=== PATIENT | female | born 1935 | race Caucasian/White ===

== ENCOUNTER → 2016-11-02 | Outpatient (CLI) | payer OTHER ==
[2016-11-02] VITALS (7 sets, daily range): BP systolic 125–169; BP diastolic 55–69
[~2016-11-02] MED LIST: ACETAMINOPHEN 325 MG TABLET. PO ONE; ALPR0.25 PO; ASPI-482 PO; CALC-98 PO; CALC500T50 PO; CETI10TA16 PO; CLOP75TA PO; DIGO125T PO; DIPHENHYDRAMINE HCL 25 MG CAPSULE PO ONE; FURO40TA4 PO; FUROSEMIDE 20 MG/2 ML VIAL IVP ONE; GLIP10TA13 PO; HYDR-2678 PO; INSU100I13 SQ; INSU100V13 SQ; MECL25TA3 PO; METF500T4 PO; METO100T5 PO; METO25TA9 PO; MULT-245 PO; NITR0.4T6 SL; NITR100C62 PO; NITR1PAT3 TD; OMEP20CA9 PO; OMEP40CA5 PO; POTA20TA12 PO; PROAIR HFA8.5 GM INH; SENN1TAB70 PO; SPIR25TA3 PO; TRIA340. TP; WARF5TAB7 PO
[2016-11-02 08:12] LABS: HEMOGLOBIN 5.8 g/dL (12.0-15.5)
== END | disposition home or self-care (01) ==
LOC: OPS 07:10
PROVIDERS: ATTEND Internal Medicine Hematology & Oncology
DX: D50.8 Other iron deficiency anemias (principal)
CPT/HCPCS: 36415; 36430; 85014; 85018; 86850; 86870; 86900; 86901; 86902; 86922; 96374; P9016; Q0163

== ENCOUNTER 2016-11-04 17:04 | Inpatient (IN) | payer OTHER ==
[~2016-11-04] VITALS: Ht 157.5 cm; Wt 98.4 kg
[~2016-11-04 17:04] MED LIST changes: -ACETAMINOPHEN 325 MG TABLET. PO ONE; -CALC-98 PO; -DIPHENHYDRAMINE HCL 25 MG CAPSULE PO ONE; -FUROSEMIDE 20 MG/2 ML VIAL IVP ONE; -NITR100C62 PO; -OMEP20CA9 PO
--- NOTE | 2016-11-04 19:04 | PHYS DOC ---
Past Medical History Past Medical History: Anemia, CHF, COPD, Diabetes-Type II, High Cholesterol, Hypertension, UTI, Other Additional Past Medical Histor: MACULAR DEGENERATION Past Surgical History: Cholecystectomy, , Pacemaker Additional Past Surgical Histo: herniorrhaphy X 2 Alcohol Use: None Drug Use: None Adult General Chief Complaint Chief Complaint: BLOOD IN URINE HPI HPI Patient is a 81 year old female who presents with hematuria. Patient brought in by her daughters, after she has had continued hematuria. She started having this as well as lower abdominal cramping on Monday. She was seen by PCP and started on Macrobid for UTI. She has continued to have symptoms from since then. Per daughter's report that 2 days ago she had to have blood transfusion for chronic anemia. Of note, patient does take Coumadin and Plavix for A. fib and coronary artery disease. Review of Systems Review of Systems Constitutional: Denies fever or chills Eyes: Denies change in visual acuity or eye pain HENT: Denies nasal congestion or sore throat Respiratory: Denies cough or shortness of breath Cardiovascular: Denies chest pain GI: Lower abdominal cramping. Denies nausea, vomiting, bloody stools or diarrhea : Hematuria, frequency Musculoskeletal: Lower back ache. Denies joint pain Integument: Denies rash or skin lesions Neurologic: Denies headache, focal weakness or sensory changes Current Medications Current Medications Current Medications Medications (Trade) Dose Ordered Sig/Kenzie Start Time Stop Time Status Last Admin Dose Admin Acetaminophen (Tylenol) 650 mg PRN Q6HRS PRN 11/04/16 20:30 UNV Acetaminophen/ Hydrocodone Bitart (Lortab 5/325) 1 tab PRN Q6HRS PRN 11/04/16 20:30 UNV Alprazolam (Xanax) 0.25 mg HS PRN 11/04/16 20:30 UNV Aspirin (Ecotrin) 81 mg DAILY 11/05/16 09:00 UNV Ceftriaxone Sodium/Sodium Chloride (Rocephin/Iv Sodium Chloride 0.9% 50ml) 50 ml @ 100 mls/hr Q24H 11/05/16 08:00 UNV Ceftriaxone Sodium (Rocephin 1gm Ivpb For Omni) 50 ml @ 100 mls/hr 1X ONCE 11/04/16 20:00 11/04/16 20:29 DC 11/04/16 20:08 100 MLS/HR Cetirizine HCl (Zyrtec) 10 mg DAILY 11/05/16 09:00 UNV Clopidogrel Bisulfate (Plavix) 75 mg DAILY 11/05/16 09:00 UNV Dextrose 12.5 gm PRN Q15MIN PRN 11/04/16 20:30 UNV Digoxin (Lanoxin) 125 mcg DAILY 11/05/16 09:00 UNV Furosemide (Lasix) 20 mg BID 11/04/16 21:00 UNV Insulin Aspart (Novolog) 0-9 UNITS TIDWMEALS 11/05/16 08:00 UNV Metformin HCl (Glucophage) 500 mg BIDWMEALS 11/05/16 08:00 UNV Metoprolol Succinate (Toprol Xl) 25 mg BID 11/04/16 21:00 UNV Morphine Sulfate 2 mg PRN Q2HR PRN 11/04/16 20:15 11/05/16 20:14 Nitroglycerin (Nitrostat) 0.4 mg PRN Q5MIN PRN 11/04/16 20:30 UNV Non-Formulary Medication 1 each DAILY 11/05/16 09:00 UNV Ondansetron HCl (Zofran) 4 mg PRN Q8HRS PRN 11/04/16 20:15 11/05/16 20:14 Ondansetron HCl 4 mg 4 mg PRN Q6HRS PRN 11/04/16 20:30 UNV Potassium Chloride (Klor-Con) 20 meq DAILY 11/05/16 09:00 UNV Senna/Docusate Sodium (Senna Plus) 2 tab DAILY 11/05/16 09:00 UNV Spironolactone (Aldactone) 25 mg DAILY 11/05/16 09:00 UNV Allergies Allergies Allergies Coded Allergies Type Severity Reaction Last Updated Verified adhesive tape Allergy Intermediate Rash 11/02/16 Yes iron Allergy Intermediate SEE COMMENT 11/02/16 Yes latex Allergy Intermediate Rash 11/02/16 Yes Physical Exam Physical Exam Constitutional: Well developed, well nourished, no acute distress, non-toxic appearance HENT: Normocephalic, atraumatic, bilateral external ears normal Eyes: EOMI, conjunctiva normal, no discharge Neck: Normal range of motion, no stridor Cardiovascular: Heart rate normal, regular rhythm, murmur noted Lungs & Thorax: Bilateral breath sounds clear to auscultation Abdomen: Bowel sounds normal, soft, non-distended, mild suprapubic TTP without guarding or rebound Skin: Warm, dry, no erythema, no rash Back: No tenderness, no skin lesions or deformity Extremities: No obvious deformity, no edema Neurologic: Alert and oriented X 3, no gross deficits noted Psychologic: Affect normal, judgement normal, mood normal Current Patient Data Vital Signs Vital Signs Date Time Temp Pulse Resp B/P Pulse Ox O2 Delivery O2 Flow Rate FiO2 11/04/16 20:54 60 18 140/55 95 11/04/16 18:30 Room Air 11/04/16 17:40 97.8 97.8 Lab Values Laboratory Tests Test 11/04/16 18:00 White Blood Count 12.2x10^3/uL (4.0-11.0) H Red Blood Count 3.24x10^6/uL (3.50-5.40) L Hemoglobin 8.1g/dL (12.0-15.5) #L Hematocrit 27.3% (36.0-47.0) #L Mean Corpuscular Volume 84fL (79-100) Mean Corpuscular Hemoglobin 25pg (25-35) Mean Corpuscular Hemoglobin Concent 30g/dL (31-37) L Red Cell Distribution Width 17.6% (11.5-14.5) H Platelet Count 433x10^3/uL (140-400) H Neutrophils (%) (Auto) 80% (31-73) H Lymphocytes (%) (Auto) 9% (24-48) L Monocytes (%) (Auto) 8% (0-9) Eosinophils (%) (Auto) 2% (0-3) Basophils (%) (Auto) 1% (0-3) Neutrophils # (Auto) 9.8x10^3uL (1.8-7.7) H Lymphocytes # (Auto) 1.1x10^3/uL (1.0-4.8) Monocytes # (Auto) 1.0x10^3/uL (0.0-1.1) Eosinophils # (Auto) 0.3x10^3/uL (0.0-0.7) Basophils # (Auto) 0.1x10^3/uL (0.0-0.2) Platelet Estimate Increased (ADEQUATE) Polychromasia Slight Poikilocytosis Slight Anisocytosis Slight Microcytosis Slight Macrocytosis Slight Prothrombin Time 23.0SEC (11.7-14.0) H Prothrombin Time INR 2.2 (0.8-1.1) H Urine Collection Type Unknown Urine Color Natalya Urine Clarity Cloudy Urine pH 5.5 Urine Specific Dawson 1.020 Urine Protein 30mg/dL (NEG-TRACE) Urine Glucose (UA) Negativemg/dL (NEG) Urine Ketones (Stick) Negativemg/dL (NEG) Urine Blood Large (NEG) Urine Nitrite Negative (NEG) Urine Bilirubin Negative (NEG) Urine Urobilinogen Dipstick 1.0mg/dL (0.2 mg/dL) Urine Leukocyte Esterase Large (NEG) Urine RBC 0/HPF (0-2) Urine WBC Occ/HPF (0-4) Urine Squamous Epithelial Cells Occ/LPF Urine Bacteria Few/HPF (0-FEW) Urine Mucus Slight/LPF Sodium Level 144mmol/L (136-145) Potassium Level 4.3mmol/L (3.5-5.1) Chloride Level 106mmol/L (98-107) Carbon Dioxide Level 31mmol/L (21-32) Anion Gap 7 (6-14) Blood Urea Nitrogen 16mg/dL (7-20) Creatinine 0.9mg/dL (0.6-1.0) Estimated GFR (Cockcroft-Gault) 59.9 BUN/Creatinine Ratio 18 (6-20) Glucose Level 168mg/dL (70-99) H Calcium Level 8.5mg/dL (8.5-10.1) Total Bilirubin 0.4mg/dL (0.2-1.0) Aspartate Amino Transferase (AST) 11U/L (15-37) L Alanine Aminotransferase (ALT) 13U/L (14-59) L Alkaline Phosphatase 96U/L (46-116) Total Protein 6.9g/dL (6.4-8.2) Albumin 3.4g/dL (3.4-5.0) Albumin/Globulin Ratio 1.0 (1.0-1.7) Lipase 286U/L (73-393) Laboratory Tests 11/04/16 18:00 Laboratory Tests 11/04/16 18:00 EKG EKG [] Radiology/Procedures Radiology/Procedures [] Course & Med Decision Making Course & Med Decision Making Pertinent Labs and Imaging studies reviewed. (See chart for details) Patient is 81-year-old female who presents with hematuria and lower abdominal cramping. Likely due to UTI. However there is concern for continued hematuria, even after 4 days of antibiotic treatment. Patient on Coumadin, will check INR. Also check CBC/BMP and UA. Hemoglobin 8.1, INR 2.2. Does have slight leukocytosis. UA shows leukocyte esterase, white blood cells, bacteria. Dose of Rocephin ordered. Discussed results with patient and family. Discussed with Dr. Ray, will admit under her care for further evaluation and treatment. Dragon Disclaimer Dragon Disclaimer This electronic medical record was generated, in whole or in part, using a voice recognition dictation system. Departure Departure Impression: Primary Impression: UTI (urinary tract infection) Additional Impression: Hematuria Disposition: ADMITTED INPATIENT Admitting Physician: Marium Ray Condition: STABLE Referrals: JUDY HUGGINS MD (PCP) Problem Qualifiers MARCOS OVIEDO MD Nov 04, 2016 19:04
[2016-11-04 19:11] LABS: BASO # 0.1 x10^3/uL (0.0-0.2); BASO % 1 % (0-3); EOS % 2 % (0-3); HEMATOCRIT 27.3 % (36.0-47.0); HEMOGLOBIN 8.1 g/dL (12.0-15.5); LYMPH # 1.1 x10^3/uL (1.0-4.8); LYMPH % 9 % (24-48); MEAN CORPUSCULAR HEMOGLOBIN 25 pg (25-35); MEAN CORPUSCULAR HGB CONC 30 g/dL (31-37); MEAN CORPUSCULAR VOLUME 84 fL (79-100); MONO % 8 % (0-9); NEUT % 80 % (31-73); PLATELET COUNT 433 x10^3/uL (140-400); RED BLOOD COUNT 3.24 x10^6/uL (3.50-5.40); RED CELL DISTRIBUTION WIDTH 17.6 % (11.5-14.5); WHITE BLOOD COUNT 12.2 x10^3/uL (4.0-11.0)
[2016-11-04 19:13] LABS: BILIRUBIN,URINE NEGATIVE (NEG); GLUCOSE,URINE NEGATIVE (NEG); NITRITE,URINE NEGATIVE (NEG); PH,URINE 5.5; PROTEIN,URINE 30 mg/dL (NEG-TRACE)
[2016-11-04 19:19] LABS: CALCIUM 8.5 mg/dL (8.5-10.1); CREATININE 0.9 mg/dL (0.6-1.0); GFR 59.9; POTASSIUM 4.3 mmol/L (3.5-5.1)
[2016-11-04 19:21] LABS: INR 2.2 (0.8-1.1)
[2016-11-04 19:26] LABS: ALBUMIN 3.4 g/dL (3.4-5.0); TOTAL BILIRUBIN 0.4 mg/dL (0.2-1.0); TOTAL PROTEIN 6.9 g/dL (6.4-8.2)
[2016-11-04 19:32] LABS: BACTERIA,URINE FEW /HPF (0-FEW); RBC,URINE 0 /HPF (0-2); SQUAMOUS EPITHELIAL CELL,UR OCC /LPF; WBC,URINE OCC /HPF (0-4)
[2016-11-04] MEDS ORDERED: CEFTRIAXONE 1GM IVPB FOR OMNI 50 ML IV ONE (20:00)
[2016-11-04] MEDS ORDERED: ONDANSETRON PF 4 MG/2 ML VIAL. IV PRN ×2 (20:15→20:30)
[2016-11-04] MEDS ORDERED: ACETAMINOPHEN 325 MG TABLET. PO PRN (20:15)
[2016-11-04] MEDS ORDERED: MORPHINE SULFATE 2 MG/ML DISP.SYRIN. IV PRN (20:15)
[2016-11-04] MEDS ORDERED: DEXTROSE 50% 25 GM / 50ML DISP.SYRIN. IV PRN (20:30)
[2016-11-04] MEDS ORDERED: NITROGLYCERIN SUBLINGUAL 0.4 MG BOTTLE OF 25. SL PRN (20:30)
[2016-11-04] MEDS ORDERED: NON FORMULARY ITEM (Albuterol Sulfate (Proair Hfa Inhaler) 1 PUFF) INH PRN (20:30)
--- NOTE | 2016-11-04 20:38 | PDOC1 ---
History and Physical Date of Admission Date of Admission 11/04/16 Identification/Chief Complaint Chief Complaint dysuria, hematuria Problems: Source Source: Caregiver, Chart review, Patient History of Present Illness History of Present Illness 81yo F, h/o afib on warfarin, CAD, on asa, plavix, copd, dm2 on insulin ,comes for dysuria, and hematuria. She also had h/o GIB in 2010 post cauterize. She started to feel dysuria, hematuria since Monday, PCP gave nitrofuritoin, however dysuria and hematuria gets worse. also has urgency. CHronic anemia , iron deficiency , on iron iv, HB 5.8 on Mon, got 2U prbc, now hb 8.1. FEELS lightheaded when stands up. no fever, chills, cough, sob, but has bl mild flank pain, neg cva tenderness. Past Medical History Cardiovascular: AFIB, CHF, HTN Pulmonary: Bronchitis CENTRAL NERVOUS SYSTEM: Periperal neuropathy GI: GERD, GI bleed Heme/Onc: Iron deficiency Anemia Hepatobiliary: No pertinent hx Psych: No pertinent hx Infectious disease: No pertinent hx Renal/: No pertinent hx Endocrine: Diabetes, Hypothyroidism Past Surgical History Past Surgical History: Cholecystectomy, Cataract Removal, Hernia Repair Family History Family History: Cancer, Coronary Artery Disease, Hypothyroidism Social History Smoke: No ALCOHOL: none Drugs: None Current Problem List Problem List Problems Medical Problems: (1) Hematuria Status: Acute (2) UTI (urinary tract infection) Status: Acute Current Medications Current Medications Current Medications Medications (Trade) Dose Ordered Sig/Kenzie Start Time Stop Time Status Last Admin Dose Admin Acetaminophen (Tylenol) 650 mg PRN Q6HRS PRN 11/04/16 20:30 UNV Acetaminophen/ Hydrocodone Bitart (Lortab 5/325) 1 tab PRN Q6HRS PRN 11/04/16 20:30 UNV Alprazolam (Xanax) 0.25 mg HS PRN 11/04/16 20:30 UNV Aspirin (Ecotrin) 81 mg DAILY 11/05/16 09:00 UNV Ceftriaxone Sodium (Rocephin 1gm Ivpb For Omni) 50 ml @ 100 mls/hr 1X ONCE 11/04/16 20:00 11/04/16 20:29 DC 11/04/16 20:08 100 MLS/HR Cetirizine HCl (Zyrtec) 10 mg DAILY 11/05/16 09:00 UNV Clopidogrel Bisulfate (Plavix) 75 mg DAILY 11/05/16 09:00 UNV Dextrose 12.5 gm PRN Q15MIN PRN 11/04/16 20:30 UNV Digoxin (Lanoxin) 125 mcg DAILY 11/05/16 09:00 UNV Furosemide (Lasix) 20 mg BID 11/04/16 21:00 UNV Insulin Aspart (Novolog) 0-9 UNITS TIDWMEALS 11/05/16 08:00 UNV Metformin HCl (Glucophage) 500 mg BIDWMEALS 11/05/16 08:00 UNV Metoprolol Succinate (Toprol Xl) 25 mg BID 11/04/16 21:00 UNV Morphine Sulfate 2 mg PRN Q2HR PRN 11/04/16 20:15 11/05/16 20:14 Nitroglycerin (Nitrostat) 0.4 mg PRN Q5MIN PRN 11/04/16 20:30 UNV Non-Formulary Medication 1 each DAILY 11/05/16 09:00 UNV Ondansetron HCl (Zofran) 4 mg PRN Q6HRS PRN 11/04/16 20:30 UNV Potassium Chloride (Klor-Con) 20 meq DAILY 11/05/16 09:00 UNV Senna/Docusate Sodium (Senna Plus) 2 tab DAILY 11/05/16 09:00 UNV Spironolactone (Aldactone) 25 mg DAILY 11/05/16 09:00 UNV Allergies Allergies Allergies Coded Allergies Type Severity Reaction Last Updated Verified adhesive tape Allergy Intermediate Rash 11/02/16 Yes iron Allergy Intermediate SEE COMMENT 11/02/16 Yes latex Allergy Intermediate Rash 11/02/16 Yes ROS Review of System CONSTITUTIONAL: No fever or chills EYES: No recent changes SKIN: No rash or itching CARDIOVASCULAR: No chest pain, syncope, palpitations, or edema RESPIRATORY: No SOB or cough GASTROINTESTINAL: No nausea, vomiting or abdominal pain NEUROLOGICAL: No headaches or weakness ENDOCRINE: No cold or heat intolerance GENITOURINARY: No urgency or frequency of urination MUSCULOSKELETAL: No back pain or joint pain LYMPHATICS: No enlarged lymph nodes PSYCHIATRIC: No anxiety or depression Physical Exam Physical Exam GEN.: No apparent distress. Alert and oriented. HEENT: Head is normocephalic, atraumatic NECK: Supple. LUNGS: Clear to auscultation. HEART: RRR, S1, S2 present. Peripheral pulses intact ABDOMEN: Soft, nontender. Positive bowel sounds. no CVA tenderness. EXTREMITIES: Without any cyanosis. NEUROLOGIC: Normal speech, normal tone PSYCHIATRIC: Normal affect, normal mood. SKIN: No ulcerations Vitals Vitals Vital Signs Date Time Temp Pulse Resp B/P Pulse Ox O2 Delivery O2 Flow Rate FiO2 11/04/16 19:13 60 19 142/45 94 11/04/16 18:30 Room Air 11/04/16 17:40 97.8 97.8 Labs Labs Laboratory Tests Test 11/04/16 18:00 White Blood Count 12.2x10^3/uL (4.0-11.0) Red Blood Count 3.24x10^6/uL (3.50-5.40) Hemoglobin 8.1g/dL (12.0-15.5) Hematocrit 27.3% (36.0-47.0) Mean Corpuscular Volume 84fL (79-100) Mean Corpuscular Hemoglobin 25pg (25-35) Mean Corpuscular Hemoglobin Concent 30g/dL (31-37) Red Cell Distribution Width 17.6% (11.5-14.5) Platelet Count 433x10^3/uL (140-400) Neutrophils (%) (Auto) 80% (31-73) Lymphocytes (%) (Auto) 9% (24-48) Monocytes (%) (Auto) 8% (0-9) Eosinophils (%) (Auto) 2% (0-3) Basophils (%) (Auto) 1% (0-3) Neutrophils # (Auto) 9.8x10^3uL (1.8-7.7) Lymphocytes # (Auto) 1.1x10^3/uL (1.0-4.8) Monocytes # (Auto) 1.0x10^3/uL (0.0-1.1) Eosinophils # (Auto) 0.3x10^3/uL (0.0-0.7) Basophils # (Auto) 0.1x10^3/uL (0.0-0.2) Prothrombin Time 23.0SEC (11.7-14.0) Prothromb Time International Ratio 2.2 (0.8-1.1) Urine Collection Type Unknown Urine Color Natalya Urine Clarity Cloudy Urine pH 5.5 Urine Specific Mcbee 1.020 Urine Protein 30mg/dL (NEG-TRACE) Urine Glucose (UA) Negativemg/dL (NEG) Urine Ketones (Stick) Negativemg/dL (NEG) Urine Blood Large (NEG) Urine Nitrite Negative (NEG) Urine Bilirubin Negative (NEG) Urine Urobilinogen Dipstick 1.0mg/dL (0.2 mg/dL) Urine Leukocyte Esterase Large (NEG) Urine RBC 0/HPF (0-2) Urine WBC Occ/HPF (0-4) Urine Squamous Epithelial Cells Occ/LPF Urine Bacteria Few/HPF (0-FEW) Urine Mucus Slight/LPF Sodium Level 144mmol/L (136-145) Potassium Level 4.3mmol/L (3.5-5.1) Chloride Level 106mmol/L (98-107) Carbon Dioxide Level 31mmol/L (21-32) Anion Gap 7 (6-14) Blood Urea Nitrogen 16mg/dL (7-20) Creatinine 0.9mg/dL (0.6-1.0) Estimated GFR (Cockcroft-Gault) 59.9 BUN/Creatinine Ratio 18 (6-20) Glucose Level 168mg/dL (70-99) Calcium Level 8.5mg/dL (8.5-10.1) Total Bilirubin 0.4mg/dL (0.2-1.0) Aspartate Amino Transf (AST/SGOT) 11U/L (15-37) Alanine Aminotransferase (ALT/SGPT) 13U/L (14-59) Alkaline Phosphatase 96U/L (46-116) Total Protein 6.9g/dL (6.4-8.2) Albumin 3.4g/dL (3.4-5.0) Albumin/Globulin Ratio 1.0 (1.0-1.7) Lipase 286U/L (73-393) Laboratory Tests Test 11/04/16 18:00 White Blood Count 12.2x10^3/uL (4.0-11.0) Red Blood Count 3.24x10^6/uL (3.50-5.40) Hemoglobin 8.1g/dL (12.0-15.5) Hematocrit 27.3% (36.0-47.0) Mean Corpuscular Volume 84fL (79-100) Mean Corpuscular Hemoglobin 25pg (25-35) Mean Corpuscular Hemoglobin Concent 30g/dL (31-37) Red Cell Distribution Width 17.6% (11.5-14.5) Platelet Count 433x10^3/uL (140-400) Neutrophils (%) (Auto) 80% (31-73) Lymphocytes (%) (Auto) 9% (24-48) Monocytes (%) (Auto) 8% (0-9) Eosinophils (%) (Auto) 2% (0-3) Basophils (%) (Auto) 1% (0-3) Neutrophils # (Auto) 9.8x10^3uL (1.8-7.7) Lymphocytes # (Auto) 1.1x10^3/uL (1.0-4.8) Monocytes # (Auto) 1.0x10^3/uL (0.0-1.1) Eosinophils # (Auto) 0.3x10^3/uL (0.0-0.7) Basophils # (Auto) 0.1x10^3/uL (0.0-0.2) Prothrombin Time 23.0SEC (11.7-14.0) Prothromb Time International Ratio 2.2 (0.8-1.1) Urine Collection Type Unknown Urine Color Natalya Urine Clarity Cloudy Urine pH 5.5 Urine Specific Mcbee 1.020 Urine Protein 30mg/dL (NEG-TRACE) Urine Glucose (UA) Negativemg/dL (NEG) Urine Ketones (Stick) Negativemg/dL (NEG) Urine Blood Large (NEG) Urine Nitrite Negative (NEG) Urine Bilirubin Negative (NEG) Urine Urobilinogen Dipstick 1.0mg/dL (0.2 mg/dL) Urine Leukocyte Esterase Large (NEG) Urine RBC 0/HPF (0-2) Urine WBC Occ/HPF (0-4) Urine Squamous Epithelial Cells Occ/LPF Urine Bacteria Few/HPF (0-FEW) Urine Mucus Slight/LPF Sodium Level 144mmol/L (136-145) Potassium Level 4.3mmol/L (3.5-5.1) Chloride Level 106mmol/L (98-107) Carbon Dioxide Level 31mmol/L (21-32) Anion Gap 7 (6-14) Blood Urea Nitrogen 16mg/dL (7-20) Creatinine 0.9mg/dL (0.6-1.0) Estimated GFR (Cockcroft-Gault) 59.9 BUN/Creatinine Ratio 18 (6-20) Glucose Level 168mg/dL (70-99) Calcium Level 8.5mg/dL (8.5-10.1) Total Bilirubin 0.4mg/dL (0.2-1.0) Aspartate Amino Transf (AST/SGOT) 11U/L (15-37) Alanine Aminotransferase (ALT/SGPT) 13U/L (14-59) Alkaline Phosphatase 96U/L (46-116) Total Protein 6.9g/dL (6.4-8.2) Albumin 3.4g/dL (3.4-5.0) Albumin/Globulin Ratio 1.0 (1.0-1.7) Lipase 286U/L (73-393) VTE Prophylaxis Ordered VTE Prophylaxis Devices: Yes VTE Pharmacological Prophylaxi: No Assessment/Plan Assessment/Plan 1. UTI with dysuria, hematuria 2. on multiple blood thinner with asa, plavix, coumadin 3. PAFIB on warfarin 4. h/o CAD on asa, plavix 5. CHF, stable 6. chronic iron deficient anemia on transfusion and iron iv 7. dm2 on insulin 8. hld 9. htn 10. h/o UTI 11. MACULAR DEGENERATION 12. PPM 13. h/o GIB, no recent dark stool plan: 1. abd/pelvis ct 2. card consult 3. cont asa, plavix, hold warfarin for now inr daily, cbc daily 4. cont home meds levemir 10u qhs, ssi IGLESIA VALLE MD Nov 04, 2016 20:38
[2016-11-04 20:54] LABS: ANISOCYTOSIS SLIGHT; MICROCYTOSIS SLIGHT; PLT ESTIMATE INCREASED (ADEQUATE); POIKILOCYTOSIS SLIGHT
[2016-11-04 20:55] LABS: POLYCHROMASIA SLIGHT
[2016-11-04] MEDS ORDERED: ALBUTEROL SULFATE 2.5 MG/3 ML NEBU. NEB PRN (21:45)
[2016-11-04] MEDS ORDERED: MECLIZINE HCL 12.5 MG TABLET. PO PRN (21:45)
--- NOTE | 2016-11-04 21:57 | RAD ---
PROCEDURE CT abdomen and pelvis without intravenous contrast. HISTORY Back pain and hematuria. TECHNIQUE Helical CT of the abdomen and pelvis was performed without intravenous or oral contrast. Exposure: One or more of the following individualized dose reduction techniques were utilized for this examination: 1. Automated exposure control. 2. Adjustment of the mA and/or kV according to patient size. 3. Use of iterative reconstruction technique. COMPARISON None. FINDINGS Evaluation of solid organs is limited by lack of intravenous contrast. Evaluation of enteric structures may be limited by lack of oral contrast. Images of lower chest demonstrate a cardiac chamber enlargement. Portions of pacemaker seen. No pericardial thickening is identified. Liver, spleen, pancreas, and bilateral adrenal glands are unremarkable. Gallbladder is absent. Aortic atherosclerosis is noted. No bowel obstruction or inflammation is identified. Appendix is without evidence of inflammation. Colonic diverticulosis is noted, but there is no evidence of diverticulitis. Urinary bladder is unremarkable. Uterus and adnexa have unremarkable CT appearance. No free air or free fluid is seen in the abdomen or pelvis. Both kidneys are without evidence of stone or obstruction. Inferior pole of the right kidney demonstrates nonspecific, mildly dense lesion measuring 1.1 centimeters. Interpolar region of the right kidney may demonstrate additional 1.4 centimeter low-density lesion, not adequately assessed. Superior pole of left kidney demonstrates 3.2 centimeter low-density lesion, not adequately assessed. Degenerative dextroconvex scoliosis of the spine is seen. IMPRESSION 1. No acute abnormality identified in the abdomen or pelvis. 2. No evidence of urinary stone. 3. Both kidneys demonstrate lesions which are not adequately characterized on this examination. Given the provided history of hematuria, may want to consider elective, nonemergent renal mass protocol CT without and with intravenous contrast to evaluate for possibility of mass. Electronically signed by: Curry Helton MD (Nov 04, 2016 21:55:49)
[2016-11-04 23:00] VITALS: BP 143/68
--- NOTE | 2016-11-04 23:45 | ACF ---
Admission Forms Criteria URINARY COMPLICATIONS Clinical Indications for Inpatient Care (Place 'X' for any and all applicable criteria): Ongoing inpatient care may be indicated for urinary complications with ANY ONE of the following: [ X]I. Urinary tract infection requiring inpatient care as indicated by ANY ONE of the following(8)(19)(20): [ ]a) Severe symptoms (eg, high fever, severe pain) [ ]b) Vomiting or dehydration requiring ongoing inpatient care [X ]c) IV antibiotic needs that cannot be managed at lower level of care [ ]d) Hemodynamic instability [ ]e) Obstruction of collecting system by stone or tumor [ ]II. Urinary retention requiring drainage or surgery (3)(4)(5)(17)(18) [ ]III. Renal failure (Use Renal Failure Criteria for further information.) [ ]IV. Oliguria(30) [ ]V. Post obstructive diuresis requiring close monitoring of urine output and intravenous compensation for excessive fluid losses(33) Extended stay beyond goal length of stay for primary condition may be needed until ALL of the following are present(3)(4)(5)(8): [ ]a) Renal function (creatinine) at baseline, or daily decreases in creatinine consistent with renal function return [ ]b) Voiding adequately or with urinary catheter or percutaneous suprapubic tube and management regimen in place that is performable at lower level of care. [ ]c) Urine output adequate [ ]d) Fever absent or resolving [ ]e) Infection absent or treatable at next level of care The original [employer] content created by [employer] has been revised. The portions of the content which have been revised are identified through the use of italic text or in bold, and [facility] has neither reviewed nor approved the modified material. All other unmodified content is copyright [employer] Please see references footnoted in the original [employer] edition 2016 Admission Criteria Met?: Yes URBAN CAMPOVERDE Nov 04, 2016 23:45
[2016-11-05] MEDS: ALPRAZOLAM 0.25 MG TABLET PO PRN (01:12)
[2016-11-05] MEDS: METOPROLOL TART IMMED RELEASE 25 MG TABLET PO SCH ×3 (01:15→21:21)
[2016-11-05 03:00] VITALS: BP 125/59
[2016-11-05] MEDS ORDERED: NITR100C62 PO (03:41)
[2016-11-05] MEDS ORDERED: CALC-98 PO (03:41)
[2016-11-05] MEDS ORDERED: OMEP20CA9 PO (03:41)
[2016-11-05 05:54] LABS: BASO # 0.1 x10^3/uL (0.0-0.2); BASO % 1 % (0-3); EOS % 3 % (0-3); HEMATOCRIT 23.3 % (36.0-47.0); HEMOGLOBIN 7.1 g/dL (12.0-15.5); LYMPH % 9 % (24-48); MEAN CORPUSCULAR HEMOGLOBIN 25 pg (25-35); MEAN CORPUSCULAR HGB CONC 30 g/dL (31-37); MEAN CORPUSCULAR VOLUME 84 fL (79-100); MONO % 9 % (0-9); NEUT % 79 % (31-73); PLATELET COUNT 337 x10^3/uL (140-400); RED BLOOD COUNT 2.78 x10^6/uL (3.50-5.40); RED CELL DISTRIBUTION WIDTH 18.5 % (11.5-14.5)
[2016-11-05 06:12] LABS: INR 2.3 (0.8-1.1); PROTHROMBIN TIME PATIENT 23.6 SEC (11.7-14.0)
[2016-11-05 06:41] LABS: CALCIUM 8.6 mg/dL (8.5-10.1); GFR 53.1; POTASSIUM 4.3 mmol/L (3.5-5.1)
[2016-11-05 07:00] VITALS: BP 149/59
[2016-11-05] MEDS: INSULIN ASPART 300 UNITS/3 ML INSULN.PEN SQ SCH ×3 (07:39→17:12)
[2016-11-05] MEDS: GLIPIZIDE 5 MG TABLET PO SCH ×2 (08:02→16:27)
[2016-11-05] MEDS: METFORMIN 500 MG TABLET. PO SCH ×2 (08:02→16:27)
[2016-11-05] MEDS: CLOPIDOGREL BISULFATE 75 MG TABLET PO SCH (08:39)
[2016-11-05] MEDS: CALCIUM CARBONATE 500 MG TABLET PO SCH (08:40)
[2016-11-05] MEDS: SENNOSIDES/DOCUSATE 8.6/50MG TABLET. PO SCH (08:40)
[2016-11-05] MEDS: CETIRIZINE HCL 10 MG TABLET PO SCH (08:41)
[2016-11-05] MEDS: FUROSEMIDE 20 MG TABLET PO SCH ×2 (08:41→16:27)
[2016-11-05] MEDS: DIGOXIN 125 MCG TABLET PO SCH (08:41)
[2016-11-05] MEDS: SPIRONOLACTONE 25 MG TABLET PO SCH (08:41)
[2016-11-05] MEDS: POTASSIUM CHLORIDE 20 MEQ TABLET.ER. PO SCH (08:42)
[2016-11-05] MEDS: ASPIRIN ENTERIC COATED 81 MG TABLET.DR. PO SCH (08:42)
[2016-11-05] MEDS: MULTIVITAMIN with MINERAL TABLET. PO SCH (08:42)
--- NOTE | 2016-11-05 09:25 | PDOC2 ---
CARDIAC CONSULT DATE OF CONSULT Date of Consult DATE: 11/05/16 TIME: 09:16 REASON FOR CONSULT Reason for Consult: History of AFIB and CHF REFERRING PHYSICIAN Referring Physician: Dr. Ray SOURCE Source: Chart review, Patient HISTORY OF PRESENT ILLNESS HISTORY OF PRESENT ILLNESS This is an 81 yo female, with a history of CAD s/p PCI/ALEXIS to LAD, chronic CHF, AFIB, HTN, and tachy-astrid s/p PPM, who presented with complaints of hematuria. Patient reports vagina spotting began last Monday. Went to PCP early last week. Was treated for UTI. Hgb noted at 5.8. Two units PRBCs transfused last Monday. On , patient woke up with significant amount of hematuria. Reports recent fatigue associated with severe anemia. Otherwise, patient has been feeling well recently. Denies any CP, palpitations, dizziness, diaphoresis , orthopnea, or LI. Has been compliant with medications. Presently taking DAPT with ASA and Plavix with recent stent along with warfarin for stroke prophylaxis with chronic AFIB. PAST MEDICAL HISTORY Past Medical History Cardiovascular: AFIB, CAD (s/p PCI/ALEXIS to LAD), CHF, HTN Pulmonary: No pertinent hx, Pneumonia, Other (ISREAL) GI: GERD Heme/Onc: Anemia NOS Hepatobiliary: No pertinent hx Psych: No pertinent hx Musculoskeletal: low back pain, Osteoarthritis Rheumatologic: No pertinent hx Infectious disease: No pertinent hx ENT: No pertinent hx Renal/: No pertinent hx Endocrine: Diabetes Dermatology: No pertinent hx PAST SURGICAL HISTORY Past Surgical History: Pacemaker, Hernia Repair, Hysterectomy, Other (T & A, oophorectomy ) FAMILY HISTORY Family History: Other (noncontributory ) SOCIAL HISTORY Smoke: No ALCOHOL: none Drugs: None Lives: with Family CURRENT MEDICATIONS CURRENT MEDICATIONS Current Medications Medications (Trade) Dose Ordered Sig/Kenzie Route PRN Reason Start Time Stop Time Status Last Admin Dose Admin Ceftriaxone Sodium (Rocephin 1gm Ivpb For Omni) 50 ml @ 100 mls/hr 1X ONCE IV 11/04/16 20:00 11/04/16 20:29 DC 11/04/16 20:08 Alprazolam (Xanax) 0.25 mg PRN QHS PRN PO ANXIETY / AGITATION 11/04/16 20:30 11/05/16 01:12 Aspirin (Ecotrin) 81 mg DAILY PO 11/05/16 09:00 11/05/16 08:42 Cetirizine HCl (Zyrtec) 10 mg DAILY PO 11/05/16 09:00 11/05/16 08:41 Clopidogrel Bisulfate (Plavix) 75 mg DAILY PO 11/05/16 09:00 11/05/16 08:39 Digoxin (Lanoxin) 125 mcg DAILY PO 11/05/16 09:00 11/05/16 08:41 Furosemide (Lasix) 20 mg BID94 PO 11/05/16 09:00 11/05/16 08:41 Metformin HCl (Glucophage) 500 mg BIDWMEALS PO 11/05/16 08:00 11/05/16 08:02 Metoprolol Tartrate (Lopressor) 25 mg BID PO 11/05/16 01:30 11/05/16 08:39 Potassium Chloride (Klor-Con) 20 meq DAILY PO 11/05/16 09:00 11/05/16 08:42 Senna/Docusate Sodium (Senna Plus) 2 tab DAILY PO 11/05/16 09:00 11/05/16 08:40 Spironolactone (Aldactone) 25 mg DAILY PO 11/05/16 09:00 11/05/16 08:41 Calcium Carbonate/ Glycine (Oscal) 500 mg DAILY PO 11/05/16 09:00 11/05/16 08:40 Glipizide (Glucotrol) 10 mg BIDBFRMEAL PO 11/05/16 07:30 11/05/16 08:02 Multivitamins/ Calcium (Thera M Plus) 1 tab DAILY PO 11/05/16 09:00 11/05/16 08:42 ALLERGIES ALLERGIES: Coded Allergies: adhesive tape (Verified Allergy, Intermediate, Rash, 11/02/16) iron (Verified Allergy, Intermediate, SEE COMMENT, 11/02/16) iron DEXTRAN INFUSION VENOFER [place] latex (Verified Allergy, Intermediate, Rash, 11/02/16) ROS Review of System 14 point ROS conducted with pertinent positives noted above in HPI PHYSICAL EXAM General: Alert, Oriented X3, Cooperative, No acute distress HEENT: Atraumatic, Mucous membr. moist/pink Lungs: Clear to auscultation, Other (diminished bases ) Heart: Normal S1, Normal S2, Other (IRRR; not on tele ) Abdomen: Soft, No tenderness, Other (obese ) Extremities: No cyanosis, Normal pulses, Other (trace LE edema ) Skin: No significant lesion Neuro: Normal speech, Sensation intact Psych/Mental Status: Mental status NL, Mood NL MUSCULOSKELETAL: Osteoarthritic changes both hands VITALS VITALS Vital Signs Date Time Temp Pulse Resp B/P Pulse Ox O2 Delivery O2 Flow Rate FiO2 11/05/16 08:41 64 125/59 11/05/16 07:00 98.0 22 98 Room Air 98.0 LABS Lab: Laboratory Tests Test 11/04/16 18:00 11/05/16 05:20 11/05/16 07:12 White Blood Count 12.2x10^3/uL (4.0-11.0) 11.0x10^3/uL (4.0-11.0) Red Blood Count 3.24x10^6/uL (3.50-5.40) 2.78x10^6/uL (3.50-5.40) Hemoglobin 8.1g/dL (12.0-15.5) 7.1g/dL (12.0-15.5) Hematocrit 27.3% (36.0-47.0) 23.3% (36.0-47.0) Mean Corpuscular Volume 84fL (79-100) 84fL (79-100) Mean Corpuscular Hemoglobin 25pg (25-35) 25pg (25-35) Mean Corpuscular Hemoglobin Concent 30g/dL (31-37) 30g/dL (31-37) Red Cell Distribution Width 17.6% (11.5-14.5) 18.5% (11.5-14.5) Platelet Count 433x10^3/uL (140-400) 337x10^3/uL (140-400) Neutrophils (%) (Auto) 80% (31-73) 79% (31-73) Lymphocytes (%) (Auto) 9% (24-48) 9% (24-48) Monocytes (%) (Auto) 8% (0-9) 9% (0-9) Eosinophils (%) (Auto) 2% (0-3) 3% (0-3) Basophils (%) (Auto) 1% (0-3) 1% (0-3) Neutrophils # (Auto) 9.8x10^3uL (1.8-7.7) 8.7x10^3uL (1.8-7.7) Lymphocytes # (Auto) 1.1x10^3/uL (1.0-4.8) 1.0x10^3/uL (1.0-4.8) Monocytes # (Auto) 1.0x10^3/uL (0.0-1.1) 1.0x10^3/uL (0.0-1.1) Eosinophils # (Auto) 0.3x10^3/uL (0.0-0.7) 0.3x10^3/uL (0.0-0.7) Basophils # (Auto) 0.1x10^3/uL (0.0-0.2) 0.1x10^3/uL (0.0-0.2) Platelet Estimate Increased (ADEQUATE) Polychromasia Slight Poikilocytosis Slight Anisocytosis Slight Microcytosis Slight Macrocytosis Slight Prothrombin Time 23.0SEC (11.7-14.0) 23.6SEC (11.7-14.0) Prothromb Time International Ratio 2.2 (0.8-1.1) 2.3 (0.8-1.1) Urine Collection Type Unknown Urine Color Natalya Urine Clarity Cloudy Urine pH 5.5 Urine Specific [place] 1.020 Urine Protein 30mg/dL (NEG-TRACE) Urine Glucose (UA) Negativemg/dL (NEG) Urine Ketones (Stick) Negativemg/dL (NEG) Urine Blood Large (NEG) Urine Nitrite Negative (NEG) Urine Bilirubin Negative (NEG) Urine Urobilinogen Dipstick 1.0mg/dL (0.2 mg/dL) Urine Leukocyte Esterase Large (NEG) Urine RBC 0/HPF (0-2) Urine WBC Occ/HPF (0-4) Urine Squamous Epithelial Cells Occ/LPF Urine Bacteria Few/HPF (0-FEW) Urine Mucus Slight/LPF Sodium Level 144mmol/L (136-145) 143mmol/L (136-145) Potassium Level 4.3mmol/L (3.5-5.1) 4.3mmol/L (3.5-5.1) Chloride Level 106mmol/L (98-107) 105mmol/L (98-107) Carbon Dioxide Level 31mmol/L (21-32) 32mmol/L (21-32) Anion Gap 7 (6-14) 6 (6-14) Blood Urea Nitrogen 16mg/dL (7-20) 16mg/dL (7-20) Creatinine 0.9mg/dL (0.6-1.0) 1.0mg/dL (0.6-1.0) Estimated GFR (Cockcroft-Gault) 59.9 53.1 BUN/Creatinine Ratio 18 (6-20) Glucose Level 168mg/dL (70-99) 184mg/dL (70-99) Calcium Level 8.5mg/dL (8.5-10.1) 8.6mg/dL (8.5-10.1) Total Bilirubin 0.4mg/dL (0.2-1.0) Aspartate Amino Transf (AST/SGOT) 11U/L (15-37) Alanine Aminotransferase (ALT/SGPT) 13U/L (14-59) Alkaline Phosphatase 96U/L (46-116) Total Protein 6.9g/dL (6.4-8.2) Albumin 3.4g/dL (3.4-5.0) Albumin/Globulin Ratio 1.0 (1.0-1.7) Lipase 286U/L (73-393) Glucose (Fingerstick) 125mg/dL (70-99) ECHOCARDIOGRAM ECHOCARDIOGRAM <Conclusion> Left ventricle systolic function is severely impaired. The Ejection Fraction is 20-25%. The mid to distal inferior septum, inferior and apex are severely hypokinetic to akinetic. The anterior wall appears to be moderately hypokinetic. Remainder of the LV has global hypokinesis in the mild to moderate degree. Suspect moderate diastolic dysfunction. The aortic valve is moderately calcified. The aortic valve is trileaflet. DATE: 04/18/16 1701 HEART CATH HEART CATH Conclusion 1. Severe single-vessel coronary artery disease 2. Successful PCI/drug eluting stent placement to the left anterior descending artery 3. Apical wall hypokinesis with ejection fraction estimated at 45% Recommendations 1. Aspirin 81 mg daily (patient has history of anemia from possible GI bleed) 2. Plavix 75 mg daily for atleast 6 months and preferably one year 3. Cardiovascular risk factor modification. DATE: 07/25/16 0857 ASSESSMENT/PLAN ASSESSMENT/PLAN 1. Chronic AFIB rate controlled with Digoxin and metoprolol place on tele hold warfarin with ongoing hematuria/acute blood loss anemia 2. Chronic systolic HF LVEF 20-25% per recent echo clinically well- compensated continue optimization therapy. Add ACEi outpatient echo scheduled to re-evaluate LV function/assess need for AICD in prevention of SCD 3. CAD s/p PCI/ALEXIS to LAD stable. CP free continue secondary prevention including DAPT with ASA and Plavix 4. Hematuria ? renal mass hold warfarin. Hgb 7.1. transfuse as warranted recommend urology consultation HTN controlled. continue with current therapy HLP LDL= 73 Problems: ELVI SALMON APRN Nov 05, 2016 09:25
[2016-11-05 11:00] VITALS: BP 134/64
--- NOTE | 2016-11-05 12:01 | PDOC ---
Provider Note Provider Note Urology: c/c hematuria, small renal masses Patient with physician, will come back tomorrow Plan: ordered renal US await urine C&S Will need cystoscopy evaluation EMANI SALAZAR DO Nov 05, 2016 12:01
--- NOTE | 2016-11-05 12:51 | PDOC ---
PROGRESS NOTES Chief Complaint Chief Complaint 1. UTI with dysuria, hematuria 2. on multiple blood thinner with asa, plavix, coumadin 3. PAFIB on warfarin 4. h/o CAD on asa, plavix 5. CHF, stable 6. chronic iron deficient anemia on transfusion and iron iv 7. dm2 on insulin 8. hld 9. htn 10. h/o UTI 11. MACULAR DEGENERATION 12. PPM 13. h/o GIB, no recent dark stool History of Present Illness History of Present Illness feels ok She actually gets BT every so often for anemia LAst one was just this week, 2 prbc - done here as OP She gets it for hx GI bleeds, needs to be on blood thinners for CAD related issues (on warf for atrial fib and plavix) NOw, new gross hematuria with some dysuria CTs can shows renal density could be renal mass Denies weight loss Watching tv comfortable PLAn: [facility]t urology Might need dedicated imaging to see if this density is a renal mass Monitor hgb Cards consulted on admission Add pT/OT Agree with holding warfarin and cont plavix until cards sees pt Might need cysto Dw pt plan of care -agreeable MDM complex Vitals Vitals Vital Signs Date Time Temp Pulse Resp B/P Pulse Ox O2 Delivery O2 Flow Rate FiO2 11/05/16 11:00 97.9 69 20 134/64 99 Room Air 97.9 Physical Exam Lungs: Clear Labs LABS Laboratory Tests Test 11/04/16 18:00 11/05/16 05:20 11/05/16 07:12 11/05/16 11:19 White Blood Count 12.2x10^3/uL (4.0-11.0) 11.0x10^3/uL (4.0-11.0) Red Blood Count 3.24x10^6/uL (3.50-5.40) 2.78x10^6/uL (3.50-5.40) Hemoglobin 8.1g/dL (12.0-15.5) 7.1g/dL (12.0-15.5) Hematocrit 27.3% (36.0-47.0) 23.3% (36.0-47.0) Mean Corpuscular Volume 84fL (79-100) 84fL (79-100) Mean Corpuscular Hemoglobin 25pg (25-35) 25pg (25-35) Mean Corpuscular Hemoglobin Concent 30g/dL (31-37) 30g/dL (31-37) Red Cell Distribution Width 17.6% (11.5-14.5) 18.5% (11.5-14.5) Platelet Count 433x10^3/uL (140-400) 337x10^3/uL (140-400) Neutrophils (%) (Auto) 80% (31-73) 79% (31-73) Lymphocytes (%) (Auto) 9% (24-48) 9% (24-48) Monocytes (%) (Auto) 8% (0-9) 9% (0-9) Eosinophils (%) (Auto) 2% (0-3) 3% (0-3) Basophils (%) (Auto) 1% (0-3) 1% (0-3) Neutrophils # (Auto) 9.8x10^3uL (1.8-7.7) 8.7x10^3uL (1.8-7.7) Lymphocytes # (Auto) 1.1x10^3/uL (1.0-4.8) 1.0x10^3/uL (1.0-4.8) Monocytes # (Auto) 1.0x10^3/uL (0.0-1.1) 1.0x10^3/uL (0.0-1.1) Eosinophils # (Auto) 0.3x10^3/uL (0.0-0.7) 0.3x10^3/uL (0.0-0.7) Basophils # (Auto) 0.1x10^3/uL (0.0-0.2) 0.1x10^3/uL (0.0-0.2) Platelet Estimate Increased (ADEQUATE) Polychromasia Slight Poikilocytosis Slight Anisocytosis Slight Microcytosis Slight Macrocytosis Slight Prothrombin Time 23.0SEC (11.7-14.0) 23.6SEC (11.7-14.0) Prothromb Time International Ratio 2.2 (0.8-1.1) 2.3 (0.8-1.1) Urine Collection Type Unknown Urine Color Natalya Urine Clarity Cloudy Urine pH 5.5 Urine Specific [place] 1.020 Urine Protein 30mg/dL (NEG-TRACE) Urine Glucose (UA) Negativemg/dL (NEG) Urine Ketones (Stick) Negativemg/dL (NEG) Urine Blood Large (NEG) Urine Nitrite Negative (NEG) Urine Bilirubin Negative (NEG) Urine Urobilinogen Dipstick 1.0mg/dL (0.2 mg/dL) Urine Leukocyte Esterase Large (NEG) Urine RBC 0/HPF (0-2) Urine WBC Occ/HPF (0-4) Urine Squamous Epithelial Cells Occ/LPF Urine Bacteria Few/HPF (0-FEW) Urine Mucus Slight/LPF Sodium Level 144mmol/L (136-145) 143mmol/L (136-145) Potassium Level 4.3mmol/L (3.5-5.1) 4.3mmol/L (3.5-5.1) Chloride Level 106mmol/L (98-107) 105mmol/L (98-107) Carbon Dioxide Level 31mmol/L (21-32) 32mmol/L (21-32) Anion Gap 7 (6-14) 6 (6-14) Blood Urea Nitrogen 16mg/dL (7-20) 16mg/dL (7-20) Creatinine 0.9mg/dL (0.6-1.0) 1.0mg/dL (0.6-1.0) Estimated GFR (Cockcroft-Gault) 59.9 53.1 BUN/Creatinine Ratio 18 (6-20) Glucose Level 168mg/dL (70-99) 184mg/dL (70-99) Calcium Level 8.5mg/dL (8.5-10.1) 8.6mg/dL (8.5-10.1) Total Bilirubin 0.4mg/dL (0.2-1.0) Aspartate Amino Transf (AST/SGOT) 11U/L (15-37) Alanine Aminotransferase (ALT/SGPT) 13U/L (14-59) Alkaline Phosphatase 96U/L (46-116) Total Protein 6.9g/dL (6.4-8.2) Albumin 3.4g/dL (3.4-5.0) Albumin/Globulin Ratio 1.0 (1.0-1.7) Lipase 286U/L (73-393) Glucose (Fingerstick) 125mg/dL (70-99) 163mg/dL (70-99) Review of Systems Review of Systems hematuria, dysuria, no abd pain, no CP, no SOA Assessment and Plan Assessmemt and Plan Problems Medical Problems: (1) Hematuria Status: Acute (2) UTI (urinary tract infection) Status: Acute Problems: Comment Review of Relevant I have reviewed the following items la (where applicable) has been applied. Labs Laboratory Tests Test 11/04/16 18:00 11/05/16 05:20 11/05/16 07:12 11/05/16 11:19 White Blood Count 12.2x10^3/uL (4.0-11.0) 11.0x10^3/uL (4.0-11.0) Red Blood Count 3.24x10^6/uL (3.50-5.40) 2.78x10^6/uL (3.50-5.40) Hemoglobin 8.1g/dL (12.0-15.5) 7.1g/dL (12.0-15.5) Hematocrit 27.3% (36.0-47.0) 23.3% (36.0-47.0) Mean Corpuscular Volume 84fL (79-100) 84fL (79-100) Mean Corpuscular Hemoglobin 25pg (25-35) 25pg (25-35) Mean Corpuscular Hemoglobin Concent 30g/dL (31-37) 30g/dL (31-37) Red Cell Distribution Width 17.6% (11.5-14.5) 18.5% (11.5-14.5) Platelet Count 433x10^3/uL (140-400) 337x10^3/uL (140-400) Neutrophils (%) (Auto) 80% (31-73) 79% (31-73) Lymphocytes (%) (Auto) 9% (24-48) 9% (24-48) Monocytes (%) (Auto) 8% (0-9) 9% (0-9) Eosinophils (%) (Auto) 2% (0-3) 3% (0-3) Basophils (%) (Auto) 1% (0-3) 1% (0-3) Neutrophils # (Auto) 9.8x10^3uL (1.8-7.7) 8.7x10^3uL (1.8-7.7) Lymphocytes # (Auto) 1.1x10^3/uL (1.0-4.8) 1.0x10^3/uL (1.0-4.8) Monocytes # (Auto) 1.0x10^3/uL (0.0-1.1) 1.0x10^3/uL (0.0-1.1) Eosinophils # (Auto) 0.3x10^3/uL (0.0-0.7) 0.3x10^3/uL (0.0-0.7) Basophils # (Auto) 0.1x10^3/uL (0.0-0.2) 0.1x10^3/uL (0.0-0.2) Platelet Estimate Increased (ADEQUATE) Polychromasia Slight Poikilocytosis Slight Anisocytosis Slight Microcytosis Slight Macrocytosis Slight Prothrombin Time 23.0SEC (11.7-14.0) 23.6SEC (11.7-14.0) Prothromb Time International Ratio 2.2 (0.8-1.1) 2.3 (0.8-1.1) Urine Collection Type Unknown Urine Color Natalya Urine Clarity Cloudy Urine pH 5.5 Urine Specific [place] 1.020 Urine Protein 30mg/dL (NEG-TRACE) Urine Glucose (UA) Negativemg/dL (NEG) Urine Ketones (Stick) Negativemg/dL (NEG) Urine Blood Large (NEG) Urine Nitrite Negative (NEG) Urine Bilirubin Negative (NEG) Urine Urobilinogen Dipstick 1.0mg/dL (0.2 mg/dL) Urine Leukocyte Esterase Large (NEG) Urine RBC 0/HPF (0-2) Urine WBC Occ/HPF (0-4) Urine Squamous Epithelial Cells Occ/LPF Urine Bacteria Few/HPF (0-FEW) Urine Mucus Slight/LPF Sodium Level 144mmol/L (136-145) 143mmol/L (136-145) Potassium Level 4.3mmol/L (3.5-5.1) 4.3mmol/L (3.5-5.1) Chloride Level 106mmol/L (98-107) 105mmol/L (98-107) Carbon Dioxide Level 31mmol/L (21-32) 32mmol/L (21-32) Anion Gap 7 (6-14) 6 (6-14) Blood Urea Nitrogen 16mg/dL (7-20) 16mg/dL (7-20) Creatinine 0.9mg/dL (0.6-1.0) 1.0mg/dL (0.6-1.0) Estimated GFR (Cockcroft-Gault) 59.9 53.1 BUN/Creatinine Ratio 18 (6-20) Glucose Level 168mg/dL (70-99) 184mg/dL (70-99) Calcium Level 8.5mg/dL (8.5-10.1) 8.6mg/dL (8.5-10.1) Total Bilirubin 0.4mg/dL (0.2-1.0) Aspartate Amino Transf (AST/SGOT) 11U/L (15-37) Alanine Aminotransferase (ALT/SGPT) 13U/L (14-59) Alkaline Phosphatase 96U/L (46-116) Total Protein 6.9g/dL (6.4-8.2) Albumin 3.4g/dL (3.4-5.0) Albumin/Globulin Ratio 1.0 (1.0-1.7) Lipase 286U/L (73-393) Glucose (Fingerstick) 125mg/dL (70-99) 163mg/dL (70-99) Laboratory Tests Test 11/04/16 18:00 11/05/16 05:20 11/05/16 07:12 11/05/16 11:19 White Blood Count 12.2x10^3/uL (4.0-11.0) 11.0x10^3/uL (4.0-11.0) Red Blood Count 3.24x10^6/uL (3.50-5.40) 2.78x10^6/uL (3.50-5.40) Hemoglobin 8.1g/dL (12.0-15.5) 7.1g/dL (12.0-15.5) Hematocrit 27.3% (36.0-47.0) 23.3% (36.0-47.0) Mean Corpuscular Volume 84fL (79-100) 84fL (79-100) Mean Corpuscular Hemoglobin 25pg (25-35) 25pg (25-35) Mean Corpuscular Hemoglobin Concent 30g/dL (31-37) 30g/dL (31-37) Red Cell Distribution Width 17.6% (11.5-14.5) 18.5% (11.5-14.5) Platelet Count 433x10^3/uL (140-400) 337x10^3/uL (140-400) Neutrophils (%) (Auto) 80% (31-73) 79% (31-73) Lymphocytes (%) (Auto) 9% (24-48) 9% (24-48) Monocytes (%) (Auto) 8% (0-9) 9% (0-9) Eosinophils (%) (Auto) 2% (0-3) 3% (0-3) Basophils (%) (Auto) 1% (0-3) 1% (0-3) Neutrophils # (Auto) 9.8x10^3uL (1.8-7.7) 8.7x10^3uL (1.8-7.7) Lymphocytes # (Auto) 1.1x10^3/uL (1.0-4.8) 1.0x10^3/uL (1.0-4.8) Monocytes # (Auto) 1.0x10^3/uL (0.0-1.1) 1.0x10^3/uL (0.0-1.1) Eosinophils # (Auto) 0.3x10^3/uL (0.0-0.7) 0.3x10^3/uL (0.0-0.7) Basophils # (Auto) 0.1x10^3/uL (0.0-0.2) 0.1x10^3/uL (0.0-0.2) Platelet Estimate Increased (ADEQUATE) Polychromasia Slight Poikilocytosis Slight Anisocytosis Slight Microcytosis Slight Macrocytosis Slight Prothrombin Time 23.0SEC (11.7-14.0) 23.6SEC (11.7-14.0) Prothromb Time International Ratio 2.2 (0.8-1.1) 2.3 (0.8-1.1) Urine Collection Type Unknown Urine Color Natalya Urine Clarity Cloudy Urine pH 5.5 Urine Specific [place] 1.020 Urine Protein 30mg/dL (NEG-TRACE) Urine Glucose (UA) Negativemg/dL (NEG) Urine Ketones (Stick) Negativemg/dL (NEG) Urine Blood Large (NEG) Urine Nitrite Negative (NEG) Urine Bilirubin Negative (NEG) Urine Urobilinogen Dipstick 1.0mg/dL (0.2 mg/dL) Urine Leukocyte Esterase Large (NEG) Urine RBC 0/HPF (0-2) Urine WBC Occ/HPF (0-4) Urine Squamous Epithelial Cells Occ/LPF Urine Bacteria Few/HPF (0-FEW) Urine Mucus Slight/LPF Sodium Level 144mmol/L (136-145) 143mmol/L (136-145) Potassium Level 4.3mmol/L (3.5-5.1) 4.3mmol/L (3.5-5.1) Chloride Level 106mmol/L (98-107) 105mmol/L (98-107) Carbon Dioxide Level 31mmol/L (21-32) 32mmol/L (21-32) Anion Gap 7 (6-14) 6 (6-14) Blood Urea Nitrogen 16mg/dL (7-20) 16mg/dL (7-20) Creatinine 0.9mg/dL (0.6-1.0) 1.0mg/dL (0.6-1.0) Estimated GFR (Cockcroft-Gault) 59.9 53.1 BUN/Creatinine Ratio 18 (6-20) Glucose Level 168mg/dL (70-99) 184mg/dL (70-99) Calcium Level 8.5mg/dL (8.5-10.1) 8.6mg/dL (8.5-10.1) Total Bilirubin 0.4mg/dL (0.2-1.0) Aspartate Amino Transf (AST/SGOT) 11U/L (15-37) Alanine Aminotransferase (ALT/SGPT) 13U/L (14-59) Alkaline Phosphatase 96U/L (46-116) Total Protein 6.9g/dL (6.4-8.2) Albumin 3.4g/dL (3.4-5.0) Albumin/Globulin Ratio 1.0 (1.0-1.7) Lipase 286U/L (73-393) Glucose (Fingerstick) 125mg/dL (70-99) 163mg/dL (70-99) Medications Current Medications Ceftriaxone Sodium (Rocephin 1gm Ivpb For Omni) 50 ml @ 100 mls/hr 1X ONCE IV Last administered on 11/04/16 20:08; Start 11/04/16 at 20:00; Stop 11/04/16 at 20:29; Status DC Ondansetron HCl (Zofran) 4 mg PRN Q8HRS PRN IV NAUSEA/VOMITING; Start 11/04/16 at 20:15; Stop 11/04/16 at 21:37; Status DC Morphine Sulfate 2 mg PRN Q2HR PRN IV PAIN; Start 11/04/16 at 20:15; Stop 11/05 at 20:14 Acetaminophen (Tylenol) 650 mg PRN Q4HRS PRN PO FEVER; Start 11/04/16 at 20:15 ; Stop 11/04/16 at 21:35; Status DC Alprazolam (Xanax) 0.25 mg PRN QHS PRN PO ANXIETY / AGITATION Last administered on 11/05/16 01:12; Start 11/04/16 at 20:30 Aspirin (Ecotrin) 81 mg DAILY PO Last administered on 11/05/16 08:42; Start at 09:00 Cetirizine HCl (Zyrtec) 10 mg DAILY PO Last administered on 11/05/16 08:41; Start 11/05/16 at 09:00 Clopidogrel Bisulfate (Plavix) 75 mg DAILY PO Last administered on 11/05/16 08 :39; Start 11/05/16 at 09:00 Digoxin (Lanoxin) 125 mcg DAILY PO Last administered on 11/05/16 08:41; Start 11/05/16 at 09:00 Furosemide (Lasix) 20 mg [id number] PO Last administered on 11/05/16 08:41; Start 11/05/16 at 09:00 Acetaminophen/ Hydrocodone Bitart (Lortab 5/325) 1 tab PRN Q6HRS PRN PO MODERATE PAIN; Start 11/04/16 at 20:30 Metformin HCl (Glucophage) 500 mg BIDWMEALS PO Last administered on 11/05/16 08:02; Start 11/05/16 at 08:00 Metoprolol Tartrate (Lopressor) 25 mg BID PO Last administered on 11/05/16 08: 39; Start 11/05/16 at 01:30 Nitroglycerin (Nitrostat) 0.4 mg PRN Q5MIN PRN SL CHEST PAIN; Start 11/04/16 at 20:30 Potassium Chloride (Klor-Con) 20 meq DAILY PO Last administered on 11/05/16 08 :42; Start 11/05/16 at 09:00 Senna/Docusate Sodium (Senna Plus) 2 tab DAILY PO Last administered on 08:40; Start 11/05/16 at 09:00 Spironolactone (Aldactone) 25 mg DAILY PO Last administered on 11/05/16 08:41 ; Start 11/05/16 at 09:00 Non-Formulary Medication 1 puff PRN Q6HRS PRN INH SHORTNESS OF BREATH; Start at 20:30; Status UNV Calcium Carbonate/ Glycine (Oscal) 500 mg DAILY PO Last administered on 08:40; Start 11/05/16 at 09:00 Glipizide (Glucotrol) 10 mg BIDBFRMEAL PO Last administered on 11/05/16 08:02 ; Start 11/05/16 at 07:30 Insulin Detemir (Levemir) 10 units QHS SQ ; Start 11/05/16 at 21:00 Meclizine HCl (Antivert) 25 mg PRN TID PRN PO DIZZINESS; Start 11/04/16 at 21: 45 Multivitamins/ Calcium (Thera M Plus) 1 tab DAILY PO Last administered on 08:42; Start 11/05/16 at 09:00 Insulin Aspart (Novolog) 0-9 UNITS TIDWMEALS SQ Last administered on 11/05/16 12:27; Start 11/05/16 at 08:00 Dextrose 12.5 gm PRN Q15MIN PRN IV SEE COMMENTS; Start 11/04/16 at 20:30 Acetaminophen (Tylenol) 650 mg PRN Q6HRS PRN PO FEVER; Start 11/04/16 at 20:30 Ondansetron HCl 4 mg 4 mg PRN Q6HRS PRN IV NAUSEA; Start 11/04/16 at 20:30 Ceftriaxone Sodium/Sodium Chloride (Rocephin/Iv Sodium Chloride 0.9% 50ml) 50 ml @ 100 mls/hr Q24H IV ; Start 11/05/16 at 20:00 Albuterol Sulfate (Ventolin Neb Soln) 2.5 mg PRN Q6HRS PRN NEB SHORTNESS OF BREATH; Start 11/04/16 at 21:45 Active Scripts Active Reported Calcium + Vitamin D Tablet (Calcium Carbonate/Vitamin D3) 1 Each Tablet 1 Each PO DAILY Macrobid 100 Mg Capsule (Nitrofurantoin Monohyd/M-Cryst) 100 Mg Capsule 100 Mg PO DAILY Omeprazole 20 Mg Capsule.dr 1 Cap PO DAILY Metoprolol Succinate ( Xl ) (Metoprolol Succinate) 25 Mg Tab.er.24h 25 Mg PO BID Clopidogrel (Clopidogrel Bisulfate) 75 Mg Tablet 75 Mg PO DAILY Dermasorb Ta 0.1% Complete Kit (Triamcinolone/Emollient Cmb#86) 340.4 Gm Cream..g. 340.4 Gm TP Meclizine Hcl 25 Mg Tablet 1 Tab PO PRN TID Xanax (Alprazolam) 0.25 Mg Tablet 0.25 Mg PO HS PRN Levemir (Insulin Detemir) 100 Unit/1 Ml Vial 10-12 Unit SQ HS Lortab 5-325 mg Tablet (Hydrocodone/Acetaminophen) 1 Each Tablet 1 Tab PO PRN Q6HRS PRN LAST DOSE GIVEN: MAY TAKE SOON YOU DESIRE. ( NO DOSE GIVEN PRIOR TO DISCHARWGE ) DATE: TIME: NEXT DOSE DUE: DATE: TIME: Proair Hfa Inhaler (Albuterol Sulfate) 8.5 Gm Hfa.aer.ad 1 Puff INH PRN Q6HRS PRN NITROGLYCERIN SubLingual (Nitroglycerin) 0.4 Mg Tab.subl 0.4 Mg SL PRN Q5MIN PRN Multi Vitamin Daily (Multivitamin) 1 Each Tablet 1 Each PO DAILY Stool Softener Tablet (Sennosides/Docusate Sodium) 1 Each Tablet 2 Each PO NEEDED Calcium (Calcium Carbonate) 500 Mg Tab.chew 500 Mg PO DAILY Metformin Hcl 500 Mg Tablet 500 Mg PO BIDWMEALS Cetirizine Hcl 10 Mg Tablet 1 Tab PO DAILY Potassium Chloride 20 Meq Tab.er.prt 20 Meq PO DAILY Warfarin Sodium 5 Mg Tablet 7.5 Mg PO EVERY OTHER DAY Warfarin Sodium 5 Mg Tablet 1 Tab PO EVERY OTHER DAY Furosemide 40 Mg Tablet 40 Mg PO DAILY Spironolactone 25 Mg Tablet 1 Tab PO DAILY Aspir 81 (Aspirin) 81 Mg Tablet. 1 Tab PO DAILY Digoxin 125 Mcg Tablet 1 Tab PO DAILY Glipizide 10 Mg Tablet 1 Tab PO BIDACLD Vitals/I & O Vital Sign - Last 24 Hours 11/04/16 11/04/16 11/04/16 11/04/16 17:40 18:30 19:13 20:00 Temp 97.8 97.8 Pulse 71 60 60 60 Resp 20 20 19 B/P 153/84 147/44 142/45 148/65 Pulse Ox 94 94 94 95 O2 Delivery Room Air Room Air 11/04/16 11/04/16 11/04/16 11/04/16 20:54 22:00 23:00 23:30 Temp 98.0 98.0 Pulse 60 65 61 Resp 18 18 B/P 140/55 167/60 143/68 Pulse Ox 95 94 95 O2 Delivery Room Air Room Air 11/05/16 11/05/16 11/05/16 11/05/16 01:15 03:00 07:00 08:39 Temp 97.8 98.0 97.8 98.0 Pulse 60 60 68 60 Resp 16 22 B/P 146/67 125/59 149/59 125/59 Pulse Ox 94 98 O2 Delivery Room Air 11/05/16 11/05/16 08:41 11:00 Temp 97.9 97.9 Pulse 64 69 Resp 20 B/P 125/59 134/64 Pulse Ox 99 O2 Delivery Room Air Intake and Output 11/04/16 11/04/16 11/05/16 15:00 23:00 07:00 Intake Total 240 ml Balance 240 ml ESTER BARRY MD Nov 05, 2016 12:51
--- NOTE | 2016-11-05 12:58 | RAD ---
Indication renal masses seen on CT. Grayscale imaging was obtained targeted to the kidneys. Note is made of a CT examination yesterday referencing bilateral renal masses The right kidney measures 11.2 x 5.4 x 5.7 cm. There is a hypoechoic 1.3 cm mass, compatible with a cyst, involving the upper pole. A definite solid mass is not seen. The left kidney measures 12.1 x 4.9 x 5.7 cm. There is a hypoechoic 2.8 cm mass associated with the superior pole of the left kidney also compatible with a cyst. The urinary bladder appears grossly normal. IMPRESSION: Bilateral renal cysts
[2016-11-05 15:00] VITALS: BP 120/68
[2016-11-05 19:59] VITALS: BP 174/64
[2016-11-05] MEDS: CEFTRIAXONE SODIUM 1 GM in IV NORMAL SALINE 50ML 50 ML IV SCH (20:01)
[2016-11-05] MEDS: INSULIN DETEMIR 300 UNITS/3 ML INSULN.PEN. SQ SCH (21:18)
[2016-11-05 23:59] VITALS: BP 152/68
[2016-11-06 03:59] VITALS: BP 144/54
[2016-11-06 06:51] LABS: INR 1.7 (0.8-1.1); PROTHROMBIN TIME PATIENT 18.7 SEC (11.7-14.0)
[2016-11-06 07:00] VITALS: BP 120/60
[2016-11-06] MEDS: INSULIN ASPART 300 UNITS/3 ML INSULN.PEN SQ SCH ×3 (07:11→16:08)
[2016-11-06] MEDS: METFORMIN 500 MG TABLET. PO SCH ×2 (07:32→16:38)
[2016-11-06] MEDS: GLIPIZIDE 5 MG TABLET PO SCH ×2 (07:33→16:38)
[2016-11-06] MEDS: FUROSEMIDE 20 MG TABLET PO SCH ×2 (07:33→15:32)
[2016-11-06] MEDS: DIGOXIN 125 MCG TABLET PO SCH (08:50)
[2016-11-06] MEDS: ASPIRIN ENTERIC COATED 81 MG TABLET.DR. PO SCH (08:50)
[2016-11-06] MEDS: CETIRIZINE HCL 10 MG TABLET PO SCH (08:50)
[2016-11-06] MEDS: CALCIUM CARBONATE 500 MG TABLET PO SCH (08:50)
[2016-11-06] MEDS: MULTIVITAMIN with MINERAL TABLET. PO SCH (08:50)
[2016-11-06] MEDS: CLOPIDOGREL BISULFATE 75 MG TABLET PO SCH (08:51)
[2016-11-06] MEDS: SPIRONOLACTONE 25 MG TABLET PO SCH (08:51)
[2016-11-06] MEDS: SENNOSIDES/DOCUSATE 8.6/50MG TABLET. PO SCH (08:51)
[2016-11-06] MEDS: METOPROLOL TART IMMED RELEASE 25 MG TABLET PO SCH ×2 (08:51→20:49)
[2016-11-06] MEDS: POTASSIUM CHLORIDE 20 MEQ TABLET.ER. PO SCH (08:51)
[2016-11-06] MEDS: LISINOPRIL 2.5 MG TABLET PO SCH (08:54)
[2016-11-06 09:52] LABS: HEMATOCRIT 23.5 % (36.0-47.0); HEMOGLOBIN 7.2 g/dL (12.0-15.5)
[2016-11-06 11:00] VITALS: BP 125/57
--- NOTE | 2016-11-06 11:55 | PDOC ---
PROGRESS NOTES Subjective Subjective The patient feels well today. Objective Objective Vital Signs Date Time Temp Pulse Resp B/P Pulse Ox O2 Delivery O2 Flow Rate FiO2 11/06/16 11:00 98.2 60 24 125/57 97 Room Air 98.2 11/06/16 08:00 2.0 Intake and Output 11/06/16 07:00 Intake Total 1320 ml Output Total 900 ml Balance 420 ml Intake Oral 1320 ml Output Urine Total 900 ml Physical Exam Abdomen: Normal bowel sounds Heart: Regular rate General: No acute distress Lungs: Clear to auscultation Assessment Assessment Problems Medical Problems: (1) Hematuria Status: Acute (2) UTI (urinary tract infection) Status: Acute ASSESSMENT/PLAN 1. Chronic AFIB rate controlled with Digoxin and metoprolol on tele holding warfarin with ongoing hematuria/acute blood loss anemia 2. Chronic systolic HF LVEF 20-25% per recent echo clinically well- compensated continue optimization therapy. Add ACEi outpatient echo scheduled to re-evaluate LV function/assess need for AICD in prevention of SCD 3. CAD s/p PCI/ALEXIS to LAD stable. CP free continue secondary prevention including DAPT with ASA and Plavix 4. Hematuria ? renal mass hold warfarin. INR 1.7. H/H stable at 7.2/23.5 urology consultation as above. HTN controlled. continue with current therapy HLP LDL= 73 Comment Review of Relevant I have reviewed the following items la (where applicable) has been applied. Labs Laboratory Tests Test 11/04/16 18:00 11/05/16 05:20 11/05/16 07:12 11/05/16 11:19 White Blood Count 12.2x10^3/uL (4.0-11.0) 11.0x10^3/uL (4.0-11.0) Red Blood Count 3.24x10^6/uL (3.50-5.40) 2.78x10^6/uL (3.50-5.40) Hemoglobin 8.1g/dL (12.0-15.5) 7.1g/dL (12.0-15.5) Hematocrit 27.3% (36.0-47.0) 23.3% (36.0-47.0) Mean Corpuscular Volume 84fL (79-100) 84fL (79-100) Mean Corpuscular Hemoglobin 25pg (25-35) 25pg (25-35) Mean Corpuscular Hemoglobin Concent 30g/dL (31-37) 30g/dL (31-37) Red Cell Distribution Width 17.6% (11.5-14.5) 18.5% (11.5-14.5) Platelet Count 433x10^3/uL (140-400) 337x10^3/uL (140-400) Neutrophils (%) (Auto) 80% (31-73) 79% (31-73) Lymphocytes (%) (Auto) 9% (24-48) 9% (24-48) Monocytes (%) (Auto) 8% (0-9) 9% (0-9) Eosinophils (%) (Auto) 2% (0-3) 3% (0-3) Basophils (%) (Auto) 1% (0-3) 1% (0-3) Neutrophils # (Auto) 9.8x10^3uL (1.8-7.7) 8.7x10^3uL (1.8-7.7) Lymphocytes # (Auto) 1.1x10^3/uL (1.0-4.8) 1.0x10^3/uL (1.0-4.8) Monocytes # (Auto) 1.0x10^3/uL (0.0-1.1) 1.0x10^3/uL (0.0-1.1) Eosinophils # (Auto) 0.3x10^3/uL (0.0-0.7) 0.3x10^3/uL (0.0-0.7) Basophils # (Auto) 0.1x10^3/uL (0.0-0.2) 0.1x10^3/uL (0.0-0.2) Platelet Estimate Increased (ADEQUATE) Polychromasia Slight Poikilocytosis Slight Anisocytosis Slight Microcytosis Slight Macrocytosis Slight Prothrombin Time 23.0SEC (11.7-14.0) 23.6SEC (11.7-14.0) Prothromb Time International Ratio 2.2 (0.8-1.1) 2.3 (0.8-1.1) Urine Collection Type Unknown Urine Color Natalya Urine Clarity Cloudy Urine pH 5.5 Urine Specific Maynard 1.020 Urine Protein 30mg/dL (NEG-TRACE) Urine Glucose (UA) Negativemg/dL (NEG) Urine Ketones (Stick) Negativemg/dL (NEG) Urine Blood Large (NEG) Urine Nitrite Negative (NEG) Urine Bilirubin Negative (NEG) Urine Urobilinogen Dipstick 1.0mg/dL (0.2 mg/dL) Urine Leukocyte Esterase Large (NEG) Urine RBC 0/HPF (0-2) Urine WBC Occ/HPF (0-4) Urine Squamous Epithelial Cells Occ/LPF Urine Bacteria Few/HPF (0-FEW) Urine Mucus Slight/LPF Sodium Level 144mmol/L (136-145) 143mmol/L (136-145) Potassium Level 4.3mmol/L (3.5-5.1) 4.3mmol/L (3.5-5.1) Chloride Level 106mmol/L (98-107) 105mmol/L (98-107) Carbon Dioxide Level 31mmol/L (21-32) 32mmol/L (21-32) Anion Gap 7 (6-14) 6 (6-14) Blood Urea Nitrogen 16mg/dL (7-20) 16mg/dL (7-20) Creatinine 0.9mg/dL (0.6-1.0) 1.0mg/dL (0.6-1.0) Estimated GFR (Cockcroft-Gault) 59.9 53.1 BUN/Creatinine Ratio 18 (6-20) Glucose Level 168mg/dL (70-99) 184mg/dL (70-99) Calcium Level 8.5mg/dL (8.5-10.1) 8.6mg/dL (8.5-10.1) Total Bilirubin 0.4mg/dL (0.2-1.0) Aspartate Amino Transf (AST/SGOT) 11U/L (15-37) Alanine Aminotransferase (ALT/SGPT) 13U/L (14-59) Alkaline Phosphatase 96U/L (46-116) Total Protein 6.9g/dL (6.4-8.2) Albumin 3.4g/dL (3.4-5.0) Albumin/Globulin Ratio 1.0 (1.0-1.7) Lipase 286U/L (73-393) Glucose (Fingerstick) 125mg/dL (70-99) 163mg/dL (70-99) Test 11/05/16 16:33 11/05/16 21:17 11/06/16 05:00 11/06/16 05:20 Glucose (Fingerstick) 200mg/dL (70-99) 75mg/dL (70-99) Prothrombin Time 18.7SEC (11.7-14.0) Prothromb Time International Ratio 1.7 (0.8-1.1) Hemoglobin 7.2g/dL (12.0-15.5) Hematocrit 23.5% (36.0-47.0) Mean Corpuscular Hemoglobin Concent 31g/dL (31-37) Test 11/06/16 06:58 11/06/16 11:10 Glucose (Fingerstick) 102mg/dL (70-99) 175mg/dL (70-99) Laboratory Tests Test 11/05/16 16:33 11/05/16 21:17 11/06/16 05:00 11/06/16 05:20 Glucose (Fingerstick) 200mg/dL (70-99) 75mg/dL (70-99) Prothrombin Time 18.7SEC (11.7-14.0) Prothromb Time International Ratio 1.7 (0.8-1.1) Hemoglobin 7.2g/dL (12.0-15.5) Hematocrit 23.5% (36.0-47.0) Mean Corpuscular Hemoglobin Concent 31g/dL (31-37) Test 11/06/16 06:58 11/06/16 11:10 Glucose (Fingerstick) 102mg/dL (70-99) 175mg/dL (70-99) Medications Current Medications Ceftriaxone Sodium (Rocephin 1gm Ivpb For Omni) 50 ml @ 100 mls/hr 1X ONCE IV Last administered on 11/04/16t 20:08; Start 11/04/16 at 20:00; Stop 11/04/16 at 20:29; Status DC Ondansetron HCl (Zofran) 4 mg PRN Q8HRS PRN IV NAUSEA/VOMITING; Start 11/04/16 at 20:15; Stop 11/04/16 at 21:37; Status DC Morphine Sulfate 2 mg PRN Q2HR PRN IV PAIN; Start 11/04/16 at 20:15; Stop 11/05 at 20:14; Status DC Acetaminophen (Tylenol) 650 mg PRN Q4HRS PRN PO FEVER; Start 11/04/16 at 20:15 ; Stop 11/04/16 at 21:35; Status DC Alprazolam (Xanax) 0.25 mg PRN QHS PRN PO ANXIETY / AGITATION Last administered on 11/05/16 01:12; Start 11/04/16 at 20:30 Aspirin (Ecotrin) 81 mg DAILY PO Last administered on 11/06/16 08:50; Start at 09:00; Stop 11/06/16 at 09:41; Status DC Cetirizine HCl (Zyrtec) 10 mg DAILY PO Last administered on 11/06/16 08:50; Start 11/05/16 at 09:00 Clopidogrel Bisulfate (Plavix) 75 mg DAILY PO Last administered on 11/06/16 08 :51; Start 11/05/16 at 09:00; Stop 11/06/16 at 09:41; Status DC Digoxin (Lanoxin) 125 mcg DAILY PO Last administered on 11/06/16 08:50; Start 11/05/16 at 09:00 Furosemide (Lasix) 20 mg [id number] PO Last administered on 11/06/16 07:33; Start 11/05/16 at 09:00 Acetaminophen/ Hydrocodone Bitart (Lortab 5/325) 1 tab PRN Q6HRS PRN PO MODERATE PAIN; Start 11/04/16 at 20:30 Metformin HCl (Glucophage) 500 mg BIDWMEALS PO Last administered on 11/06/16 07:32; Start 11/05/16 at 08:00 Metoprolol Tartrate (Lopressor) 25 mg BID PO Last administered on 11/06/16 08: 51; Start 11/05/16 at 01:30 Nitroglycerin (Nitrostat) 0.4 mg PRN Q5MIN PRN SL CHEST PAIN; Start 11/04/16 at 20:30 Potassium Chloride (Klor-Con) 20 meq DAILY PO Last administered on 11/06/16 08 :51; Start 11/05/16 at 09:00 Senna/Docusate Sodium (Senna Plus) 2 tab DAILY PO Last administered on 08:51; Start 11/05/16 at 09:00 Spironolactone (Aldactone) 25 mg DAILY PO Last administered on 11/06/16 08:51 ; Start 11/05/16 at 09:00 Non-Formulary Medication 1 puff PRN Q6HRS PRN INH SHORTNESS OF BREATH; Start at 20:30; Status UNV Calcium Carbonate/ Glycine (Oscal) 500 mg DAILY PO Last administered on 08:50; Start 11/05/16 at 09:00 Glipizide (Glucotrol) 10 mg BIDBFRMEAL PO Last administered on 11/06/16 07:33 ; Start 11/05/16 at 07:30; Stop 11/06/16 at 09:42; Status DC Insulin Detemir (Levemir) 10 units QHS SQ ; Start 11/05/16 at 21:00 Meclizine HCl (Antivert) 25 mg PRN TID PRN PO DIZZINESS; Start 11/04/16 at 21: 45 Multivitamins/ Calcium (Thera M Plus) 1 tab DAILY PO Last administered on 08:50; Start 11/05/16 at 09:00 Insulin Aspart (Novolog) 0-9 UNITS TIDWMEALS SQ Last administered on 11/05/16 17:12; Start 11/05/16 at 08:00 Dextrose 12.5 gm PRN Q15MIN PRN IV SEE COMMENTS; Start 11/04/16 at 20:30 Acetaminophen (Tylenol) 650 mg PRN Q6HRS PRN PO FEVER; Start 11/04/16 at 20:30 Ondansetron HCl 4 mg 4 mg PRN Q6HRS PRN IV NAUSEA; Start 11/04/16 at 20:30 Ceftriaxone Sodium/Sodium Chloride (Rocephin/Iv Sodium Chloride 0.9% 50ml) 50 ml @ 100 mls/hr Q24H IV Last administered on 11/05/16 20:01; Start 11/05/16 at 20:00 Albuterol Sulfate (Ventolin Neb Soln) 2.5 mg PRN Q6HRS PRN NEB SHORTNESS OF BREATH; Start 11/04/16 at 21:45 Lisinopril (Prinivil) 2.5 mg DAILY PO Last administered on 11/06/16t 08:54; Start 11/06/16 at 09:00 Glipizide (Glucotrol) 5 mg BIDBFRMEAL PO ; Start 11/06/16 at 16:30 Active Scripts Active Reported Calcium + Vitamin D Tablet (Calcium Carbonate/Vitamin D3) 1 Each Tablet 1 Each PO DAILY Macrobid 100 Mg Capsule (Nitrofurantoin Monohyd/M-Cryst) 100 Mg Capsule 100 Mg PO DAILY Omeprazole 20 Mg Capsule.dr 1 Cap PO DAILY Metoprolol Succinate ( Xl ) (Metoprolol Succinate) 25 Mg Tab.er.24h 25 Mg PO BID Clopidogrel (Clopidogrel Bisulfate) 75 Mg Tablet 75 Mg PO DAILY Dermasorb Ta 0.1% Complete Kit (Triamcinolone/Emollient Cmb#86) 340.4 Gm Cream..g. 340.4 Gm TP Meclizine Hcl 25 Mg Tablet 1 Tab PO PRN TID Xanax (Alprazolam) 0.25 Mg Tablet 0.25 Mg PO HS PRN Levemir (Insulin Detemir) 100 Unit/1 Ml Vial 10-12 Unit SQ HS Lortab 5-325 mg Tablet (Hydrocodone/Acetaminophen) 1 Each Tablet 1 Tab PO PRN Q6HRS PRN LAST DOSE GIVEN: MAY TAKE SOON YOU DESIRE. ( NO DOSE GIVEN PRIOR TO DISCHARWGE ) DATE: TIME: NEXT DOSE DUE: DATE: TIME: Proair Hfa Inhaler (Albuterol Sulfate) 8.5 Gm Hfa.aer.ad 1 Puff INH PRN Q6HRS PRN NITROGLYCERIN SubLingual (Nitroglycerin) 0.4 Mg Tab.subl 0.4 Mg SL PRN Q5MIN PRN Multi Vitamin Daily (Multivitamin) 1 Each Tablet 1 Each PO DAILY Stool Softener Tablet (Sennosides/Docusate Sodium) 1 Each Tablet 2 Each PO NEEDED Calcium (Calcium Carbonate) 500 Mg Tab.chew 500 Mg PO DAILY Metformin Hcl 500 Mg Tablet 500 Mg PO BIDWMEALS Cetirizine Hcl 10 Mg Tablet 1 Tab PO DAILY Potassium Chloride 20 Meq Tab.er.prt 20 Meq PO DAILY Warfarin Sodium 5 Mg Tablet 7.5 Mg PO EVERY OTHER DAY Warfarin Sodium 5 Mg Tablet 1 Tab PO EVERY OTHER DAY Furosemide 40 Mg Tablet 40 Mg PO DAILY Spironolactone 25 Mg Tablet 1 Tab PO DAILY Aspir 81 (Aspirin) 81 Mg Tablet. 1 Tab PO DAILY Digoxin 125 Mcg Tablet 1 Tab PO DAILY Glipizide 10 Mg Tablet 1 Tab PO BIDACLD Vitals/I & O Vital Sign - Last 24 Hours 11/05/16 11/05/16 11/05/16 11/05/16 15:00 19:59 20:00 21:21 Temp 97.4 97.7 97.4 97.7 Pulse 64 67 59 Resp 18 B/P 120/68 174/64 134/45 Pulse Ox 98 100 O2 Delivery Room Air Nasal Cannula Room Air O2 Flow Rate 2.0 11/05/16 11/06/16 11/06/16 11/06/16 23:59 03:59 07:00 08:00 Temp 97.7 97.9 97.4 97.7 97.9 97.4 Pulse 62 60 61 Resp 22 22 B/P 152/68 144/54 120/60 Pulse Ox 100 100 98 O2 Delivery Nasal Cannula Nasal Cannula Room Air Nasal Cannula O2 Flow Rate 2.0 2.0 2.0 11/06/16 11/06/16 11/06/16 11/06/16 08:50 08:51 08:54 11:00 Temp 98.2 98.2 Pulse 61 61 61 60 Resp 24 B/P 120/60 120/60 120/60 125/57 Pulse Ox 97 O2 Delivery Room Air Intake and Output 11/05/16 11/05/16 11/06/16 15:00 23:00 07:00 Intake Total 540 ml 480 ml 300 ml Output Total 600 ml 300 ml Balance -60 ml 180 ml 300 ml NAVIN GONZALEZ MD Nov 06, 2016 11:55
[2016-11-06 14:32] VITALS: BP 125/62
--- NOTE | 2016-11-06 14:34 | PDOC ---
PROGRESS NOTES Chief Complaint Chief Complaint 1. UTI with dysuria, hematuria 2. BILATERAL renal cysts - new dx 3. PAFIB on warfarin on multiple blood thinner with asa, plavix, coumadin 4. h/o CAD on asa, plavix 5. CHF, stable 6. chronic iron deficient anemia on transfusion and iron iv 7. dm2 on insulin 8. hld 9. htn 10. h/o UTI 11. MACULAR DEGENERATION 12. PPM 13. h/o GIB, no recent dark stool History of Present Illness History of Present Illness Cont to have gross hematuria with tissue like material as per dtr's account Hgb dropped to 7.1 from 8,1 BP on low side BS also on low side Pt up in chair with dtr Renal sono shows bilateral renal cysts Plan: HOLD ASA and plavix too (not just warfarin) Will need cysto to evaluate hematuria hH kayli NPO post MN in case csyto kayli Dec insulin dose Dec hydralazine bec of lowish BP IVF boluses for hypotension if needed Dw dtr and RN Vitals Vitals Vital Signs Date Time Temp Pulse Resp B/P Pulse Ox O2 Delivery O2 Flow Rate FiO2 11/06/16 11:00 98.2 60 24 125/57 97 Room Air 98.2 11/06/16 08:00 2.0 Physical Exam General: No acute distress Heart: Regular rate Lungs: Clear Abdomen: Normal bowel sounds Extremities: No cyanosis, Normal pulses, Other (trace LE edema ) Skin: No significant lesion Labs LABS Laboratory Tests Test 11/05/16 16:33 11/05/16 21:17 11/06/16 05:00 11/06/16 05:20 Glucose (Fingerstick) 200mg/dL (70-99) 75mg/dL (70-99) Prothrombin Time 18.7SEC (11.7-14.0) Prothromb Time International Ratio 1.7 (0.8-1.1) Hemoglobin 7.2g/dL (12.0-15.5) Hematocrit 23.5% (36.0-47.0) Mean Corpuscular Hemoglobin Concent 31g/dL (31-37) Test 11/06/16 06:58 11/06/16 11:10 Glucose (Fingerstick) 102mg/dL (70-99) 175mg/dL (70-99) Review of Systems Review of Systems gross hematuria, no abd pain, no emesis, no CP Assessment and Plan Assessmemt and Plan Problems Medical Problems: (1) Hematuria Status: Acute (2) UTI (urinary tract infection) Status: Acute Problems: Comment Review of Relevant I have reviewed the following items la (where applicable) has been applied. Labs Laboratory Tests Test 11/04/16 18:00 11/05/16 05:20 11/05/16 07:12 11/05/16 11:19 White Blood Count 12.2x10^3/uL (4.0-11.0) 11.0x10^3/uL (4.0-11.0) Red Blood Count 3.24x10^6/uL (3.50-5.40) 2.78x10^6/uL (3.50-5.40) Hemoglobin 8.1g/dL (12.0-15.5) 7.1g/dL (12.0-15.5) Hematocrit 27.3% (36.0-47.0) 23.3% (36.0-47.0) Mean Corpuscular Volume 84fL (79-100) 84fL (79-100) Mean Corpuscular Hemoglobin 25pg (25-35) 25pg (25-35) Mean Corpuscular Hemoglobin Concent 30g/dL (31-37) 30g/dL (31-37) Red Cell Distribution Width 17.6% (11.5-14.5) 18.5% (11.5-14.5) Platelet Count 433x10^3/uL (140-400) 337x10^3/uL (140-400) Neutrophils (%) (Auto) 80% (31-73) 79% (31-73) Lymphocytes (%) (Auto) 9% (24-48) 9% (24-48) Monocytes (%) (Auto) 8% (0-9) 9% (0-9) Eosinophils (%) (Auto) 2% (0-3) 3% (0-3) Basophils (%) (Auto) 1% (0-3) 1% (0-3) Neutrophils # (Auto) 9.8x10^3uL (1.8-7.7) 8.7x10^3uL (1.8-7.7) Lymphocytes # (Auto) 1.1x10^3/uL (1.0-4.8) 1.0x10^3/uL (1.0-4.8) Monocytes # (Auto) 1.0x10^3/uL (0.0-1.1) 1.0x10^3/uL (0.0-1.1) Eosinophils # (Auto) 0.3x10^3/uL (0.0-0.7) 0.3x10^3/uL (0.0-0.7) Basophils # (Auto) 0.1x10^3/uL (0.0-0.2) 0.1x10^3/uL (0.0-0.2) Platelet Estimate Increased (ADEQUATE) Polychromasia Slight Poikilocytosis Slight Anisocytosis Slight Microcytosis Slight Macrocytosis Slight Prothrombin Time 23.0SEC (11.7-14.0) 23.6SEC (11.7-14.0) Prothromb Time International Ratio 2.2 (0.8-1.1) 2.3 (0.8-1.1) Urine Collection Type Unknown Urine Color Natalya Urine Clarity Cloudy Urine pH 5.5 Urine Specific [place] 1.020 Urine Protein 30mg/dL (NEG-TRACE) Urine Glucose (UA) Negativemg/dL (NEG) Urine Ketones (Stick) Negativemg/dL (NEG) Urine Blood Large (NEG) Urine Nitrite Negative (NEG) Urine Bilirubin Negative (NEG) Urine Urobilinogen Dipstick 1.0mg/dL (0.2 mg/dL) Urine Leukocyte Esterase Large (NEG) Urine RBC 0/HPF (0-2) Urine WBC Occ/HPF (0-4) Urine Squamous Epithelial Cells Occ/LPF Urine Bacteria Few/HPF (0-FEW) Urine Mucus Slight/LPF Sodium Level 144mmol/L (136-145) 143mmol/L (136-145) Potassium Level 4.3mmol/L (3.5-5.1) 4.3mmol/L (3.5-5.1) Chloride Level 106mmol/L (98-107) 105mmol/L (98-107) Carbon Dioxide Level 31mmol/L (21-32) 32mmol/L (21-32) Anion Gap 7 (6-14) 6 (6-14) Blood Urea Nitrogen 16mg/dL (7-20) 16mg/dL (7-20) Creatinine 0.9mg/dL (0.6-1.0) 1.0mg/dL (0.6-1.0) Estimated GFR (Cockcroft-Gault) 59.9 53.1 BUN/Creatinine Ratio 18 (6-20) Glucose Level 168mg/dL (70-99) 184mg/dL (70-99) Calcium Level 8.5mg/dL (8.5-10.1) 8.6mg/dL (8.5-10.1) Total Bilirubin 0.4mg/dL (0.2-1.0) Aspartate Amino Transf (AST/SGOT) 11U/L (15-37) Alanine Aminotransferase (ALT/SGPT) 13U/L (14-59) Alkaline Phosphatase 96U/L (46-116) Total Protein 6.9g/dL (6.4-8.2) Albumin 3.4g/dL (3.4-5.0) Albumin/Globulin Ratio 1.0 (1.0-1.7) Lipase 286U/L (73-393) Glucose (Fingerstick) 125mg/dL (70-99) 163mg/dL (70-99) Test 11/05/16 16:33 11/05/16 21:17 11/06/16 05:00 11/06/16 05:20 Glucose (Fingerstick) 200mg/dL (70-99) 75mg/dL (70-99) Prothrombin Time 18.7SEC (11.7-14.0) Prothromb Time International Ratio 1.7 (0.8-1.1) Hemoglobin 7.2g/dL (12.0-15.5) Hematocrit 23.5% (36.0-47.0) Mean Corpuscular Hemoglobin Concent 31g/dL (31-37) Test 11/06/16 06:58 11/06/16 11:10 Glucose (Fingerstick) 102mg/dL (70-99) 175mg/dL (70-99) Laboratory Tests Test 11/05/16 16:33 11/05/16 21:17 11/06/16 05:00 11/06/16 05:20 Glucose (Fingerstick) 200mg/dL (70-99) 75mg/dL (70-99) Prothrombin Time 18.7SEC (11.7-14.0) Prothromb Time International Ratio 1.7 (0.8-1.1) Hemoglobin 7.2g/dL (12.0-15.5) Hematocrit 23.5% (36.0-47.0) Mean Corpuscular Hemoglobin Concent 31g/dL (31-37) Test 11/06/16 06:58 11/06/16 11:10 Glucose (Fingerstick) 102mg/dL (70-99) 175mg/dL (70-99) Medications Current Medications Ceftriaxone Sodium (Rocephin 1gm Ivpb For Omni) 50 ml @ 100 mls/hr 1X ONCE IV Last administered on 11/04/16 20:08; Start 11/04/16 at 20:00; Stop 11/04/16 at 20:29; Status DC Ondansetron HCl (Zofran) 4 mg PRN Q8HRS PRN IV NAUSEA/VOMITING; Start 11/04/16 at 20:15; Stop 11/04/16 at 21:37; Status DC Morphine Sulfate 2 mg PRN Q2HR PRN IV PAIN; Start 11/04/16 at 20:15; Stop 11/05 at 20:14; Status DC Acetaminophen (Tylenol) 650 mg PRN Q4HRS PRN PO FEVER; Start 11/04/16 at 20:15 ; Stop 11/04/16 at 21:35; Status DC Alprazolam (Xanax) 0.25 mg PRN QHS PRN PO ANXIETY / AGITATION Last administered on 11/05/16 01:12; Start 11/04/16 at 20:30 Aspirin (Ecotrin) 81 mg DAILY PO Last administered on 11/06/16 08:50; Start at 09:00; Stop 11/06/16 at 09:41; Status DC Cetirizine HCl (Zyrtec) 10 mg DAILY PO Last administered on 11/06/16 08:50; Start 11/05/16 at 09:00 Clopidogrel Bisulfate (Plavix) 75 mg DAILY PO Last administered on 11/06/16 08 :51; Start 11/05/16 at 09:00; Stop 11/06/16 at 09:41; Status DC Digoxin (Lanoxin) 125 mcg DAILY PO Last administered on 11/06/16 08:50; Start 11/05/16 at 09:00 Furosemide (Lasix) 20 mg [id number] PO Last administered on 11/06/16 07:33; Start 11/05/16 at 09:00 Acetaminophen/ Hydrocodone Bitart (Lortab 5/325) 1 tab PRN Q6HRS PRN PO MODERATE PAIN; Start 11/04/16 at 20:30 Metformin HCl (Glucophage) 500 mg BIDWMEALS PO Last administered on 11/06/16 07:32; Start 11/05/16 at 08:00 Metoprolol Tartrate (Lopressor) 25 mg BID PO Last administered on 11/06/16 08: 51; Start 11/05/16 at 01:30 Nitroglycerin (Nitrostat) 0.4 mg PRN Q5MIN PRN SL CHEST PAIN; Start 11/04/16 at 20:30 Potassium Chloride (Klor-Con) 20 meq DAILY PO Last administered on 11/06/16 08 :51; Start 11/05/16 at 09:00 Senna/Docusate Sodium (Senna Plus) 2 tab DAILY PO Last administered on 08:51; Start 11/05/16 at 09:00 Spironolactone (Aldactone) 25 mg DAILY PO Last administered on 11/06/16 08:51 ; Start 11/05/16 at 09:00 Non-Formulary Medication 1 puff PRN Q6HRS PRN INH SHORTNESS OF BREATH; Start at 20:30; Status UNV Calcium Carbonate/ Glycine (Oscal) 500 mg DAILY PO Last administered on 08:50; Start 11/05/16 at 09:00 Glipizide (Glucotrol) 10 mg BIDBFRMEAL PO Last administered on 11/06/16 07:33 ; Start 11/05/16 at 07:30; Stop 11/06/16 at 09:42; Status DC Insulin Detemir (Levemir) 10 units QHS SQ ; Start 11/05/16 at 21:00 Meclizine HCl (Antivert) 25 mg PRN TID PRN PO DIZZINESS; Start 11/04/16 at 21: 45 Multivitamins/ Calcium (Thera M Plus) 1 tab DAILY PO Last administered on 08:50; Start 11/05/16 at 09:00 Insulin Aspart (Novolog) 0-9 UNITS TIDWMEALS SQ Last administered on 11/06/16 11:57; Start 11/05/16 at 08:00 Dextrose 12.5 gm PRN Q15MIN PRN IV SEE COMMENTS; Start 11/04/16 at 20:30 Acetaminophen (Tylenol) 650 mg PRN Q6HRS PRN PO FEVER; Start 11/04/16 at 20:30 Ondansetron HCl 4 mg 4 mg PRN Q6HRS PRN IV NAUSEA; Start 11/04/16 at 20:30 Ceftriaxone Sodium/Sodium Chloride (Rocephin/Iv Sodium Chloride 0.9% 50ml) 50 ml @ 100 mls/hr Q24H IV Last administered on 11/05/16 20:01; Start 11/05/16 at 20:00 Albuterol Sulfate (Ventolin Neb Soln) 2.5 mg PRN Q6HRS PRN NEB SHORTNESS OF BREATH; Start 11/04/16 at 21:45 Lisinopril (Prinivil) 2.5 mg DAILY PO Last administered on 11/06/16 08:54; Start 11/06/16 at 09:00 Glipizide (Glucotrol) 5 mg BIDBFRMEAL PO ; Start 11/06/16 at 16:30 Active Scripts Active Reported Calcium + Vitamin D Tablet (Calcium Carbonate/Vitamin D3) 1 Each Tablet 1 Each PO DAILY Macrobid 100 Mg Capsule (Nitrofurantoin Monohyd/M-Cryst) 100 Mg Capsule 100 Mg PO DAILY Omeprazole 20 Mg Capsule. 1 Cap PO DAILY Metoprolol Succinate ( Xl ) (Metoprolol Succinate) 25 Mg Tab.er.24h 25 Mg PO BID Clopidogrel (Clopidogrel Bisulfate) 75 Mg Tablet 75 Mg PO DAILY Dermasorb Ta 0.1% Complete Kit (Triamcinolone/Emollient Cmb#86) 340.4 Gm Cream..g. 340.4 Gm TP Meclizine Hcl 25 Mg Tablet 1 Tab PO PRN TID Xanax (Alprazolam) 0.25 Mg Tablet 0.25 Mg PO HS PRN Levemir (Insulin Detemir) 100 Unit/1 Ml Vial 10-12 Unit SQ HS Lortab 5-325 mg Tablet (Hydrocodone/Acetaminophen) 1 Each Tablet 1 Tab PO PRN Q6HRS PRN LAST DOSE GIVEN: MAY TAKE SOON YOU DESIRE. ( NO DOSE GIVEN PRIOR TO DISCHARWGE ) DATE: TIME: NEXT DOSE DUE: DATE: TIME: Proair Hfa Inhaler (Albuterol Sulfate) 8.5 Gm Hfa.aer.ad 1 Puff INH PRN Q6HRS PRN NITROGLYCERIN SubLingual (Nitroglycerin) 0.4 Mg Tab.subl 0.4 Mg SL PRN Q5MIN PRN Multi Vitamin Daily (Multivitamin) 1 Each Tablet 1 Each PO DAILY Stool Softener Tablet (Sennosides/Docusate Sodium) 1 Each Tablet 2 Each PO NEEDED Calcium (Calcium Carbonate) 500 Mg Tab.chew 500 Mg PO DAILY Metformin Hcl 500 Mg Tablet 500 Mg PO BIDWMEALS Cetirizine Hcl 10 Mg Tablet 1 Tab PO DAILY Potassium Chloride 20 Meq Tab.er.prt 20 Meq PO DAILY Warfarin Sodium 5 Mg Tablet 7.5 Mg PO EVERY OTHER DAY Warfarin Sodium 5 Mg Tablet 1 Tab PO EVERY OTHER DAY Furosemide 40 Mg Tablet 40 Mg PO DAILY Spironolactone 25 Mg Tablet 1 Tab PO DAILY Aspir 81 (Aspirin) 81 Mg Tablet. 1 Tab PO DAILY Digoxin 125 Mcg Tablet 1 Tab PO DAILY Glipizide 10 Mg Tablet 1 Tab PO BIDACLD Vitals/I & O Vital Sign - Last 24 Hours 11/05/16 11/05/16 11/05/16 11/05/16 15:00 19:59 20:00 21:21 Temp 97.4 97.7 97.4 97.7 Pulse 64 67 59 Resp 18 18 B/P 120/68 174/64 134/45 Pulse Ox 98 100 O2 Delivery Room Air Nasal Cannula Room Air O2 Flow Rate 2.0 11/05/16 11/06/16 11/06/16 11/06/16 23:59 03:59 07:00 08:00 Temp 97.7 97.9 97.4 97.7 97.9 97.4 Pulse 62 60 61 Resp 22 20 22 B/P 152/68 144/54 120/60 Pulse Ox 100 100 98 O2 Delivery Nasal Cannula Nasal Cannula Room Air Nasal Cannula O2 Flow Rate 2.0 2.0 2.0 11/06/16 11/06/16 11/06/16 11/06/16 08:50 08:51 08:54 11:00 Temp 98.2 98.2 Pulse 61 61 61 60 Resp 24 B/P 120/60 120/60 120/60 125/57 Pulse Ox 97 O2 Delivery Room Air Intake and Output 11/05/16 11/05/16 11/06/16 15:00 23:00 07:00 Intake Total 540 ml 480 ml 300 ml Output Total 600 ml 300 ml Balance -60 ml 180 ml 300 ml ESTER BARRY MD Nov 06, 2016 14:34
[2016-11-06 19:00] VITALS: BP 132/52
[2016-11-06] MEDS: CEFTRIAXONE SODIUM 1 GM in IV NORMAL SALINE 50ML 50 ML IV SCH (20:48)
[2016-11-06] MEDS: INSULIN DETEMIR 300 UNITS/3 ML INSULN.PEN. SQ SCH (20:49)
[2016-11-07] VITALS (13 sets, daily range): BP systolic 114–148; BP diastolic 36–51
[2016-11-07] MEDS: INSULIN ASPART 300 UNITS/3 ML INSULN.PEN SQ SCH ×3 (08:00→17:00)
--- NOTE | 2016-11-07 08:13 | PDOC ---
Provider Note Provider Note Urology: 81y/o female morbidly obese with many co-morbidities with gross hematuria, was on anticoagulants Exam: lethargic, no abdominal pain to palpation X-rays: bilateral renal cysts Lab: neg urine culture Impression: Gross hematuria Plan: needs cystoscopy possible bladder biopsies need INR improvement prior to above, maybe ?? Thanks, EMANI SALAZAR DO Nov 07, 2016 08:13
[2016-11-07] MEDS ORDERED: PHYTONADIONE 5 MG TABLET PO ONE (09:30)
[2016-11-07] MEDS: LISINOPRIL 2.5 MG TABLET PO SCH (09:44)
[2016-11-07] MEDS: CETIRIZINE HCL 10 MG TABLET PO SCH (09:45)
[2016-11-07] MEDS: GLIPIZIDE 5 MG TABLET PO SCH ×2 (09:45→17:34)
[2016-11-07] MEDS: POTASSIUM CHLORIDE 20 MEQ TABLET.ER. PO SCH (09:45)
[2016-11-07] MEDS: SENNOSIDES/DOCUSATE 8.6/50MG TABLET. PO SCH (09:45)
[2016-11-07] MEDS: MULTIVITAMIN with MINERAL TABLET. PO SCH (09:45)
[2016-11-07] MEDS: METFORMIN 500 MG TABLET. PO SCH ×2 (09:45→17:33)
[2016-11-07] MEDS: METOPROLOL TART IMMED RELEASE 25 MG TABLET PO SCH ×2 (09:46→21:20)
[2016-11-07] MEDS: SPIRONOLACTONE 25 MG TABLET PO SCH (09:46)
[2016-11-07] MEDS: DIGOXIN 125 MCG TABLET PO SCH (09:46)
[2016-11-07] MEDS: CALCIUM CARBONATE 500 MG TABLET PO SCH (09:46)
[2016-11-07] MEDS: FUROSEMIDE 20 MG TABLET PO SCH ×2 (09:47→17:34)
--- NOTE | 2016-11-07 11:18 | PDOC ---
PROGRESS NOTES Chief Complaint Chief Complaint 1. UTI with dysuria, hematuria 2. BILATERAL renal cysts - new dx 3. PAFIB on warfarin on multiple blood thinner with asa, plavix, coumadin 4. h/o CAD on asa, plavix 5. CHF, stable 6. chronic iron deficient anemia on transfusion and iron iv 7. dm2 on insulin 8. hld 9. htn 10. h/o UTI 11. MACULAR DEGENERATION 12. PPM 13. h/o GIB, no recent dark stool History of Present Illness History of Present Illness Cont to have gross hematuria with tissue like material as per dtr's account Hgb dropped to 7.1 from 8,1 BP on low side BS also on low side Pt up in chair with dtr - feels weak INR 1.7 Renal sono shows bilateral renal cysts VEry weak per pT Plan: HOLD ASA and plavix too (not just warfarin) Planned for cysto kayli Uro want INR lower - give vitamin K 5 mg PO x 1 Recheck INR and HH kayli Dw pt I might consider FFps..but pt claims bleeding has dec - dw pt and PT Vitals Vitals Vital Signs Date Time Temp Pulse Resp B/P Pulse Ox O2 Delivery O2 Flow Rate FiO2 11/07/16 10:54 97.9 62 17 123/51 100 Nasal Cannula 2.0 97.9 Physical Exam General: No acute distress Heart: Regular rate Lungs: Clear Abdomen: Normal bowel sounds Extremities: No cyanosis, Normal pulses, Other (trace LE edema ) Skin: No significant lesion Labs LABS Laboratory Tests Test 11/06/16 16:05 11/06/16 20:47 11/07/16 07:44 Glucose (Fingerstick) 109mg/dL (70-99) 113mg/dL (70-99) 120mg/dL (70-99) Assessment and Plan Assessmemt and Plan Problems Medical Problems: (1) Hematuria Status: Acute (2) UTI (urinary tract infection) Status: Acute Problems: Comment Review of Relevant I have reviewed the following items la (where applicable) has been applied. Labs Laboratory Tests Test 11/05/16 11:19 11/05/16 16:33 11/05/16 21:17 11/06/16 05:00 Glucose (Fingerstick) 163mg/dL (70-99) 200mg/dL (70-99) 75mg/dL (70-99) Prothrombin Time 18.7SEC (11.7-14.0) Prothromb Time International Ratio 1.7 (0.8-1.1) Test 11/06/16 05:20 11/06/16 06:58 11/06/16 11:10 11/06/16 16:05 Hemoglobin 7.2g/dL (12.0-15.5) Hematocrit 23.5% (36.0-47.0) Mean Corpuscular Hemoglobin Concent 31g/dL (31-37) Glucose (Fingerstick) 102mg/dL (70-99) 175mg/dL (70-99) 109mg/dL (70-99) Test 11/06/16 20:47 11/07/16 07:44 Glucose (Fingerstick) 113mg/dL (70-99) 120mg/dL (70-99) Laboratory Tests Test 11/06/16 16:05 11/06/16 20:47 11/07/16 07:44 Glucose (Fingerstick) 109mg/dL (70-99) 113mg/dL (70-99) 120mg/dL (70-99) Microbiology 11/04/16 Urine Culture - Final, Complete 11/04/16 Urine Culture Result 1 (ALESSANDRO) - Final, Complete Medications Current Medications Ceftriaxone Sodium (Rocephin 1gm Ivpb For Omni) 50 ml @ 100 mls/hr 1X ONCE IV Last administered on 11/04/16 20:08; Start 11/04/16 at 20:00; Stop 11/04/16 at 20:29; Status DC Ondansetron HCl (Zofran) 4 mg PRN Q8HRS PRN IV NAUSEA/VOMITING; Start 11/04/16 at 20:15; Stop 11/04/16 at 21:37; Status DC Morphine Sulfate 2 mg PRN Q2HR PRN IV PAIN; Start 11/04/16 at 20:15; Stop 11/05 at 20:14; Status DC Acetaminophen (Tylenol) 650 mg PRN Q4HRS PRN PO FEVER; Start 11/04/16 at 20:15 ; Stop 11/04/16 at 21:35; Status DC Alprazolam (Xanax) 0.25 mg PRN QHS PRN PO ANXIETY / AGITATION Last administered on 11/05/16 01:12; Start 11/04/16 at 20:30 Aspirin (Ecotrin) 81 mg DAILY PO Last administered on 11/06/16 08:50; Start at 09:00; Stop 11/06/16 at 09:41; Status DC Cetirizine HCl (Zyrtec) 10 mg DAILY PO Last administered on 11/07/16 09:45; Start 11/05/16 at 09:00 Clopidogrel Bisulfate (Plavix) 75 mg DAILY PO Last administered on 11/06/16 08 :51; Start 11/05/16 at 09:00; Stop 11/06/16 at 09:41; Status DC Digoxin (Lanoxin) 125 mcg DAILY PO Last administered on 11/07/16 09:46; Start 11/05/16 at 09:00 Furosemide (Lasix) 20 mg [id number] PO Last administered on 11/07/16 09:47; Start 11/05/16 at 09:00 Acetaminophen/ Hydrocodone Bitart (Lortab 5/325) 1 tab PRN Q6HRS PRN PO MODERATE PAIN; Start 11/04/16 at 20:30 Metformin HCl (Glucophage) 500 mg BIDWMEALS PO Last administered on 11/07/16 09:45; Start 11/05/16 at 08:00 Metoprolol Tartrate (Lopressor) 25 mg BID PO Last administered on 11/07/16 09: 46; Start 11/05/16 at 01:30 Nitroglycerin (Nitrostat) 0.4 mg PRN Q5MIN PRN SL CHEST PAIN; Start 11/04/16 at 20:30 Potassium Chloride (Klor-Con) 20 meq DAILY PO Last administered on 11/07/16 09 :45; Start 11/05/16 at 09:00 Senna/Docusate Sodium (Senna Plus) 2 tab DAILY PO Last administered on 09:45; Start 11/05/16 at 09:00 Spironolactone (Aldactone) 25 mg DAILY PO Last administered on 11/07/16 09:46 ; Start 11/05/16 at 09:00 Non-Formulary Medication 1 puff PRN Q6HRS PRN INH SHORTNESS OF BREATH; Start at 20:30; Status UNV Calcium Carbonate/ Glycine (Oscal) 500 mg DAILY PO Last administered on 09:46; Start 11/05/16 at 09:00 Glipizide (Glucotrol) 10 mg BIDBFRMEAL PO Last administered on 11/06/16 07:33 ; Start 11/05/16 at 07:30; Stop 11/06/16 at 09:42; Status DC Insulin Detemir (Levemir) 10 units QHS SQ ; Start 11/05/16 at 21:00 Meclizine HCl (Antivert) 25 mg PRN TID PRN PO DIZZINESS; Start 11/04/16 at 21: 45 Multivitamins/ Calcium (Thera M Plus) 1 tab DAILY PO Last administered on 09:45; Start 11/05/16 at 09:00 Insulin Aspart (Novolog) 0-9 UNITS TIDWMEALS SQ Last administered on 11/06/16 11:57; Start 11/05/16 at 08:00 Dextrose 12.5 gm PRN Q15MIN PRN IV SEE COMMENTS; Start 11/04/16 at 20:30 Acetaminophen (Tylenol) 650 mg PRN Q6HRS PRN PO FEVER; Start 11/04/16 at 20:30 Ondansetron HCl 4 mg 4 mg PRN Q6HRS PRN IV NAUSEA; Start 11/04/16 at 20:30 Ceftriaxone Sodium/Sodium Chloride (Rocephin/Iv Sodium Chloride 0.9% 50ml) 50 ml @ 100 mls/hr Q24H IV Last administered on 11/06/16 20:48; Start 11/05/16 at 20:00 Albuterol Sulfate (Ventolin Neb Soln) 2.5 mg PRN Q6HRS PRN NEB SHORTNESS OF BREATH; Start 11/04/16 at 21:45 Lisinopril (Prinivil) 2.5 mg DAILY PO Last administered on 11/07/16 09:44; Start 11/06/16 at 09:00 Glipizide (Glucotrol) 5 mg BIDBFRMEAL PO Last administered on 11/07/16 09:45; Start 11/06/16 at 16:30 Phytonadione (Mephyton) 5 mg 1X ONCE PO Last administered on 2/20/17at 09:45; Start 11/07/16 at 09:30; Stop 11/07/16 at 09:31; Status DC Active Scripts Active Reported Calcium + Vitamin D Tablet (Calcium Carbonate/Vitamin D3) 1 Each Tablet 1 Each PO DAILY Macrobid 100 Mg Capsule (Nitrofurantoin Monohyd/M-Cryst) 100 Mg Capsule 100 Mg PO DAILY Omeprazole 20 Mg Capsule. 1 Cap PO DAILY Metoprolol Succinate ( Xl ) (Metoprolol Succinate) 25 Mg Tab.er.24h 25 Mg PO BID Clopidogrel (Clopidogrel Bisulfate) 75 Mg Tablet 75 Mg PO DAILY Dermasorb Ta 0.1% Complete Kit (Triamcinolone/Emollient Cmb#86) 340.4 Gm Cream..g. 340.4 Gm TP Meclizine Hcl 25 Mg Tablet 1 Tab PO PRN TID Xanax (Alprazolam) 0.25 Mg Tablet 0.25 Mg PO HS PRN Levemir (Insulin Detemir) 100 Unit/1 Ml Vial 10-12 Unit SQ HS Lortab 5-325 mg Tablet (Hydrocodone/Acetaminophen) 1 Each Tablet 1 Tab PO PRN Q6HRS PRN LAST DOSE GIVEN: MAY TAKE SOON YOU DESIRE. ( NO DOSE GIVEN PRIOR TO DISCHARWGE ) DATE: TIME: NEXT DOSE DUE: DATE: TIME: Proair Hfa Inhaler (Albuterol Sulfate) 8.5 Gm Hfa.aer.ad 1 Puff INH PRN Q6HRS PRN NITROGLYCERIN SubLingual (Nitroglycerin) 0.4 Mg Tab.subl 0.4 Mg SL PRN Q5MIN PRN Multi Vitamin Daily (Multivitamin) 1 Each Tablet 1 Each PO DAILY Stool Softener Tablet (Sennosides/Docusate Sodium) 1 Each Tablet 2 Each PO NEEDED Calcium (Calcium Carbonate) 500 Mg Tab.chew 500 Mg PO DAILY Metformin Hcl 500 Mg Tablet 500 Mg PO BIDWMEALS Cetirizine Hcl 10 Mg Tablet 1 Tab PO DAILY Potassium Chloride 20 Meq Tab.er.prt 20 Meq PO DAILY Warfarin Sodium 5 Mg Tablet 7.5 Mg PO EVERY OTHER DAY Warfarin Sodium 5 Mg Tablet 1 Tab PO EVERY OTHER DAY Furosemide 40 Mg Tablet 40 Mg PO DAILY Spironolactone 25 Mg Tablet 1 Tab PO DAILY Aspir 81 (Aspirin) 81 Mg Tablet. 1 Tab PO DAILY Digoxin 125 Mcg Tablet 1 Tab PO DAILY Glipizide 10 Mg Tablet 1 Tab PO BIDACLD Vitals/I & O Vital Sign - Last 24 Hours 11/06/16 11/06/16 11/06/16 11/06/16 14:32 19:00 20:23 20:49 Temp 97.4 98.2 97.4 98.2 Pulse 62 62 62 Resp 20 20 B/P 125/62 132/52 132/52 Pulse Ox 99 95 O2 Delivery Nasal Cannula Room Air Room Air O2 Flow Rate 2.0 11/06/16 11/07/16 11/07/16 11/07/16 23:00 03:00 07:00 09:44 Temp 97.9 97.7 97.9 97.7 Pulse 64 61 61 Resp 16 B/P 122/48 114/40 114/40 Pulse Ox 100 100 O2 Delivery Nasal Cannula Nasal Cannula Nasal Cannula O2 Flow Rate 4.0 2.0 2.0 11/07/16 11/07/16 11/07/16 11/07/16 09:46 09:46 10:40 10:54 Temp 97.9 97.9 Pulse 72 72 62 Resp 17 B/P 114/40 114/40 123/51 Pulse Ox 100 O2 Delivery Room Air Nasal Cannula O2 Flow Rate 2.0 Intake and Output 11/06/16 11/06/16 11/07/16 15:00 23:00 07:00 Intake Total 360 ml 360 ml Output Total 250 ml 400 ml Balance 110 ml -40 ml ESTER BARRY MD Nov 07, 2016 11:18
[2016-11-07 11:20] LABS: BASO % 1 % (0-3); EOS % 3 % (0-3); LYMPH # 0.9 x10^3/uL (1.0-4.8); LYMPH % 10 % (24-48); MEAN CORPUSCULAR HEMOGLOBIN 25 pg (25-35); MEAN CORPUSCULAR HGB CONC 31 g/dL (31-37); MEAN CORPUSCULAR VOLUME 81 fL (79-100); MONO % 7 % (0-9); NEUT % 81 % (31-73); PLATELET COUNT 359 x10^3/uL (140-400); RED CELL DISTRIBUTION WIDTH 18.7 % (11.5-14.5)
[2016-11-07 11:29] LABS: CALCIUM 9.2 mg/dL (8.5-10.1); GFR 53.1; POTASSIUM 4.6 mmol/L (3.5-5.1)
[2016-11-07 11:35] LABS: INR 1.3 (0.8-1.1); PROTHROMBIN TIME PATIENT 15.3 SEC (11.7-14.0)
--- NOTE | 2016-11-07 13:50 | PDOC ---
CARDIO Progress Notes Date and Time Date of Service 11/07/2016 Time of Evaluation 1345 Subjective Subjective: No shortness of breath, No Palpitations, No Dizziness, Other ( chest pain twinges last night; none today) Vitals Vitals Vital Signs Date Time Temp Pulse Resp B/P Pulse Ox O2 Delivery O2 Flow Rate FiO2 11/07/16 10:54 97.9 62 17 123/51 100 Nasal Cannula 2.0 97.9 Weight Weight [ ] Input and Output Intake and Output Intake and Output 11/07/16 07:00 Intake Total 720 ml Output Total 650 ml Balance 70 ml Intake Oral 720 ml Output Urine Total 650 ml # Voids 1 Laboratory Labs Laboratory Tests Test 11/06/16 16:05 11/06/16 20:47 11/07/16 07:44 11/07/16 11:05 Glucose (Fingerstick) 109mg/dL (70-99) 113mg/dL (70-99) 120mg/dL (70-99) White Blood Count 9.0x10^3/uL (4.0-11.0) Red Blood Count 3.20x10^6/uL (3.50-5.40) Hemoglobin 8.0g/dL (12.0-15.5) Hematocrit 26.0% (36.0-47.0) Mean Corpuscular Volume 81fL (79-100) Mean Corpuscular Hemoglobin 25pg (25-35) Mean Corpuscular Hemoglobin Concent 31g/dL (31-37) Red Cell Distribution Width 18.7% (11.5-14.5) Platelet Count 359x10^3/uL (140-400) Neutrophils (%) (Auto) 81% (31-73) Lymphocytes (%) (Auto) 10% (24-48) Monocytes (%) (Auto) 7% (0-9) Eosinophils (%) (Auto) 3% (0-3) Basophils (%) (Auto) 1% (0-3) Neutrophils # (Auto) 7.3x10^3uL (1.8-7.7) Lymphocytes # (Auto) 0.9x10^3/uL (1.0-4.8) Monocytes # (Auto) 0.6x10^3/uL (0.0-1.1) Eosinophils # (Auto) 0.2x10^3/uL (0.0-0.7) Basophils # (Auto) 0.0x10^3/uL (0.0-0.2) Prothrombin Time 15.3SEC (11.7-14.0) Prothromb Time International Ratio 1.3 (0.8-1.1) Sodium Level 143mmol/L (136-145) Potassium Level 4.6mmol/L (3.5-5.1) Chloride Level 103mmol/L (98-107) Carbon Dioxide Level 34mmol/L (21-32) Anion Gap 6 (6-14) Blood Urea Nitrogen 17mg/dL (7-20) Creatinine 1.0mg/dL (0.6-1.0) Estimated GFR (Cockcroft-Gault) 53.1 Glucose Level 186mg/dL (70-99) Calcium Level 9.2mg/dL (8.5-10.1) Test 11/07/16 11:14 Glucose (Fingerstick) 206mg/dL (70-99) Microbiology Micro Microbiology 11/04/16 Urine Culture - Final, Complete 11/04/16 Urine Culture Result 1 (ALESSANDRO) - Final, Complete Physical Exam HEENT: Neck Supple W Full Motion Chest: Symmetric LUNGS: Clear to Auscultation Heart: S1S2, RRR Abdomen: Soft N/T Extremities: Other (puffy ankles) Neurology: alert, oriented, follow commands Assessment Assessment 1. Chronic AFIB rate controlled with Digoxin and metoprolol not on tele: ??? hold warfarin with ongoing hematuria/acute blood loss anemia 2. Chronic systolic HF LVEF 20-25% per recent echo 03/2016 clinically well- compensated continue optimization therapy. Add ACEi outpatient echo scheduled to re-evaluate LV function/assess need for AICD in prevention of SCD 3. CAD s/p PCI/ALEXIS to mid to distal LAD 07/25/2016 DAPT has now been stopped - ??? as ALEXIS only about 3.5 months, do NOT recommend holding DAPT resume ASA 81 mg today resume clopidogrel tomorrow after cysto complete 4. Hematuria ? renal mass hold warfarin- INR down to 1.3 today. Hgb up to 8 today cysto with uro tomorrow BRITT DORAN APRN Nov 07, 2016 13:50
[2016-11-07] MEDS ORDERED: IRON SUCROSE COMPLEX 500 MG in IV NORMAL SALINE 250ML 250 ML IV ONE (16:30)
--- NOTE | 2016-11-07 16:50 | PDOC ---
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 Can't tolerate Venofer available as inpt. Will set up Injectafer x 4 again as outpt when DC'ed. New Hematuria- Cystoscopy planned Ongoing ASA, plavix, coumadin use- Can we DC at least one of these on DC to help with ongoing blood loss issues? Thank you. KAYLAH TORRES DO Nov 07, 2016 16:50
[2016-11-07] MEDS: ASPIRIN ENTERIC COATED 81 MG TABLET.DR. PO SCH (17:33)
[2016-11-07] MEDS: NYSTATIN TOPICAL POWDER 15GM BOTTLE. TP SCH (20:09)
[2016-11-07] MEDS: INSULIN DETEMIR 300 UNITS/3 ML INSULN.PEN. SQ SCH (21:00)
[2016-11-07] MEDS: CEFTRIAXONE SODIUM 1 GM in IV NORMAL SALINE 50ML 50 ML IV SCH (23:31)
[2016-11-08 03:00] VITALS: BP 97/41
[2016-11-08] MEDS: HYDROCODONE/APAP 5/325MG TABLET. PO PRN (03:35)
[2016-11-08 05:01] LABS: HEMATOCRIT 23.7 % (36.0-47.0); HEMOGLOBIN 7.3 g/dL (12.0-15.5)
--- NOTE | 2016-11-08 06:14 | CONS ---
DATE OF CONSULTATION: 11/07/2016 HEMATOLOGY CONSULTATION NOTE REFERRING PROVIDER: Dr. Palmer. REASON FOR CONSULTATION: Iron deficiency anemia. HISTORY OF PRESENT ILLNESS: The patient is an 81-year-old female whom I recently met in the clinic in August 2016 for her long-term history of iron deficiency anemia, which has been an ongoing problem since at least 2002 when she was diagnosed with gastric antral vascular ectasia. She has had a lifelong need for ongoing IV iron treatments, but unfortunately, has had allergies to multiple types of IV iron. She reports an allergy to Venofer, though my clinic reports previously giving it to her. She has had an allergy to iron dextran. Most recently, in August, I gave her Injectafer. She was due to see me in clinic today with repeat labs beforehand. These labs were drawn last week and showed hemoglobin of 5.8. She was transfused 2 units of blood; however, she presented to the hospital shortly afterwards with hematuria. She reports that the hematuria has been an issue for at least one week. She has been on Plavix, aspirin, and Coumadin long-term. She has previously been told that she cannot have further endoscopies due to very friable mucosa. At this time, she denied any obvious hematochezia or melena, which has been quite significant with previous GI bleeds. PAST MEDICAL HISTORY: Atrial fibrillation, chronic systolic heart failure with ejection fraction of 20%, hypertension, neuropathy, gastric antral vascular ectasia, chronic iron deficiency anemia, diabetes, hypothyroidism, macular degeneration. PAST SURGICAL HISTORY: Cholecystectomy, hernia surgery, PCI, and pacemaker. FAMILY HISTORY: Heart disease, hypothyroidism. SOCIAL HISTORY: No tobacco, alcohol or drug use. Her daughter is her caregiver. ALLERGIES: IRON, LATEX, ADHESIVE TAPE. CURRENT MEDICATIONS: Tylenol, Lortab, albuterol, Xanax, aspirin, Os-Kieran, Rocephin, Zyrtec, digoxin, Lasix, glipizide, aspart-detemir, lisinopril, meclizine, metformin, metoprolol, multivitamin, nitroglycerin, Zofran, potassium chloride, Senokot-S, spironolactone. REVIEW OF SYSTEMS: Ten-point review of systems completed and unremarkable with the exception of chronic shortness of breath, unchanged; dysuria; bladder spasms with urination; hematuria; no melena, hematochezia, or epistaxis. PHYSICAL EXAMINATION: VITAL SIGNS: Temperature 98.2, pulse 59, respiratory rate 20, blood pressure 120/44, 100% O2 on 2 liters. GENERAL: She is alert and oriented. She is somewhat fatigued, but appears to be in her baseline health. HEENT: Extraocular muscle strength is intact. Sclerae are without icterus. Mucous membranes are moist. CARDIOVASCULAR: Heart is regular in rhythm and rate. LUNGS: Clear to auscultation bilaterally. ABDOMEN: Soft, nontender. EXTREMITIES: No edema. NEUROLOGIC: No focal deficits. SKIN: Pallor is present. IMAGING AND LABORATORY DATA: Pertinent CBC findings as above. Iron studies were low as an outpatient. CT of the abdomen and pelvis was negative. Renal ultrasound did reveal bilateral renal cysts measuring up to 12 cm in size. She received 2 units of blood just prior to this admission, 1 further unit this admission and is currently receiving FFP. ASSESSMENT AND PLAN: The patient is an 81-year-old female with the following medical problems: 1. Chronic iron deficiency anemia: Previously, due to gastric antral vascular ectasia. When she has a GI bleed occurring, it is typically very obvious. At this time, she has not had any such symptoms. Previously, she reports being told that she cannot have further endoscopies due to very friable GI mucosa. She has had allergies to previous IV iron, though there is a discrepancy in which form of iron she can tolerate. Her daughter and she state that she is allergic to Venofer. Previously, in August, I gave her Injectafer. Unfortunately, Venofer is the only form of IV iron I can give as an inpatient, which she declined to accept due to a possible allergy. Therefore, when she is discharged from the hospital, I will set her up in clinic to receive further IV iron with Injectafer. Her hemoglobin remains stable this admission that was still around 8.0. 2. Hematuria: Urology is following and planning an endoscopy in the near future. 3. Multiple anticoagulants: She has previously been on aspirin, Plavix, and Coumadin. If at all possible, it would be very helpful to discontinue at least one of these, as she continues to have periodic chronic bleeding and it is difficult to keep up with her IV iron needs. Thank you for alerting me of her admission. I will set up further IV iron when she is discharged, as she cannot tolerate the Venofer available as an inpatient. ADDENDUM 11/08/16: She has received 26 doses of Venofer in my clinic previously. Also Injectafer x 3. Allergy was no iron dextran. Will give venofer while here and further Injectafer as outpatient. KAYLAH TORRES DO DR: KRISSY/diamond JOB#: [id number] / [id number] WADE
[2016-11-08 07:28] VITALS: BP 112/53
[2016-11-08] MEDS: INSULIN ASPART 300 UNITS/3 ML INSULN.PEN SQ SCH ×3 (08:00→17:00)
[2016-11-08] MEDS: GLIPIZIDE 5 MG TABLET PO SCH ×2 (08:17→17:28)
[2016-11-08] MEDS: ASPIRIN ENTERIC COATED 81 MG TABLET.DR. PO SCH (08:17)
[2016-11-08] MEDS: SPIRONOLACTONE 25 MG TABLET PO SCH (08:18)
[2016-11-08] MEDS: METFORMIN 500 MG TABLET. PO SCH ×2 (08:18→17:28)
[2016-11-08] MEDS: POTASSIUM CHLORIDE 20 MEQ TABLET.ER. PO SCH (08:18)
[2016-11-08] MEDS: CALCIUM CARBONATE 500 MG TABLET PO SCH (08:20)
[2016-11-08] MEDS: METOPROLOL TART IMMED RELEASE 25 MG TABLET PO SCH ×2 (08:20→20:45)
[2016-11-08] MEDS: LISINOPRIL 2.5 MG TABLET PO SCH (08:20)
[2016-11-08] MEDS: MULTIVITAMIN with MINERAL TABLET. PO SCH (08:21)
[2016-11-08] MEDS: SENNOSIDES/DOCUSATE 8.6/50MG TABLET. PO SCH (08:21)
[2016-11-08] MEDS: CETIRIZINE HCL 10 MG TABLET PO SCH (08:21)
[2016-11-08] MEDS: NYSTATIN TOPICAL POWDER 15GM BOTTLE. TP SCH ×2 (08:23→21:00)
[2016-11-08] MEDS: DIGOXIN 125 MCG TABLET PO SCH (08:23)
--- NOTE | 2016-11-08 09:09 | PDOC ---
Subjective: Subjective: Heme f/u- CHARLIE Pt with hematuria last night, none this AM. Chronic SOB unchanged. No CP. Fatigue present. No GI bleeding. Objective: Vital Signs: Vital Signs Date Time Temp Pulse Resp B/P Pulse Ox O2 Delivery O2 Flow Rate FiO2 11/08/16 08:23 62 112/53 11/08/16 07:28 97.8 17 96 Nasal Cannula 2.0 97.8 Physical Exam: General: Alert, Oriented X3, Cooperative, No acute distress Lungs: Normal air movement Psych/Mental Status: Mental status NL, Mood NL Skin: Other (pallor present) Labs/Imaging: Hgb down to 7.3 Assessment/Plan A/P: 1. Chronic iron def anemia due to chronic blood loss, previously GAVE, now with hematuria - Reports being told she couldn't have repeat endoscopies due to friable mucosa , no obvious GI bleeding now. - Difficult to keep up with continuous needs for IV iron as outpt, just completed adequate course in Aug 2016 with drop again now to hgb 6.0 on admit. - Previous allergy to IRON DEXTRAN. Has received 26 doses of Venofer and 3 doses of Injectafer in my clinic. - More venofer ordered while inpt; will set up f/u for Injectafer as outpt. Left message for daughter regarding this. 2. Hematuria - Coumadin on hold - Cystoscopy planned 3. CHF, A fib - Defer to cardiology on need for ASA, plavix, and coumadin all on DC but I am concerned bleeding issues and severe anemia will continue with all 3 meds. F/u with me as outpt for further Injectafer. KAYLAH TORRES DO Nov 08, 2016 09:09
[2016-11-08] MEDS ORDERED: IRON SUCROSE COMPLEX 200 MG in IV NORMAL SALINE 100ML 100 ML IV ONE (10:00)
[2016-11-08] MEDS: FUROSEMIDE 20 MG TABLET PO SCH ×2 (10:01→17:28)
--- NOTE | 2016-11-08 10:39 | PDOC ---
BRITT DORAN PERSONNEL RESEARCH SCIENTIST 11/08/16 1039: CARDIO Progress Notes Date and Time Date of Service 11/08/2016 Time of Evaluation 1039 Subjective Subjective: No Chest Pain, No shortness of breath, No Palpitations, No Dizziness Vitals Vitals Vital Signs Date Time Temp Pulse Resp B/P Pulse Ox O2 Delivery O2 Flow Rate FiO2 11/08/16 08:23 62 112/53 11/08/16 07:37 Nasal Cannula 2.0 11/08/16 07:28 97.8 17 96 97.8 Weight Weight [ ] Input and Output Intake and Output Intake and Output 11/08/16 07:00 Intake Total 2360 ml Output Total 1300 ml Balance 1060 ml Intake Oral 1360 ml IV Total 50 ml Blood Product IV Normal Saline Flush 950 ml Output Urine Total 1300 ml Emesis 0 ml # Voids 4 Laboratory Labs Laboratory Tests Test 11/07/16 11:05 11/07/16 11:14 11/07/16 16:38 11/07/16 21:21 White Blood Count 9.0x10^3/uL (4.0-11.0) Red Blood Count 3.20x10^6/uL (3.50-5.40) Hemoglobin 8.0g/dL (12.0-15.5) Hematocrit 26.0% (36.0-47.0) Mean Corpuscular Volume 81fL (79-100) Mean Corpuscular Hemoglobin 25pg (25-35) Mean Corpuscular Hemoglobin Concent 31g/dL (31-37) Red Cell Distribution Width 18.7% (11.5-14.5) Platelet Count 359x10^3/uL (140-400) Neutrophils (%) (Auto) 81% (31-73) Lymphocytes (%) (Auto) 10% (24-48) Monocytes (%) (Auto) 7% (0-9) Eosinophils (%) (Auto) 3% (0-3) Basophils (%) (Auto) 1% (0-3) Neutrophils # (Auto) 7.3x10^3uL (1.8-7.7) Lymphocytes # (Auto) 0.9x10^3/uL (1.0-4.8) Monocytes # (Auto) 0.6x10^3/uL (0.0-1.1) Eosinophils # (Auto) 0.2x10^3/uL (0.0-0.7) Basophils # (Auto) 0.0x10^3/uL (0.0-0.2) Prothrombin Time 15.3SEC (11.7-14.0) Prothromb Time International Ratio 1.3 (0.8-1.1) Sodium Level 143mmol/L (136-145) Potassium Level 4.6mmol/L (3.5-5.1) Chloride Level 103mmol/L (98-107) Carbon Dioxide Level 34mmol/L (21-32) Anion Gap 6 (6-14) Blood Urea Nitrogen 17mg/dL (7-20) Creatinine 1.0mg/dL (0.6-1.0) Estimated GFR (Cockcroft-Gault) 53.1 Glucose Level 186mg/dL (70-99) Calcium Level 9.2mg/dL (8.5-10.1) Glucose (Fingerstick) 206mg/dL (70-99) 98mg/dL (70-99) 85mg/dL (70-99) Test 11/08/16 03:57 11/08/16 07:32 Hemoglobin 7.3g/dL (12.0-15.5) Hematocrit 23.7% (36.0-47.0) Mean Corpuscular Hemoglobin Concent 31g/dL (31-37) Glucose (Fingerstick) 106mg/dL (70-99) Microbiology Micro Microbiology 11/04/16 Urine Culture - Final, Complete 11/04/16 Urine Culture Result 1 (ALESSANDRO) - Final, Complete Physical Exam HEENT: Neck Supple W Full Motion Chest: Symmetric LUNGS: Clear to Auscultation Heart: S1S2, RRR, other (off tele) Abdomen: Soft N/T Extremities: Other (puffy ankles) Neurology: alert, oriented, follow commands Assessment Assessment 1. Chronic AFIB rate controlled with Digoxin and beta-blockers resume tele warfarin remains on hold since 11/05/2016 2. Chronic systolic HF LVEF 20-25% per recent echo 03/2016 clinically well- compensated continue optimization therapy. Add ACEi echo in the future to re-evaluate LV function and determine need for ICD for prevention of SCD 3. CAD s/p PCI/ALEXIS (resolute) to mid to distal LAD 07/25/2016 as ALEXIS only about 3.5 months, do NOT recommend holding DAPT ASA 81 mg resumed 11/07/16; had deferred resuming clopidogrel as pt was to undergo cysto today which has now be cancelled until 11/10/2016 recommend resumption of clopidogrel today to protect DRUG ELUTING STENT; DAPT recommended until @ least 01/22/2017 4. Hematuria ? renal mass hold warfarin- INR down to 1.3 on 11/07 and then was given FFP cysto cancelled until 11/10 TASHIA DING MD 11/09/16 0034: CARDIO Progress Notes Plan Plan Late entry for 11/08/2016 Pt. seen and examined. Agree with above TAFE LECTURER note. No acute events overnight. Awaiting urological eval No significant cardiac abn on exam Would be deemed low risk for cysto/but moderate risk for any intraabd open/lap repair. Currently euvolemic Ok to hold plavix if necessary from urological perspective but prefer DAPT if possible. Will follow along BRITT DORAN APRN Nov 08, 2016 10:39 TASHIA DING MD Nov 09, 2016 00:34
[2016-11-08 10:41] VITALS: BP 117/51
--- NOTE | 2016-11-08 10:44 | PDOC ---
Provider Note Provider Note Urology: Patient up in chair today lethargic, rec blood transfusion hematuria has improved Coag improving Plan Cystoscopy possible bladder biopsies on THUR. EMANI SALAZAR DO Nov 08, 2016 10:44
--- NOTE | 2016-11-08 12:30 | PDOC ---
PROGRESS NOTES Chief Complaint Chief Complaint 1. UTI with dysuria, hematuria 2. BILATERAL renal cysts - new dx 3. PAFIB on warfarin on multiple blood thinner with asa, plavix, coumadin 4. h/o CAD on asa, plavix 5. CHF, stable 6. chronic iron deficient anemia on transfusion and iron iv 7. dm2 on insulin 8. hld 9. htn 10. h/o UTI 11. MACULAR DEGENERATION 12. PPM 13. h/o GIB, no recent dark stool History of Present Illness History of Present Illness Needs to cont ASA as per cards bec stents were placed only 3.5 mos ago Will resume plavix post cystoscopy - pending findings Cystoscopy tentatively planned for monday - dtr disappointed not too soon enough Still some bloody urine but not worse Getting iV venofer now Hgb 7 plus INR down to 1,.3 after my vitamin K and FFP yesterday PLAn: CPM Cysto by urology Follow cards recs on blood thinners PT./OT while in house Vitals Vitals Vital Signs Date Time Temp Pulse Resp B/P Pulse Ox O2 Delivery O2 Flow Rate FiO2 11/08/16 10:41 98.2 61 17 117/51 100 Room Air 98.2 11/08/16 07:37 2.0 Physical Exam General: Alert, Oriented X3, Cooperative, No acute distress Heart: Regular rate Lungs: Clear Abdomen: Normal bowel sounds Extremities: No cyanosis, Normal pulses, Other (trace LE edema ) Skin: Other (pallor present) Labs LABS Laboratory Tests Test 11/07/16 16:38 11/07/16 21:21 11/08/16 03:57 11/08/16 07:32 Glucose (Fingerstick) 98mg/dL (70-99) 85mg/dL (70-99) 106mg/dL (70-99) Hemoglobin 7.3g/dL (12.0-15.5) Hematocrit 23.7% (36.0-47.0) Mean Corpuscular Hemoglobin Concent 31g/dL (31-37) Test 11/08/16 10:53 Glucose (Fingerstick) 181mg/dL (70-99) Review of Systems Review of Systems bloody urine, no pain, no fevers, no emesis Assessment and Plan Assessmemt and Plan Problems Medical Problems: (1) Hematuria Status: Acute (2) UTI (urinary tract infection) Status: Acute Problems: Comment Review of Relevant I have reviewed the following items la (where applicable) has been applied. Labs Laboratory Tests Test 11/06/16 16:05 11/06/16 20:47 11/07/16 07:44 11/07/16 11:05 Glucose (Fingerstick) 109mg/dL (70-99) 113mg/dL (70-99) 120mg/dL (70-99) White Blood Count 9.0x10^3/uL (4.0-11.0) Red Blood Count 3.20x10^6/uL (3.50-5.40) Hemoglobin 8.0g/dL (12.0-15.5) Hematocrit 26.0% (36.0-47.0) Mean Corpuscular Volume 81fL (79-100) Mean Corpuscular Hemoglobin 25pg (25-35) Mean Corpuscular Hemoglobin Concent 31g/dL (31-37) Red Cell Distribution Width 18.7% (11.5-14.5) Platelet Count 359x10^3/uL (140-400) Neutrophils (%) (Auto) 81% (31-73) Lymphocytes (%) (Auto) 10% (24-48) Monocytes (%) (Auto) 7% (0-9) Eosinophils (%) (Auto) 3% (0-3) Basophils (%) (Auto) 1% (0-3) Neutrophils # (Auto) 7.3x10^3uL (1.8-7.7) Lymphocytes # (Auto) 0.9x10^3/uL (1.0-4.8) Monocytes # (Auto) 0.6x10^3/uL (0.0-1.1) Eosinophils # (Auto) 0.2x10^3/uL (0.0-0.7) Basophils # (Auto) 0.0x10^3/uL (0.0-0.2) Prothrombin Time 15.3SEC (11.7-14.0) Prothromb Time International Ratio 1.3 (0.8-1.1) Sodium Level 143mmol/L (136-145) Potassium Level 4.6mmol/L (3.5-5.1) Chloride Level 103mmol/L (98-107) Carbon Dioxide Level 34mmol/L (21-32) Anion Gap 6 (6-14) Blood Urea Nitrogen 17mg/dL (7-20) Creatinine 1.0mg/dL (0.6-1.0) Estimated GFR (Cockcroft-Gault) 53.1 Glucose Level 186mg/dL (70-99) Calcium Level 9.2mg/dL (8.5-10.1) Test 11/07/16 11:14 11/07/16 16:38 11/07/16 21:21 11/08/16 03:57 Glucose (Fingerstick) 206mg/dL (70-99) 98mg/dL (70-99) 85mg/dL (70-99) Hemoglobin 7.3g/dL (12.0-15.5) Hematocrit 23.7% (36.0-47.0) Mean Corpuscular Hemoglobin Concent 31g/dL (31-37) Test 11/08/16 07:32 11/08/16 10:53 Glucose (Fingerstick) 106mg/dL (70-99) 181mg/dL (70-99) Laboratory Tests Test 11/07/16 16:38 11/07/16 21:21 11/08/16 03:57 11/08/16 07:32 Glucose (Fingerstick) 98mg/dL (70-99) 85mg/dL (70-99) 106mg/dL (70-99) Hemoglobin 7.3g/dL (12.0-15.5) Hematocrit 23.7% (36.0-47.0) Mean Corpuscular Hemoglobin Concent 31g/dL (31-37) Test 11/08/16 10:53 Glucose (Fingerstick) 181mg/dL (70-99) Microbiology 11/04/16 Urine Culture - Final, Complete 11/04/16 Urine Culture Result 1 (ALESSANDRO) - Final, Complete Medications Current Medications Ceftriaxone Sodium (Rocephin 1gm Ivpb For Omni) 50 ml @ 100 mls/hr 1X ONCE IV Last administered on 11/04/16t 20:08; Start 11/04/16 at 20:00; Stop 11/04/16 at 20:29; Status DC Ondansetron HCl (Zofran) 4 mg PRN Q8HRS PRN IV NAUSEA/VOMITING; Start 11/04/16 at 20:15; Stop 11/04/16 at 21:37; Status DC Morphine Sulfate 2 mg PRN Q2HR PRN IV PAIN; Start 11/04/16 at 20:15; Stop 11/05 at 20:14; Status DC Acetaminophen (Tylenol) 650 mg PRN Q4HRS PRN PO FEVER; Start 11/04/16 at 20:15 ; Stop 11/04/16 at 21:35; Status DC Alprazolam (Xanax) 0.25 mg PRN QHS PRN PO ANXIETY / AGITATION Last administered on 11/05/16 01:12; Start 11/04/16 at 20:30 Aspirin (Ecotrin) 81 mg DAILY PO Last administered on 11/06/16 08:50; Start at 09:00; Stop 11/06/16 at 09:41; Status DC Cetirizine HCl (Zyrtec) 10 mg DAILY PO Last administered on 11/08/16 08:21; Start 11/05/16 at 09:00 Clopidogrel Bisulfate (Plavix) 75 mg DAILY PO Last administered on 11/06/16 08 :51; Start 11/05/16 at 09:00; Stop 11/06/16 at 09:41; Status DC Digoxin (Lanoxin) 125 mcg DAILY PO Last administered on 11/08/16 08:23; Start 11/05/16 at 09:00 Furosemide (Lasix) 20 mg [id number] PO Last administered on 11/08/16 10:01; Start 11/05/16 at 09:00 Acetaminophen/ Hydrocodone Bitart (Lortab 5/325) 1 tab PRN Q6HRS PRN PO MODERATE PAIN Last administered on 11/08/16 03:35; Start 11/04/16 at 20:30 Metformin HCl (Glucophage) 500 mg BIDWMEALS PO Last administered on 11/08/16 08:18; Start 11/05/16 at 08:00 Metoprolol Tartrate (Lopressor) 25 mg BID PO Last administered on 11/08/16 08: 20; Start 11/05/16 at 01:30 Nitroglycerin (Nitrostat) 0.4 mg PRN Q5MIN PRN SL CHEST PAIN; Start 11/04/16 at 20:30 Potassium Chloride (Klor-Con) 20 meq DAILY PO Last administered on 11/08/16 08 :18; Start 11/05/16 at 09:00 Senna/Docusate Sodium (Senna Plus) 2 tab DAILY PO Last administered on 08:21; Start 11/05/16 at 09:00 Spironolactone (Aldactone) 25 mg DAILY PO Last administered on 11/08/16 08:18 ; Start 11/05/16 at 09:00 Non-Formulary Medication 1 puff PRN Q6HRS PRN INH SHORTNESS OF BREATH; Start at 20:30; Status UNV Calcium Carbonate/ Glycine (Oscal) 500 mg DAILY PO Last administered on 08:20; Start 11/05/16 at 09:00 Glipizide (Glucotrol) 10 mg BIDBFRMEAL PO Last administered on 11/06/16 07:33 ; Start 11/05/16 at 07:30; Stop 11/06/16 at 09:42; Status DC Insulin Detemir (Levemir) 10 units QHS SQ ; Start 11/05/16 at 21:00 Meclizine HCl (Antivert) 25 mg PRN TID PRN PO DIZZINESS; Start 11/04/16 at 21: 45 Multivitamins/ Calcium (Thera M Plus) 1 tab DAILY PO Last administered on 08:21; Start 11/05/16 at 09:00 Insulin Aspart (Novolog) 0-9 UNITS TIDWMEALS SQ Last administered on 11/07/16 12:05; Start 11/05/16 at 08:00 Dextrose 12.5 gm PRN Q15MIN PRN IV SEE COMMENTS; Start 11/04/16 at 20:30 Acetaminophen (Tylenol) 650 mg PRN Q6HRS PRN PO FEVER; Start 11/04/16 at 20:30 Ondansetron HCl 4 mg 4 mg PRN Q6HRS PRN IV NAUSEA; Start 11/04/16 at 20:30 Ceftriaxone Sodium/Sodium Chloride (Rocephin/Iv Sodium Chloride 0.9% 50ml) 50 ml @ 100 mls/hr Q24H IV Last administered on 11/07/16 23:31; Start 11/05/16 at 20:00 Albuterol Sulfate (Ventolin Neb Soln) 2.5 mg PRN Q6HRS PRN NEB SHORTNESS OF BREATH; Start 11/04/16 at 21:45 Lisinopril (Prinivil) 2.5 mg DAILY PO Last administered on 11/08/16 08:20; Start 11/06/16 at 09:00 Glipizide (Glucotrol) 5 mg BIDBFRMEAL PO Last administered on 11/08/16 08:17; Start 11/06/16 at 16:30 Phytonadione (Mephyton) 5 mg 1X ONCE PO Last administered on 11/07/16 09:45; Start 11/07/16 at 09:30; Stop 11/07/16 at 09:31; Status DC Aspirin 81 mg 81 mg DAILYWBKFT PO Last administered on 11/08/16 08:17; Start 11/07/16 at 14:15 Iron Sucrose 500 mg/Sodium Chloride 275 ml @ 78.571 mls/ hr 1X ONCE IV ; Start 11/07/16 at 16:30; Stop 11/07/16 at 16:40; Status DC Iron Sucrose/ Sodium Chloride (Venofer/Iv Sodium Chloride 0.9% 250ml) 275 ml @ 78.571 mls/ hr 1X ONCE IV ; Start 11/08/16 at 15:00; Stop 11/08/16 at 15:00; Status DC Nystatin 1 christian 1 christian BID TP Last administered on 11/08/16 08:23; Start at 21:00 Iron Sucrose/ Sodium Chloride (Venofer/Iv Sodium Chloride 0.9% 100ml) 110 ml @ 55 mls/hr 1X ONCE IV Last administered on 11/08/16 10:02; Start 11/08/16 at 10:00; Stop 11/08/16 at 11:59; Status DC Active Scripts Active Reported Calcium + Vitamin D Tablet (Calcium Carbonate/Vitamin D3) 1 Each Tablet 1 Each PO DAILY Macrobid 100 Mg Capsule (Nitrofurantoin Monohyd/M-Cryst) 100 Mg Capsule 100 Mg PO DAILY Omeprazole 20 Mg Capsule.dr 1 Cap PO DAILY Metoprolol Succinate ( Xl ) (Metoprolol Succinate) 25 Mg Tab.er.24h 25 Mg PO BID Clopidogrel (Clopidogrel Bisulfate) 75 Mg Tablet 75 Mg PO DAILY Dermasorb Ta 0.1% Complete Kit (Triamcinolone/Emollient Cmb#86) 340.4 Gm Cream..g. 340.4 Gm TP Meclizine Hcl 25 Mg Tablet 1 Tab PO PRN TID Xanax (Alprazolam) 0.25 Mg Tablet 0.25 Mg PO HS PRN Levemir (Insulin Detemir) 100 Unit/1 Ml Vial 10-12 Unit SQ HS Lortab 5-325 mg Tablet (Hydrocodone/Acetaminophen) 1 Each Tablet 1 Tab PO PRN Q6HRS PRN LAST DOSE GIVEN: MAY TAKE SOON YOU DESIRE. ( NO DOSE GIVEN PRIOR TO DISCHARWGE ) DATE: TIME: NEXT DOSE DUE: DATE: TIME: Proair Hfa Inhaler (Albuterol Sulfate) 8.5 Gm Hfa.aer.ad 1 Puff INH PRN Q6HRS PRN NITROGLYCERIN SubLingual (Nitroglycerin) 0.4 Mg Tab.subl 0.4 Mg SL PRN Q5MIN PRN Multi Vitamin Daily (Multivitamin) 1 Each Tablet 1 Each PO DAILY Stool Softener Tablet (Sennosides/Docusate Sodium) 1 Each Tablet 2 Each PO NEEDED Calcium (Calcium Carbonate) 500 Mg Tab.chew 500 Mg PO DAILY Metformin Hcl 500 Mg Tablet 500 Mg PO BIDWMEALS Cetirizine Hcl 10 Mg Tablet 1 Tab PO DAILY Potassium Chloride 20 Meq Tab.er.prt 20 Meq PO DAILY Warfarin Sodium 5 Mg Tablet 7.5 Mg PO EVERY OTHER DAY Warfarin Sodium 5 Mg Tablet 1 Tab PO EVERY OTHER DAY Furosemide 40 Mg Tablet 40 Mg PO DAILY Spironolactone 25 Mg Tablet 1 Tab PO DAILY Aspir 81 (Aspirin) 81 Mg Tablet.dr 1 Tab PO DAILY Digoxin 125 Mcg Tablet 1 Tab PO DAILY Glipizide 10 Mg Tablet 1 Tab PO BIDACLD Vitals/I & O Vital Sign - Last 24 Hours 11/07/16 11/07/16 11/07/16 11/07/16 14:46 15:02 15:33 16:30 Temp 98.5 98.5 98.2 98.0 98.5 98.5 98.2 98.0 Pulse 60 63 59 65 Resp 18 20 20 20 B/P 117/50 117/50 120/44 125/50 Pulse Ox 100 O2 Delivery Nasal Cannula O2 Flow Rate 2.0 11/07/16 11/07/16 11/07/16 11/07/16 19:00 20:00 20:22 21:20 Temp 98.1 97.9 98.1 97.9 Pulse 61 60 60 Resp 12 B/P 125/51 124/37 124/37 Pulse Ox 98 O2 Delivery Room Air O2 Flow Rate 2.0 11/07/16 11/07/16 11/07/16 11/07/16 21:22 22:22 23:00 23:22 Temp 97.5 97.7 97.9 97.9 97.5 97.7 97.9 97.9 Pulse 77 60 76 69 Resp 08 29 12 12 B/P 148/47 128/36 145/37 145/37 Pulse Ox 98 O2 Delivery Nasal Cannula O2 Flow Rate 2.0 11/08/16 11/08/16 11/08/16 11/08/16 03:00 03:35 04:35 07:28 Temp 97.8 97.8 97.8 97.8 Pulse 59 68 Resp B/P 97/41 112/53 Pulse Ox 100 98 98 96 O2 Delivery Room Air Room Air Nasal Cannula O2 Flow Rate 2.0 2.0 2.0 11/08/16 11/08/16 11/08/16 11/08/16 07:37 08:20 08:20 08:23 Pulse 68 68 62 B/P 112/53 112/53 112/53 O2 Delivery Nasal Cannula O2 Flow Rate 2.0 11/08/16 10:41 Temp 98.2 98.2 Pulse 61 Resp 17 B/P 117/51 Pulse Ox 100 O2 Delivery Room Air Intake and Output 11/07/16 11/07/16 11/08/16 15:00 23:00 07:00 Intake Total 1010 ml 1350 ml Output Total 0 ml 400 ml 900 ml Balance 0 ml 610 ml 450 ml ESTER BARRY MD Nov 08, 2016 12:30
[2016-11-08] MEDS ORDERED: IRON SUCROSE COMPLEX 500 MG in IV NORMAL SALINE 250ML 250 ML IV ONE (15:00)
[2016-11-08 15:08] VITALS: BP 111/51
[2016-11-08 19:00] VITALS: BP 122/59
[2016-11-08] MEDS: CEFTRIAXONE SODIUM 1 GM in IV NORMAL SALINE 50ML 50 ML IV SCH (20:44)
[2016-11-08] MEDS: INSULIN DETEMIR 300 UNITS/3 ML INSULN.PEN. SQ SCH (20:48)
[2016-11-08] MEDS: ACETAMINOPHEN 325 MG TABLET. PO PRN (21:23)
[2016-11-08 23:00] VITALS: BP 131/48
[2016-11-09 03:00] VITALS: BP 122/55
[2016-11-09 04:28] LABS: HEMATOCRIT 24.3 % (36.0-47.0); HEMOGLOBIN 7.2 g/dL (12.0-15.5)
[2016-11-09 07:00] VITALS: BP 124/52
[2016-11-09] MEDS: INSULIN ASPART 300 UNITS/3 ML INSULN.PEN SQ SCH ×3 (08:00→16:59)
[2016-11-09] MEDS: CALCIUM CARBONATE 500 MG TABLET PO SCH (08:40)
[2016-11-09] MEDS: POTASSIUM CHLORIDE 20 MEQ TABLET.ER. PO SCH (08:40)
[2016-11-09] MEDS: ASPIRIN ENTERIC COATED 81 MG TABLET.DR. PO SCH (08:41)
[2016-11-09] MEDS: ACETAMINOPHEN 325 MG TABLET. PO PRN ×3 (08:41→22:52)
[2016-11-09] MEDS: GLIPIZIDE 5 MG TABLET PO SCH ×2 (08:41→16:59)
[2016-11-09] MEDS: SENNOSIDES/DOCUSATE 8.6/50MG TABLET. PO SCH ×2 (08:42→09:00)
[2016-11-09] MEDS: METFORMIN 500 MG TABLET. PO SCH ×2 (08:42→16:59)
[2016-11-09] MEDS: MULTIVITAMIN with MINERAL TABLET. PO SCH (08:42)
[2016-11-09] MEDS: CETIRIZINE HCL 10 MG TABLET PO SCH (08:43)
[2016-11-09] MEDS: DIGOXIN 125 MCG TABLET PO SCH (09:00)
[2016-11-09] MEDS: NYSTATIN TOPICAL POWDER 15GM BOTTLE. TP SCH ×2 (09:00→20:10)
[2016-11-09] MEDS: LISINOPRIL 2.5 MG TABLET PO SCH (09:00)
[2016-11-09] MEDS: METOPROLOL TART IMMED RELEASE 25 MG TABLET PO SCH ×2 (09:00→20:03)
[2016-11-09] MEDS: SPIRONOLACTONE 25 MG TABLET PO SCH (09:00)
[2016-11-09] MEDS: FUROSEMIDE 20 MG TABLET PO SCH ×2 (09:00→16:00)
--- NOTE | 2016-11-09 09:54 | PDOC ---
Subjective: Subjective: Heme f/u- CHARLIE Pt with no hematuria now. Cystoscopy planned tomorrow. Still no melena, hematochezia. Received venofer without problems yesterday. Objective: Vital Signs: Vital Signs Date Time Temp Pulse Resp B/P Pulse Ox O2 Delivery O2 Flow Rate FiO2 11/09/16 07:00 97.3 60 16 124/52 100 Nasal Cannula 2.0 97.3 Physical Exam: Heart: Regular rate General: Alert, Oriented X3, No acute distress Lungs: Other (no resp distress) Psych/Mental Status: Mental status NL, Mood NL Skin: Other (pallor present) Labs/Imaging: Hgb stable Assessment/Plan A/P: 1. Chronic iron def anemia due to chronic blood loss, previously GAVE, now with hematuria and no melena, hematochezia - Reports being told she couldn't have repeat endoscopies due to friable mucosa , no obvious GI bleeding now. - Difficult to keep up with continuous needs for IV iron as outpt, just completed adequate course in Aug 2016 with drop again now to hgb 6.0 on admit. - Previous allergy to IRON DEXTRAN. Has received 26 doses of Venofer and 3 doses of Injectafer in my clinic. (pt and daughter thought allergy was to venofer, clarified this with them.) - Received venofer 11/08 without problem; ordered QOD while admitted and will continue Injectafer as outpt. 2. Hematuria - Coumadin on hold - Cystoscopy planned 3. CHF, A fib, CAD - Needs ASA, plavix for ALEXIS placed 3 mth ago - Can coumadin be DC'ed on discharge due to ongoing bleeding issues? F/u with me as outpt for further Injectafer. KAYLAH TORRES DO Nov 09, 2016 09:54
[2016-11-09 11:00] VITALS: BP 111/42
--- NOTE | 2016-11-09 12:00 | PDOC ---
PROGRESS NOTES Chief Complaint Chief Complaint 1. UTI with dysuria, hematuria 2. BILATERAL renal cysts - new dx 3. PAFIB on warfarin on multiple blood thinner with asa, plavix, coumadin 4. h/o CAD on asa, plavix 5. CHF, stable 6. chronic iron deficient anemia on transfusion and iron iv 7. dm2 on insulin 8. hld 9. htn 10. h/o UTI 11. MACULAR DEGENERATION 12. PPM 13. h/o GIB, no recent dark stool History of Present Illness History of Present Illness Needs to cont ASA as per cards bec stents were placed only 3.5 mos ago Will resume plavix post cystoscopy - pending findings Cystoscopy tentatively planned for monday - dtr disappointed not too soon enough No reports of hematuria today (or at least not worse) s/p IV venofer (11/08) Hgb 7.2 today INR down to 1,.3 after my vitamin K and FFP yesterday PLAn: CPM Cysto by urology Follow cards recs on blood thinners PT./OT while in house Vitals Vitals Vital Signs Date Time Temp Pulse Resp B/P Pulse Ox O2 Delivery O2 Flow Rate FiO2 11/09/16 11:00 98.1 60 14 111/42 100 Nasal Cannula 2.0 98.1 Physical Exam General: Alert, Oriented X3, No acute distress Heart: Regular rate Lungs: Clear Abdomen: Normal bowel sounds Extremities: No cyanosis, Normal pulses, Other (trace LE edema ) Skin: Other (pallor present) Labs LABS Laboratory Tests Test 11/08/16 16:37 11/08/16 20:47 11/09/16 04:12 11/09/16 07:23 Glucose (Fingerstick) 113mg/dL (70-99) 130mg/dL (70-99) 86mg/dL (70-99) Hemoglobin 7.2g/dL (12.0-15.5) Hematocrit 24.3% (36.0-47.0) Mean Corpuscular Hemoglobin Concent 30g/dL (31-37) Test 11/09/16 10:54 Glucose (Fingerstick) 146mg/dL (70-99) Review of Systems Review of Systems asleep did not awaken Assessment and Plan Assessmemt and Plan Problems Medical Problems: (1) Hematuria Status: Acute (2) UTI (urinary tract infection) Status: Acute Problems: Comment Review of Relevant I have reviewed the following items la (where applicable) has been applied. Labs Laboratory Tests Test 11/07/16 16:38 11/07/16 21:21 11/08/16 03:57 11/08/16 07:32 Glucose (Fingerstick) 98mg/dL (70-99) 85mg/dL (70-99) 106mg/dL (70-99) Hemoglobin 7.3g/dL (12.0-15.5) Hematocrit 23.7% (36.0-47.0) Mean Corpuscular Hemoglobin Concent 31g/dL (31-37) Test 11/08/16 10:53 11/08/16 16:37 11/08/16 20:47 11/09/16 04:12 Glucose (Fingerstick) 181mg/dL (70-99) 113mg/dL (70-99) 130mg/dL (70-99) Hemoglobin 7.2g/dL (12.0-15.5) Hematocrit 24.3% (36.0-47.0) Mean Corpuscular Hemoglobin Concent 30g/dL (31-37) Test 11/09/16 07:23 11/09/16 10:54 Glucose (Fingerstick) 86mg/dL (70-99) 146mg/dL (70-99) Laboratory Tests Test 11/08/16 16:37 11/08/16 20:47 11/09/16 04:12 11/09/16 07:23 Glucose (Fingerstick) 113mg/dL (70-99) 130mg/dL (70-99) 86mg/dL (70-99) Hemoglobin 7.2g/dL (12.0-15.5) Hematocrit 24.3% (36.0-47.0) Mean Corpuscular Hemoglobin Concent 30g/dL (31-37) Test 11/09/16 10:54 Glucose (Fingerstick) 146mg/dL (70-99) Microbiology 11/04/16 Urine Culture - Final, Complete 11/04/16 Urine Culture Result 1 (ALESSANDRO) - Final, Complete Medications Current Medications Ceftriaxone Sodium (Rocephin 1gm Ivpb For Omni) 50 ml @ 100 mls/hr 1X ONCE IV Last administered on 11/04/16t 20:08; Start 11/04/16 at 20:00; Stop 11/04/16 at 20:29; Status DC Ondansetron HCl (Zofran) 4 mg PRN Q8HRS PRN IV NAUSEA/VOMITING; Start 11/04/16 at 20:15; Stop 11/04/16 at 21:37; Status DC Morphine Sulfate 2 mg PRN Q2HR PRN IV PAIN; Start 11/04/16 at 20:15; Stop 11/05 at 20:14; Status DC Acetaminophen (Tylenol) 650 mg PRN Q4HRS PRN PO FEVER; Start 11/04/16 at 20:15 ; Stop 11/04/16 at 21:35; Status DC Alprazolam (Xanax) 0.25 mg PRN QHS PRN PO ANXIETY / AGITATION Last administered on 11/05/16 01:12; Start 11/04/16 at 20:30 Aspirin (Ecotrin) 81 mg DAILY PO Last administered on 11/06/16 08:50; Start at 09:00; Stop 11/06/16 at 09:41; Status DC Cetirizine HCl (Zyrtec) 10 mg DAILY PO Last administered on 11/09/16 08:43; Start 11/05/16 at 09:00 Clopidogrel Bisulfate (Plavix) 75 mg DAILY PO Last administered on 11/06/16 08 :51; Start 11/05/16 at 09:00; Stop 11/06/16 at 09:41; Status DC Digoxin (Lanoxin) 125 mcg DAILY PO Last administered on 11/08/16 08:23; Start 11/05/16 at 09:00 Furosemide (Lasix) 20 mg [id number] PO Last administered on 11/08/16 17:28; Start 11/05/16 at 09:00 Acetaminophen/ Hydrocodone Bitart (Lortab 5/325) 1 tab PRN Q6HRS PRN PO MODERATE PAIN Last administered on 11/08/16 03:35; Start 11/04/16 at 20:30 Metformin HCl (Glucophage) 500 mg BIDWMEALS PO Last administered on 11/09/16 08:42; Start 11/05/16 at 08:00 Metoprolol Tartrate (Lopressor) 25 mg BID PO Last administered on 11/08/16 20: 45; Start 11/05/16 at 01:30 Nitroglycerin (Nitrostat) 0.4 mg PRN Q5MIN PRN SL CHEST PAIN; Start 11/04/16 at 20:30 Potassium Chloride (Klor-Con) 20 meq DAILY PO Last administered on 11/09/16 08 :40; Start 11/05/16 at 09:00 Senna/Docusate Sodium (Senna Plus) 2 tab DAILY PO Last administered on 08:21; Start 11/05/16 at 09:00 Spironolactone (Aldactone) 25 mg DAILY PO Last administered on 11/08/16 08:18 ; Start 11/05/16 at 09:00 Non-Formulary Medication 1 puff PRN Q6HRS PRN INH SHORTNESS OF BREATH; Start at 20:30; Status UNV Calcium Carbonate/ Glycine (Oscal) 500 mg DAILY PO Last administered on 08:40; Start 11/05/16 at 09:00 Glipizide (Glucotrol) 10 mg BIDBFRMEAL PO Last administered on 11/06/16 07:33 ; Start 11/05/16 at 07:30; Stop 11/06/16 at 09:42; Status DC Insulin Detemir (Levemir) 10 units QHS SQ Last administered on 11/08/16 20:48 ; Start 11/05/16 at 21:00 Meclizine HCl (Antivert) 25 mg PRN TID PRN PO DIZZINESS; Start 11/04/16 at 21: 45 Multivitamins/ Calcium (Thera M Plus) 1 tab DAILY PO Last administered on 08:42; Start 11/05/16 at 09:00 Insulin Aspart (Novolog) 0-9 UNITS TIDWMEALS SQ Last administered on 11/08/16 14:08; Start 11/05/16 at 08:00 Dextrose 12.5 gm PRN Q15MIN PRN IV SEE COMMENTS; Start 11/04/16 at 20:30 Acetaminophen (Tylenol) 650 mg PRN Q6HRS PRN PO FEVER Last administered on 11/09 08:41; Start 11/04/16 at 20:30 Ondansetron HCl 4 mg 4 mg PRN Q6HRS PRN IV NAUSEA; Start 11/04/16 at 20:30 Ceftriaxone Sodium/Sodium Chloride (Rocephin/Iv Sodium Chloride 0.9% 50ml) 50 ml @ 100 mls/hr Q24H IV Last administered on 11/08/16 20:44; Start 11/05/16 at 20:00 Albuterol Sulfate (Ventolin Neb Soln) 2.5 mg PRN Q6HRS PRN NEB SHORTNESS OF BREATH; Start 11/04/16 at 21:45 Lisinopril (Prinivil) 2.5 mg DAILY PO Last administered on 11/08/16 08:20; Start 11/06/16 at 09:00 Glipizide (Glucotrol) 5 mg BIDBFRMEAL PO Last administered on 11/09/16 08:41; Start 11/06/16 at 16:30 Phytonadione (Mephyton) 5 mg 1X ONCE PO Last administered on 11/07/16 09:45; Start 11/07/16 at 09:30; Stop 11/07/16 at 09:31; Status DC Aspirin 81 mg 81 mg DAILYWBKFT PO Last administered on 11/09/16 08:41; Start 11/07/16 at 14:15 Iron Sucrose 500 mg/Sodium Chloride 275 ml @ 78.571 mls/ hr 1X ONCE IV ; Start 11/07/16 at 16:30; Stop 11/07/16 at 16:40; Status DC Iron Sucrose/ Sodium Chloride (Venofer/Iv Sodium Chloride 0.9% 250ml) 275 ml @ 78.571 mls/ hr 1X ONCE IV ; Start 11/08/16 at 15:00; Stop 11/08/16 at 15:00; Status DC Nystatin 1 christian 1 christian BID TP Last administered on 11/08/16 21:00; Start at 21:00 Iron Sucrose/ Sodium Chloride (Venofer/Iv Sodium Chloride 0.9% 100ml) 110 ml @ 55 mls/hr 1X ONCE IV Last administered on 11/08/16 10:02; Start 11/08/16 at 10:00; Stop 11/08/16 at 11:59; Status DC Active Scripts Active Reported Calcium + Vitamin D Tablet (Calcium Carbonate/Vitamin D3) 1 Each Tablet 1 Each PO DAILY Macrobid 100 Mg Capsule (Nitrofurantoin Monohyd/M-Cryst) 100 Mg Capsule 100 Mg PO DAILY Omeprazole 20 Mg Capsule.dr Roth Cap PO DAILY Metoprolol Succinate ( Xl ) (Metoprolol Succinate) 25 Mg Tab.er.24h 25 Mg PO BID Clopidogrel (Clopidogrel Bisulfate) 75 Mg Tablet 75 Mg PO DAILY Dermasorb Ta 0.1% Complete Kit (Triamcinolone/Emollient Cmb#86) 340.4 Gm Cream..g. 340.4 Gm TP Meclizine Hcl 25 Mg Tablet 1 Tab PO PRN TID Xanax (Alprazolam) 0.25 Mg Tablet 0.25 Mg PO HS PRN Levemir (Insulin Detemir) 100 Unit/1 Ml Vial 10-12 Unit SQ HS Lortab 5-325 mg Tablet (Hydrocodone/Acetaminophen) 1 Each Tablet 1 Tab PO PRN Q6HRS PRN LAST DOSE GIVEN: MAY TAKE SOON YOU DESIRE. ( NO DOSE GIVEN PRIOR TO DISCHARWGE ) DATE: TIME: NEXT DOSE DUE: DATE: TIME: Proair Hfa Inhaler (Albuterol Sulfate) 8.5 Gm Hfa.aer.ad 1 Puff INH PRN Q6HRS PRN NITROGLYCERIN SubLingual (Nitroglycerin) 0.4 Mg Tab.subl 0.4 Mg SL PRN Q5MIN PRN Multi Vitamin Daily (Multivitamin) 1 Each Tablet 1 Each PO DAILY Stool Softener Tablet (Sennosides/Docusate Sodium) 1 Each Tablet 2 Each PO NEEDED Calcium (Calcium Carbonate) 500 Mg Tab.chew 500 Mg PO DAILY Metformin Hcl 500 Mg Tablet 500 Mg PO BIDWMEALS Cetirizine Hcl 10 Mg Tablet 1 Tab PO DAILY Potassium Chloride 20 Meq Tab.er.prt 20 Meq PO DAILY Warfarin Sodium 5 Mg Tablet 7.5 Mg PO EVERY OTHER DAY Warfarin Sodium 5 Mg Tablet 1 Tab PO EVERY OTHER DAY Furosemide 40 Mg Tablet 40 Mg PO DAILY Spironolactone 25 Mg Tablet 1 Tab PO DAILY Aspir 81 (Aspirin) 81 Mg Tablet.dr Roth Tab PO DAILY Digoxin 125 Mcg Tablet 1 Tab PO DAILY Glipizide 10 Mg Tablet 1 Tab PO BIDACLD Vitals/I & O Vital Sign - Last 24 Hours 11/08/16 11/08/16 11/08/16 11/08/16 15:08 19:00 20:00 20:45 Temp 98.5 98.1 98.5 98.1 Pulse 61 63 63 Resp 17 18 B/P 111/51 122/59 122/59 Pulse Ox 98 99 O2 Delivery Nasal Cannula Nasal Cannula O2 Flow Rate 2.0 2.0 11/08/16 11/09/16 11/09/16 11/09/16 23:00 03:00 07:00 08:10 Temp 97.6 97.5 97.3 97.6 97.5 97.3 Pulse 63 60 60 Resp 18 18 16 B/P 131/48 122/55 124/52 Pulse Ox 96 100 100 O2 Delivery Nasal Cannula Nasal Cannula Room Air O2 Flow Rate 2.0 2.0 11/09/16 11:00 Temp 98.1 98.1 Pulse 60 Resp 14 B/P 111/42 Pulse Ox 100 O2 Delivery Nasal Cannula O2 Flow Rate 2.0 Intake and Output 11/08/16 11/08/16 11/09/16 15:00 23:00 07:00 Intake Total 410 ml 600 ml Output Total 600 ml 700 ml Balance -600 ml -290 ml 600 ml ESTER BARRY MD Nov 09, 2016 12:00
[2016-11-09 15:00] VITALS: BP 126/51
[2016-11-09 19:58] VITALS: BP 151/49
[2016-11-09] MEDS: CEFTRIAXONE SODIUM 1 GM in IV NORMAL SALINE 50ML 50 ML IV SCH (19:58)
[2016-11-09] MEDS: INSULIN DETEMIR 300 UNITS/3 ML INSULN.PEN. SQ SCH (20:09)
[2016-11-09 23:11] VITALS: BP 140/56
[2016-11-10] VITALS (10 sets, daily range): BP systolic 110–152; BP diastolic 50–80
--- NOTE | 2016-11-10 06:04 | PDOC ---
Provider Note Provider Note Urology: Patient scheduled for Cystoscopy, bladder biopsies, possible TUR-bladder tumor today. Scheduled for 12:00 Procedure has been explained to patient she appears to understand and agreeable. EMANI SALAZAR DO Nov 10, 2016 06:04
[2016-11-10] MEDS ORDERED: IV RINGERS,LACTATED 1000ML 1,000 ML IV SCH (07:00)
[2016-11-10] MEDS ORDERED: PROCHLORPERAZINE 10 MG/2 ML VIAL. IV PRN (07:00)
[2016-11-10] MEDS ORDERED: MORPHINE SULFATE 2 MG/ML DISP.SYRIN. IV PRN (07:00)
[2016-11-10] MEDS ORDERED: HYDROMORPHONE 2 MG/ML VIAL. IV PRN (07:00)
[2016-11-10] MEDS ORDERED: ONDANSETRON PF 4 MG/2 ML VIAL. IV PRN (07:00)
[2016-11-10] MEDS ORDERED: LIDOCAINE 1% 1 ML SYRINGE. ID PRN (07:00)
[2016-11-10] MEDS: GLIPIZIDE 5 MG TABLET PO SCH ×2 (07:30→17:19)
[2016-11-10] MEDS: INSULIN ASPART 300 UNITS/3 ML INSULN.PEN SQ SCH ×3 (08:00→17:22)
[2016-11-10] MEDS: METFORMIN 500 MG TABLET. PO SCH ×2 (08:00→17:19)
[2016-11-10] MEDS: LISINOPRIL 2.5 MG TABLET PO SCH (08:44)
[2016-11-10] MEDS: METOPROLOL TART IMMED RELEASE 25 MG TABLET PO SCH ×2 (08:45→20:08)
[2016-11-10] MEDS: DIGOXIN 125 MCG TABLET PO SCH (08:45)
[2016-11-10] MEDS: NYSTATIN TOPICAL POWDER 15GM BOTTLE. TP SCH ×2 (09:00→21:00)
[2016-11-10] MEDS: FUROSEMIDE 20 MG TABLET PO SCH ×2 (09:00→17:19)
[2016-11-10] MEDS: HYDROCODONE/APAP 5/325MG TABLET. PO PRN (10:08)
--- NOTE | 2016-11-10 11:08 | PDOC ---
PROGRESS NOTES Chief Complaint Chief Complaint 1. UTI with dysuria, hematuria 2. BILATERAL renal cysts - new dx 3. PAFIB on warfarin on multiple blood thinner with asa, plavix, coumadin 4. h/o CAD on asa, plavix 5. CHF, stable 6. chronic iron deficient anemia on transfusion and iron iv 7. dm2 on insulin 8. hld 9. htn 10. h/o UTI 11. MACULAR DEGENERATION 12. PPM 13. h/o GIB, no recent dark stool History of Present Illness History of Present Illness hgb stable at 7 About to have cysto today EARLIER ENTRY Needs to cont ASA as per cards bec stents were placed only 3.5 mos ago Will resume plavix post cystoscopy - pending findings Cystoscopy tentatively planned for monday - dtr disappointed not too soon enough No reports of hematuria today (or at least not worse) s/p IV venofer (11/08) Hgb 7.2 today INR down to 1,.3 after my vitamin K and FFP yesterday PLAn: Await cysto results COnt ASA per cards as stent is only 3.5 mos old Might need to resume plavix depending on cysto results HH again kayli Vitals Vitals Vital Signs Date Time Temp Pulse Resp B/P Pulse Ox O2 Delivery O2 Flow Rate FiO2 11/10/16 10:51 97.9 60 16 135/57 98 Nasal Cannula 2.0 97.9 Physical Exam General: Alert, Oriented X3, No acute distress Heart: Regular rate Lungs: Clear Abdomen: Normal bowel sounds Extremities: No cyanosis, Normal pulses, Other (trace LE edema ) Skin: Other (pallor present) Labs LABS Laboratory Tests Test 11/09/16 15:47 11/09/16 20:02 11/10/16 07:29 Glucose (Fingerstick) 109mg/dL (70-99) 119mg/dL (70-99) 97mg/dL (70-99) Review of Systems Review of Systems denies all 14 pt system Assessment and Plan Assessmemt and Plan Problems Medical Problems: (1) Hematuria Status: Acute (2) UTI (urinary tract infection) Status: Acute Problems: Comment Review of Relevant I have reviewed the following items la (where applicable) has been applied. Labs Laboratory Tests Test 11/08/16 16:37 11/08/16 20:47 11/09/16 04:12 11/09/16 07:23 Glucose (Fingerstick) 113mg/dL (70-99) 130mg/dL (70-99) 86mg/dL (70-99) Hemoglobin 7.2g/dL (12.0-15.5) Hematocrit 24.3% (36.0-47.0) Mean Corpuscular Hemoglobin Concent 30g/dL (31-37) Test 11/09/16 10:54 11/09/16 15:47 11/09/16 20:02 11/10/16 07:29 Glucose (Fingerstick) 146mg/dL (70-99) 109mg/dL (70-99) 119mg/dL (70-99) 97mg/dL (70-99) Laboratory Tests Test 11/09/16 15:47 11/09/16 20:02 11/10/16 07:29 Glucose (Fingerstick) 109mg/dL (70-99) 119mg/dL (70-99) 97mg/dL (70-99) Microbiology 11/04/16 Urine Culture - Final, Complete 11/04/16 Urine Culture Result 1 (ALESSANDRO) - Final, Complete Medications Current Medications Ceftriaxone Sodium (Rocephin 1gm Ivpb For Omni) 50 ml @ 100 mls/hr 1X ONCE IV Last administered on 11/04/16 20:08; Start 11/04/16 at 20:00; Stop 11/04/16 at 20:29; Status DC Ondansetron HCl (Zofran) 4 mg PRN Q8HRS PRN IV NAUSEA/VOMITING; Start 11/04/16 at 20:15; Stop 11/04/16 at 21:37; Status DC Morphine Sulfate 2 mg PRN Q2HR PRN IV PAIN; Start 11/04/16 at 20:15; Stop 11/05 at 20:14; Status DC Acetaminophen (Tylenol) 650 mg PRN Q4HRS PRN PO FEVER; Start 11/04/16 at 20:15 ; Stop 11/04/16 at 21:35; Status DC Alprazolam (Xanax) 0.25 mg PRN QHS PRN PO ANXIETY / AGITATION Last administered on 11/05/16 01:12; Start 11/04/16 at 20:30 Aspirin (Ecotrin) 81 mg DAILY PO Last administered on 11/06/16 08:50; Start at 09:00; Stop 11/06/16 at 09:41; Status DC Cetirizine HCl (Zyrtec) 10 mg DAILY PO Last administered on 11/09/16 08:43; Start 11/05/16 at 09:00 Clopidogrel Bisulfate (Plavix) 75 mg DAILY PO Last administered on 11/06/16 08 :51; Start 11/05/16 at 09:00; Stop 11/06/16 at 09:41; Status DC Digoxin (Lanoxin) 125 mcg DAILY PO Last administered on 11/10/16 08:45; Start 11/05/16 at 09:00 Furosemide (Lasix) 20 mg [id number] PO Last administered on 11/08/16 17:28; Start 11/05/16 at 09:00 Acetaminophen/ Hydrocodone Bitart (Lortab 5/325) 1 tab PRN Q6HRS PRN PO MODERATE PAIN Last administered on 11/10/16 10:08; Start 11/04/16 at 20:30 Metformin HCl (Glucophage) 500 mg BIDWMEALS PO Last administered on 11/09/16 16:59; Start 11/05/16 at 08:00 Metoprolol Tartrate (Lopressor) 25 mg BID PO Last administered on 11/10/16 08: 45; Start 11/05/16 at 01:30 Nitroglycerin (Nitrostat) 0.4 mg PRN Q5MIN PRN SL CHEST PAIN; Start 11/04/16 at 20:30 Potassium Chloride (Klor-Con) 20 meq DAILY PO Last administered on 11/09/16 08 :40; Start 11/05/16 at 09:00 Senna/Docusate Sodium (Senna Plus) 2 tab DAILY PO Last administered on 08:21; Start 11/05/16 at 09:00 Spironolactone (Aldactone) 25 mg DAILY PO Last administered on 11/08/16 08:18 ; Start 11/05/16 at 09:00 Non-Formulary Medication 1 puff PRN Q6HRS PRN INH SHORTNESS OF BREATH; Start at 20:30; Status UNV Calcium Carbonate/ Glycine (Oscal) 500 mg DAILY PO Last administered on 08:40; Start 11/05/16 at 09:00 Glipizide (Glucotrol) 10 mg BIDBFRMEAL PO Last administered on 11/06/16 07:33 ; Start 11/05/16 at 07:30; Stop 11/06/16 at 09:42; Status DC Insulin Detemir (Levemir) 10 units QHS SQ Last administered on 11/09/16 20:09 ; Start 11/05/16 at 21:00 Meclizine HCl (Antivert) 25 mg PRN TID PRN PO DIZZINESS; Start 11/04/16 at 21: 45 Multivitamins/ Calcium (Thera M Plus) 1 tab DAILY PO Last administered on 08:42; Start 11/05/16 at 09:00 Insulin Aspart (Novolog) 0-9 UNITS TIDWMEALS SQ Last administered on 11/08/16 14:08; Start 11/05/16 at 08:00 Dextrose 12.5 gm PRN Q15MIN PRN IV SEE COMMENTS; Start 11/04/16 at 20:30 Acetaminophen (Tylenol) 650 mg PRN Q6HRS PRN PO FEVER Last administered on 11/09 22:52; Start 11/04/16 at 20:30 Ondansetron HCl 4 mg 4 mg PRN Q6HRS PRN IV NAUSEA; Start 11/04/16 at 20:30 Ceftriaxone Sodium/Sodium Chloride (Rocephin/Iv Sodium Chloride 0.9% 50ml) 50 ml @ 100 mls/hr Q24H IV Last administered on 11/09/16 19:58; Start 11/05/16 at 20:00 Albuterol Sulfate (Ventolin Neb Soln) 2.5 mg PRN Q6HRS PRN NEB SHORTNESS OF BREATH; Start 11/04/16 at 21:45 Lisinopril (Prinivil) 2.5 mg DAILY PO Last administered on 11/10/16 08:44; Start 11/06/16 at 09:00 Glipizide (Glucotrol) 5 mg BIDBFRMEAL PO Last administered on 11/09/16 16:59; Start 11/06/16 at 16:30 Phytonadione (Mephyton) 5 mg 1X ONCE PO Last administered on 11/07/16 09:45; Start 11/07/16 at 09:30; Stop 11/07/16 at 09:31; Status DC Aspirin 81 mg 81 mg DAILYWBKFT PO Last administered on 11/09/16 08:41; Start 11/07/16 at 14:15 Iron Sucrose 500 mg/Sodium Chloride 275 ml @ 78.571 mls/ hr 1X ONCE IV ; Start 11/07/16 at 16:30; Stop 11/07/16 at 16:40; Status DC Iron Sucrose/ Sodium Chloride (Venofer/Iv Sodium Chloride 0.9% 250ml) 275 ml @ 78.571 mls/ hr 1X ONCE IV ; Start 11/08/16 at 15:00; Stop 11/08/16 at 15:00; Status DC Nystatin 1 christian 1 christian BID TP Last administered on 11/10/16 09:00; Start at 21:00 Iron Sucrose/ Sodium Chloride (Venofer/Iv Sodium Chloride 0.9% 100ml) 110 ml @ 55 mls/hr 1X ONCE IV Last administered on 11/08/16 10:02; Start 11/08/16 at 10:00; Stop 11/08/16 at 11:59; Status DC Ondansetron HCl (Zofran) 4 mg PRN Q6HRS PRN IV Nausea; Start 11/10/16 at 07:00 ; Stop 11/11/16 at 06:59 Morphine Sulfate 1 mg 1 mg PRN Q10MIN PRN IV SEVERE PAIN; Start 11/10/16 at 07: 00; Stop 11/11/16 at 06:59 Lactated Ringer's (Iv Lactated Ringers) 1,000 ml @ 0 mls/hr Q0M IV ; Start at 07:00; Stop 11/10/16 at 18:59 Lidocaine HCl 2 ml 1X PRN PRN ID IV START; Start 11/10/16 at 07:00; Stop at 06:59 Hydromorphone HCl (Dilaudid) 0.5 mg PRN Q10MIN PRN IV SEVERE PAIN, Second choice; Start 11/10/16 at 07:00; Stop 11/11/16 at 06:59 Prochlorperazine Edisylate (Compazine) 5 mg PACU PRN PRN IV NAUSEA; Start 11/10 at 07:00; Stop 11/11/16 at 06:59 Active Scripts Active Reported Calcium + Vitamin D Tablet (Calcium Carbonate/Vitamin D3) 1 Each Tablet 1 Each PO DAILY Macrobid 100 Mg Capsule (Nitrofurantoin Monohyd/M-Cryst) 100 Mg Capsule 100 Mg PO DAILY Omeprazole 20 Mg Capsule. 1 Cap PO DAILY Metoprolol Succinate ( Xl ) (Metoprolol Succinate) 25 Mg Tab.er.24h 25 Mg PO BID Clopidogrel (Clopidogrel Bisulfate) 75 Mg Tablet 75 Mg PO DAILY Dermasorb Ta 0.1% Complete Kit (Triamcinolone/Emollient Cmb#86) 340.4 Gm Cream..g. 340.4 Gm TP Meclizine Hcl 25 Mg Tablet 1 Tab PO PRN TID Xanax (Alprazolam) 0.25 Mg Tablet 0.25 Mg PO HS PRN Levemir (Insulin Detemir) 100 Unit/1 Ml Vial 10-12 Unit SQ HS Lortab 5-325 mg Tablet (Hydrocodone/Acetaminophen) 1 Each Tablet 1 Tab PO PRN Q6HRS PRN LAST DOSE GIVEN: MAY TAKE SOON YOU DESIRE. ( NO DOSE GIVEN PRIOR TO DISCHARWGE ) DATE: TIME: NEXT DOSE DUE: DATE: TIME: Proair Hfa Inhaler (Albuterol Sulfate) 8.5 Gm Hfa.aer.ad 1 Puff INH PRN Q6HRS PRN NITROGLYCERIN SubLingual (Nitroglycerin) 0.4 Mg Tab.subl 0.4 Mg SL PRN Q5MIN PRN Multi Vitamin Daily (Multivitamin) 1 Each Tablet 1 Each PO DAILY Stool Softener Tablet (Sennosides/Docusate Sodium) 1 Each Tablet 2 Each PO NEEDED Calcium (Calcium Carbonate) 500 Mg Tab.chew 500 Mg PO DAILY Metformin Hcl 500 Mg Tablet 500 Mg PO BIDWMEALS Cetirizine Hcl 10 Mg Tablet 1 Tab PO DAILY Potassium Chloride 20 Meq Tab.er.prt 20 Meq PO DAILY Warfarin Sodium 5 Mg Tablet 7.5 Mg PO EVERY OTHER DAY Warfarin Sodium 5 Mg Tablet 1 Tab PO EVERY OTHER DAY Furosemide 40 Mg Tablet 40 Mg PO DAILY Spironolactone 25 Mg Tablet 1 Tab PO DAILY Aspir 81 (Aspirin) 81 Mg Tablet. 1 Tab PO DAILY Digoxin 125 Mcg Tablet 1 Tab PO DAILY Glipizide 10 Mg Tablet 1 Tab PO BIDACLD Vitals/I & O Vital Sign - Last 24 Hours 11/09/16 11/09/16 11/09/16 11/09/16 15:00 19:58 20:00 20:03 Temp 98.1 98.6 98.1 98.6 Pulse 60 61 61 Resp 14 18 B/P 126/51 151/49 151/49 Pulse Ox 100 100 O2 Delivery Nasal Cannula Nasal Cannula Nasal Cannula O2 Flow Rate 2.0 2.0 2.0 11/09/16 11/10/16 11/10/16 11/10/16 23:11 02:59 07:32 08:44 Temp 97.5 96.8 96.1 97.5 96.8 96.1 Pulse 60 62 60 60 Resp 18 18 16 B/P 140/56 123/50 147/54 147/54 Pulse Ox 100 97 94 O2 Delivery Nasal Cannula Nasal Cannula Nasal Cannula O2 Flow Rate 2.0 2.0 2.0 11/10/16 11/10/16 11/10/16 11/10/16 08:45 08:45 10:08 10:51 Temp 97.9 97.9 Pulse 60 60 60 Resp 16 B/P 147/54 147/54 135/57 Pulse Ox 98 O2 Delivery Nasal Cannula Nasal Cannula O2 Flow Rate 2.0 2.0 Intake and Output 11/09/16 11/09/16 11/10/16 15:00 23:00 07:00 Intake Total 500 ml 200 ml 300 ml Output Total 200 ml Balance 500 ml 0 ml 300 ml ESTER BARRY MD Nov 10, 2016 11:08
[2016-11-10] MEDS ORDERED: DESFLURANE 61 TO 120 MINUTES IH ONE (11:39)
[2016-11-10] MEDS ORDERED: LIDOCAINE 2% 100 MG/5 ML DISP.SYRIN. ONE (11:39)
[2016-11-10] MEDS ORDERED: ONDANSETRON PF 4 MG/2 ML VIAL. ONE (11:39)
[2016-11-10] MEDS ORDERED: PROPOFOL 20 ML IV ONE (11:39)
--- NOTE | 2016-11-10 12:41 | PDOC ---
BRIEF OPERATIVE NOTE Date: Nov 10, 2016 Pre-Op Diagnosis Gross Hematuria Post-Op Diagnosis Post OP DX: same Procedure Performed Cystoscopy Surgeon [place] Anesthesia Type: General Blood Loss none Specimens Obtained none Findings no bladder pathology, no tumor, no calculi Complications none Additional Remarks Tolerated well suspect a renal bleed from anticoagulation EMANI SALAZAR DO Nov 10, 2016 12:41
[2016-11-10] MEDS: ASPIRIN ENTERIC COATED 81 MG TABLET.DR. PO SCH (14:47)
[2016-11-10] MEDS: SPIRONOLACTONE 25 MG TABLET PO SCH (14:47)
[2016-11-10] MEDS: CALCIUM CARBONATE 500 MG TABLET PO SCH (14:48)
[2016-11-10] MEDS: SENNOSIDES/DOCUSATE 8.6/50MG TABLET. PO SCH (14:48)
[2016-11-10] MEDS: CETIRIZINE HCL 10 MG TABLET PO SCH (14:48)
[2016-11-10] MEDS: MULTIVITAMIN with MINERAL TABLET. PO SCH (14:50)
[2016-11-10] MEDS: POTASSIUM CHLORIDE 20 MEQ TABLET.ER. PO SCH (14:50)
--- NOTE | 2016-11-10 17:15 | OP ---
DATE OF SURGERY: 11/10/2016 SURGEON: Emani Salazar DO. ANESTHESIA: General. INDICATIONS AND JUDGMENT: This is an 81-year-old obese female, that was admitted to the hospital with gross hematuria. She was on heavy anticoagulation. As her coagulation was reversed, her gross hematuria improved. The patient underwent a CT scan of the abdomen and pelvis without IV contrast. The kidneys appeared to be normal. There was no evidence of stone. There was no evidence of renal tumors. Ultrasound study revealed that she had bilateral renal cysts. It was felt that the patient should undergo a cystoscopy to rule out bladder pathology. This was explained to the patient and her family. They appeared to understand and were agreeable. DESCRIPTION OF PROCEDURE: The patient had antibiotics on board. Therefore, she was taken to the Operating Room and placed on the Operating Room table in a supine position, given a general anesthetic, and then placed in a dorsal lithotomy position using Norbert stirrups. The perineum was prepped and draped in sterile fashion. Rigid cystoscopy was performed. The urethra was normal in course and caliber. The bladder was examined carefully with a 30-degree and 70-degree lens. There was no pathology identified within the bladder. The ureteral orifices were normal bilaterally. There was no evidence of tumor, negative for calculi. The ureteral orifices were normal in position bilaterally. This was essentially a normal bladder examination. The scope was removed. The patient tolerated the procedure well and was sent to Recovery Room in satisfactory condition. I suspect that the patient's gross hematuria originated in one of her kidneys due to her anticoagulated state. There were no tumors, hydronephrosis, or calculi identified under CT scan. The bladder examination was normal. EMANI SALAZAR DO DR: Danielle JOB#: [id number] / [id number]
[2016-11-10] MEDS: CEFTRIAXONE SODIUM 1 GM in IV NORMAL SALINE 50ML 50 ML IV SCH (20:03)
[2016-11-10] MEDS: INSULIN DETEMIR 300 UNITS/3 ML INSULN.PEN. SQ SCH (21:00)
[2016-11-11 07:10] VITALS: BP 140/60
[2016-11-11] MEDS: INSULIN ASPART 300 UNITS/3 ML INSULN.PEN SQ SCH ×3 (07:47→16:17)
[2016-11-11] MEDS: NYSTATIN TOPICAL POWDER 15GM BOTTLE. TP SCH ×2 (08:04→20:10)
[2016-11-11] MEDS: LISINOPRIL 2.5 MG TABLET PO SCH (08:05)
[2016-11-11] MEDS: GLIPIZIDE 5 MG TABLET PO SCH ×2 (08:06→16:32)
[2016-11-11] MEDS: FUROSEMIDE 20 MG TABLET PO SCH ×2 (08:06→16:32)
[2016-11-11] MEDS: METFORMIN 500 MG TABLET. PO SCH ×2 (08:06→16:32)
[2016-11-11] MEDS: DIGOXIN 125 MCG TABLET PO SCH (08:07)
[2016-11-11] MEDS: SPIRONOLACTONE 25 MG TABLET PO SCH (08:07)
[2016-11-11] MEDS: ASPIRIN ENTERIC COATED 81 MG TABLET.DR. PO SCH (08:07)
[2016-11-11] MEDS: CETIRIZINE HCL 10 MG TABLET PO SCH (08:08)
[2016-11-11] MEDS: MULTIVITAMIN with MINERAL TABLET. PO SCH (08:08)
[2016-11-11] MEDS: SENNOSIDES/DOCUSATE 8.6/50MG TABLET. PO SCH (08:08)
[2016-11-11] MEDS: METOPROLOL TART IMMED RELEASE 25 MG TABLET PO SCH ×2 (08:08→20:03)
[2016-11-11] MEDS: CALCIUM CARBONATE 500 MG TABLET PO SCH (08:08)
[2016-11-11] MEDS: POTASSIUM CHLORIDE 20 MEQ TABLET.ER. PO SCH (08:09)
--- NOTE | 2016-11-11 10:14 | PDOC ---
PROGRESS NOTES Chief Complaint Chief Complaint Hematuria UTI ASSESSMENT AND PLAN: 1. UTI: not confirmed by culture: <10K CFU. stop ceftriax 2. Hematuria: s/p Cystoscopy on 11/[address] Echavarria w/o any worrisome findings. suspected to be 2/2 overly aggressive anticoag. 3. pAfib: rate controlled. on warfarin 4. CAD: s/p stent placement <4 months ago; on asa, plavix 5. CHF: chronic systolic (EF 25%): cont home cardiac meds 6. Anemia: iron deficiency, most likely from slow GI leak with mult anticoag. s/p IV iron repletion. anticoag regimen to be d/w cardiology 7. DM2: on oral agents as well as levemir insulin with great control. cont current regimen 8. HTN: well controlled 9. HLD: on statin 10. macular degeneration 11. Dispo: home soon Vitals Vitals Vital Signs Date Time Temp Pulse Resp B/P Pulse Ox O2 Delivery O2 Flow Rate FiO2 11/11/16 08:17 Nasal Cannula 2.0 11/11/16 08:08 64 140/60 11/11/16 07:10 97.8 16 99 97.8 Physical Exam General: Alert, Oriented X3, No acute distress Heart: Regular rate Lungs: Clear Abdomen: Normal bowel sounds Extremities: No cyanosis, Normal pulses, Other (trace LE edema ) Labs LABS Laboratory Tests Test 11/10/16 14:20 11/10/16 16:41 11/10/16 20:56 11/11/16 07:44 Glucose (Fingerstick) 95mg/dL (70-99) 211mg/dL (70-99) 108mg/dL (70-99) 107mg/dL (70-99) Review of Systems Review of Systems no new c/o MICK DE OLIVEIRA MD Nov 11, 2016 10:14
[2016-11-11 10:45] VITALS: BP 152/66
[2016-11-11 15:00] VITALS: BP 113/48
[2016-11-11 19:59] VITALS: BP 129/50
[2016-11-11] MEDS: CEFTRIAXONE SODIUM 1 GM in IV NORMAL SALINE 50ML 50 ML IV SCH (20:03)
[2016-11-11] MEDS: INSULIN DETEMIR 300 UNITS/3 ML INSULN.PEN. SQ SCH (20:10)
[2016-11-12] VITALS (7 sets, daily range): BP systolic 122–147; BP diastolic 52–59
[2016-11-12] MEDS: INSULIN ASPART 300 UNITS/3 ML INSULN.PEN SQ SCH ×3 (08:23→16:32)
[2016-11-12] MEDS: ASPIRIN ENTERIC COATED 81 MG TABLET.DR. PO SCH (08:30)
[2016-11-12] MEDS: GLIPIZIDE 5 MG TABLET PO SCH ×2 (08:30→16:30)
[2016-11-12] MEDS: METFORMIN 500 MG TABLET. PO SCH ×2 (08:31→16:30)
[2016-11-12] MEDS: SPIRONOLACTONE 25 MG TABLET PO SCH (08:31)
[2016-11-12] MEDS: POTASSIUM CHLORIDE 20 MEQ TABLET.ER. PO SCH (08:31)
[2016-11-12] MEDS: METOPROLOL TART IMMED RELEASE 25 MG TABLET PO SCH ×2 (08:32→21:55)
[2016-11-12] MEDS: CALCIUM CARBONATE 500 MG TABLET PO SCH (08:32)
[2016-11-12] MEDS: FUROSEMIDE 20 MG TABLET PO SCH ×2 (08:32→16:30)
[2016-11-12] MEDS: DIGOXIN 125 MCG TABLET PO SCH (08:32)
[2016-11-12] MEDS: LISINOPRIL 2.5 MG TABLET PO SCH (08:33)
[2016-11-12] MEDS: SENNOSIDES/DOCUSATE 8.6/50MG TABLET. PO SCH (08:33)
[2016-11-12] MEDS: NYSTATIN TOPICAL POWDER 15GM BOTTLE. TP SCH ×2 (08:33→21:56)
[2016-11-12] MEDS: MULTIVITAMIN with MINERAL TABLET. PO SCH (08:33)
[2016-11-12] MEDS: CETIRIZINE HCL 10 MG TABLET PO SCH (08:33)
--- NOTE | 2016-11-12 15:51 | PDOC ---
PROGRESS NOTES Chief Complaint Chief Complaint Hematuria UTI ASSESSMENT AND PLAN: 1. UTI: not confirmed by culture: <10K CFU. stop ceftriax 2. Hematuria: s/p Cystoscopy on 11/[address] Echavarria w/o any worrisome findings. suspected to be 2/2 overly aggressive anticoag. 3. pAfib: rate controlled. on warfarin 4. CAD: s/p stent placement <4 months ago; on asa, plavix 5. CHF: chronic systolic (EF 25%): cont home cardiac meds 6. Anemia: iron deficiency, most likely from slow GI leak with mult anticoag. s/p IV iron repletion. anticoag regimen to be d/w cardiology 7. DM2: on oral agents as well as levemir insulin with great control. cont current regimen 8. HTN: well controlled 9. HLD: on statin 10. macular degeneration 11. Dispo: [facility] Monday Vitals Vitals Vital Signs Date Time Temp Pulse Resp B/P Pulse Ox O2 Delivery O2 Flow Rate FiO2 11/12/16 15:11 98.1 58 16 125/56 100 Room Air 3.0 98.1 Physical Exam General: Alert, Oriented X3, No acute distress Heart: Regular rate Lungs: Clear Abdomen: Normal bowel sounds Extremities: No cyanosis, Normal pulses, Other (trace LE edema ) Labs LABS Laboratory Tests Test 11/11/16 16:11 11/11/16 20:01 11/12/16 07:43 11/12/16 11:46 Glucose (Fingerstick) 114mg/dL (70-99) 147mg/dL (70-99) 91mg/dL (70-99) 150mg/dL (70-99) Review of Systems Review of Systems gen weakness, but otehrwise feels ok MICK DE OLIVEIRA MD Nov 12, 2016 15:51
[2016-11-12] MEDS: INSULIN DETEMIR 300 UNITS/3 ML INSULN.PEN. SQ SCH (22:01)
[2016-11-13 03:00] VITALS: BP 129/61
[2016-11-13 07:00] VITALS: BP 119/53
[2016-11-13 07:02] LABS: BASO # 0.1 x10^3/uL (0.0-0.2); BASO % 1 % (0-3); EOS % 3 % (0-3); HEMATOCRIT 26.4 % (36.0-47.0); HEMOGLOBIN 7.9 g/dL (12.0-15.5); LYMPH # 1.3 x10^3/uL (1.0-4.8); LYMPH % 15 % (24-48); MEAN CORPUSCULAR HEMOGLOBIN 25 pg (25-35); MEAN CORPUSCULAR HGB CONC 30 g/dL (31-37); MEAN CORPUSCULAR VOLUME 84 fL (79-100); MONO % 8 % (0-9); NEUT % 73 % (31-73); PLATELET COUNT 309 x10^3/uL (140-400); RED BLOOD COUNT 3.16 x10^6/uL (3.50-5.40); RED CELL DISTRIBUTION WIDTH 19.2 % (11.5-14.5)
[2016-11-13 07:05] LABS: ALBUMIN 3.1 g/dL (3.4-5.0); ALBUMIN/GLOBULIN RATIO 1.1 (1.0-1.7); CALCIUM 8.8 mg/dL (8.5-10.1); GFR 53.1; POTASSIUM 4.2 mmol/L (3.5-5.1); TOTAL BILIRUBIN 0.3 mg/dL (0.2-1.0)
[2016-11-13] MEDS: GLIPIZIDE 5 MG TABLET PO SCH ×2 (09:46→16:33)
[2016-11-13] MEDS: METFORMIN 500 MG TABLET. PO SCH ×2 (09:46→16:33)
[2016-11-13] MEDS: DIGOXIN 125 MCG TABLET PO SCH (09:46)
[2016-11-13] MEDS: MULTIVITAMIN with MINERAL TABLET. PO SCH (09:47)
[2016-11-13] MEDS: LISINOPRIL 2.5 MG TABLET PO SCH (09:47)
[2016-11-13] MEDS: POTASSIUM CHLORIDE 20 MEQ TABLET.ER. PO SCH (09:47)
[2016-11-13] MEDS: SENNOSIDES/DOCUSATE 8.6/50MG TABLET. PO SCH (09:47)
[2016-11-13] MEDS: CALCIUM CARBONATE 500 MG TABLET PO SCH (09:47)
[2016-11-13] MEDS: INSULIN ASPART 300 UNITS/3 ML INSULN.PEN SQ SCH ×3 (09:48→16:33)
[2016-11-13] MEDS: SPIRONOLACTONE 25 MG TABLET PO SCH (09:48)
[2016-11-13] MEDS: METOPROLOL TART IMMED RELEASE 25 MG TABLET PO SCH ×2 (09:48→21:26)
[2016-11-13] MEDS: FUROSEMIDE 20 MG TABLET PO SCH ×2 (09:48→16:33)
[2016-11-13] MEDS: ASPIRIN ENTERIC COATED 81 MG TABLET.DR. PO SCH (09:48)
[2016-11-13] MEDS: CETIRIZINE HCL 10 MG TABLET PO SCH (09:48)
[2016-11-13] MEDS: NYSTATIN TOPICAL POWDER 15GM BOTTLE. TP SCH ×2 (09:49→21:27)
[2016-11-13 11:13] VITALS: BP 128/58
[2016-11-13 15:10] VITALS: BP 120/55
--- NOTE | 2016-11-13 16:29 | PDOC ---
PROGRESS NOTES Chief Complaint Chief Complaint Hematuria UTI ASSESSMENT AND PLAN: 1. UTI: not confirmed by culture: <10K CFU. off Abx 2. Hematuria: s/p Cystoscopy on 11/[address] Echavarria w/o any worrisome findings. suspected to be 2/2 overly aggressive anticoag. 3. pAfib: rate controlled. on warfarin 4. CAD: s/p stent placement <4 months ago; on plavix, ASA stopped 5. CHF: chronic systolic (EF 25%): cont home cardiac meds 6. Anemia: iron deficiency, most likely from slow GI leak with mult anticoag. s/p IV iron repletion. 7. DM2: on oral agents as well as levemir insulin with great control. cont current regimen 8. HTN: well controlled 9. HLD: on statin 10. macular degeneration 11. Dispo: to SNF in AM Vitals Vitals Vital Signs Date Time Temp Pulse Resp B/P Pulse Ox O2 Delivery O2 Flow Rate FiO2 11/13/16 15:10 97.7 60 18 120/55 99 Nasal Cannula 2.0 97.7 Physical Exam General: Alert, Oriented X3, No acute distress Heart: Regular rate Lungs: Clear Abdomen: Normal bowel sounds Extremities: No edema Skin: No rashes Labs LABS Laboratory Tests Test 11/12/16 16:32 11/12/16 21:14 11/13/16 05:34 11/13/16 07:33 Glucose (Fingerstick) 146mg/dL (70-99) 150mg/dL (70-99) 110mg/dL (70-99) White Blood Count 9.0x10^3/uL (4.0-11.0) Red Blood Count 3.16x10^6/uL (3.50-5.40) Hemoglobin 7.9g/dL (12.0-15.5) Hematocrit 26.4% (36.0-47.0) Mean Corpuscular Volume 84fL (79-100) Mean Corpuscular Hemoglobin 25pg (25-35) Mean Corpuscular Hemoglobin Concent 30g/dL (31-37) Red Cell Distribution Width 19.2% (11.5-14.5) Platelet Count 309x10^3/uL (140-400) Neutrophils (%) (Auto) 73% (31-73) Lymphocytes (%) (Auto) 15% (24-48) Monocytes (%) (Auto) 8% (0-9) Eosinophils (%) (Auto) 3% (0-3) Basophils (%) (Auto) 1% (0-3) Neutrophils # (Auto) 6.6x10^3uL (1.8-7.7) Lymphocytes # (Auto) 1.3x10^3/uL (1.0-4.8) Monocytes # (Auto) 0.7x10^3/uL (0.0-1.1) Eosinophils # (Auto) 0.2x10^3/uL (0.0-0.7) Basophils # (Auto) 0.1x10^3/uL (0.0-0.2) Sodium Level 144mmol/L (136-145) Potassium Level 4.2mmol/L (3.5-5.1) Chloride Level 102mmol/L (98-107) Carbon Dioxide Level 37mmol/L (21-32) Anion Gap 5 (6-14) Blood Urea Nitrogen 22mg/dL (7-20) Creatinine 1.0mg/dL (0.6-1.0) Estimated GFR (Cockcroft-Gault) 53.1 BUN/Creatinine Ratio 22 (6-20) Glucose Level 111mg/dL (70-99) Calcium Level 8.8mg/dL (8.5-10.1) Total Bilirubin 0.3mg/dL (0.2-1.0) Aspartate Amino Transf (AST/SGOT) 9U/L (15-37) Alanine Aminotransferase (ALT/SGPT) 12U/L (14-59) Alkaline Phosphatase 77U/L (46-116) Total Protein 6.0g/dL (6.4-8.2) Albumin 3.1g/dL (3.4-5.0) Albumin/Globulin Ratio 1.1 (1.0-1.7) Test 11/13/16 10:43 11/13/16 15:54 11/13/16 16:09 Glucose (Fingerstick) 197mg/dL (70-99) 64mg/dL (70-99) 74mg/dL (70-99) Review of Systems Review of Systems sleepy today. sitting in chair Comment Labs Laboratory Tests Test 11/11/16 20:01 11/12/16 07:43 11/12/16 11:46 11/12/16 16:32 Glucose (Fingerstick) 147mg/dL (70-99) 91mg/dL (70-99) 150mg/dL (70-99) 146mg/dL (70-99) Test 11/12/16 21:14 11/13/16 05:34 11/13/16 07:33 11/13/16 10:43 Glucose (Fingerstick) 150mg/dL (70-99) 110mg/dL (70-99) 197mg/dL (70-99) White Blood Count 9.0x10^3/uL (4.0-11.0) Red Blood Count 3.16x10^6/uL (3.50-5.40) Hemoglobin 7.9g/dL (12.0-15.5) Hematocrit 26.4% (36.0-47.0) Mean Corpuscular Volume 84fL (79-100) Mean Corpuscular Hemoglobin 25pg (25-35) Mean Corpuscular Hemoglobin Concent 30g/dL (31-37) Red Cell Distribution Width 19.2% (11.5-14.5) Platelet Count 309x10^3/uL (140-400) Neutrophils (%) (Auto) 73% (31-73) Lymphocytes (%) (Auto) 15% (24-48) Monocytes (%) (Auto) 8% (0-9) Eosinophils (%) (Auto) 3% (0-3) Basophils (%) (Auto) 1% (0-3) Neutrophils # (Auto) 6.6x10^3uL (1.8-7.7) Lymphocytes # (Auto) 1.3x10^3/uL (1.0-4.8) Monocytes # (Auto) 0.7x10^3/uL (0.0-1.1) Eosinophils # (Auto) 0.2x10^3/uL (0.0-0.7) Basophils # (Auto) 0.1x10^3/uL (0.0-0.2) Sodium Level 144mmol/L (136-145) Potassium Level 4.2mmol/L (3.5-5.1) Chloride Level 102mmol/L (98-107) Carbon Dioxide Level 37mmol/L (21-32) Anion Gap 5 (6-14) Blood Urea Nitrogen 22mg/dL (7-20) Creatinine 1.0mg/dL (0.6-1.0) Estimated GFR (Cockcroft-Gault) 53.1 BUN/Creatinine Ratio 22 (6-20) Glucose Level 111mg/dL (70-99) Calcium Level 8.8mg/dL (8.5-10.1) Total Bilirubin 0.3mg/dL (0.2-1.0) Aspartate Amino Transf (AST/SGOT) 9U/L (15-37) Alanine Aminotransferase (ALT/SGPT) 12U/L (14-59) Alkaline Phosphatase 77U/L (46-116) Total Protein 6.0g/dL (6.4-8.2) Albumin 3.1g/dL (3.4-5.0) Albumin/Globulin Ratio 1.1 (1.0-1.7) Test 11/13/16 15:54 11/13/16 16:09 Glucose (Fingerstick) 64mg/dL (70-99) 74mg/dL (70-99) Laboratory Tests Test 11/12/16 16:32 11/12/16 21:14 11/13/16 05:34 11/13/16 07:33 Glucose (Fingerstick) 146mg/dL (70-99) 150mg/dL (70-99) 110mg/dL (70-99) White Blood Count 9.0x10^3/uL (4.0-11.0) Red Blood Count 3.16x10^6/uL (3.50-5.40) Hemoglobin 7.9g/dL (12.0-15.5) Hematocrit 26.4% (36.0-47.0) Mean Corpuscular Volume 84fL (79-100) Mean Corpuscular Hemoglobin 25pg (25-35) Mean Corpuscular Hemoglobin Concent 30g/dL (31-37) Red Cell Distribution Width 19.2% (11.5-14.5) Platelet Count 309x10^3/uL (140-400) Neutrophils (%) (Auto) 73% (31-73) Lymphocytes (%) (Auto) 15% (24-48) Monocytes (%) (Auto) 8% (0-9) Eosinophils (%) (Auto) 3% (0-3) Basophils (%) (Auto) 1% (0-3) Neutrophils # (Auto) 6.6x10^3uL (1.8-7.7) Lymphocytes # (Auto) 1.3x10^3/uL (1.0-4.8) Monocytes # (Auto) 0.7x10^3/uL (0.0-1.1) Eosinophils # (Auto) 0.2x10^3/uL (0.0-0.7) Basophils # (Auto) 0.1x10^3/uL (0.0-0.2) Sodium Level 144mmol/L (136-145) Potassium Level 4.2mmol/L (3.5-5.1) Chloride Level 102mmol/L (98-107) Carbon Dioxide Level 37mmol/L (21-32) Anion Gap 5 (6-14) Blood Urea Nitrogen 22mg/dL (7-20) Creatinine 1.0mg/dL (0.6-1.0) Estimated GFR (Cockcroft-Gault) 53.1 BUN/Creatinine Ratio 22 (6-20) Glucose Level 111mg/dL (70-99) Calcium Level 8.8mg/dL (8.5-10.1) Total Bilirubin 0.3mg/dL (0.2-1.0) Aspartate Amino Transf (AST/SGOT) 9U/L (15-37) Alanine Aminotransferase (ALT/SGPT) 12U/L (14-59) Alkaline Phosphatase 77U/L (46-116) Total Protein 6.0g/dL (6.4-8.2) Albumin 3.1g/dL (3.4-5.0) Albumin/Globulin Ratio 1.1 (1.0-1.7) Test 11/13/16 10:43 11/13/16 15:54 11/13/16 16:09 Glucose (Fingerstick) 197mg/dL (70-99) 64mg/dL (70-99) 74mg/dL (70-99) Microbiology 11/04/16 Urine Culture - Final, Complete 11/04/16 Urine Culture Result 1 (ALESSANDRO) - Final, Complete Medications Current Medications Ceftriaxone Sodium (Rocephin 1gm Ivpb For Omni) 50 ml @ 100 mls/hr 1X ONCE IV Last administered on 11/04/16 20:08; Start 11/04/16 at 20:00; Stop 11/04/16 at 20:29; Status DC Ondansetron HCl (Zofran) 4 mg PRN Q8HRS PRN IV NAUSEA/VOMITING; Start 11/04/16 at 20:15; Stop 11/04/16 at 21:37; Status DC Morphine Sulfate 2 mg PRN Q2HR PRN IV PAIN; Start 11/04/16 at 20:15; Stop 11/05 at 20:14; Status DC Acetaminophen (Tylenol) 650 mg PRN Q4HRS PRN PO FEVER; Start 11/04/16 at 20:15 ; Stop 11/04/16 at 21:35; Status DC Alprazolam (Xanax) 0.25 mg PRN QHS PRN PO ANXIETY / AGITATION Last administered on 11/05/16 01:12; Start 11/04/16 at 20:30 Aspirin (Ecotrin) 81 mg DAILY PO Last administered on 11/06/16 08:50; Start at 09:00; Stop 11/06/16 at 09:41; Status DC Cetirizine HCl (Zyrtec) 10 mg DAILY PO Last administered on 11/13/16 09:48; Start 11/05/16 at 09:00 Clopidogrel Bisulfate (Plavix) 75 mg DAILY PO Last administered on 11/06/16 08 :51; Start 11/05/16 at 09:00; Stop 11/06/16 at 09:41; Status DC Digoxin (Lanoxin) 125 mcg DAILY PO Last administered on 11/13/16 09:46; Start 11/05/16 at 09:00 Furosemide (Lasix) 20 mg BID94 PO Last administered on 11/13/16 09:48; Start 11/05/16 at 09:00 Acetaminophen/ Hydrocodone Bitart (Lortab 5/325) 1 tab PRN Q6HRS PRN PO MODERATE PAIN Last administered on 11/10/16 10:08; Start 11/04/16 at 20:30 Metformin HCl (Glucophage) 500 mg BIDWMEALS PO Last administered on 11/13/16 09:46; Start 11/05/16 at 08:00 Metoprolol Tartrate (Lopressor) 25 mg BID PO Last administered on 11/13/16 09: 48; Start 11/05/16 at 01:30 Nitroglycerin (Nitrostat) 0.4 mg PRN Q5MIN PRN SL CHEST PAIN; Start 11/04/16 at 20:30 Potassium Chloride (Klor-Con) 20 meq DAILY PO Last administered on 11/13/16 09 :47; Start 11/05/16 at 09:00 Senna/Docusate Sodium (Senna Plus) 2 tab DAILY PO Last administered on 09:47; Start 11/05/16 at 09:00 Spironolactone (Aldactone) 25 mg DAILY PO Last administered on 11/13/16 09:48 ; Start 11/05/16 at 09:00 Non-Formulary Medication 1 puff PRN Q6HRS PRN INH SHORTNESS OF BREATH; Start at 20:30; Status UNV Calcium Carbonate/ Glycine (Oscal) 500 mg DAILY PO Last administered on 09:47; Start 11/05/16 at 09:00 Glipizide (Glucotrol) 10 mg BIDBFRMEAL PO Last administered on 11/06/16 07:33 ; Start 11/05/16 at 07:30; Stop 11/06/16 at 09:42; Status DC Insulin Detemir (Levemir) 10 units QHS SQ Last administered on 11/12/16 22:01 ; Start 11/05/16 at 21:00 Meclizine HCl (Antivert) 25 mg PRN TID PRN PO DIZZINESS; Start 11/04/16 at 21: 45 Multivitamins/ Calcium (Thera M Plus) 1 tab DAILY PO Last administered on 09:47; Start 11/05/16 at 09:00 Insulin Aspart (Novolog) 0-9 UNITS TIDWMEALS SQ Last administered on 11/13/16 12:22; Start 11/05/16 at 08:00 Dextrose 12.5 gm PRN Q15MIN PRN IV SEE COMMENTS; Start 11/04/16 at 20:30 Acetaminophen (Tylenol) 650 mg PRN Q6HRS PRN PO FEVER Last administered on 11/09 22:52; Start 11/04/16 at 20:30 Ondansetron HCl 4 mg 4 mg PRN Q6HRS PRN IV NAUSEA; Start 11/04/16 at 20:30 Ceftriaxone Sodium/Sodium Chloride (Rocephin/Iv Sodium Chloride 0.9% 50ml) 50 ml @ 100 mls/hr Q24H IV Last administered on 11/11/16 20:03; Start 11/05/16 at 20:00; Stop 11/12/16 at 00:40; Status DC Albuterol Sulfate (Ventolin Neb Soln) 2.5 mg PRN Q6HRS PRN NEB SHORTNESS OF BREATH; Start 11/04/16 at 21:45 Lisinopril (Prinivil) 2.5 mg DAILY PO Last administered on 11/13/16 09:47; Start 11/06/16 at 09:00 Glipizide (Glucotrol) 5 mg BIDBFRMEAL PO Last administered on 11/13/16 09:46; Start 11/06/16 at 16:30 Phytonadione (Mephyton) 5 mg 1X ONCE PO Last administered on 11/07/16 09:45; Start 11/07/16 at 09:30; Stop 11/07/16 at 09:31; Status DC Aspirin 81 mg 81 mg [id number] PO Last administered on 11/13/16 09:48; Start 11/07/16 at 14:15 Iron Sucrose 500 mg/Sodium Chloride 275 ml @ 78.571 mls/ hr 1X ONCE IV ; Start 11/07/16 at 16:30; Stop 11/07/16 at 16:40; Status DC Iron Sucrose/ Sodium Chloride (Venofer/Iv Sodium Chloride 0.9% 250ml) 275 ml @ 78.571 mls/ hr 1X ONCE IV ; Start 11/08/16 at 15:00; Stop 11/08/16 at 15:00; Status DC Nystatin 1 christian 1 christian BID TP Last administered on 11/13/16 09:49; Start at 21:00 Iron Sucrose/ Sodium Chloride (Venofer/Iv Sodium Chloride 0.9% 100ml) 110 ml @ 55 mls/hr 1X ONCE IV Last administered on 2/21/17at 10:02; Start 11/08/16 at 10:00; Stop 11/08/16 at 11:59; Status DC Ondansetron HCl (Zofran) 4 mg PRN Q6HRS PRN IV Nausea; Start 11/10/16 at 07:00 ; Stop 11/10/16 at 19:28; Status DC Morphine Sulfate 1 mg 1 mg PRN Q10MIN PRN IV SEVERE PAIN; Start 11/10/16 at 07: 00; Stop 11/10/16 at 19:28; Status DC Lactated Ringer's (Iv Lactated Ringers) 1,000 ml @ 0 mls/hr Q0M IV ; Start at 07:00; Stop 11/10/16 at 18:59; Status DC Lidocaine HCl 2 ml 1X PRN PRN ID IV START; Start 11/10/16 at 07:00; Stop at 19:28; Status DC Hydromorphone HCl (Dilaudid) 0.5 mg PRN Q10MIN PRN IV SEVERE PAIN, Second choice; Start 11/10/16 at 07:00; Stop 11/10/16 at 19:27; Status DC Prochlorperazine Edisylate 5 mg 5 mg PACU PRN PRN IV NAUSEA; Start 11/10/16 at 07:00; Stop 11/10/16 at 19:28; Status DC Propofol (Diprivan) 20 ml @ As Directed STK-MED ONCE IV ; Start 11/10/16 at 11: 39; Stop 11/10/16 at 11:40; Status DC Lidocaine HCl 100 mg STK-MED ONCE .ROUTE ; Start 11/10/16 at 11:39; Stop at 11:40; Status DC Ondansetron HCl (Zofran) 4 mg STK-MED ONCE .ROUTE ; Start 11/10/16 at 11:39; Stop 11/10/16 at 11:40; Status DC Desflurane (Suprane) 60 ml STK-MED ONCE IH ; Start 11/10/16 at 11:39; Stop 11/10 at 11:40; Status DC Active Scripts Active Reported Calcium + Vitamin D Tablet (Calcium Carbonate/Vitamin D3) 1 Each Tablet 1 Each PO DAILY Macrobid 100 Mg Capsule (Nitrofurantoin Monohyd/M-Cryst) 100 Mg Capsule 100 Mg PO DAILY Omeprazole 20 Mg Capsule.dr Roth Cap PO DAILY Metoprolol Succinate ( Xl ) (Metoprolol Succinate) 25 Mg Tab.er.24h 25 Mg PO BID Clopidogrel (Clopidogrel Bisulfate) 75 Mg Tablet 75 Mg PO DAILY Dermasorb Ta 0.1% Complete Kit (Triamcinolone/Emollient Cmb#86) 340.4 Gm Cream..g. 340.4 Gm TP Meclizine Hcl 25 Mg Tablet 1 Tab PO PRN TID Xanax (Alprazolam) 0.25 Mg Tablet 0.25 Mg PO HS PRN Levemir (Insulin Detemir) 100 Unit/1 Ml Vial 10-12 Unit SQ HS Lortab 5-325 mg Tablet (Hydrocodone/Acetaminophen) 1 Each Tablet 1 Tab PO PRN Q6HRS PRN LAST DOSE GIVEN: MAY TAKE SOON YOU DESIRE. ( NO DOSE GIVEN PRIOR TO DISCHARWGE ) DATE: TIME: NEXT DOSE DUE: DATE: TIME: Proair Hfa Inhaler (Albuterol Sulfate) 8.5 Gm Hfa.aer.ad 1 Puff INH PRN Q6HRS PRN NITROGLYCERIN SubLingual (Nitroglycerin) 0.4 Mg Tab.subl 0.4 Mg SL PRN Q5MIN PRN Multi Vitamin Daily (Multivitamin) 1 Each Tablet 1 Each PO DAILY Stool Softener Tablet (Sennosides/Docusate Sodium) 1 Each Tablet 2 Each PO NEEDED Calcium (Calcium Carbonate) 500 Mg Tab.chew 500 Mg PO DAILY Metformin Hcl 500 Mg Tablet 500 Mg PO BIDWMEALS Cetirizine Hcl 10 Mg Tablet 1 Tab PO DAILY Potassium Chloride 20 Meq Tab.er.prt 20 Meq PO DAILY Warfarin Sodium 5 Mg Tablet 7.5 Mg PO EVERY OTHER DAY Warfarin Sodium 5 Mg Tablet 1 Tab PO EVERY OTHER DAY Furosemide 40 Mg Tablet 40 Mg PO DAILY Spironolactone 25 Mg Tablet 1 Tab PO DAILY Aspir 81 (Aspirin) 81 Mg Tablet.dr Roth Tab PO DAILY Digoxin 125 Mcg Tablet 1 Tab PO DAILY Glipizide 10 Mg Tablet 1 Tab PO BIDACLD Vitals/I & O Vital Sign - Last 24 Hours 11/12/16 11/12/16 11/12/16 11/12/16 19:00 19:20 20:00 21:55 Temp 98.3 98.3 98.3 98.3 Pulse 60 60 60 Resp 18 18 B/P 147/59 147/59 147/59 Pulse Ox 100 100 O2 Delivery Room Air Nasal Cannula O2 Flow Rate 2.0 11/12/16 11/13/16 11/13/16 11/13/16 23:00 03:00 07:00 08:00 Temp 98.0 97.4 97.7 98.0 97.4 97.7 Pulse 62 62 60 Resp 18 B/P 126/55 129/61 119/53 Pulse Ox 100 99 100 O2 Delivery Nasal Cannula Nasal Cannula O2 Flow Rate 2.0 2.0 11/13/16 11/13/16 11/13/16 11/13/16 09:46 09:47 09:48 11:13 Temp 97.7 97.7 Pulse 60 60 60 60 Resp 18 B/P 119/53 119/53 119/53 128/58 Pulse Ox 99 O2 Delivery Nasal Cannula O2 Flow Rate 2.0 11/13/16 15:10 Temp 97.7 97.7 Pulse 60 Resp 18 B/P 120/55 Pulse Ox 99 O2 Delivery Nasal Cannula O2 Flow Rate 2.0 Intake and Output 11/12/16 11/12/16 11/13/16 15:00 23:00 07:00 Intake Total 240 ml 1490 ml 420 ml Balance 240 ml 1490 ml 420 ml MICK DE OLIVEIRA MD Nov 13, 2016 16:29
[2016-11-13 19:00] VITALS: BP 140/60
[2016-11-13] MEDS: INSULIN DETEMIR 300 UNITS/3 ML INSULN.PEN. SQ SCH (21:31)
[2016-11-13 22:59] VITALS: BP 109/56
[2016-11-14 03:00] VITALS: BP 135/60
[2016-11-14 07:00] VITALS: BP 123/49
[2016-11-14] MEDS: INSULIN ASPART 300 UNITS/3 ML INSULN.PEN SQ SCH ×3 (08:00→16:47)
[2016-11-14] MEDS: METOPROLOL TART IMMED RELEASE 25 MG TABLET PO SCH ×2 (09:43→21:18)
[2016-11-14] MEDS: SENNOSIDES/DOCUSATE 8.6/50MG TABLET. PO SCH (09:43)
[2016-11-14] MEDS: POTASSIUM CHLORIDE 20 MEQ TABLET.ER. PO SCH (09:43)
[2016-11-14] MEDS: METFORMIN 500 MG TABLET. PO SCH ×2 (09:43→16:46)
[2016-11-14] MEDS: LISINOPRIL 2.5 MG TABLET PO SCH (09:44)
[2016-11-14] MEDS: GLIPIZIDE 5 MG TABLET PO SCH ×2 (09:44→16:46)
[2016-11-14] MEDS: SPIRONOLACTONE 25 MG TABLET PO SCH (09:44)
[2016-11-14] MEDS: FUROSEMIDE 20 MG TABLET PO SCH ×2 (09:44→16:46)
[2016-11-14] MEDS: DIGOXIN 125 MCG TABLET PO SCH (09:44)
[2016-11-14] MEDS: CALCIUM CARBONATE 500 MG TABLET PO SCH (09:44)
[2016-11-14] MEDS: MULTIVITAMIN with MINERAL TABLET. PO SCH (09:44)
[2016-11-14] MEDS: CETIRIZINE HCL 10 MG TABLET PO SCH (09:45)
[2016-11-14] MEDS: NYSTATIN TOPICAL POWDER 15GM BOTTLE. TP SCH ×2 (09:45→21:00)
[2016-11-14 11:01] VITALS: BP 136/55
--- NOTE | 2016-11-14 11:17 | PDOC3 ---
Discharge Summary Visit Information Date of Admission: Nov 04, 2016 Date of Discharge: Nov 14, 2016 Admitting Diagnosis Comment: . UTI with dysuria, hematuria 2. BILATERAL renal cysts - new dx 3. PAFIB on warfarin on multiple blood thinner with asa, plavix, coumadin 4. h/o CAD on asa, plavix 5. CHF, stable 6. chronic iron deficient anemia on transfusion and iron iv 7. dm2 on insulin 8. hld 9. htn 10. h/o UTI 11. MACULAR DEGENERATION 12. PPM 13. h/o GIB, no recent dark stool Final Diagnosis Problems Medical Problems: (1) Hematuria Status: Acute (2) UTI (urinary tract infection) Status: Acute Brief Hospital Course Allergies Allergies Coded Allergies Type Severity Reaction Last Updated Verified adhesive tape Allergy Intermediate Rash 11/02/16 Yes iron Allergy Intermediate SEE COMMENT 11/02/16 Yes latex Allergy Intermediate Rash 11/02/16 Yes Vital Signs Vital Signs Date Time Temp Pulse Resp B/P Pulse Ox O2 Delivery O2 Flow Rate FiO2 11/14/16 11:01 97.7 59 16 136/55 100 Nasal Cannula 2.0 97.7 Lab Results Laboratory Tests Test 11/12/16 11:46 11/12/16 16:32 11/12/16 21:14 11/13/16 05:34 Glucose (Fingerstick) 150mg/dL (70-99) 146mg/dL (70-99) 150mg/dL (70-99) White Blood Count 9.0x10^3/uL (4.0-11.0) Red Blood Count 3.16x10^6/uL (3.50-5.40) Hemoglobin 7.9g/dL (12.0-15.5) Hematocrit 26.4% (36.0-47.0) Mean Corpuscular Volume 84fL (79-100) Mean Corpuscular Hemoglobin 25pg (25-35) Mean Corpuscular Hemoglobin Concent 30g/dL (31-37) Red Cell Distribution Width 19.2% (11.5-14.5) Platelet Count 309x10^3/uL (140-400) Neutrophils (%) (Auto) 73% (31-73) Lymphocytes (%) (Auto) 15% (24-48) Monocytes (%) (Auto) 8% (0-9) Eosinophils (%) (Auto) 3% (0-3) Basophils (%) (Auto) 1% (0-3) Neutrophils # (Auto) 6.6x10^3uL (1.8-7.7) Lymphocytes # (Auto) 1.3x10^3/uL (1.0-4.8) Monocytes # (Auto) 0.7x10^3/uL (0.0-1.1) Eosinophils # (Auto) 0.2x10^3/uL (0.0-0.7) Basophils # (Auto) 0.1x10^3/uL (0.0-0.2) Sodium Level 144mmol/L (136-145) Potassium Level 4.2mmol/L (3.5-5.1) Chloride Level 102mmol/L (98-107) Carbon Dioxide Level 37mmol/L (21-32) Anion Gap 5 (6-14) Blood Urea Nitrogen 22mg/dL (7-20) Creatinine 1.0mg/dL (0.6-1.0) Estimated GFR (Cockcroft-Gault) 53.1 BUN/Creatinine Ratio 22 (6-20) Glucose Level 111mg/dL (70-99) Calcium Level 8.8mg/dL (8.5-10.1) Total Bilirubin 0.3mg/dL (0.2-1.0) Aspartate Amino Transf (AST/SGOT) 9U/L (15-37) Alanine Aminotransferase (ALT/SGPT) 12U/L (14-59) Alkaline Phosphatase 77U/L (46-116) Total Protein 6.0g/dL (6.4-8.2) Albumin 3.1g/dL (3.4-5.0) Albumin/Globulin Ratio 1.1 (1.0-1.7) Test 11/13/16 07:33 11/13/16 10:43 11/13/16 15:54 11/13/16 16:09 Glucose (Fingerstick) 110mg/dL (70-99) 197mg/dL (70-99) 64mg/dL (70-99) 74mg/dL (70-99) Test 11/13/16 20:55 11/14/16 07:00 11/14/16 10:29 Glucose (Fingerstick) 162mg/dL (70-99) 125mg/dL (70-99) 291mg/dL (70-99) Laboratory Tests Test 11/13/16 15:54 11/13/16 16:09 11/13/16 20:55 11/14/16 07:00 Glucose (Fingerstick) 64mg/dL (70-99) 74mg/dL (70-99) 162mg/dL (70-99) 125mg/dL (70-99) Test 11/14/16 10:29 Glucose (Fingerstick) 291mg/dL (70-99) Brief Hospital Course Ms. Banegas is a 81 old female who is on a lot of AC (ASA, plavix and warfarin) for stents, cardiomyopathy, a fib etc, chronic anemia, gets BT q so often (almost q 2weeks by heme onc) for Anemia and hx myelofibrosis? COmes in bec of anemia and bloody urine, Urology consulted, cysto done, no worrisome findings, likely from all the blood thinners that she NEEDS to be on,. CAse dw cards, wants her to be on asa and plavix as the stents are only 3.5 mos old., Dw family, pt and RN NO change in meds DispO; SNU Proc: cysto COnsults; cards and urology Discharge Information Condition at Discharge: Improved, Stable Disposition/Orders: Other (snu) Scheduled Aspirin (Aspir 81) 1 TAB PO DAILY (Reported) Calcium Carbonate (Calcium) 500 MG PO DAILY (Reported) Calcium Carbonate/Vitamin D3 (Calcium + Vitamin D Tablet) 1 EACH PO DAILY ( Reported) Cetirizine Hcl (Cetirizine Hcl) 1 TAB PO DAILY (Reported) Clopidogrel Bisulfate (Clopidogrel) 75 MG PO DAILY (Reported) Digoxin (Digoxin) 1 TAB PO DAILY (Reported) Furosemide (Furosemide) 40 MG PO DAILY (Reported) Glipizide (Glipizide) 1 TAB PO BIDACLD (Reported) Insulin Detemir (Levemir) 10-12 UNIT SQ HS (Reported) Meclizine Hcl (Meclizine Hcl) 1 TAB PO PRN TID (Reported) Metformin Hcl (Metformin Hcl) 500 MG PO BIDWMEALS (Reported) Metoprolol Succinate (Metoprolol Succinate ( Xl )) 25 MG PO BID (Reported) Multivitamin (Multi Vitamin Daily) 1 EACH PO DAILY (Reported) Nitrofurantoin Monohyd/M-Cryst (Macrobid 100 Mg Capsule) 100 MG PO DAILY ( Reported) Omeprazole (Omeprazole) 1 CAP PO DAILY (Reported) Potassium Chloride (Potassium Chloride) 20 MEQ PO DAILY (Reported) Sennosides/Docusate Sodium (Stool Softener Tablet) 2 EACH PO as needed (Reported ) Spironolactone (Spironolactone) 1 TAB PO DAILY (Reported) Warfarin Sodium (Warfarin Sodium) 1 TAB PO every other day (Reported) Warfarin Sodium (Warfarin Sodium) 7.5 MG PO every other day (Reported) Scheduled PRN Albuterol Sulfate (Proair Hfa Inhaler) 1 PUFF INH PRN Q6HRS PRN PRN SHORTNESS OF BREATH (Reported) Alprazolam (Xanax) 0.25 MG PO HS PRN PRN ANXIETY / AGITATION (Reported) Hydrocodone/Acetaminophen (Lortab 5-325 mg Tablet) 1 TAB PO PRN Q6HRS PRN PRN PAIN (Reported) Nitroglycerin (NITROGLYCERIN SubLingual) 0.4 MG SL PRN Q5MIN PRN PRN CHEST PAIN (Reported) Miscellaneous Medications Triamcinolone/Emollient Cmb#86 (Dermasorb Ta 0.1% Complete Kit) 340.4 GM TP ( Reported) ESTER BARRY MD Nov 14, 2016 11:17
[2016-11-14 14:00] VITALS: BP 132/52
--- NOTE | 2016-11-14 15:12 | PDOC ---
CARDIO Progress Notes Date and Time Date of Service 11/14/16 Time of Evaluation 1315 Subjective Subjective: No Chest Pain, No shortness of breath, No Palpitations, No Dizziness, Other (c/o constipation) Vitals Vitals Vital Signs Date Time Temp Pulse Resp B/P Pulse Ox O2 Delivery O2 Flow Rate FiO2 11/14/16 14:00 97.7 60 16 132/52 100 Nasal Cannula 2.0 97.7 Weight Weight [ ] Input and Output Intake and Output Intake and Output 11/14/16 07:00 Intake Total 802 ml Output Total 400 ml Balance 402 ml Intake Oral 802 ml Output Urine Total 400 ml # Voids 4 Laboratory Labs Laboratory Tests Test 11/13/16 15:54 11/13/16 16:09 11/13/16 20:55 11/14/16 07:00 Glucose (Fingerstick) 64mg/dL (70-99) 74mg/dL (70-99) 162mg/dL (70-99) 125mg/dL (70-99) Test 11/14/16 10:29 Glucose (Fingerstick) 291mg/dL (70-99) Microbiology Micro Microbiology 11/04/16 Urine Culture - Final, Complete 11/04/16 Urine Culture Result 1 (ALESSANDRO) - Final, Complete Physical Exam HEENT: Neck Supple W Full Motion Chest: Symmetric LUNGS: Clear to Auscultation Heart: S1S2, RRR, other (off tele) Abdomen: Soft N/T Extremities: 2+ Dorsalis Pedis, No Edema, Other Neurology: alert, oriented, follow commands Assessment Assessment 1. Chronic AFIB rate controlled with Digoxin and beta-blockers warfarin remains on hold since 11/05/2016 2. Chronic systolic HF LVEF 20-25% per recent echo 03/2016 clinically well- compensated continue optimization therapy. echo in the future to re-evaluate LV function and determine need for ICD for prevention of SCD. F/u in our office with Dr. Montejo as previously scheduled. 3. CAD s/p PCI/ALEXIS (resolute) to mid to distal LAD 07/25/2016 cysto complete last week- no further bleeding. Resume DAPT with ASA and plavix upon discharge unless hematuria returns. 4. Hematuria suspected renal bleeding secondary to a/c per urology ELVI SALMON APRN Nov 14, 2016 15:11
[2016-11-14] MEDS: CLOPIDOGREL BISULFATE 75 MG TABLET PO SCH (15:43)
[2016-11-14] MEDS: ASPIRIN ENTERIC COATED 81 MG TABLET.DR. PO SCH (15:43)
[2016-11-14] MEDS: ACETAMINOPHEN 325 MG TABLET. PO PRN (17:19)
[2016-11-14 19:00] VITALS: BP 143/61
[2016-11-14] MEDS: ALPRAZOLAM 0.25 MG TABLET PO PRN (21:18)
[2016-11-14] MEDS: INSULIN DETEMIR 300 UNITS/3 ML INSULN.PEN. SQ SCH (21:22)
[2016-11-14 23:00] VITALS: BP 120/55
[2016-11-15 03:00] VITALS: BP 107/48
[2016-11-15 07:00] VITALS: BP 133/61
[2016-11-15] MEDS: INSULIN ASPART 300 UNITS/3 ML INSULN.PEN SQ SCH ×2 (08:00→12:29)
[2016-11-15] MEDS: CLOPIDOGREL BISULFATE 75 MG TABLET PO SCH (08:42)
[2016-11-15] MEDS: METOPROLOL TART IMMED RELEASE 25 MG TABLET PO SCH (08:42)
[2016-11-15] MEDS: SENNOSIDES/DOCUSATE 8.6/50MG TABLET. PO SCH (08:42)
[2016-11-15] MEDS: METFORMIN 500 MG TABLET. PO SCH (08:42)
[2016-11-15] MEDS: POTASSIUM CHLORIDE 20 MEQ TABLET.ER. PO SCH (08:42)
[2016-11-15] MEDS: FUROSEMIDE 20 MG TABLET PO SCH (08:42)
[2016-11-15] MEDS: SPIRONOLACTONE 25 MG TABLET PO SCH (08:43)
[2016-11-15] MEDS: ASPIRIN ENTERIC COATED 81 MG TABLET.DR. PO SCH (08:43)
[2016-11-15] MEDS: DIGOXIN 125 MCG TABLET PO SCH (08:43)
[2016-11-15] MEDS: CETIRIZINE HCL 10 MG TABLET PO SCH (08:43)
[2016-11-15] MEDS: MULTIVITAMIN with MINERAL TABLET. PO SCH (08:43)
[2016-11-15] MEDS: LISINOPRIL 2.5 MG TABLET PO SCH (08:43)
[2016-11-15] MEDS: GLIPIZIDE 5 MG TABLET PO SCH (08:43)
[2016-11-15] MEDS: CALCIUM CARBONATE 500 MG TABLET PO SCH (08:43)
[2016-11-15] MEDS: NYSTATIN TOPICAL POWDER 15GM BOTTLE. TP SCH (08:44)
[2016-11-15 10:47] VITALS: BP 116/51
--- NOTE | 2016-11-15 12:23 | PDOC ---
Provider Note Provider Note Pt did not dc yesterday To dc today HCR MAr done, dc summ done Eber RN and ESTER RODRIGUEZ MD Nov 15, 2016 12:23
== END 2016-11-15 15:17 | DRG 699 ==
LOC: ER 17:04 → 5 SOUTH 20:10
PROVIDERS: ADMIT Internal Medicine; ATTEND Internal Medicine
PROC: 30233L1 Transfusion of Nonautologous Fresh Plasma into Peripheral Vein, Percutaneous Approach (ICD-10-PCS; 2016-11-04)
PROC: 30233K1 Transfusion of Nonautologous Frozen Plasma into Peripheral Vein, Percutaneous Approach (ICD-10-PCS; 2016-11-04)
PROC: 0TJB8ZZ Inspection of Bladder, Via Natural or Artificial Opening Endoscopic (ICD-10-PCS; principal; 2016-11-10 12:30)
DX: N28.1 Cyst of kidney, acquired (principal); D62 Acute posthemorrhagic anemia; I50.22 Chronic systolic (congestive) heart failure; N39.0 Urinary tract infection, site not specified; R31.0 Gross hematuria; I25.10 Atherosclerotic heart disease of native coronary artery without angina pectoris; E03.9 Hypothyroidism, unspecified; E11.40 Type 2 diabetes mellitus with diabetic neuropathy, unspecified; E78.00 Pure hypercholesterolemia, unspecified; E78.5 Hyperlipidemia, unspecified; F41.9 Anxiety disorder, unspecified; H35.30 Unspecified macular degeneration; E66.9 Obesity, unspecified; I48.2 Chronic atrial fibrillation; I11.0 Hypertensive heart disease with heart failure; G62.9 Polyneuropathy, unspecified; M54.5 Low back pain; J44.9 Chronic obstructive pulmonary disease, unspecified; K21.9 Gastro-esophageal reflux disease without esophagitis; Z79.01 Long term (current) use of anticoagulants; Z79.02 Long term (current) use of antithrombotics/antiplatelets; Z79.4 Long term (current) use of insulin; Z82.49 Family history of ischemic heart disease and other diseases of the circulatory system; Z95.5 Presence of coronary angioplasty implant and graft; Z88.8 Allergy status to other drugs, medicaments and biological substances; Z91.040 Latex allergy status; Z90.49 Acquired absence of other specified parts of digestive tract; D50.9 Iron deficiency anemia, unspecified; Z68.39 Body mass index [BMI] 39.0-39.9, adult; T50.995A Adverse effect of other drugs, medicaments and biological substances, initial encounter
CPT/HCPCS: 36415; 74176; 76770; 80048; 80053; 81001; 82947; 83690; 85007; 85014; 85018; 85027; 85610; 86850; 86870; 86900; 86901; 86927; 87086; 94250; 96365; J0690; J0696; J1756; J1815; J2405; J2704; P9017; 97002; 97110; 97116; 97530; 97535; 99285-25

== ENCOUNTER → 2016-11-28 | Outpatient (CLI) | payer OTHER ==
[2016-11-15 10:47] VITALS: BP 116/51
[~2016-11-28] MED LIST changes: +CALC-98 PO; +NITR100C62 PO; +OMEP20CA9 PO
--- NOTE | 2016-11-28 17:18 | CARD ---
APPROVED REPORT EXAM: Two-dimensional and M-mode echocardiogram with Doppler and color Doppler. Other Information Quality : Average Rhythm : Pacemaker INDICATION Congestive Heart Failure 2D DIMENSIONS RVDd2.9 (2.9-3.5cm)Left Atrium(2D)5.5 (1.6-4.0cm) IVSd1.1 (0.7-1.1cm)Aortic Root(2D)2.6 (2.0-3.7cm) LVDd5.6 (3.9-5.9cm)LVOT Diameter2.2 (1.8-2.4cm) PWd1.1 (0.7-1.1cm)LVDs3.6 (2.5-4.0cm) FS (%) 26.5 %SV101.7 ml LVEF(%)55.6 (>50%) Aortic Valve AoV Peak Javier.147.5cm/sAoV VTI29.0cm AO Peak GR.8.7mmHgLVOT Peak Javier.98.6cm/s LVOT VTI 19.78cmAO Mean GR.5mmHg CAMMY (VMAX)2.02fz3LTQ (VTI)2.55cm2 Mitral Valve MV DECEL QGCC432ofQT E Mean Gr.2mmHg MV [id number] (PHT)4.00cm2 Pulmonary Valve PV Peak Oohqbhfq550.5cm/sPV Peak Grad.10mmHg Tricuspid Valve TR P. Jeeuucou891jc/sRAP CGTXHYET4tlIb TR Peak Gr.85akOfOGMB92ryRo LEFT VENTRICLE The left ventricle is normal size. There is normal left ventricular wall thickness. Left ventricle sy stolic function is normal. The Ejection Fraction is 50-55%. The distal anterior wall, apex and septum appear mild to moderately hypokinetic. Otherwise, grossly normal wall motion. Tissue Doppler imaging reveals moderate left ventricular diastolic dysfunction. RIGHT VENTRICLE The right ventricle is normal size. The right ventricular systolic function is normal. ATRIA The left atrium is severely dilated. The right atrium size is normal. The interatrial septum is intac t with no evidence for an atrial septal defect or patent foramen ovale as noted on 2-D or Doppler sinai ging. AORTIC VALVE The aortic valve is not well visualized. Doppler and Color Flow revealed no significant aortic regurg itation. There is no significant aortic valvular stenosis. MITRAL VALVE Mitral annular calcification is mild. There is no mitral valve stenosis. Doppler and Color Flow revea led mild mitral regurgitation. TRICUSPID VALVE The tricuspid valve is normal in structure and function. Doppler and Color Flow revealed mild to mode rate tricuspid regurgitation. There is mild to moderate pulmonary hypertension. The PA pressure was e stimated at 49 mmHg. There is no tricuspid valve stenosis. PULMONIC VALVE The pulmonic valve is not well visualized. Doppler and Color Flow revealed no pulmonic valvular regur gitation. There is no pulmonic valvular stenosis. GREAT VESSELS The aortic root is normal in size. Pulmonary veins not recorded. The IVC is dilated and collapses >50 % with inspiration. PERICARDIAL EFFUSION There is no evidence of significant pericardial effusion. Critical Notification Critical Value: No <Conclusion> Left ventricle systolic function is normal. The Ejection Fraction is 50-55%. The distal anterior wall, apex and septum appear mild to moderately hypokinetic. Otherwise, grossly n ormal wall motion. Tissue Doppler imaging reveals moderate left ventricular diastolic dysfunction. The left atrium is severely dilated. Doppler and Color Flow revealed mild to moderate tricuspid regurgitation. There is mild to moderate p ulmonary hypertension. The PA pressure was estimated at 49 mmHg.
== END | disposition home or self-care (01) ==
LOC: ECHO 10:12
PROVIDERS: ATTEND Internal Medicine Cardiovascular Disease
DX: I50.22 Chronic systolic (congestive) heart failure (principal); I34.0 Nonrheumatic mitral (valve) insufficiency; I07.1 Rheumatic tricuspid insufficiency; I27.2 Other secondary pulmonary hypertension
CPT/HCPCS: 93306

== ENCOUNTER → 2017-11-27 | Outpatient (CLI) | payer OTHER | END | disposition home or self-care (01) | LOC: ECHO 10:04 | DX: I25.10 Atherosclerotic heart disease of native coronary artery without angina pectoris (principal); I08.1 Rheumatic disorders of both mitral and tricuspid valves | CPT/HCPCS: 93306 ==

== ENCOUNTER 2017-12-12 06:25 | Outpatient (CLI) | payer OTHER ==
[2017-12-12] MEDS ORDERED: LIDOCAINE 2% 20 ML VIAL. (07:14)
[2017-12-12 07:15] LABS: HEMATOCRIT 32.2 % (36.0-47.0); HEMOGLOBIN 10.1 g/dL (12.0-15.5); MEAN CORPUSCULAR HEMOGLOBIN 27 pg (25-35); MEAN CORPUSCULAR HGB CONC 32 g/dL (31-37); MEAN CORPUSCULAR VOLUME 86 fL (79-100); PLATELET COUNT 289 x10^3/uL (140-400); RED BLOOD COUNT 3.73 x10^6/uL (3.50-5.40); RED CELL DISTRIBUTION WIDTH 15.7 % (11.5-14.5); WHITE BLOOD COUNT 7.3 x10^3/uL (4.0-11.0)
[2017-12-12 07:24] LABS: ANION GAP 8 (6-14); BLOOD UREA NITROGEN 15 mg/dL (7-20); CARBON DIOXIDE 31 mmol/L (21-32); CHLORIDE 104 mmol/L (98-107); CREATININE 0.9 mg/dL (0.6-1.0); GFR 59.8; GLUCOSE 132 mg/dL (70-99); POTASSIUM 4.2 mmol/L (3.5-5.1); SODIUM 143 mmol/L (136-145)
[2017-12-12] MEDS ORDERED: IOHEXOL 300 MG/ML 100ML VIAL. (07:35)
[2017-12-12 07:41] LABS: INR 1.1 (0.8-1.1); PARTIAL THROMBOPLASTIN TIME 27 SEC (24-38); PROTHROMBIN TIME PATIENT 13.5 SEC (11.7-14.0)
[2017-12-12] MEDS ORDERED: VERAPAMIL 5 MG/2 ML VIAL. ×2 (08:00→08:03)
[2017-12-12] MEDS ORDERED: fentaNYL PF VIAL 100 MCG/2 ML VIAL (08:02)
[2017-12-12] MEDS ORDERED: NITROGLYCERIN 200 MCG/2 ML SYRINGE FOR CATH/VASC LAB. (08:03)
[2017-12-12] MEDS ORDERED: MIDAZOLAM HCL/PF 2 MG/2 ML VIAL. (08:03)
[2017-12-12] MEDS ORDERED: HEPARIN for IV BOLUS 10,000 UNIT/10 ML VIAL. (08:03)
[2017-12-12] MEDS: HEPARIN for IV BOLUS 10,000 UNIT/10 ML VIAL. IART (08:30)
[2017-12-12] MEDS: NITROGLYCERIN 200 MCG/2 ML SYRINGE FOR CATH/VASC LAB. IART (08:30)
[2017-12-12] MEDS: VERAPAMIL 5 MG/2 ML VIAL. IART (08:30)
[2017-12-12] MEDS ORDERED: CONTRAST GIVEN MC (08:45)
[2017-12-12] MEDS: LIDOCAINE 2% 20 ML VIAL. IJ (08:50)
[2017-12-12] MEDS: IOHEXOL 300 MG/ML 100ML VIAL. IART (08:51)
[2017-12-12] MEDS: MIDAZOLAM HCL/PF 2 MG/2 ML VIAL. IV (08:51)
[2017-12-12] MEDS: fentaNYL PF VIAL 100 MCG/2 ML VIAL IV (08:51)
[2017-12-12] MEDS ORDERED: NITROGLYCERIN SUBLINGUAL 0.4 MG BOTTLE OF 25. SL (09:45)
[2017-12-12] MEDS ORDERED: IV 1/2 NORMAL SALINE 1,000 ML IV (10:00)
== END 2017-12-12 12:00 | disposition home or self-care (01) ==
LOC: CCL 06:25
DX: I25.10 Atherosclerotic heart disease of native coronary artery without angina pectoris (principal); I50.22 Chronic systolic (congestive) heart failure; I42.9 Cardiomyopathy, unspecified
CPT/HCPCS: 36415; 80048; 85027; 85610; 85730; 93458; 99152; 99153; C1769; C1892; J1644; J2250; J3010; Q9967

== ENCOUNTER 2018-02-23 12:27 | Observation (INO) | payer OTHER ==
[2018-02-23] MEDS: IV RINGERS,LACTATED 1000ML 1,000 ML IV (07:00)
[2018-02-23 11:06] LABS: HEMATOCRIT 29.4 % (36.0-47.0); HEMOGLOBIN 9.3 g/dL (12.0-15.5); MEAN CORPUSCULAR HEMOGLOBIN 24 pg (25-35); MEAN CORPUSCULAR HGB CONC 32 g/dL (31-37); MEAN CORPUSCULAR VOLUME 77 fL (79-100); PLATELET COUNT 320 x10^3/uL (140-400); RED BLOOD COUNT 3.83 x10^6/uL (3.50-5.40); RED CELL DISTRIBUTION WIDTH 16.5 % (11.5-14.5); WHITE BLOOD COUNT 8.9 x10^3/uL (4.0-11.0)
[2018-02-23 11:13] LABS: ANION GAP 6 (6-14); BLOOD UREA NITROGEN 14 mg/dL (7-20); CARBON DIOXIDE 32 mmol/L (21-32); CHLORIDE 103 mmol/L (98-107); CREATININE 0.9 mg/dL (0.6-1.0); GFR 59.7; GLUCOSE 169 mg/dL (70-99); POTASSIUM 4.7 mmol/L (3.5-5.1); SODIUM 141 mmol/L (136-145)
[2018-02-23 11:19] LABS: INR 1.1 (0.8-1.1); PROTHROMBIN TIME PATIENT 13.6 SEC (11.7-14.0)
[2018-02-23] MEDS: BACITRACIN 50,000 UNIT in IV NORMAL SALINE 250ML 250 ML IRR (12:00)
[~2018-02-23 12:27] MED LIST changes: -ALPR0.25 PO; -ASPI-482 PO; -CALC-98 PO; -CALC500T50 PO; -CETI10TA16 PO; -CLOP75TA PO; -DIGO125T PO; -FURO40TA4 PO; -GLIP10TA13 PO; -HYDR-2678 PO; -INSU100I13 SQ; -INSU100V13 SQ; +KETAMINE HCL 500 MG/10 ML VIAL.; +LIDOCAINE 1% PF 2 ML VIAL. ID; -MECL25TA3 PO; -METF500T4 PO; -METO100T5 PO; -METO25TA9 PO; +MIDAZOLAM HCL/PF 2 MG/2 ML VIAL.; +MORPHINE SULFATE 2 MG/ML DISP.SYRIN. IV; -MULT-245 PO; -NITR0.4T6 SL; -NITR100C62 PO; -NITR1PAT3 TD; -OMEP20CA9 PO; -OMEP40CA5 PO; +ONDANSETRON PF 4 MG/2 ML VIAL. IV; -POTA20TA12 PO; -PROAIR HFA8.5 GM INH; +PROCHLORPERAZINE 10 MG/2 ML VIAL. IV; +PROPOFOL 200 ML IV; +PROPOFOL 60 ML IV; -SENN1TAB70 PO; -SPIR25TA3 PO; -TRIA340. TP; -WARF5TAB7 PO; +fentaNYL PF VIAL 100 MCG/2 ML VIAL; +fentaNYL PF VIAL 100 MCG/2 ML VIAL IV
[2018-02-23] MEDS ORDERED: LIDOCAINE WITH 8.4% SOD BICARB 3 ML DISP.SYRIN. (12:58)
[2018-02-23] MEDS ORDERED: IODIXANOL 320 MG/ML 100 ML VIAL. ×3 (12:58→14:51)
[2018-02-23] MEDS ORDERED: HEPARIN for ARTERIAL LINE 1,500 ML (12:58)
[2018-02-23] MEDS ORDERED: LIDOCAINE 2%/EPI 1:100,000 20 ML VIAL. (12:59)
[2018-02-23] MEDS: IODIXANOL 320 MG/ML 100 ML VIAL. IV (13:30)
[2018-02-23] MEDS: LIDOCAINE 2%/EPI 1:100,000 20 ML VIAL. IJ (13:30)
[2018-02-23] MEDS ORDERED: PROPOFOL 100 ML IV (13:44)
[2018-02-23] MEDS ORDERED: CONTRAST GIVEN. MC (13:45)
[2018-02-23] MEDS ORDERED: NO ANTICOAGULANT THERAPY. MC (16:45)
[2018-02-23 17:55] LABS: POC GLUCOSE 151 mg/dL (70-99)
[2018-02-23] MEDS ORDERED: ALPRAZolam 0.25 MG TABLET PO (20:45)
[2018-02-23] MEDS: METOPROLOL SUCC 24HR ER 25 MG TAB.ER.24H. PO (21:56)
[2018-02-23] MEDS: INSULIN GLARGINE 300 UNITS/3 ML INSULN.PEN. SQ (22:00)
[2018-02-23 22:02] LABS: POC GLUCOSE 195 mg/dL (70-99)
[2018-02-23] MEDS: ALBUTEROL SULFATE 2.5 MG/3 ML NEBU. NEB (22:05)
[2018-02-23] MEDS: BUDESONIDE 0.5 MG/2 ML NEBU. NEB (22:06)
[2018-02-24] MEDS: BUDESONIDE 0.5 MG/2 ML NEBU. NEB ×2 (07:15→19:55)
[2018-02-24] MEDS: ALBUTEROL SULFATE 2.5 MG/3 ML NEBU. NEB ×4 (07:16→19:56)
[2018-02-24 08:00] LABS: POC GLUCOSE 132 mg/dL (70-99)
[2018-02-24] MEDS: METOPROLOL SUCC 24HR ER 25 MG TAB.ER.24H. PO ×2 (08:19→21:29)
[2018-02-24] MEDS: CALCIUM CARB/VIT D3 500/200 TABLET. PO (08:20)
[2018-02-24] MEDS: CETIRIZINE HCL 10 MG TABLET. PO (08:20)
[2018-02-24] MEDS: CARVEDILOL 3.125 MG TABLET. PO ×2 (08:20→17:22)
[2018-02-24] MEDS: SPIRONOLACTONE 25 MG TABLET PO (08:20)
[2018-02-24] MEDS: PANTOPRAZOLE 40 MG TABLET.DR. PO (08:20)
[2018-02-24] MEDS: FUROSEMIDE 40 MG TABLET. PO (08:20)
[2018-02-24 11:25] LABS: POC GLUCOSE 191 mg/dL (70-99)
[2018-02-24] MEDS ORDERED: SENNOSIDES/DOCUSATE 8.6/50MG TABLET. PO (11:30)
[2018-02-24] MEDS: glipiZIDE 5 MG TABLET PO ×2 (11:42→17:21)
[2018-02-24] MEDS: MECLIZINE HCL 12.5 MG TABLET. PO (11:42)
[2018-02-24] MEDS: HYDROcodone/APAP 5/325MG 1 TAB TABLET PO ×3 (11:43→23:42)
[2018-02-24] MEDS ORDERED: LIDOCAINE 2% 100 MG/5 ML SYRINGE. (12:00)
[2018-02-24] MEDS ORDERED: PHENOL ORAL SPRAY 177ML BOTTLE. PO (12:00)
[2018-02-24] MEDS ORDERED: DEXAMETHASONE SOD PHOS 20 MG/5 ML VIAL. (12:00)
[2018-02-24] MEDS: CLOPIDOGREL BISULFATE 75 MG TABLET PO (12:10)
[2018-02-24] MEDS: POTASSIUM CHLORIDE 20 MEQ TABLET.ER. PO (12:10)
[2018-02-24] MEDS: MULTIVITAMIN with MINERAL TABLET. PO (12:10)
[2018-02-24] MEDS: DIGOXIN 125 MCG TABLET. PO (12:10)
[2018-02-24] MEDS: ASPIRIN ENTERIC COATED 81 MG TABLET.DR. PO (12:10)
[2018-02-24] MEDS: BENZOCAINE/MENTHOL LOZENGE. PO ×2 (12:10→17:22)
[2018-02-24 16:44] LABS: POC GLUCOSE 230 mg/dL (70-99)
[2018-02-24 21:20] LABS: POC GLUCOSE 192 mg/dL (70-99)
[2018-02-24] MEDS: INSULIN GLARGINE 300 UNITS/3 ML INSULN.PEN. SQ (21:30)
[2018-02-25 04:58] LABS: ADD MAN DIFF? NO
[2018-02-25 05:05] LABS: BASO # 0.1 x10^3/uL (0.0-0.2); BASO % 1 % (0-3); EOS # 0.2 x10^3/uL (0.0-0.7); EOS % 2 % (0-3); HEMATOCRIT 27.8 % (36.0-47.0); HEMOGLOBIN 8.8 g/dL (12.0-15.5); LYMPH # 1.3 x10^3/uL (1.0-4.8); LYMPH % 14 % (24-48); MEAN CORPUSCULAR HEMOGLOBIN 24 pg (25-35); MEAN CORPUSCULAR HGB CONC 32 g/dL (31-37); MEAN CORPUSCULAR VOLUME 76 fL (79-100); MONO % 10 % (0-9); NEUT # 7.1 x10^3uL (1.8-7.7); NEUT % 73 % (31-73); PLATELET COUNT 292 x10^3/uL (140-400); RED BLOOD COUNT 3.66 x10^6/uL (3.50-5.40); RED CELL DISTRIBUTION WIDTH 16.4 % (11.5-14.5); WHITE BLOOD COUNT 9.7 x10^3/uL (4.0-11.0)
[2018-02-25 05:22] LABS: ANION GAP 7 (6-14); BLOOD UREA NITROGEN 23 mg/dL (7-20); CALCIUM 9.1 mg/dL (8.5-10.1); CARBON DIOXIDE 31 mmol/L (21-32); CHLORIDE 99 mmol/L (98-107); CREATININE 1.1 mg/dL (0.6-1.0); GFR 47.3; GLUCOSE 170 mg/dL (70-99); POTASSIUM 4.1 mmol/L (3.5-5.1); SODIUM 137 mmol/L (136-145)
[2018-02-25] MEDS: ALBUTEROL SULFATE 2.5 MG/3 ML NEBU. NEB ×2 (06:09→11:21)
[2018-02-25] MEDS: BUDESONIDE 0.5 MG/2 ML NEBU. NEB (06:09)
[2018-02-25] MEDS: HYDROcodone/APAP 5/325MG 1 TAB TABLET PO ×2 (06:12→13:56)
[2018-02-25 07:47] LABS: POC GLUCOSE 152 mg/dL (70-99)
[2018-02-25] MEDS: MECLIZINE HCL 12.5 MG TABLET. PO (07:59)
[2018-02-25] MEDS: FUROSEMIDE 40 MG TABLET. PO (07:59)
[2018-02-25] MEDS: MULTIVITAMIN with MINERAL TABLET. PO (08:00)
[2018-02-25] MEDS: POTASSIUM CHLORIDE 20 MEQ TABLET.ER. PO (08:00)
[2018-02-25] MEDS: DIGOXIN 125 MCG TABLET. PO (08:00)
[2018-02-25] MEDS: glipiZIDE 5 MG TABLET PO (08:00)
[2018-02-25] MEDS: CALCIUM CARB/VIT D3 500/200 TABLET. PO (08:00)
[2018-02-25] MEDS: CLOPIDOGREL BISULFATE 75 MG TABLET PO (08:00)
[2018-02-25] MEDS: CETIRIZINE HCL 10 MG TABLET. PO (08:00)
[2018-02-25] MEDS: ASPIRIN ENTERIC COATED 81 MG TABLET.DR. PO (08:00)
[2018-02-25] MEDS: SPIRONOLACTONE 25 MG TABLET PO (08:01)
[2018-02-25] MEDS: CARVEDILOL 3.125 MG TABLET. PO (08:01)
[2018-02-25] MEDS: METOPROLOL SUCC 24HR ER 25 MG TAB.ER.24H. PO (08:01)
[2018-02-25] MEDS: PANTOPRAZOLE 40 MG TABLET.DR. PO (08:01)
[2018-02-25 11:43] LABS: POC GLUCOSE 244 mg/dL (70-99)
== END 2018-02-25 15:30 | disposition home or self-care (01) ==
LOC: SURG 12:27 → 2 NORTH 12:30
DX: I49.5 Sick sinus syndrome (principal); I48.2 Chronic atrial fibrillation; I50.22 Chronic systolic (congestive) heart failure; G89.29 Other chronic pain; I25.10 Atherosclerotic heart disease of native coronary artery without angina pectoris; E11.9 Type 2 diabetes mellitus without complications; I11.0 Hypertensive heart disease with heart failure; Z82.49 Family history of ischemic heart disease and other diseases of the circulatory system; Z95.810 Presence of automatic (implantable) cardiac defibrillator; Z91.040 Latex allergy status
CPT/HCPCS: 33225; 33249; 36415; 71045; 71046; 80048; 82962; 85025; 85027; 85610; 93005; 93566; 94002; 94640; 94760; 96365; 96372; 96375; 97162-GP; C1769; C1882; C1898; C1900; G0378; G0379; J0690; J1100; J1815; J2250; J2704; J3010; J3490; J7050; J7613; J7626; J8597

== ENCOUNTER → 2018-11-21 | Outpatient (CLI) | payer OTHER ==
[2018-02-25 11:51] VITALS: BP 140/70
[~2018-11-21] MED LIST changes: +ALBU2.5V8 INH; +ALPR0.25 PO; +ASPI-482 PO; +CALC-98 PO; +CALC500T54 PO; +CARV3.1210 PO; +CETI10TA16 PO; +CLOP75TA PO; +DIGO125T PO; +FURO40TA4 PO; +GLIP10TA13 PO; +HYDR-2678 PO; +INSU100I13 SQ; +INSU100V13 SQ; -KETAMINE HCL 500 MG/10 ML VIAL.; -LIDOCAINE 1% PF 2 ML VIAL. ID; +MECL25TA3 PO; +METF500T16 PO; +METO-239 PO; +METO100T5 PO; -MIDAZOLAM HCL/PF 2 MG/2 ML VIAL.; +MOME13HF2 IH; -MORPHINE SULFATE 2 MG/ML DISP.SYRIN. IV; +MULT-245 PO; +NITR0.4T22 SL; +NITR100C62 PO; +NITR1PAT3 TD; +OMEP20CA10 PO; +OMEP40CA5 PO; -ONDANSETRON PF 4 MG/2 ML VIAL. IV; +POTA20TA12 PO; -PROCHLORPERAZINE 10 MG/2 ML VIAL. IV; -PROPOFOL 200 ML IV; -PROPOFOL 60 ML IV; +SENN1TAB70 PO; +SPIR25TA5 PO; +TRIA340. TP; +WARF-31 PO; -fentaNYL PF VIAL 100 MCG/2 ML VIAL; -fentaNYL PF VIAL 100 MCG/2 ML VIAL IV
--- NOTE | 2018-11-21 12:54 | CARD ---
MR#: [id number] Date of Study: 11/21/2018 Ordering Physician: NANCI HI, Referring Physician: Lorena URBINA: Kaleigh Rainse RDCS APPROVED REPORT EXAM: Two-dimensional and M-mode echocardiogram with Doppler and color Doppler. Other Information Quality : Fair INDICATION Congestive Heart Failure RISK FACTORS Obesity 2D DIMENSIONS RVDd2.8 (2.9-3.5cm)Left Atrium(2D)5.4 (1.6-4.0cm) IVSd1.3 (0.7-1.1cm)Aortic Root(2D)2.6 (2.0-3.7cm) LVDd5.6 (3.9-5.9cm)LVOT Diameter2.0 (1.8-2.4cm) PWd1.3 (0.7-1.1cm)LVDs4.5 (2.5-4.0cm) FS (%) 20.8 %SV65.2 ml Aortic Valve AoV Peak Javier.125.9cm/sAoV VTI21.2cm AO Peak GR.6.3mmHgLVOT Peak Javier.150.9cm/s LVOT VTI 25.62cmAO Mean GR.4mmHg CAMMY (VMAX)3.00kr7JLI (VTI)3.87cm2 Mitral Valve MV E Doxcgoxx560.3cm/sMV DECEL GTCA902on MV A Ktxowkkh04.7cm/sMV CDF81cr E/A Ratio2.9MVA (PHT)5.75cm2 Tricuspid Valve TR P. Xxqmowtf402qh/sRAP BTJOHZYW7uxUi TR Peak Gr.97odLuKBHN27ytFr LEFT VENTRICLE The left ventricle is normal size. There is mild concentric left ventricular hypertrophy. Left ventri rosanne systolic function is moderately impaired. The Ejection Fraction is 35-40%. There is akinesis in t he apex. Transmitral Doppler flow pattern is restrictive diastolic dysfunction. RIGHT VENTRICLE The right ventricle is normal size. The right ventricular systolic function is normal. There is a pac emaker lead in the right ventricle. ATRIA The left atrium is moderately dilated. The right atrium is mildly dilated. A device lead is seen in t he right atrium consistent with history. The interatrial septum is intact with no evidence for an atr ial septal defect or patent foramen ovale as noted on 2-D or Doppler imaging. AORTIC VALVE The aortic valve is calcified but opens well. Doppler and Color Flow revealed no significant aortic r egurgitation. There is no significant aortic valvular stenosis. MITRAL VALVE The mitral valve is calcified but opens well. There is no evidence of mitral valve prolapse. There is no mitral valve stenosis. Doppler and Color-flow revealed mild mitral regurgitation. TRICUSPID VALVE The tricuspid valve is normal in structure and function. Doppler and Color Flow revealed mild tricusp id regurgitation. The PA pressure was estimated at 43 mmHg. There is no tricuspid valve stenosis. PULMONIC VALVE The pulmonic valve is not well visualized. Doppler and Color Flow revealed mild pulmonic valvular reg urgitation. There is no pulmonic valvular stenosis. GREAT VESSELS The aortic root is normal in size. The ascending aorta is normal in size. The IVC was not visualized. PERICARDIAL EFFUSION There is no evidence of significant pericardial effusion. Critical Notification Critical Value: No <Conclusion> The left ventricle is normal size. Left ventricle systolic function is moderately impaired. The Ejection Fraction is 35-40%. There is akinesis in the apex. There is mild concentric left ventricular hypertrophy. There is no significant aortic valvular stenosis. Doppler and Color Flow revealed no significant aortic regurgitation. Doppler and Color-flow revealed mild mitral regurgitation. Doppler and Color Flow revealed mild tricuspid regurgitation. The PA pressure was estimated at 43 mmHg. Signed by : Sergo Marte MD Electronically Approved : 11/21/2018 12:53:51
== END | disposition home or self-care (01) ==
LOC: ECHO 10:50
PROVIDERS: ATTEND Internal Medicine Cardiovascular Disease
DX: I11.0 Hypertensive heart disease with heart failure (principal); I50.22 Chronic systolic (congestive) heart failure; I08.1 Rheumatic disorders of both mitral and tricuspid valves; E66.01 Morbid (severe) obesity due to excess calories; E78.5 Hyperlipidemia, unspecified; E11.42 Type 2 diabetes mellitus with diabetic polyneuropathy; E11.40 Type 2 diabetes mellitus with diabetic neuropathy, unspecified; E78.00 Pure hypercholesterolemia, unspecified
CPT/HCPCS: 93306

== ENCOUNTER 2019-07-26 08:43 | Inpatient (IN) | payer OTHER ==
[~2019-07-26] VITALS: Ht 158.8 cm; Wt 98.9 kg
[~2019-07-26 08:43] MED LIST changes: +OMEP40CA45 PO; -OMEP40CA5 PO
[2019-07-26 09:08] LABS: BILIRUBIN,URINE NEGATIVE (NEG); CLARITY,URINE CLEAR; COLOR,URINE YELLOW; NITRITE,URINE NEGATIVE (NEG); PH,URINE 5.5; PROTEIN,URINE NEGATIVE (NEG-TRACE); UROBILINOGEN,URINE 0.2 mg/dL (0.2 mg/dL)
[2019-07-26 09:12] LABS: SQUAMOUS EPITHELIAL CELL,UR FEW /LPF
[2019-07-26 09:13] LABS: RBC,URINE OCC /HPF (0-2); WBC,URINE OCC /HPF (0-4)
[2019-07-26 09:14] LABS: BACTERIA,URINE 0 /HPF (0-FEW)
[2019-07-26 09:38] LABS: BASO # 0.1 x10^3/uL (0.0-0.2); BASO % 1 % (0-3); EOS # 0.3 x10^3/uL (0.0-0.7); EOS % 4 % (0-3); HEMATOCRIT 34.4 % (36.0-47.0); HEMOGLOBIN 11.2 g/dL (12.0-15.5); LYMPH % 11 % (24-48); MEAN CORPUSCULAR HEMOGLOBIN 27 pg (25-35); MEAN CORPUSCULAR HGB CONC 33 g/dL (31-37); MEAN CORPUSCULAR VOLUME 84 fL (79-100); MONO # 0.7 x10^3/uL (0.0-1.1); MONO % 9 % (0-9); NEUT # 6.4 x10^3/uL (1.8-7.7); NEUT % 75 % (31-73); PLATELET COUNT 326 x10^3/uL (140-400); RED BLOOD COUNT 4.09 x10^6/uL (3.50-5.40); RED CELL DISTRIBUTION WIDTH 14.9 % (11.5-14.5); WHITE BLOOD COUNT 8.4 x10^3/uL (4.0-11.0)
[2019-07-26 09:53] LABS: CREATININE 0.9 mg/dL (0.6-1.0); GFR 59.5; POTASSIUM 4.7 mmol/L (3.5-5.1)
[2019-07-26 09:58] LABS: ALBUMIN 3.4 g/dL (3.4-5.0); MAGNESIUM 2.1 mg/dL (1.8-2.4); TOTAL BILIRUBIN 0.2 mg/dL (0.2-1.0); TOTAL PROTEIN 6.7 g/dL (6.4-8.2)
--- NOTE | 2019-07-26 10:06 | RAD ---
CT HEAD WO CONTRAST History: Altered mental status. Comparison: None. Technique: Noncontrast CT imaging was performed of the head. Exposure: One or more of the following individualized dose reduction techniques were utilized for this examination: 1. Automated exposure control 2. Adjustment of the mA and/or kV according to patient size 3. Use of iterative reconstruction technique. Findings: No intracranial hemorrhage. No mass effect. No hydrocephalus. Mild brain parenchymal volume loss. Foci of decreased attenuation within the hemispheric white matter, most prominent within the left frontal lobe. Imaged orbits are unremarkable. Imaged paranasal sinuses and mastoid air cells are clear. Bilateral TMJ arthropathy. Impression: 1. No acute intracranial abnormality. 2. Foci of decreased attenuation within the hemispheric white matter, most often due to chronic microvascular ischemia. Recommend comparison with prior imaging studies. If persistent clinical concern for acute ischemia MRI can better evaluate. Electronically signed by: Fredo Cleaning DO (07/26/2019 10:03 AM) [id number]
[2019-07-26 10:09] LABS: PROTHROMBIN TIME PATIENT 13.6 SEC (11.7-14.0)
[2019-07-26 12:03] LABS: DIG < 0.2 ng/mL (0.9-2.0)
--- NOTE | 2019-07-26 12:10 | PDOC1 ---
History and Physical Date of Admission Date of Admission DATE: 07/26/19 TIME: 12:10 Identification/Chief Complaint Chief Complaint seen in er, with worsening confusion Past Medical History Past Medical History Review of Systems Review of Systems Constitutional: Denies fever or chills [] Eyes: Denies change in visual acuity, redness, or eye pain [] HENT: Denies nasal congestion or sore throat [] Respiratory: Denies cough or shortness of breath [] Cardiovascular: No additional information not addressed in HPI [] GI: Denies abdominal pain, nausea, vomiting, bloody stools or diarrhea [] : Denies dysuria or hematuria [] Musculoskeletal: Denies back pain or joint pain [] Integument: Denies rash or skin lesions [] Neurologic: Denies headache, focal weakness or sensory changes [] Endocrine: Denies polyuria or polydipsia [] All other systems were reviewed and found to be within normal limits, except as documented in this note. Cardiovascular: AFIB, CAD, CHF, HTN Pulmonary: No pertinent hx, Pneumonia, Other CENTRAL NERVOUS SYSTEM: Periperal neuropathy GI: GERD Heme/Onc: Anemia NOS Hepatobiliary: No pertinent hx Psych: No pertinent hx Musculoskeletal: low back pain, Osteoarthritis Rheumatologic: No pertinent hx Infectious disease: No pertinent hx Renal/: No pertinent hx Endocrine: Diabetes Past Surgical History Past Surgical History: Pacemaker, Hernia Repair, Hysterectomy, Other Family History Family History: Hypertension, Other Social History Smoke: No ALCOHOL: none Drugs: None Current Medications Current Medications Active Scripts Active Reported Carvedilol 3.125 Mg Tablet 3.125 Mg PO BIDWMEALS Dulera 100 Mcg/5 Mcg Inhaler (Mometasone/Formoterol) 13 Gm Hfa.aer.ad 1 Puff IH BID Calcium + Vitamin D Tablet (Calcium Carbonate/Vitamin D3) 1 Each Tablet 1 Each PO DAILY Omeprazole 20 Mg Capsule.dr 1 Cap PO DAILY Metoprolol Succinate ( Xl ) (Metoprolol Succinate) 25 Mg Tab.er.24h 25 Mg PO BID Clopidogrel (Clopidogrel Bisulfate) 75 Mg Tablet 75 Mg PO DAILY Dermasorb Ta 0.1% Complete Kit (Triamcinolone/Emollient Cmb#86) 340.4 Gm Cream..g. 340.4 Gm TP Meclizine Hcl 25 Mg Tablet 1 Tab PO PRN TID Xanax (Alprazolam) 0.25 Mg Tablet 0.25 Mg PO HS PRN Levemir (Insulin Detemir) 100 Unit/1 Ml Vial 10-12 Unit SQ HS Lortab 5-325 mg Tablet (Hydrocodone/Acetaminophen) 1 Each Tablet 1 Tab PO PRN Q6HRS PRN Proair Hfa Inhaler (Albuterol Sulfate) 8.5 Gm Hfa.aer.ad 1 Puff INH PRN Q6HRS PRN NITROGLYCERIN SubLingual (Nitroglycerin) 0.4 Mg Tab.subl 0.4 Mg SL PRN Q5MIN PRN please take nitroglycerin sublingual when you have chest pain every 5 min up to 3 doses. Multi Vitamin Daily (Multivitamin) 1 Each Tablet 1 Each PO DAILY Stool Softener Tablet (Sennosides/Docusate Sodium) 1 Each Tablet 2 Each PO NE EDED Cetirizine Hcl 10 Mg Tablet 1 Tab PO DAILY Potassium Chloride 20 Meq Tab.er.prt 20 Meq PO DAILY Furosemide 40 Mg Tablet 40 Mg PO DAILY Spironolactone 25 Mg Tablet 1 Tab PO DAILY Aspir 81 (Aspirin) 81 Mg Tablet.dr 1 Tab PO DAILY Digoxin 125 Mcg Tablet 1 Tab PO DAILY Glipizide 10 Mg Tablet 1 Tab PO BIDACLD Allergies Allergies: Coded Allergies: adhesive tape (Verified Allergy, Intermediate, Rash, 11/02/16) iron dextran complex (Verified Allergy, Intermediate, IRON SUCROSE (VENOFER) [place], 02/24/18) latex (Verified Allergy, Intermediate, Rash, 11/02/16) ROS Review of System Review of Systems Review of Systems Constitutional: Denies fever or chills [] LIMITED BY DEMENTIA Eyes: Denies change in visual acuity, redness, or eye pain [] HENT: Denies nasal congestion or sore throat [] Respiratory: Denies cough or shortness of breath [] Cardiovascular: No additional information not addressed in HPI [] GI: Denies abdominal pain, nausea, vomiting, bloody stools or diarrhea [] : Denies dysuria or hematuria [] Musculoskeletal: Denies back pain or joint pain [] Integument: Denies rash or skin lesions [] Neurologic: Denies headache, focal weakness or sensory changes [] Endocrine: Denies polyuria or polydipsia [] 14 PT systems were reviewed and found to be within normal limits, except as documented . Physical Exam Physical Exam Physical Exam Physical Exam Constitutional: Well developed, well nourished, no acute distress, non-toxic appearance. [] HENT: Normocephalic, atraumatic, bilateral external ears normal, oropharynx moist, no oral exudates, nose normal. [] Eyes: PERRLA, EOMI, conjunctiva normal, no discharge. [] Neck: Normal range of motion, no tenderness, supple, no stridor. [] Cardiovascular:Heart rate regular rhythm, no murmur [] Lungs & Thorax: Bilateral breath sounds clear to auscultation [] Abdomen: Bowel sounds normal, soft, no tenderness, no masses, no pulsatile masses. [] Skin: Warm, dry, no erythema, no rash. [] Back: No tenderness, no CVA tenderness. [] Extremities: No tenderness, no cyanosis, no clubbing, ROM intact, no edema. [] General: Cooperative, No acute distress HEENT: EOMI, Mucous membr. moist/pink Breasts: Not examined Abdomen: Soft Rectal Exam: not examined Extremities: No cyanosis Neuro: Cranial nerves 3-12 NL Vitals Vitals Vital Signs Date Time Temp Pulse Resp B/P (MAP) Pulse Ox O2 Delivery O2 Flow Rate FiO2 07/26/19 10:30 64 24 92 07/26/19 08:43 98.3 139/67 (91) Room Air 98.3 Labs Labs Laboratory Tests Test 07/26/19 08:55 07/26/19 09:20 Urine Collection Type Unknown Urine Color Yellow Urine Clarity Clear Urine pH 5.5 Urine Specific Perry 1.015 Urine Protein Negative mg/dL (NEG-TRACE) Urine Glucose (UA) Negative mg/dL (NEG) Urine Ketones (Stick) Negative mg/dL (NEG) Urine Blood Negative (NEG) Urine Nitrite Negative (NEG) Urine Bilirubin Negative (NEG) Urine Urobilinogen Dipstick 0.2 mg/dL (0.2 mg/dL) Urine Leukocyte Esterase Negative (NEG) Urine RBC Occ /HPF (0-2) Urine WBC Occ /HPF (0-4) Urine Squamous Epithelial Cells Few /LPF Urine Bacteria 0 /HPF (0-FEW) Urine Mucus Slight /LPF White Blood Count 8.4 x10^3/uL (4.0-11.0) Red Blood Count 4.09 x10^6/uL (3.50-5.40) Hemoglobin 11.2 g/dL (12.0-15.5) Hematocrit 34.4 % (36.0-47.0) Mean Corpuscular Volume 84 fL (79-100) Mean Corpuscular Hemoglobin 27 pg (25-35) Mean Corpuscular Hemoglobin Concent 33 g/dL (31-37) Red Cell Distribution Width 14.9 % (11.5-14.5) Platelet Count 326 x10^3/uL (140-400) Neutrophils (%) (Auto) 75 % (31-73) Lymphocytes (%) (Auto) 11 % (24-48) Monocytes (%) (Auto) 9 % (0-9) Eosinophils (%) (Auto) 4 % (0-3) Basophils (%) (Auto) 1 % (0-3) Neutrophils # (Auto) 6.4 x10^3/uL (1.8-7.7) Lymphocytes # (Auto) 1.0 x10^3/uL (1.0-4.8) Monocytes # (Auto) 0.7 x10^3/uL (0.0-1.1) Eosinophils # (Auto) 0.3 x10^3/uL (0.0-0.7) Basophils # (Auto) 0.1 x10^3/uL (0.0-0.2) Prothrombin Time 13.6 SEC (11.7-14.0) Prothromb Time International Ratio 1.1 (0.8-1.1) Activated Partial Thromboplast Time 28 SEC (24-38) Sodium Level 142 mmol/L (136-145) Potassium Level 4.7 mmol/L (3.5-5.1) Chloride Level 104 mmol/L (98-107) Carbon Dioxide Level 31 mmol/L (21-32) Anion Gap 7 (6-14) Blood Urea Nitrogen 12 mg/dL (7-20) Creatinine 0.9 mg/dL (0.6-1.0) Estimated GFR (Cockcroft-Gault) 59.5 BUN/Creatinine Ratio 13 (6-20) Glucose Level 126 mg/dL (70-99) Calcium Level 9.0 mg/dL (8.5-10.1) Magnesium Level 2.1 mg/dL (1.8-2.4) Total Bilirubin 0.2 mg/dL (0.2-1.0) Aspartate Amino Transf (AST/SGOT) 9 U/L (15-37) Alanine Aminotransferase (ALT/SGPT) 11 U/L (14-59) Alkaline Phosphatase 100 U/L (46-116) Ammonia 13 mcmol/L (11-34) Troponin I Quantitative < 0.017 ng/mL (0.000-0.055) OW-Hpq-B-Type Natriuretic Peptide 972 pg/mL (0-449) Total Protein 6.7 g/dL (6.4-8.2) Albumin 3.4 g/dL (3.4-5.0) Albumin/Globulin Ratio 1.0 (1.0-1.7) Digoxin Level < 0.2 ng/mL (0.9-2.0) Digoxin Last Dose Date Unknown Digoxin Last Dose Time Unknown Laboratory Tests Test 07/26/19 08:55 07/26/19 09:20 Urine Collection Type Unknown Urine Color Yellow Urine Clarity Clear Urine pH 5.5 Urine Specific Perry 1.015 Urine Protein Negative mg/dL (NEG-TRACE) Urine Glucose (UA) Negative mg/dL (NEG) Urine Ketones (Stick) Negative mg/dL (NEG) Urine Blood Negative (NEG) Urine Nitrite Negative (NEG) Urine Bilirubin Negative (NEG) Urine Urobilinogen Dipstick 0.2 mg/dL (0.2 mg/dL) Urine Leukocyte Esterase Negative (NEG) Urine RBC Occ /HPF (0-2) Urine WBC Occ /HPF (0-4) Urine Squamous Epithelial Cells Few /LPF Urine Bacteria 0 /HPF (0-FEW) Urine Mucus Slight /LPF White Blood Count 8.4 x10^3/uL (4.0-11.0) Red Blood Count 4.09 x10^6/uL (3.50-5.40) Hemoglobin 11.2 g/dL (12.0-15.5) Hematocrit 34.4 % (36.0-47.0) Mean Corpuscular Volume 84 fL (79-100) Mean Corpuscular Hemoglobin 27 pg (25-35) Mean Corpuscular Hemoglobin Concent 33 g/dL (31-37) Red Cell Distribution Width 14.9 % (11.5-14.5) Platelet Count 326 x10^3/uL (140-400) Neutrophils (%) (Auto) 75 % (31-73) Lymphocytes (%) (Auto) 11 % (24-48) Monocytes (%) (Auto) 9 % (0-9) Eosinophils (%) (Auto) 4 % (0-3) Basophils (%) (Auto) 1 % (0-3) Neutrophils # (Auto) 6.4 x10^3/uL (1.8-7.7) Lymphocytes # (Auto) 1.0 x10^3/uL (1.0-4.8) Monocytes # (Auto) 0.7 x10^3/uL (0.0-1.1) Eosinophils # (Auto) 0.3 x10^3/uL (0.0-0.7) Basophils # (Auto) 0.1 x10^3/uL (0.0-0.2) Prothrombin Time 13.6 SEC (11.7-14.0) Prothromb Time International Ratio 1.1 (0.8-1.1) Activated Partial Thromboplast Time 28 SEC (24-38) Sodium Level 142 mmol/L (136-145) Potassium Level 4.7 mmol/L (3.5-5.1) Chloride Level 104 mmol/L (98-107) Carbon Dioxide Level 31 mmol/L (21-32) Anion Gap 7 (6-14) Blood Urea Nitrogen 12 mg/dL (7-20) Creatinine 0.9 mg/dL (0.6-1.0) Estimated GFR (Cockcroft-Gault) 59.5 BUN/Creatinine Ratio 13 (6-20) Glucose Level 126 mg/dL (70-99) Calcium Level 9.0 mg/dL (8.5-10.1) Magnesium Level 2.1 mg/dL (1.8-2.4) Total Bilirubin 0.2 mg/dL (0.2-1.0) Aspartate Amino Transf (AST/SGOT) 9 U/L (15-37) Alanine Aminotransferase (ALT/SGPT) 11 U/L (14-59) Alkaline Phosphatase 100 U/L (46-116) Ammonia 13 mcmol/L (11-34) Troponin I Quantitative < 0.017 ng/mL (0.000-0.055) UU-Itm-X-Type Natriuretic Peptide 972 pg/mL (0-449) Total Protein 6.7 g/dL (6.4-8.2) Albumin 3.4 g/dL (3.4-5.0) Albumin/Globulin Ratio 1.0 (1.0-1.7) Digoxin Level < 0.2 ng/mL (0.9-2.0) Digoxin Last Dose Date Unknown Digoxin Last Dose Time Unknown Images Images CT HEAD WO CONTRAST History: Altered mental status. Comparison: None. Technique: Noncontrast CT imaging was performed of the head. Exposure: One or more of the following individualized dose reduction techniques were utilized for this examination: 1. Automated exposure control 2. Adjustment of the mA and/or kV according to patient size 3. Use of iterative reconstruction technique. Findings: No intracranial hemorrhage. No mass effect. No hydrocephalus. Mild brain parenchymal volume loss. Foci of decreased attenuation within the hemispheric white matter, most prominent within the left frontal lobe. Imaged orbits are unremarkable. Imaged paranasal sinuses and mastoid air cells are clear. Bilateral TMJ arthropathy. Impression: 1. No acute intracranial abnormality. 2. Foci of decreased attenuation within the hemispheric white matter, most often due to chronic microvascular ischemia. Recommend comparison with prior imaging studies. If persistent clinical concern for acute ischemia MRI can better evaluate. Electronically signed by: Jeff Mata DO (07/26/2019 10:03 AM) [facility] DICTATED and SIGNED BY: JEFF MATA DO VTE Prophylaxis Ordered VTE Prophylaxis Devices: Yes VTE Pharmacological Prophylaxi: Contraindicated Assessment/Plan Assessment/Plan Impression: Altered mental status Advanced dementia ON CT No acute intracranial abnormality. Foci of decreased attenuation within the hemispheric white matter, most often due to chronic microvascular ischemia. Recommend comparison with prior imaging studies. If persistent clinical concern for acute ischemia MRI can better evaluate. ADMITTED NEUROCHECKS Q 4 HRS NEUROLOGY CONSULT hold narcotics and sedating meds tele STAN UMANZOR MD Jul 26, 2019 12:10
[2019-07-26] MEDS ORDERED: ONDANSETRON PF 4 MG/2 ML VIAL. IV PRN (12:15)
--- NOTE | 2019-07-26 13:28 | EKG ---
[facility] [address] [place] [address] Test Date: 2019-07-26 Test Time: 09:19:03 Pat Name: YONAS CHE Department: Room: Gender: F Biology Intern: : 1935 Requested By: LINNEA NGUYEN Order Number: [id number] Reading MD: Measurements Intervals [place] Rate: 65 P: 180 SD: 214 QRS: -138 QRSD: 102 T: 92 QT: 446 QTc: 469 Interpretive Statements SINUS RHYTHM ABNORMAL RIGHT SUPERIOR AXIS DEVIATION R-S TRANSITION ZONE IN V LEADS DISPLACED TO THE LEFT LVH WITH REPOLARIZATION ABNORMALITY CONSIDER RIGHT VENTRICULAR HYPERTROPHY QRS(T) CONTOUR ABNORMALITY CANNOT RULE OUT ANTEROSEPTAL MYOCARDIAL DAMAGE ABNORMAL ECG No previous ECG available for comparison
--- NOTE | 2019-07-26 14:05 | PHYS DOC ---
Past Medical History Past Medical History: Anemia, CHF, COPD, Diabetes-Type II, High Cholesterol, Hypertension, UTI, Other Additional Past Medical Histor: MACULAR DEGENERATION Past Surgical History: Cholecystectomy, , Pacemaker Additional Past Surgical Histo: herniorrhaphy X 2,ICD Alcohol Use: None Drug Use: None Adult General Chief Complaint Chief Complaint: ALTERED MENTAL STATUS [facility] Patient is a 84 year old female who was brought here from home by EMS for altered mental status. Per EMS report patient felt like she is fading away. Her family reported that patient went to sleep last night, she was acting normal. His morning patient woke up, acting confused, she denies any headache, no chest pain, no abdominal pain, no cough or fever. Patient denies any weakness or numbness anywhere. aLL OTHER ros IS NEGATIVE UNLESS OTHERWISE NOTED IN hpi Review of Systems Review of Systems See above Allergies Allergies Allergies Coded Allergies Type Severity Reaction Last Updated Verified adhesive tape Allergy Intermediate Rash 11/02/16 Yes iron dextran complex Allergy Intermediate IRON SUCROSE (VENOFER) OKAY 02/24/18 Yes latex Allergy Intermediate Rash 11/02/16 Yes Physical Exam Physical Exam See above Constitutional: Well developed, well nourished, no acute distress, non-toxic appearance. [] HENT: Normocephalic, atraumatic, bilateral external ears normal, oropharynx moist, no oral exudates, nose normal. [] Eyes: PERRLA, EOMI, conjunctiva normal, no discharge. [] Neck: Normal range of motion, no tenderness, supple, no stridor. [] Cardiovascular:Heart rate regular rhythm, no murmur [] Lungs & Thorax: Bilateral breath sounds clear to auscultation [] Abdomen: Bowel sounds normal, soft, no tenderness, no masses, no pulsatile masses. [] Skin: Warm, dry, no erythema, no rash. [] Back: No tenderness, no CVA tenderness. [] Extremities: No tenderness, no cyanosis, no clubbing, ROM intact, no edema. [] Neurologic: Alert, ORIENTED TO PERSON ONLY, normal motor function, normal sensory function, no focal deficits noted. [] Psychologic: Affect normal, judgement normal, mood normal. [] Current Patient Data Vital Signs Vital Signs Date Time Temp Pulse Resp B/P (MAP) Pulse Ox O2 Delivery O2 Flow Rate FiO2 07/26/19 12:00 64 24 95 07/26/19 08:43 98.3 139/67 (91) Room Air 98.3 Lab Values Laboratory Tests Test 07/26/19 08:55 07/26/19 09:20 Urine Collection Type Unknown Urine Color Yellow Urine Clarity Clear Urine pH 5.5 Urine Specific [place] 1.015 Urine Protein Negative mg/dL (NEG-TRACE) Urine Glucose (UA) Negative mg/dL (NEG) Urine Ketones (Stick) Negative mg/dL (NEG) Urine Blood Negative (NEG) Urine Nitrite Negative (NEG) Urine Bilirubin Negative (NEG) Urine Urobilinogen Dipstick 0.2 mg/dL (0.2 mg/dL) Urine Leukocyte Esterase Negative (NEG) Urine RBC Occ /HPF (0-2) Urine WBC Occ /HPF (0-4) Urine Squamous Epithelial Cells Few /LPF Urine Bacteria 0 /HPF (0-FEW) Urine Mucus Slight /LPF White Blood Count 8.4 x10^3/uL (4.0-11.0) Red Blood Count 4.09 x10^6/uL (3.50-5.40) Hemoglobin 11.2 g/dL (12.0-15.5) L Hematocrit 34.4 % (36.0-47.0) L Mean Corpuscular Volume 84 fL (79-100) Mean Corpuscular Hemoglobin 27 pg (25-35) Mean Corpuscular Hemoglobin Concent 33 g/dL (31-37) Red Cell Distribution Width 14.9 % (11.5-14.5) H Platelet Count 326 x10^3/uL (140-400) Neutrophils (%) (Auto) 75 % (31-73) H Lymphocytes (%) (Auto) 11 % (24-48) L Monocytes (%) (Auto) 9 % (0-9) Eosinophils (%) (Auto) 4 % (0-3) H Basophils (%) (Auto) 1 % (0-3) Neutrophils # (Auto) 6.4 x10^3/uL (1.8-7.7) Lymphocytes # (Auto) 1.0 x10^3/uL (1.0-4.8) Monocytes # (Auto) 0.7 x10^3/uL (0.0-1.1) Eosinophils # (Auto) 0.3 x10^3/uL (0.0-0.7) Basophils # (Auto) 0.1 x10^3/uL (0.0-0.2) Prothrombin Time 13.6 SEC (11.7-14.0) Prothrombin Time INR 1.1 (0.8-1.1) Activated Partial Thromboplast Time 28 SEC (24-38) Sodium Level 142 mmol/L (136-145) Potassium Level 4.7 mmol/L (3.5-5.1) Chloride Level 104 mmol/L (98-107) Carbon Dioxide Level 31 mmol/L (21-32) Anion Gap 7 (6-14) Blood Urea Nitrogen 12 mg/dL (7-20) Creatinine 0.9 mg/dL (0.6-1.0) Estimated GFR (Cockcroft-Gault) 59.5 BUN/Creatinine Ratio 13 (6-20) Glucose Level 126 mg/dL (70-99) H Calcium Level 9.0 mg/dL (8.5-10.1) Magnesium Level 2.1 mg/dL (1.8-2.4) Total Bilirubin 0.2 mg/dL (0.2-1.0) Aspartate Amino Transferase (AST) 9 U/L (15-37) L Alanine Aminotransferase (ALT) 11 U/L (14-59) L Alkaline Phosphatase 100 U/L (46-116) Ammonia 13 mcmol/L (11-34) Troponin I Quantitative < 0.017 ng/mL (0.000-0.055) QE-Ghs-D-Type Natriuretic Peptide 972 pg/mL (0-449) H Total Protein 6.7 g/dL (6.4-8.2) Albumin 3.4 g/dL (3.4-5.0) Albumin/Globulin Ratio 1.0 (1.0-1.7) Digoxin Level < 0.2 ng/mL (0.9-2.0) L Digoxin Last Dose Date Unknown Digoxin Last Dose Time Unknown Laboratory Tests 07/26/19 09:20 Laboratory Tests 07/26/19 09:20 EKG EKG [] Radiology/Procedures Radiology/Procedures [][facility] [address] [place] [address] IMAGING REPORT Signed PATIENT: YONAS CHE ACCOUNT: [id number] : 1935 LOCATION: ER AGE: 84 SEX: F EXAM STATUS: PRE ER ORD. PHYSICIAN: LINNEA NGUYEN DO REASON: altered mental status, woke up this am with it. last normal was last night. PROCEDURE: CT HEAD WO CONTRAST CT HEAD WO CONTRAST History: Altered mental status. Comparison: None. Technique: Noncontrast CT imaging was performed of the head. Exposure: One or more of the following individualized dose reduction techniques were utilized for this examination: 1. Automated exposure control 2. Adjustment of the mA and/or kV according to patient size 3. Use of iterative reconstruction technique. Findings: No intracranial hemorrhage. No mass effect. No hydrocephalus. Mild brain parenchymal volume loss. Foci of decreased attenuation within the hemispheric white matter, most prominent within the left frontal lobe. Imaged orbits are unremarkable. Imaged paranasal sinuses and mastoid air cells are clear. Bilateral TMJ arthropathy. Impression: 1. No acute intracranial abnormality. 2. Foci of decreased attenuation within the hemispheric white matter, most often due to chronic microvascular ischemia. Recommend comparison with prior imaging studies. If persistent clinical concern for acute ischemia MRI can better evaluate. Electronically signed by: Fredo Cleaning DO (07/26/2019 10:03 AM) [id number] DICTATED and SIGNED BY: FREDO CLEANING DO DATE: 07/26/19 1003 Course & Med Decision Making Course & Med Decision Making Pertinent Labs and Imaging studies reviewed. (See chart for details) [] Dragon Disclaimer Dragon Disclaimer This electronic medical record was generated, in whole or in part, using a voice recognition dictation system. Departure Departure Impression: Primary Impression: Altered mental status Disposition: ADMITTED INPATIENT Admitting Physician: LATRICE (Dr. Felipe) Condition: IMPROVED Referrals: LILIANA ORTIZ APRN (PCP) LINNEA NGUYEN DO Jul 26, 2019 14:05
[2019-07-26] MEDS ORDERED: NITROGLYCERIN SUBLINGUAL 0.4 MG BOTTLE OF 25. SL PRN (15:45)
[2019-07-26] MEDS ORDERED: SENNOSIDES/DOCUSATE 8.6/50MG TABLET. PO PRN (15:45)
[2019-07-26] MEDS ORDERED: ALBUTEROL SULFATE 2.5 MG/3 ML NEBU. INH PRN (15:45)
[2019-07-26] MEDS: ALBUTEROL SULFATE 2.5 MG/3 ML NEBU. NEB SCH ×2 (16:00→20:37)
[2019-07-26] MEDS ORDERED: CARVEDILOL 3.125 MG TABLET. PO SCH (17:00)
[2019-07-26] MEDS ORDERED: FLU VAX QS 2019-20 (36MOS+)/PF 0.5 ML SYRINGE. VAX IM ONE (17:00)
[2019-07-26 19:32] VITALS: BP 139/63
[2019-07-26] MEDS ORDERED: LISI-338 PO (20:36)
[2019-07-26] MEDS ORDERED: NITR100C62 PO (20:36)
[2019-07-26] MEDS: BUDESONIDE 0.5 MG/2 ML NEBU. NEB SCH (20:37)
[2019-07-26] MEDS ORDERED: METOPROLOL SUCC 24HR ER 25 MG TAB.ER.24H. PO SCH (21:00)
[2019-07-26] MEDS ORDERED: MOMETASONE IH SCH (21:00)
[2019-07-26] MEDS ORDERED: FORMOTEROL IH SCH (21:00)
[2019-07-26] MEDS: diphenhydrAMINE HCL 25 MG CAPSULE PO PRN (23:24)
[2019-07-26 23:42] VITALS: BP 140/75
[2019-07-27 03:13] VITALS: BP 130/58
[2019-07-27 07:00] VITALS: BP 113/52
[2019-07-27] MEDS: BUDESONIDE 0.5 MG/2 ML NEBU. NEB SCH ×2 (07:24→19:35)
[2019-07-27] MEDS: ALBUTEROL SULFATE 2.5 MG/3 ML NEBU. NEB SCH ×4 (07:24→19:35)
[2019-07-27] MEDS: PANTOPRAZOLE 40 MG TABLET.DR. PO SCH (09:54)
[2019-07-27] MEDS: SPIRONOLACTONE 25 MG TABLET PO SCH (09:54)
[2019-07-27] MEDS: CETIRIZINE HCL 10 MG TABLET. PO SCH (09:54)
[2019-07-27] MEDS: CALCIUM CARB/VIT D3 500/200 TABLET. PO SCH (09:54)
[2019-07-27] MEDS: ASPIRIN ENTERIC COATED 81 MG TABLET.DR. PO SCH (09:54)
[2019-07-27] MEDS: FUROSEMIDE 40 MG TABLET. PO SCH (09:54)
[2019-07-27] MEDS: MULTIVITAMIN with MINERAL TABLET. PO SCH (09:55)
[2019-07-27] MEDS: POTASSIUM CHLORIDE 20 MEQ TABLET.ER. PO SCH (09:55)
[2019-07-27] MEDS: CLOPIDOGREL BISULFATE 75 MG TABLET PO SCH (09:55)
[2019-07-27] MEDS: DIGOXIN 125 MCG TABLET. PO SCH (09:56)
--- NOTE | 2019-07-27 10:36 | PDOC ---
PROGRESS NOTES History of Present Illness History of Present Illness VTE Prophylaxis Ordered VTE Prophylaxis Devices: Yes VTE Pharmacological Prophylaxi: Contraindicated Assessment/Plan Assessment/Plan Altered mental status, improving , suspect narcotic related mod-mild dementia acute hypoxic resp failure morbid obesity ON CT No acute intracranial abnormality. Foci of decreased attenuation within the hemispheric white matter, most often due to chronic microvascular ischemia. Recommend comparis on with prior imaging studies. If persistent clinical concern for acute ischemia MRI can better evaluate. 07/27 more alert, knows year, month, president location ADMITTED NEUROCHECKS Q 4 HRS NEUROLOGY CONSULT hold narcotics and sedating meds tele abg r/o hypercapnea o2 2 l nc cxr pa/lat 37 min pt exam, chart review, > 50% of time spent with exam, chart review, pt care coordination Vitals Vitals Vital Signs Date Time Temp Pulse Resp B/P (MAP) Pulse Ox O2 Delivery O2 Flow Rate FiO2 07/27/19 09:56 72 113/52 07/27/19 07:00 98.3 20 97 Nasal Cannula 2.5 98.3 Physical Exam General: Alert, Oriented X3, Cooperative, No acute distress Heart: Regular rate Lungs: Clear Abdomen: Normal bowel sounds, Soft Extremities: No cyanosis Skin: No significant lesion Labs LABS STATUS: PRE ER ORD. PHYSICIAN: LINNEA NGUYEN DO REASON: altered mental status, woke up this am with it. last normal was last night. PROCEDURE: CT HEAD WO CONTRAST CT HEAD WO CONTRAST History: Altered mental status. Comparison: None. Technique: Noncontrast CT imaging was performed of the head. Exposure: One or more of the following individualized dose reduction techniques were utilized for this examination: 1. Automated exposure control 2. Adjustment of the mA and/or kV according to patient size 3. Use of iterative reconstruction technique. Findings: No intracranial hemorrhage. No mass effect. No hydrocephalus. Mild brain parenchymal volume loss. Foci of decreased attenuation within the hemispheric white matter, most prominent within the left frontal lobe. Imaged orbits are unremarkable. Imaged paranasal sinuses and mastoid air cells are clear. Bilateral TMJ arthropathy. Impression: 1. No acute intracranial abnormality. 2. Foci of decreased attenuation within the hemispheric white matter, most often due to chronic microvascular ischemia. Recommend comparison with prior imaging studies. If persistent clinical concern for acute ischemia MRI can better evaluate. Electronically signed by: Fredo Cleaning DO (07/26/2019 10:03 AM) [facility] Assessment and Plan Assessmemt and Plan Problems Medical Problems: (1) Altered mental status Status: Acute Comment Review of Relevant I have reviewed the following items la (where applicable) has been applied. Labs Laboratory Tests Test 07/26/19 08:55 07/26/19 09:20 Urine Collection Type Unknown Urine Color Yellow Urine Clarity Clear Urine pH 5.5 Urine Specific [place] 1.015 Urine Protein Negative mg/dL (NEG-TRACE) Urine Glucose (UA) Negative mg/dL (NEG) Urine Ketones (Stick) Negative mg/dL (NEG) Urine Blood Negative (NEG) Urine Nitrite Negative (NEG) Urine Bilirubin Negative (NEG) Urine Urobilinogen Dipstick 0.2 mg/dL (0.2 mg/dL) Urine Leukocyte Esterase Negative (NEG) Urine RBC Occ /HPF (0-2) Urine WBC Occ /HPF (0-4) Urine Squamous Epithelial Cells Few /LPF Urine Bacteria 0 /HPF (0-FEW) Urine Mucus Slight /LPF White Blood Count 8.4 x10^3/uL (4.0-11.0) Red Blood Count 4.09 x10^6/uL (3.50-5.40) Hemoglobin 11.2 g/dL (12.0-15.5) Hematocrit 34.4 % (36.0-47.0) Mean Corpuscular Volume 84 fL (79-100) Mean Corpuscular Hemoglobin 27 pg (25-35) Mean Corpuscular Hemoglobin Concent 33 g/dL (31-37) Red Cell Distribution Width 14.9 % (11.5-14.5) Platelet Count 326 x10^3/uL (140-400) Neutrophils (%) (Auto) 75 % (31-73) Lymphocytes (%) (Auto) 11 % (24-48) Monocytes (%) (Auto) 9 % (0-9) Eosinophils (%) (Auto) 4 % (0-3) Basophils (%) (Auto) 1 % (0-3) Neutrophils # (Auto) 6.4 x10^3/uL (1.8-7.7) Lymphocytes # (Auto) 1.0 x10^3/uL (1.0-4.8) Monocytes # (Auto) 0.7 x10^3/uL (0.0-1.1) Eosinophils # (Auto) 0.3 x10^3/uL (0.0-0.7) Basophils # (Auto) 0.1 x10^3/uL (0.0-0.2) Prothrombin Time 13.6 SEC (11.7-14.0) Prothromb Time International Ratio 1.1 (0.8-1.1) Activated Partial Thromboplast Time 28 SEC (24-38) Sodium Level 142 mmol/L (136-145) Potassium Level 4.7 mmol/L (3.5-5.1) Chloride Level 104 mmol/L (98-107) Carbon Dioxide Level 31 mmol/L (21-32) Anion Gap 7 (6-14) Blood Urea Nitrogen 12 mg/dL (7-20) Creatinine 0.9 mg/dL (0.6-1.0) Estimated GFR (Cockcroft-Gault) 59.5 BUN/Creatinine Ratio 13 (6-20) Glucose Level 126 mg/dL (70-99) Calcium Level 9.0 mg/dL (8.5-10.1) Magnesium Level 2.1 mg/dL (1.8-2.4) Total Bilirubin 0.2 mg/dL (0.2-1.0) Aspartate Amino Transf (AST/SGOT) 9 U/L (15-37) Alanine Aminotransferase (ALT/SGPT) 11 U/L (14-59) Alkaline Phosphatase 100 U/L (46-116) Ammonia 13 mcmol/L (11-34) Troponin I Quantitative < 0.017 ng/mL (0.000-0.055) AQ-Orn-U-Type Natriuretic Peptide 972 pg/mL (0-449) Total Protein 6.7 g/dL (6.4-8.2) Albumin 3.4 g/dL (3.4-5.0) Albumin/Globulin Ratio 1.0 (1.0-1.7) Digoxin Level < 0.2 ng/mL (0.9-2.0) Digoxin Last Dose Date Unknown Digoxin Last Dose Time Unknown Medications Current Medications Ondansetron HCl (Zofran) 4 mg PRN Q8HRS PRN IV NAUSEA/VOMITING; Start 07/26/19 at 12:15; Stop 07/27/19 at 12:14 Albuterol Sulfate (Ventolin Neb Soln) 2.5 mg PRN Q6HRS PRN INH SHORTNESS OF BREATH; Start 07/26/19 at 15:45 Aspirin (Ecotrin) 81 mg DAILY PO Last administered on 07/27/19 09:54; Start 07/27/19 at 09:00 Carvedilol (Coreg) 3.125 mg BIDWMEALS PO ; Start 07/26/19 at 17:00; Stop 07/26/19 at 16:37; Status DC Cetirizine HCl (ZyrTEC) 10 mg DAILY PO Last administered on 07/27/19 09:54; Start 07/27/19 at 09:00 Clopidogrel Bisulfate (Plavix) 75 mg DAILY PO Last administered on 07/27/19 09:55; Start 07/27/19 at 09:00 Digoxin (Lanoxin) 125 mcg DAILY PO Last administered on 07/27/19 09:56; Start 07/27/19 at 09:00 Furosemide (Lasix) 40 mg DAILY PO Last administered on 07/27/19 09:54; Start 07/27/19 at 09:00 Metoprolol Succinate (Toprol Xl) 25 mg BID PO ; Start 07/26/19 at 21:00 Nitroglycerin (Nitrostat) 0.4 mg PRN Q5MIN PRN SL CHEST PAIN; Start 07/26/19 at 15:45 Potassium Chloride (Klor-Con) 20 meq DAILY PO Last administered on 07/27/19at 09:55; Start 07/27/19 at 09:00 Senna/Docusate Sodium (Senna Plus) 2 tab PRN DAILY PRN PO CONSTIPATION; Start 07/26/19 at 15:45 Spironolactone (Aldactone) 25 mg DAILY PO Last administered on 07/27/19 09:54; Start 07/27/19 at 09:00 Calcium/Vitamin D (Oscal D 500mg/ 200uts) 1 tab DAILY PO Last administered on 07/27/19 09:54; Start 07/27/19 at 09:00 Non-Formulary Medication (Mometasone/ Formoterol (Dulera 100 Mcg/5 Mcg Inhaler)) 1 puff BID IH ; Start 07/26/19 at 21:00; Status UNV Multivitamins (Thera M Plus) 1 tab DAILY PO Last administered on 07/27/19at 09:55; Start 07/27/19 at 09:00 Pantoprazole Sodium (Protonix) 40 mg DAILYAC PO Last administered on 07/27/19at 09:54; Start 07/27/19 at 07:30 Budesonide (Pulmicort) 0.5 mg RTBID NEB ; Start 07/26/19 at 20:00 Albuterol Sulfate (Ventolin Neb Soln) 2.5 mg RTQID NEB ; Start 07/26/19 at 16:00 Influenza Virus Vaccine Quadrival (Afluria Quad 2019-20 (3yr Up) Syringe) 0.5 ml ONCE ONCE VAX IM Last administered on 07/26/19at 18:13; Start 07/26/19 at 17:00; Stop 07/26/19 at 17:01; Status DC Diphenhydramine HCl (Benadryl) 25 mg PRN Q6HRS PRN PO ITCHING Last administered on 07/26/19at 23:24; Start 07/26/19 at 21:30 Active Scripts Active Reported Macrobid 100 Mg Capsule (Nitrofurantoin Monohyd/M-Cryst) 100 Mg Capsule 100 Mg PO DAILY Lisinopril 5 Mg Tablet 5 Mg PO DAILY Carvedilol (Carvedilol) 3.125 Mg Tablet 3.125 Mg PO BIDWMEALS Dulera 100 Mcg/5 Mcg Inhaler (Mometasone/Formoterol) 13 Gm Hfa.aer.ad 1 Puff IH BID Calcium + Vitamin D Tablet (Calcium Carbonate/Vitamin D3) 1 Each Tablet 1 Each PO DAILY Omeprazole 20 Mg Capsule.dr 1 Cap PO DAILY Clopidogrel (Clopidogrel Bisulfate) 75 Mg Tablet 75 Mg PO DAILY Dermasorb Ta 0.1% Complete Kit (Triamcinolone/Emollient Cmb#86) 340.4 Gm Cream..g. 340.4 Gm TP Meclizine Hcl 25 Mg Tablet 1 Tab PO PRN TID Xanax (Alprazolam) 0.25 Mg Tablet 0.25 Mg PO HS PRN Levemir (Insulin Detemir) 100 Unit/1 Ml Vial 10-12 Unit SQ HS Lortab 5-325 mg Tablet (Hydrocodone/Acetaminophen) 1 Each Tablet 1 Tab PO PRN Q6HRS PRN Proair Hfa Inhaler (Albuterol Sulfate) 8.5 Gm Hfa.aer.ad 1 Puff INH PRN Q6HRS PRN NITROGLYCERIN SubLingual (Nitroglycerin) 0.4 Mg Tab.subl 0.4 Mg SL PRN Q5MIN PRN please take nitroglycerin sublingual when you have chest pain every 5 min up to 3 doses. Multi Vitamin Daily (Multivitamin) 1 Each Tablet 1 Each PO DAILY Stool Softener Tablet (Sennosides/Docusate Sodium) 1 Each Tablet 2 Each PO NEEDED Cetirizine Hcl 10 Mg Tablet 1 Tab PO DAILY Potassium Chloride 20 Meq Tab.er.prt 20 Meq PO DAILY Furosemide 40 Mg Tablet 40 Mg PO DAILY Spironolactone 25 Mg Tablet 1 Tab PO DAILY Aspir 81 (Aspirin) 81 Mg Tablet.dr 1 Tab PO DAILY Digoxin 125 Mcg Tablet 1 Tab PO DAILY Glipizide 10 Mg Tablet 1 Tab PO BIDACLD Vitals/I & O Vital Sign - Last 24 Hours 07/26/19 07/26/19 07/26/19 07/26/19 11:00 11:30 12:00 12:30 Pulse 64 66 64 66 Resp 22 22 24 24 Pulse Ox 93 94 95 94 07/26/19 07/26/19 07/26/19 07/26/19 13:00 13:30 14:30 19:32 Temp 98.3 98.3 Pulse 64 64 68 Resp 24 24 18 B/P (MAP) 139/63 (88) Pulse Ox 95 95 92 O2 Delivery Room Air Room Air 07/26/19 07/26/19 07/27/19 07/27/19 20:00 23:42 03:13 07:00 Temp 97.8 98.1 98.3 97.8 98.1 98.3 Pulse 72 72 72 Resp 20 20 20 B/P (MAP) 140/75 (96) 130/58 (82) 113/52 (72) Pulse Ox 99 99 97 O2 Delivery Nasal Cannula Nasal Cannula Nasal Cannula Nasal Cannula O2 Flow Rate 2.5 2.5 2.5 2.5 07/27/19 09:56 Pulse 72 B/P (MAP) 113/52 Intake and Output 07/26/19 07/26/19 07/27/19 15:00 23:00 07:00 Intake Total 0 ml 100 ml Balance 0 ml 100 ml STAN UMANZOR MD Jul 27, 2019 10:36
[2019-07-27 11:09] LABS: HCO3 COOX 30 mmol/L (21-28); PCO2 COOX 49 mmHg (35-46); PO2 COOX 130 mmHg (65-108)
[2019-07-27 11:10] LABS: BASE EXCESS COOX 4 mmol/L (-3-3); SAT O2 COOX 98 % (92-99)
[2019-07-27 11:11] LABS: METHEMOGLOBIN 0.3 % (0.0-1.9)
[2019-07-27 11:28] VITALS: BP 122/65
--- NOTE | 2019-07-27 11:38 | RAD ---
PORTABLE CHEST 1V History: Hypoxia Comparison: February 24, 2018 Findings: Single view of the chest is submitted. There is again enlargement of the pericardial cardiac silhouette. There is again somewhat tortuous thoracic aorta about. There is again left electronic cardiac device. There is no pneumothorax, new significant pleural fluid, convincing lobar infiltrate. There is increased mild interstitial opacity bilaterally. Accurate evaluation of the left lung base is limited due to the enlarged pericardial cardiac silhouette. Impression: 1. There is mild interstitial opacity possibly mild interstitial infiltrate or edema. Otherwise no convincing acute radiographic abnormality is identified, limited evaluation of left lung base due to the enlarged pericardial cardiac silhouette. Electronically signed by: Simone Smith MD (07/27/2019 11:35 AM) [facility]
[2019-07-27 15:16] VITALS: BP 119/66
[2019-07-27] MEDS: CARVEDILOL 3.125 MG TABLET. PO SCH (18:28)
[2019-07-27 19:02] VITALS: BP 123/65
[2019-07-27] MEDS: diphenhydrAMINE HCL 25 MG CAPSULE PO PRN (20:08)
--- NOTE | 2019-07-27 20:20 | PDOC2 ---
CONSULT Date of Consult Date of Consult DATE: 07/27/19 TIME: 20:18 Identification/Chief Complaint Chief Complaint AMS History of Present Illness Reason for Visit: This patient is 84-year-old woman who presented to the emergency room with episode of not acting right. Patient was confused. Patient had improvement in symptoms. Patient currently denies any complaint of headache nausea or vomiting difficulty speaking focal extremity weakness. Information obtained from patient, patient's family at bedside. Patient does have some history of memory problems CT scan done brain did not show any evidence of acute intracranial etiology. Changes noted for chronic small vessel ischemic disease, atrophy changes noted. No evidence of acute hemorrhage or mass Past Medical History Cardiovascular: AFIB, CAD, CHF, HTN Pulmonary: No pertinent hx, Pneumonia, Other CENTRAL NERVOUS SYSTEM: Periperal neuropathy GI: GERD Heme/Onc: Anemia NOS Hepatobiliary: No pertinent hx Psych: No pertinent hx Musculoskeletal: low back pain, Osteoarthritis Rheumatologic: No pertinent hx Infectious disease: No pertinent hx Renal/: No pertinent hx Endocrine: Diabetes Past Surgical History Past Surgical History: Pacemaker, Hernia Repair, Hysterectomy, Other Family History Family History: Hypertension, Other Social History No ALCOHOL: none Drugs: None Lives: with Family Current Problem List Problem List Problems Medical Problems: (1) Altered mental status Status: Acute Current Medications Current Medications Current Medications Ondansetron HCl (Zofran) 4 mg PRN Q8HRS PRN IV NAUSEA/VOMITING; Start 07/26/19 at 12:15; Stop 07/27/19 at 12:14; Status DC Albuterol Sulfate (Ventolin Neb Soln) 2.5 mg PRN Q6HRS PRN INH SHORTNESS OF BREATH; Start 07/26/19 at 15:45 Aspirin (Ecotrin) 81 mg DAILY PO Last administered on 07/27/19at 09:54; Start 07/27/19 at 09:00 Carvedilol (Coreg) 3.125 mg BIDWMEALS PO ; Start 07/26/19 at 17:00; Stop 07/26/19 at 16:37; Status DC Cetirizine HCl (ZyrTEC) 10 mg DAILY PO Last administered on 07/27/19at 09:54; Start 07/27/19 at 09:00 Clopidogrel Bisulfate (Plavix) 75 mg DAILY PO Last administered on 07/27/19at 09:55; Start 07/27/19 at 09:00 Digoxin (Lanoxin) 125 mcg DAILY PO Last administered on 07/27/19 09:56; Start 07/27/19 at 09:00 Furosemide (Lasix) 40 mg DAILY PO Last administered on 07/27/19 09:54; Start 07/27/19 at 09:00 Metoprolol Succinate (Toprol Xl) 25 mg BID PO ; Start 07/26/19 at 21:00; Stop 07/27/19 at 11:56; Status DC Nitroglycerin (Nitrostat) 0.4 mg PRN Q5MIN PRN SL CHEST PAIN; Start 07/26/19 at 15:45 Potassium Chloride (Klor-Con) 20 meq DAILY PO Last administered on 07/27/19 09:55; Start 07/27/19 at 09:00 Senna/Docusate Sodium (Senna Plus) 2 tab PRN DAILY PRN PO CONSTIPATION; Start 07/26/19 at 15:45 Spironolactone (Aldactone) 25 mg DAILY PO Last administered on 07/27/19 09:54; Start 07/27/19 at 09:00 Calcium/Vitamin D (Oscal D 500mg/ 200uts) 1 tab DAILY PO Last administered on 07/27/19 09:54; Start 07/27/19 at 09:00 Non-Formulary Medication (Mometasone/ Formoterol (Dulera 100 Mcg/5 Mcg Inhaler)) 1 puff BID IH ; Start 07/26/19 at 21:00; Status UNV Multivitamins (Thera M Plus) 1 tab DAILY PO Last administered on 07/27/19 09:55; Start 07/27/19 at 09:00 Pantoprazole Sodium (Protonix) 40 mg DAILYAC PO Last administered on 07/27/19 09:54; Start 07/27/19 at 07:30 Budesonide (Pulmicort) 0.5 mg RTBID NEB ; Start 07/26/19 at 20:00 Albuterol Sulfate (Ventolin Neb Soln) 2.5 mg RTQID NEB ; Start 07/26/19 at 16:00 Influenza Virus Vaccine Quadrival (Afluria Quad 2019-20 (3yr Up) Syringe) 0.5 ml ONCE ONCE VAX IM Last administered on 07/26/19at 18:13; Start 07/26/19 at 17:00; Stop 07/26/19 at 17:01; Status DC Diphenhydramine HCl (Benadryl) 25 mg PRN Q6HRS PRN PO ITCHING Last administered on 07/27/19at 20:08; Start 07/26/19 at 21:30 Carvedilol (Coreg) 3.125 mg BIDWMEALS PO Last administered on 07/27/19at 18:28; Start 07/27/19 at 17:00 Active Scripts Active Reported Macrobid 100 Mg Capsule (Nitrofurantoin Monohyd/M-Cryst) 100 Mg Capsule 100 Mg PO DAILY Lisinopril 5 Mg Tablet 5 Mg PO DAILY Carvedilol (Carvedilol) 3.125 Mg Tablet 3.125 Mg PO BIDWMEALS Dulera 100 Mcg/5 Mcg Inhaler (Mometasone/Formoterol) 13 Gm Hfa.aer.ad 1 Puff IH BID Calcium + Vitamin D Tablet (Calcium Carbonate/Vitamin D3) 1 Each Tablet 1 Each PO DAILY Omeprazole 20 Mg Capsule.dr 1 Cap PO DAILY Clopidogrel (Clopidogrel Bisulfate) 75 Mg Tablet 75 Mg PO DAILY Dermasorb Ta 0.1% Complete Kit (Triamcinolone/Emollient Cmb#86) 340.4 Gm Cream..g. 340.4 Gm TP Meclizine Hcl 25 Mg Tablet 1 Tab PO PRN TID Xanax (Alprazolam) 0.25 Mg Tablet 0.25 Mg PO HS PRN Levemir (Insulin Detemir) 100 Unit/1 Ml Vial 10-12 Unit SQ HS Lortab 5-325 mg Tablet (Hydrocodone/Acetaminophen) 1 Each Tablet 1 Tab PO PRN Q6HRS PRN Proair Hfa Inhaler (Albuterol Sulfate) 8.5 Gm Hfa.aer.ad 1 Puff INH PRN Q6HRS PRN NITROGLYCERIN SubLingual (Nitroglycerin) 0.4 Mg Tab.subl 0.4 Mg SL PRN Q5MIN PRN please take nitroglycerin sublingual when you have chest pain every 5 min up to 3 doses. Multi Vitamin Daily (Multivitamin) 1 Each Tablet 1 Each PO DAILY Stool Softener Tablet (Sennosides/Docusate Sodium) 1 Each Tablet 2 Each PO NEEDED Cetirizine Hcl 10 Mg Tablet 1 Tab PO DAILY Potassium Chloride 20 Meq Tab.er.prt 20 Meq PO DAILY Furosemide 40 Mg Tablet 40 Mg PO DAILY Spironolactone 25 Mg Tablet 1 Tab PO DAILY Aspir 81 (Aspirin) 81 Mg Tablet.dr 1 Tab PO DAILY Digoxin 125 Mcg Tablet 1 Tab PO DAILY Glipizide 10 Mg Tablet 1 Tab PO BIDACLD Allergies Allergies: Coded Allergies: adhesive tape (Verified Allergy, Intermediate, Rash, 11/02/16) iron dextran complex (Verified Allergy, Intermediate, IRON SUCROSE (VENOFER) OKAY, 02/24/18) latex (Verified Allergy, Intermediate, Rash, 11/02/16) Physical Exam Physical Exam General no acute distress. HEENT: Normocephalic and atraumatic. NECK: Supple without bruit Respiratory: Clear to auscultation bilaterally Heart: Regular rate and rhythm, S1S2 normal NEUROLOGIC: Mental status Alert oriented No meningeal signs Cranial nerve equally reactive pupils, and intact extraocular movements. No facial asymmetry. Palate elevates and tongue protrudes in midline. Reflexes are 1-2 with flexor plantar responses. Strength able to move all exts equally. Sensory exam is intact for light touch and pinprick. Gait in bed. Vitals VITALS Vital Signs Date Time Temp Pulse Resp B/P (MAP) Pulse Ox O2 Delivery O2 Flow Rate FiO2 07/27/19 19:02 98.0 72 18 123/65 (84) 95 Nasal Cannula 2.5 98.0 Labs Labs Laboratory Tests Test 07/26/19 08:55 07/26/19 09:20 07/27/19 10:40 Urine Collection Type Unknown Urine Color Yellow Urine Clarity Clear Urine pH 5.5 Urine Specific [place] 1.015 Urine Protein Negative mg/dL (NEG-TRACE) Urine Glucose (UA) Negative mg/dL (NEG) Urine Ketones (Stick) Negative mg/dL (NEG) Urine Blood Negative (NEG) Urine Nitrite Negative (NEG) Urine Bilirubin Negative (NEG) Urine Urobilinogen Dipstick 0.2 mg/dL (0.2 mg/dL) Urine Leukocyte Esterase Negative (NEG) Urine RBC Occ /HPF (0-2) Urine WBC Occ /HPF (0-4) Urine Squamous Epithelial Cells Few /LPF Urine Bacteria 0 /HPF (0-FEW) Urine Mucus Slight /LPF White Blood Count 8.4 x10^3/uL (4.0-11.0) Red Blood Count 4.09 x10^6/uL (3.50-5.40) Hemoglobin 11.2 g/dL (12.0-15.5) Hematocrit 34.4 % (36.0-47.0) Mean Corpuscular Volume 84 fL (79-100) Mean Corpuscular Hemoglobin 27 pg (25-35) Mean Corpuscular Hemoglobin Concent 33 g/dL (31-37) Red Cell Distribution Width 14.9 % (11.5-14.5) Platelet Count 326 x10^3/uL (140-400) Neutrophils (%) (Auto) 75 % (31-73) Lymphocytes (%) (Auto) 11 % (24-48) Monocytes (%) (Auto) 9 % (0-9) Eosinophils (%) (Auto) 4 % (0-3) Basophils (%) (Auto) 1 % (0-3) Neutrophils # (Auto) 6.4 x10^3/uL (1.8-7.7) Lymphocytes # (Auto) 1.0 x10^3/uL (1.0-4.8) Monocytes # (Auto) 0.7 x10^3/uL (0.0-1.1) Eosinophils # (Auto) 0.3 x10^3/uL (0.0-0.7) Basophils # (Auto) 0.1 x10^3/uL (0.0-0.2) Prothrombin Time 13.6 SEC (11.7-14.0) Prothromb Time International Ratio 1.1 (0.8-1.1) Activated Partial Thromboplast Time 28 SEC (24-38) Sodium Level 142 mmol/L (136-145) Potassium Level 4.7 mmol/L (3.5-5.1) Chloride Level 104 mmol/L (98-107) Carbon Dioxide Level 31 mmol/L (21-32) Anion Gap 7 (6-14) Blood Urea Nitrogen 12 mg/dL (7-20) Creatinine 0.9 mg/dL (0.6-1.0) Estimated GFR (Cockcroft-Gault) 59.5 BUN/Creatinine Ratio 13 (6-20) Glucose Level 126 mg/dL (70-99) Calcium Level 9.0 mg/dL (8.5-10.1) Magnesium Level 2.1 mg/dL (1.8-2.4) Total Bilirubin 0.2 mg/dL (0.2-1.0) Aspartate Amino Transf (AST/SGOT) 9 U/L (15-37) Alanine Aminotransferase (ALT/SGPT) 11 U/L (14-59) Alkaline Phosphatase 100 U/L (46-116) Ammonia 13 mcmol/L (11-34) Troponin I Quantitative < 0.017 ng/mL (0.000-0.055) FQ-Egw-L-Type Natriuretic Peptide 972 pg/mL (0-449) Total Protein 6.7 g/dL (6.4-8.2) Albumin 3.4 g/dL (3.4-5.0) Albumin/Globulin Ratio 1.0 (1.0-1.7) Digoxin Level < 0.2 ng/mL (0.9-2.0) Digoxin Last Dose Date Unknown Digoxin Last Dose Time Unknown O2 Saturation 98 % (92-99) Arterial Blood pH 7.40 (7.35-7.45) Arterial Blood pCO2 at Patient Temp 49 mmHg (35-46) Arterial Blood pO2 at Patient Temp 130 mmHg (65-108) Arterial Blood HCO3 30 mmol/L (21-28) Arterial Blood Base Excess 4 mmol/L (-3-3) Oxyhemoglobin 98.0 % Methemoglobin 0.3 % (0.0-1.9) Carbon Monoxide, Quantitative 0.1 % (0.0-1.9) FiO2 2 lpm nc Laboratory Tests Test 07/27/19 10:40 O2 Saturation 98 % (92-99) Arterial Blood pH 7.40 (7.35-7.45) Arterial Blood pCO2 at Patient Temp 49 mmHg (35-46) Arterial Blood pO2 at Patient Temp 130 mmHg (65-108) Arterial Blood HCO3 30 mmol/L (21-28) Arterial Blood Base Excess 4 mmol/L (-3-3) Oxyhemoglobin 98.0 % Methemoglobin 0.3 % (0.0-1.9) Carbon Monoxide, Quantitative 0.1 % (0.0-1.9) FiO2 2 lpm nc Assessment/Plan Assessment/Plan This patient is 84-year-old woman who presented to the emergency room with episode of not acting right. Patient was confused. Patient had improvement in symptoms. Patient currently denies any complaint of headache nausea or vomiting difficulty speaking focal extremity weakness. Information obtained from patient, patient's family at bedside. Patient does have some history of memory problems CT scan done brain did not show any evidence of acute intracranial etiology. Changes noted for chronic small vessel ischemic disease, atrophy changes noted. No evidence of acute hemorrhage or mass 84-year-old woman with past medical history of multiple medical problems with history of memory problems, with the acute hypoxic respiratory failure encephalopathy improving check for infectious, metabolic etiology. Patient has nonfocal neurological exam. CT scan brain did not show any evidence of acute intracranial etiology. No evidence of acute hemorrhage or mass. MRI of brain cannot be done due to current medical condition. Continue medical management. Further memory evaluation as outpatient. Plan discussed with patient, patient's family members at length at bedside TITO SHEEHAN MD Jul 27, 2019 20:20
[2019-07-27 23:05] VITALS: BP 130/62
[2019-07-28 03:23] VITALS: BP 132/58
[2019-07-28 07:00] VITALS: BP 122/67
[2019-07-28] MEDS: BUDESONIDE 0.5 MG/2 ML NEBU. NEB SCH ×2 (07:24→20:00)
[2019-07-28] MEDS: ALBUTEROL SULFATE 2.5 MG/3 ML NEBU. NEB SCH ×4 (07:25→20:00)
[2019-07-28] MEDS: FUROSEMIDE 40 MG TABLET. PO SCH (08:46)
[2019-07-28] MEDS: MULTIVITAMIN with MINERAL TABLET. PO SCH (08:46)
[2019-07-28] MEDS: ASPIRIN ENTERIC COATED 81 MG TABLET.DR. PO SCH (08:46)
[2019-07-28] MEDS: DIGOXIN 125 MCG TABLET. PO SCH (08:47)
[2019-07-28] MEDS: CLOPIDOGREL BISULFATE 75 MG TABLET PO SCH (08:47)
[2019-07-28] MEDS: POTASSIUM CHLORIDE 20 MEQ TABLET.ER. PO SCH (08:47)
[2019-07-28] MEDS: SPIRONOLACTONE 25 MG TABLET PO SCH (08:47)
[2019-07-28] MEDS: CALCIUM CARB/VIT D3 500/200 TABLET. PO SCH (08:47)
[2019-07-28] MEDS: PANTOPRAZOLE 40 MG TABLET.DR. PO SCH (08:47)
[2019-07-28] MEDS: CETIRIZINE HCL 10 MG TABLET. PO SCH (08:47)
[2019-07-28] MEDS: CARVEDILOL 3.125 MG TABLET. PO SCH ×2 (08:48→18:21)
[2019-07-28 08:55] LABS: BASO # 0.1 x10^3/uL (0.0-0.2); BASO % 1 % (0-3); EOS # 0.3 x10^3/uL (0.0-0.7); EOS % 4 % (0-3); HEMATOCRIT 32.9 % (36.0-47.0); HEMOGLOBIN 10.6 g/dL (12.0-15.5); LYMPH # 1.2 x10^3/uL (1.0-4.8); LYMPH % 13 % (24-48); MEAN CORPUSCULAR HEMOGLOBIN 27 pg (25-35); MEAN CORPUSCULAR HGB CONC 32 g/dL (31-37); MEAN CORPUSCULAR VOLUME 83 fL (79-100); MONO # 0.8 x10^3/uL (0.0-1.1); MONO % 9 % (0-9); NEUT # 6.6 x10^3/uL (1.8-7.7); NEUT % 74 % (31-73); PLATELET COUNT 320 x10^3/uL (140-400); RED BLOOD COUNT 3.98 x10^6/uL (3.50-5.40); RED CELL DISTRIBUTION WIDTH 14.6 % (11.5-14.5); WHITE BLOOD COUNT 8.9 x10^3/uL (4.0-11.0)
[2019-07-28 09:29] LABS: ALBUMIN 3.3 g/dL (3.4-5.0); ALBUMIN/GLOBULIN RATIO 0.9 (1.0-1.7); CALCIUM 9.1 mg/dL (8.5-10.1); CREATININE 0.9 mg/dL (0.6-1.0); GFR 59.5; TOTAL BILIRUBIN 0.3 mg/dL (0.2-1.0); TOTAL PROTEIN 6.9 g/dL (6.4-8.2)
[2019-07-28 11:00] VITALS: BP 111/56
--- NOTE | 2019-07-28 11:22 | PDOC ---
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 Foci of decreased attenuation within the hemispheric white matter, most often due to chronic microvascular ischemia. Recommend comparison with prior imaging studies. If persistent clinical concern for acute ischemia MRI can better evaluate. 07/27 more alert, knows year, month, president location ADMITTED NEUROCHECKS Q 4 HRS NEUROLOGY CONSULT hold narcotics and sedating meds tele abg r/o hypercapnea c/w mild hypercapnea o2 2 l nc cxr pa/lat CAROTID DOPPLERS TO EXCLUDE TEREZA PULM CONSULT pt/ot/st HS OXIMETRY STUDY 37 min pt exam, chart review, > 50% of time spent with exam, chart review, pt care coordination Vitals Vitals Vital Signs Date Time Temp Pulse Resp B/P (MAP) Pulse Ox O2 Delivery O2 Flow Rate FiO2 07/28/19 08:48 70 132/58 07/28/19 08:00 Nasal Cannula 2.5 07/28/19 07:00 97.6 16 99 97.6 Physical Exam General: Alert, Oriented X3, Cooperative, No acute distress, Other (CONFUSED TO DETAILS, AT BASELINE) Heart: Regular rate, Normal S1 Lungs: Clear Abdomen: Normal bowel sounds, Soft Extremities: No clubbing, No cyanosis Skin: No rashes, No significant lesion Labs LABS Laboratory Tests Test 07/28/19 07:35 White Blood Count 8.9 x10^3/uL (4.0-11.0) Red Blood Count 3.98 x10^6/uL (3.50-5.40) Hemoglobin 10.6 g/dL (12.0-15.5) Hematocrit 32.9 % (36.0-47.0) Mean Corpuscular Volume 83 fL (79-100) Mean Corpuscular Hemoglobin 27 pg (25-35) Mean Corpuscular Hemoglobin Concent 32 g/dL (31-37) Red Cell Distribution Width 14.6 % (11.5-14.5) Platelet Count 320 x10^3/uL (140-400) Neutrophils (%) (Auto) 74 % (31-73) Lymphocytes (%) (Auto) 13 % (24-48) Monocytes (%) (Auto) 9 % (0-9) Eosinophils (%) (Auto) 4 % (0-3) Basophils (%) (Auto) 1 % (0-3) Neutrophils # (Auto) 6.6 x10^3/uL (1.8-7.7) Lymphocytes # (Auto) 1.2 x10^3/uL (1.0-4.8) Monocytes # (Auto) 0.8 x10^3/uL (0.0-1.1) Eosinophils # (Auto) 0.3 x10^3/uL (0.0-0.7) Basophils # (Auto) 0.1 x10^3/uL (0.0-0.2) Sodium Level 140 mmol/L (136-145) Potassium Level 4.0 mmol/L (3.5-5.1) Chloride Level 100 mmol/L (98-107) Carbon Dioxide Level 32 mmol/L (21-32) Anion Gap 8 (6-14) Blood Urea Nitrogen 16 mg/dL (7-20) Creatinine 0.9 mg/dL (0.6-1.0) Estimated GFR (Cockcroft-Gault) 59.5 BUN/Creatinine Ratio 18 (6-20) Glucose Level 164 mg/dL (70-99) Calcium Level 9.1 mg/dL (8.5-10.1) Total Bilirubin 0.3 mg/dL (0.2-1.0) Aspartate Amino Transf (AST/SGOT) 12 U/L (15-37) Alanine Aminotransferase (ALT/SGPT) 11 U/L (14-59) Alkaline Phosphatase 92 U/L (46-116) Total Protein 6.9 g/dL (6.4-8.2) Albumin 3.3 g/dL (3.4-5.0) Albumin/Globulin Ratio 0.9 (1.0-1.7) Assessment and Plan Assessmemt and Plan Problems Medical Problems: (1) Altered mental status Status: Acute Comment Review of Relevant I have reviewed the following items la (where applicable) has been applied. Labs Laboratory Tests Test 07/27/19 10:40 07/28/19 07:35 O2 Saturation 98 % (92-99) Arterial Blood pH 7.40 (7.35-7.45) Arterial Blood pCO2 at Patient Temp 49 mmHg (35-46) Arterial Blood pO2 at Patient Temp 130 mmHg (65-108) Arterial Blood HCO3 30 mmol/L (21-28) Arterial Blood Base Excess 4 mmol/L (-3-3) Oxyhemoglobin 98.0 % Methemoglobin 0.3 % (0.0-1.9) Carbon Monoxide, Quantitative 0.1 % (0.0-1.9) FiO2 2 lpm nc White Blood Count 8.9 x10^3/uL (4.0-11.0) Red Blood Count 3.98 x10^6/uL (3.50-5.40) Hemoglobin 10.6 g/dL (12.0-15.5) Hematocrit 32.9 % (36.0-47.0) Mean Corpuscular Volume 83 fL (79-100) Mean Corpuscular Hemoglobin 27 pg (25-35) Mean Corpuscular Hemoglobin Concent 32 g/dL (31-37) Red Cell Distribution Width 14.6 % (11.5-14.5) Platelet Count 320 x10^3/uL (140-400) Neutrophils (%) (Auto) 74 % (31-73) Lymphocytes (%) (Auto) 13 % (24-48) Monocytes (%) (Auto) 9 % (0-9) Eosinophils (%) (Auto) 4 % (0-3) Basophils (%) (Auto) 1 % (0-3) Neutrophils # (Auto) 6.6 x10^3/uL (1.8-7.7) Lymphocytes # (Auto) 1.2 x10^3/uL (1.0-4.8) Monocytes # (Auto) 0.8 x10^3/uL (0.0-1.1) Eosinophils # (Auto) 0.3 x10^3/uL (0.0-0.7) Basophils # (Auto) 0.1 x10^3/uL (0.0-0.2) Sodium Level 140 mmol/L (136-145) Potassium Level 4.0 mmol/L (3.5-5.1) Chloride Level 100 mmol/L (98-107) Carbon Dioxide Level 32 mmol/L (21-32) Anion Gap 8 (6-14) Blood Urea Nitrogen 16 mg/dL (7-20) Creatinine 0.9 mg/dL (0.6-1.0) Estimated GFR (Cockcroft-Gault) 59.5 BUN/Creatinine Ratio 18 (6-20) Glucose Level 164 mg/dL (70-99) Calcium Level 9.1 mg/dL (8.5-10.1) Total Bilirubin 0.3 mg/dL (0.2-1.0) Aspartate Amino Transf (AST/SGOT) 12 U/L (15-37) Alanine Aminotransferase (ALT/SGPT) 11 U/L (14-59) Alkaline Phosphatase 92 U/L (46-116) Total Protein 6.9 g/dL (6.4-8.2) Albumin 3.3 g/dL (3.4-5.0) Albumin/Globulin Ratio 0.9 (1.0-1.7) Laboratory Tests Test 07/28/19 07:35 White Blood Count 8.9 x10^3/uL (4.0-11.0) Red Blood Count 3.98 x10^6/uL (3.50-5.40) Hemoglobin 10.6 g/dL (12.0-15.5) Hematocrit 32.9 % (36.0-47.0) Mean Corpuscular Volume 83 fL (79-100) Mean Corpuscular Hemoglobin 27 pg (25-35) Mean Corpuscular Hemoglobin Concent 32 g/dL (31-37) Red Cell Distribution Width 14.6 % (11.5-14.5) Platelet Count 320 x10^3/uL (140-400) Neutrophils (%) (Auto) 74 % (31-73) Lymphocytes (%) (Auto) 13 % (24-48) Monocytes (%) (Auto) 9 % (0-9) Eosinophils (%) (Auto) 4 % (0-3) Basophils (%) (Auto) 1 % (0-3) Neutrophils # (Auto) 6.6 x10^3/uL (1.8-7.7) Lymphocytes # (Auto) 1.2 x10^3/uL (1.0-4.8) Monocytes # (Auto) 0.8 x10^3/uL (0.0-1.1) Eosinophils # (Auto) 0.3 x10^3/uL (0.0-0.7) Basophils # (Auto) 0.1 x10^3/uL (0.0-0.2) Sodium Level 140 mmol/L (136-145) Potassium Level 4.0 mmol/L (3.5-5.1) Chloride Level 100 mmol/L (98-107) Carbon Dioxide Level 32 mmol/L (21-32) Anion Gap 8 (6-14) Blood Urea Nitrogen 16 mg/dL (7-20) Creatinine 0.9 mg/dL (0.6-1.0) Estimated GFR (Cockcroft-Gault) 59.5 BUN/Creatinine Ratio 18 (6-20) Glucose Level 164 mg/dL (70-99) Calcium Level 9.1 mg/dL (8.5-10.1) Total Bilirubin 0.3 mg/dL (0.2-1.0) Aspartate Amino Transf (AST/SGOT) 12 U/L (15-37) Alanine Aminotransferase (ALT/SGPT) 11 U/L (14-59) Alkaline Phosphatase 92 U/L (46-116) Total Protein 6.9 g/dL (6.4-8.2) Albumin 3.3 g/dL (3.4-5.0) Albumin/Globulin Ratio 0.9 (1.0-1.7) Medications Current Medications Ondansetron HCl (Zofran) 4 mg PRN Q8HRS PRN IV NAUSEA/VOMITING; Start 07/26/19 at 12:15; Stop 07/27/19 at 12:14; Status DC Albuterol Sulfate (Ventolin Neb Soln) 2.5 mg PRN Q6HRS PRN INH SHORTNESS OF BREATH; Start 07/26/19 at 15:45 Aspirin (Ecotrin) 81 mg DAILY PO Last administered on 07/28/19at 08:46; Start 07/27/19 at 09:00 Carvedilol (Coreg) 3.125 mg BIDWMEALS PO ; Start 07/26/19 at 17:00; Stop 07/26/19 at 16:37; Status DC Cetirizine HCl (ZyrTEC) 10 mg DAILY PO Last administered on 07/28/19at 08:47; Start 07/27/19 at 09:00 Clopidogrel Bisulfate (Plavix) 75 mg DAILY PO Last administered on 07/28/19at 08:47; Start 07/27/19 at 09:00 Digoxin (Lanoxin) 125 mcg DAILY PO Last administered on 07/28/19 08:47; Start 07/27/19 at 09:00 Furosemide (Lasix) 40 mg DAILY PO Last administered on 07/28/19 08:46; Start 07/27/19 at 09:00 Metoprolol Succinate (Toprol Xl) 25 mg BID PO ; Start 07/26/19 at 21:00; Stop 07/27/19 at 11:56; Status DC Nitroglycerin (Nitrostat) 0.4 mg PRN Q5MIN PRN SL CHEST PAIN; Start 07/26/19 at 15:45 Potassium Chloride (Klor-Con) 20 meq DAILY PO Last administered on 07/28/19 08:47; Start 07/27/19 at 09:00 Senna/Docusate Sodium (Senna Plus) 2 tab PRN DAILY PRN PO CONSTIPATION; Start 07/26/19 at 15:45 Spironolactone (Aldactone) 25 mg DAILY PO Last administered on 07/28/19 08:47; Start 07/27/19 at 09:00 Calcium/Vitamin D (Oscal D 500mg/ 200uts) 1 tab DAILY PO Last administered on 07/28/19 08:47; Start 07/27/19 at 09:00 Non-Formulary Medication (Mometasone/ Formoterol (Dulera 100 Mcg/5 Mcg Inhaler)) 1 puff BID IH ; Start 07/26/19 at 21:00; Status UNV Multivitamins (Thera M Plus) 1 tab DAILY PO Last administered on 07/28/19 08:46; Start 07/27/19 at 09:00 Pantoprazole Sodium (Protonix) 40 mg DAILYAC PO Last administered on 07/28/19 08:47; Start 07/27/19 at 07:30 Budesonide (Pulmicort) 0.5 mg RTBID NEB ; Start 07/26/19 at 20:00 Albuterol Sulfate (Ventolin Neb Soln) 2.5 mg RTQID NEB ; Start 07/26/19 at 16:00 Influenza Virus Vaccine Quadrival (Afluria Quad 2019-20 (3yr Up) Syringe) 0.5 ml ONCE ONCE VAX IM Last administered on 07/26/19at 18:13; Start 07/26/19 at 17:00; Stop 07/26/19 at 17:01; Status DC Diphenhydramine HCl (Benadryl) 25 mg PRN Q6HRS PRN PO ITCHING Last administered on 07/27/19at 20:08; Start 07/26/19 at 21:30 Carvedilol (Coreg) 3.125 mg BIDWMEALS PO Last administered on 07/28/19at 08:48; Start 07/27/19 at 17:00 Active Scripts Active Reported Macrobid 100 Mg Capsule (Nitrofurantoin Monohyd/M-Cryst) 100 Mg Capsule 100 Mg PO DAILY Lisinopril 5 Mg Tablet 5 Mg PO DAILY Carvedilol (Carvedilol) 3.125 Mg Tablet 3.125 Mg PO BIDWMEALS Dulera 100 Mcg/5 Mcg Inhaler (Mometasone/Formoterol) 13 Gm Hfa.aer.ad 1 Puff IH BID Calcium + Vitamin D Tablet (Calcium Carbonate/Vitamin D3) 1 Each Tablet 1 Each PO DAILY Omeprazole 20 Mg Capsule.dr 1 Cap PO DAILY Clopidogrel (Clopidogrel Bisulfate) 75 Mg Tablet 75 Mg PO DAILY Dermasorb Ta 0.1% Complete Kit (Triamcinolone/Emollient Cmb#86) 340.4 Gm Cream..g. 340.4 Gm TP Meclizine Hcl 25 Mg Tablet 1 Tab PO PRN TID Xanax (Alprazolam) 0.25 Mg Tablet 0.25 Mg PO HS PRN Levemir (Insulin Detemir) 100 Unit/1 Ml Vial 10-12 Unit SQ HS Lortab 5-325 mg Tablet (Hydrocodone/Acetaminophen) 1 Each Tablet 1 Tab PO PRN Q6HRS PRN Proair Hfa Inhaler (Albuterol Sulfate) 8.5 Gm Hfa.aer.ad 1 Puff INH PRN Q6HRS PRN NITROGLYCERIN SubLingual (Nitroglycerin) 0.4 Mg Tab.subl 0.4 Mg SL PRN Q5MIN PRN please take nitroglycerin sublingual when you have chest pain every 5 min up to 3 doses. Multi Vitamin Daily (Multivitamin) 1 Each Tablet 1 Each PO DAILY Stool Softener Tablet (Sennosides/Docusate Sodium) 1 Each Tablet 2 Each PO NEEDED Cetirizine Hcl 10 Mg Tablet 1 Tab PO DAILY Potassium Chloride 20 Meq Tab.er.prt 20 Meq PO DAILY Furosemide 40 Mg Tablet 40 Mg PO DAILY Spironolactone 25 Mg Tablet 1 Tab PO DAILY Aspir 81 (Aspirin) 81 Mg Tablet. 1 Tab PO DAILY Digoxin 125 Mcg Tablet 1 Tab PO DAILY Glipizide 10 Mg Tablet 1 Tab PO BIDACLD Vitals/I & O Vital Sign - Last 24 Hours 07/27/19 07/27/19 07/27/19 07/27/19 11:28 15:16 18:28 19:02 Temp 97.4 97.9 98.0 97.4 97.9 98.0 Pulse 70 72 72 72 Resp 18 18 18 B/P (MAP) 122/65 (84) 119/66 (83) 119/66 123/65 (84) Pulse Ox 100 96 95 O2 Delivery Nasal Cannula Nasal Cannula Nasal Cannula O2 Flow Rate 2.5 2.5 2.5 07/27/19 07/27/19 07/28/19 07/28/19 20:00 23:05 03:23 07:00 Temp 97.8 98.0 97.6 97.8 98.0 97.6 Pulse 76 70 77 Resp 18 20 16 B/P (MAP) 130/62 (84) 132/58 (82) 122/67 (85) Pulse Ox 96 95 99 O2 Delivery Nasal Cannula Room Air Room Air Nasal Cannula O2 Flow Rate 2.0 2.5 07/28/19 07/28/19 07/28/19 08:00 08:47 08:48 Pulse 70 70 B/P (MAP) 132/58 132/58 O2 Delivery Nasal Cannula O2 Flow Rate 2.5 STAN UMANZOR MD Jul 28, 2019 11:21
[2019-07-28 15:00] VITALS: BP 131/69
--- NOTE | 2019-07-28 16:17 | RAD ---
Ultrasound carotid Doppler 07/28/2019 11:23 AM INDICATION: CVA/TIA COMPARISON: None available TECHNIQUE: Sonographic imaging of the carotid vasculature was performed utilizing grayscale, color Doppler and spectral waveform analysis. FINDINGS: (All velocities are measured cm per second) Right carotid: No significant plaque is visualized. Peak systolic velocity: Proximal common carotid artery: 72 Middle common carotid artery: 74 Distal common carotid artery: 61 Proximal internal carotid artery: 43 Middle internal carotid artery: 58 Distal internal carotid artery: 61 End-diastolic velocity: 17 External carotid artery: 80 Internal carotid artery/common carotid artery ratio: 0.58-0.82 Vertebral artery: Antegrade flow Left carotid: No significant plaque is visualized. Peak systolic velocity: Proximal common carotid artery: 81 Middle common carotid artery: 69 Distal common carotid artery: 67 Proximal internal carotid artery: 41 Middle internal carotid artery: 60 Distal internal carotid artery: 52 End-diastolic velocity: 15 External carotid artery: 87 Internal carotid artery/common carotid artery ratio: 0.59-0.86 Vertebral artery: Antegrade flow IMPRESSION: 1. No evidence for flow-limiting carotid stenosis. 2. Antegrade flow is identified in the vertebral arteries. 3. Evaluation of the carotid vasculature and measurements for luminal stenosis was performed utilizing NASCET criteria. Electronically signed by: Crystal Contreras MD (07/28/2019 4:14 PM) [facility]
--- NOTE | 2019-07-28 18:03 | PDOC ---
PULMONARY PROGRESS NOTES Vitals Vital Signs Date Time Temp Pulse Resp B/P (MAP) Pulse Ox O2 Delivery O2 Flow Rate FiO2 07/28/19 15:00 98.5 67 18 131/69 (89) 95 Room Air 98.5 07/28/19 08:00 2.5 Lungs: Clear Labs Laboratory Tests Test 07/27/19 10:40 07/28/19 07:35 O2 Saturation 98 % (92-99) Arterial Blood pH 7.40 (7.35-7.45) Arterial Blood pCO2 at Patient Temp 49 mmHg (35-46) Arterial Blood pO2 at Patient Temp 130 mmHg (65-108) Arterial Blood HCO3 30 mmol/L (21-28) Arterial Blood Base Excess 4 mmol/L (-3-3) Oxyhemoglobin 98.0 % Methemoglobin 0.3 % (0.0-1.9) Carbon Monoxide, Quantitative 0.1 % (0.0-1.9) FiO2 2 lpm nc White Blood Count 8.9 x10^3/uL (4.0-11.0) Red Blood Count 3.98 x10^6/uL (3.50-5.40) Hemoglobin 10.6 g/dL (12.0-15.5) Hematocrit 32.9 % (36.0-47.0) Mean Corpuscular Volume 83 fL (79-100) Mean Corpuscular Hemoglobin 27 pg (25-35) Mean Corpuscular Hemoglobin Concent 32 g/dL (31-37) Red Cell Distribution Width 14.6 % (11.5-14.5) Platelet Count 320 x10^3/uL (140-400) Neutrophils (%) (Auto) 74 % (31-73) Lymphocytes (%) (Auto) 13 % (24-48) Monocytes (%) (Auto) 9 % (0-9) Eosinophils (%) (Auto) 4 % (0-3) Basophils (%) (Auto) 1 % (0-3) Neutrophils # (Auto) 6.6 x10^3/uL (1.8-7.7) Lymphocytes # (Auto) 1.2 x10^3/uL (1.0-4.8) Monocytes # (Auto) 0.8 x10^3/uL (0.0-1.1) Eosinophils # (Auto) 0.3 x10^3/uL (0.0-0.7) Basophils # (Auto) 0.1 x10^3/uL (0.0-0.2) Sodium Level 140 mmol/L (136-145) Potassium Level 4.0 mmol/L (3.5-5.1) Chloride Level 100 mmol/L (98-107) Carbon Dioxide Level 32 mmol/L (21-32) Anion Gap 8 (6-14) Blood Urea Nitrogen 16 mg/dL (7-20) Creatinine 0.9 mg/dL (0.6-1.0) Estimated GFR (Cockcroft-Gault) 59.5 BUN/Creatinine Ratio 18 (6-20) Glucose Level 164 mg/dL (70-99) Calcium Level 9.1 mg/dL (8.5-10.1) Total Bilirubin 0.3 mg/dL (0.2-1.0) Aspartate Amino Transf (AST/SGOT) 12 U/L (15-37) Alanine Aminotransferase (ALT/SGPT) 11 U/L (14-59) Alkaline Phosphatase 92 U/L (46-116) Total Protein 6.9 g/dL (6.4-8.2) Albumin 3.3 g/dL (3.4-5.0) Albumin/Globulin Ratio 0.9 (1.0-1.7) Laboratory Tests Test 07/28/19 07:35 White Blood Count 8.9 x10^3/uL (4.0-11.0) Red Blood Count 3.98 x10^6/uL (3.50-5.40) Hemoglobin 10.6 g/dL (12.0-15.5) Hematocrit 32.9 % (36.0-47.0) Mean Corpuscular Volume 83 fL (79-100) Mean Corpuscular Hemoglobin 27 pg (25-35) Mean Corpuscular Hemoglobin Concent 32 g/dL (31-37) Red Cell Distribution Width 14.6 % (11.5-14.5) Platelet Count 320 x10^3/uL (140-400) Neutrophils (%) (Auto) 74 % (31-73) Lymphocytes (%) (Auto) 13 % (24-48) Monocytes (%) (Auto) 9 % (0-9) Eosinophils (%) (Auto) 4 % (0-3) Basophils (%) (Auto) 1 % (0-3) Neutrophils # (Auto) 6.6 x10^3/uL (1.8-7.7) Lymphocytes # (Auto) 1.2 x10^3/uL (1.0-4.8) Monocytes # (Auto) 0.8 x10^3/uL (0.0-1.1) Eosinophils # (Auto) 0.3 x10^3/uL (0.0-0.7) Basophils # (Auto) 0.1 x10^3/uL (0.0-0.2) Sodium Level 140 mmol/L (136-145) Potassium Level 4.0 mmol/L (3.5-5.1) Chloride Level 100 mmol/L (98-107) Carbon Dioxide Level 32 mmol/L (21-32) Anion Gap 8 (6-14) Blood Urea Nitrogen 16 mg/dL (7-20) Creatinine 0.9 mg/dL (0.6-1.0) Estimated GFR (Cockcroft-Gault) 59.5 BUN/Creatinine Ratio 18 (6-20) Glucose Level 164 mg/dL (70-99) Calcium Level 9.1 mg/dL (8.5-10.1) Total Bilirubin 0.3 mg/dL (0.2-1.0) Aspartate Amino Transf (AST/SGOT) 12 U/L (15-37) Alanine Aminotransferase (ALT/SGPT) 11 U/L (14-59) Alkaline Phosphatase 92 U/L (46-116) Total Protein 6.9 g/dL (6.4-8.2) Albumin 3.3 g/dL (3.4-5.0) Albumin/Globulin Ratio 0.9 (1.0-1.7) Medications Active Scripts Medications Dose Route/Sig Max Daily Dose Days Date Category Dose Instructions Macrobid 100 Mg Capsule (Nitrofurantoin Monohyd/M-Cryst) 100 Mg Capsule 100 Mg PO DAILY 07/26/19 Reported Lisinopril 5 Mg Tablet 5 Mg PO DAILY 07/26/19 Reported Carvedilol (Carvedilol) 3.125 Mg Tablet 3.125 Mg PO BIDWMEALS 12/12/17 Reported Dulera 100 Mcg/5 Mcg Inhaler (Mometasone/Formoterol) 13 Gm Hfa.aer.ad 1 Puff IH BID 12/12/17 Reported Calcium + Vitamin D Tablet (Calcium Carbonate/Vitamin D3) 1 Each Tablet 1 Each PO DAILY 11/05/16 Reported Omeprazole 20 Mg Capsule.dr Roth Cap PO DAILY 11/05/16 Reported Clopidogrel (Clopidogrel Bisulfate) 75 Mg Tablet 75 Mg PO DAILY 07/25/16 Reported Dermasorb Ta 0.1% Complete Kit (Triamcinolone/Emollient Cmb#86) 340.4 Gm Cream..g. 340.4 Gm TP 07/25/16 Reported Meclizine Hcl 25 Mg Tablet 1 Tab PO PRN TID 07/25/16 Reported Xanax (Alprazolam) 0.25 Mg Tablet 0.25 Mg PO HS PRN 07/25/16 Reported Levemir (Insulin Detemir) 100 Unit/1 Ml Vial 10-12 Unit SQ HS 07/25/16 Reported Lortab 5-325 mg Tablet (Hydrocodone/Acetaminophen) 1 Each Tablet 1 Tab PO PRN Q6HRS PRN 06/10/15 Reported Proair Hfa Inhaler (Albuterol Sulfate) 8.5 Gm Hfa.aer.ad 1 Puff INH PRN Q6HRS PRN 06/10/15 Reported NITROGLYCERIN SubLingual (Nitroglycerin) 0.4 Mg Tab.subl 0.4 Mg SL PRN Q5MIN PRN 06/10/15 Reported please take nitroglycerin sublingual when you have chest pain every 5 min up to 3 doses. Multi Vitamin Daily (Multivitamin) 1 Each Tablet 1 Each PO DAILY 06/10/15 Reported Stool Softener Tablet (Sennosides/Docusate Sodium) 1 Each Tablet 2 Each PO NEEDED 06/10/15 Reported Cetirizine Hcl 10 Mg Tablet 1 Tab PO DAILY 06/10/15 Reported Potassium Chloride 20 Meq Tab.er.prt 20 Meq PO DAILY 06/10/15 Reported Furosemide 40 Mg Tablet 40 Mg PO DAILY 06/10/15 Reported Spironolactone 25 Mg Tablet 1 Tab PO DAILY 06/10/15 Reported Aspir 81 (Aspirin) 81 Mg Tablet.dr Roth Tab PO DAILY 06/10/15 Reported Digoxin 125 Mcg Tablet 1 Tab PO DAILY 06/10/15 Reported Glipizide 10 Mg Tablet 1 Tab PO BIDACLD 06/10/15 Reported Impression . NOTE DICTATED SEE ORDERS WILL CHECK NOCT DESAT OUT PT SLEEP SILVERIO SANCHEZ MD Jul 28, 2019 18:03
[2019-07-28 19:10] VITALS: BP 135/58
--- NOTE | 2019-07-28 19:10 | PDOC ---
PROGRESS NOTES Assessment Problems Medical Problems: (1) Altered mental status Status: Acute Plan 84-year-old woman with past medical history of multiple medical problems with history of memory problems, with the acute hypoxic respiratory failure encephalopathy improving check for infectious, metabolic etiology. Patient has nonfocal neurological exam. CT scan brain did not show any evidence of acute intracranial etiology. No evidence of acute hemorrhage or mass. MRI of brain cannot be done due to current medical condition. Continue medical management. Further memory evaluation as outpatient. Nonfocal neurological exam.Plan discus sed with patient, patient's family members at length at bedside Subjective Patient is resting in bed. No acute events. Objective Vital Signs Date Time Temp Pulse Resp B/P (MAP) Pulse Ox O2 Delivery O2 Flow Rate FiO2 07/28/19 18:21 67 131/69 07/28/19 15:00 98.5 18 95 Room Air 98.5 07/28/19 08:00 2.5 Intake and Output 07/28/19 07:00 # Voids 3 PHYSICAL EXAM General no acute distress. HEENT: Normocephalic and atraumatic. NECK: Supple without bruit Respiratory: Clear to auscultation bilaterally Heart: Regular rate and rhythm, S1S2 normal NEUROLOGIC: Mental status Alert oriented No meningeal signs Cranial nerve equally reactive pupils, and intact extraocular movements. No facial asymmetry. Palate elevates and tongue protrudes in midline. Reflexes are 1-2 with flexor plantar responses. Strength able to move all exts equally. Sensory exam is intact for light touch and pinprick. Gait in bed. Review of Relevant I have reviewed the following items la (where applicable) has been applied. Labs Laboratory Tests Test 07/27/19 10:40 07/28/19 07:35 O2 Saturation 98 % (92-99) Arterial Blood pH 7.40 (7.35-7.45) Arterial Blood pCO2 at Patient Temp 49 mmHg (35-46) Arterial Blood pO2 at Patient Temp 130 mmHg (65-108) Arterial Blood HCO3 30 mmol/L (21-28) Arterial Blood Base Excess 4 mmol/L (-3-3) Oxyhemoglobin 98.0 % Methemoglobin 0.3 % (0.0-1.9) Carbon Monoxide, Quantitative 0.1 % (0.0-1.9) FiO2 2 lpm nc White Blood Count 8.9 x10^3/uL (4.0-11.0) Red Blood Count 3.98 x10^6/uL (3.50-5.40) Hemoglobin 10.6 g/dL (12.0-15.5) Hematocrit 32.9 % (36.0-47.0) Mean Corpuscular Volume 83 fL (79-100) Mean Corpuscular Hemoglobin 27 pg (25-35) Mean Corpuscular Hemoglobin Concent 32 g/dL (31-37) Red Cell Distribution Width 14.6 % (11.5-14.5) Platelet Count 320 x10^3/uL (140-400) Neutrophils (%) (Auto) 74 % (31-73) Lymphocytes (%) (Auto) 13 % (24-48) Monocytes (%) (Auto) 9 % (0-9) Eosinophils (%) (Auto) 4 % (0-3) Basophils (%) (Auto) 1 % (0-3) Neutrophils # (Auto) 6.6 x10^3/uL (1.8-7.7) Lymphocytes # (Auto) 1.2 x10^3/uL (1.0-4.8) Monocytes # (Auto) 0.8 x10^3/uL (0.0-1.1) Eosinophils # (Auto) 0.3 x10^3/uL (0.0-0.7) Basophils # (Auto) 0.1 x10^3/uL (0.0-0.2) Sodium Level 140 mmol/L (136-145) Potassium Level 4.0 mmol/L (3.5-5.1) Chloride Level 100 mmol/L (98-107) Carbon Dioxide Level 32 mmol/L (21-32) Anion Gap 8 (6-14) Blood Urea Nitrogen 16 mg/dL (7-20) Creatinine 0.9 mg/dL (0.6-1.0) Estimated GFR (Cockcroft-Gault) 59.5 BUN/Creatinine Ratio 18 (6-20) Glucose Level 164 mg/dL (70-99) Calcium Level 9.1 mg/dL (8.5-10.1) Total Bilirubin 0.3 mg/dL (0.2-1.0) Aspartate Amino Transf (AST/SGOT) 12 U/L (15-37) Alanine Aminotransferase (ALT/SGPT) 11 U/L (14-59) Alkaline Phosphatase 92 U/L (46-116) Total Protein 6.9 g/dL (6.4-8.2) Albumin 3.3 g/dL (3.4-5.0) Albumin/Globulin Ratio 0.9 (1.0-1.7) Laboratory Tests Test 07/28/19 07:35 White Blood Count 8.9 x10^3/uL (4.0-11.0) Red Blood Count 3.98 x10^6/uL (3.50-5.40) Hemoglobin 10.6 g/dL (12.0-15.5) Hematocrit 32.9 % (36.0-47.0) Mean Corpuscular Volume 83 fL (79-100) Mean Corpuscular Hemoglobin 27 pg (25-35) Mean Corpuscular Hemoglobin Concent 32 g/dL (31-37) Red Cell Distribution Width 14.6 % (11.5-14.5) Platelet Count 320 x10^3/uL (140-400) Neutrophils (%) (Auto) 74 % (31-73) Lymphocytes (%) (Auto) 13 % (24-48) Monocytes (%) (Auto) 9 % (0-9) Eosinophils (%) (Auto) 4 % (0-3) Basophils (%) (Auto) 1 % (0-3) Neutrophils # (Auto) 6.6 x10^3/uL (1.8-7.7) Lymphocytes # (Auto) 1.2 x10^3/uL (1.0-4.8) Monocytes # (Auto) 0.8 x10^3/uL (0.0-1.1) Eosinophils # (Auto) 0.3 x10^3/uL (0.0-0.7) Basophils # (Auto) 0.1 x10^3/uL (0.0-0.2) Sodium Level 140 mmol/L (136-145) Potassium Level 4.0 mmol/L (3.5-5.1) Chloride Level 100 mmol/L (98-107) Carbon Dioxide Level 32 mmol/L (21-32) Anion Gap 8 (6-14) Blood Urea Nitrogen 16 mg/dL (7-20) Creatinine 0.9 mg/dL (0.6-1.0) Estimated GFR (Cockcroft-Gault) 59.5 BUN/Creatinine Ratio 18 (6-20) Glucose Level 164 mg/dL (70-99) Calcium Level 9.1 mg/dL (8.5-10.1) Total Bilirubin 0.3 mg/dL (0.2-1.0) Aspartate Amino Transf (AST/SGOT) 12 U/L (15-37) Alanine Aminotransferase (ALT/SGPT) 11 U/L (14-59) Alkaline Phosphatase 92 U/L (46-116) Total Protein 6.9 g/dL (6.4-8.2) Albumin 3.3 g/dL (3.4-5.0) Albumin/Globulin Ratio 0.9 (1.0-1.7) Medications Current Medications Ondansetron HCl (Zofran) 4 mg PRN Q8HRS PRN IV NAUSEA/VOMITING; Start 07/26/19 at 12:15; Stop 07/27/19 at 12:14; Status DC Albuterol Sulfate (Ventolin Neb Soln) 2.5 mg PRN Q6HRS PRN INH SHORTNESS OF BREATH; Start 07/26/19 at 15:45 Aspirin (Ecotrin) 81 mg DAILY PO Last administered on 07/28/19 08:46; Start 07/27/19 at 09:00 Carvedilol (Coreg) 3.125 mg BIDWMEALS PO ; Start 07/26/19 at 17:00; Stop 07/26/19 at 16:37; Status DC Cetirizine HCl (ZyrTEC) 10 mg DAILY PO Last administered on 07/28/19at 08:47; Start 07/27/19 at 09:00 Clopidogrel Bisulfate (Plavix) 75 mg DAILY PO Last administered on 07/28/19 08:47; Start 07/27/19 at 09:00 Digoxin (Lanoxin) 125 mcg DAILY PO Last administered on 07/28/19 08:47; Start 07/27/19 at 09:00 Furosemide (Lasix) 40 mg DAILY PO Last administered on 07/28/19at 08:46; Start 07/27/19 at 09:00 Metoprolol Succinate (Toprol Xl) 25 mg BID PO ; Start 07/26/19 at 21:00; Stop 07/27/19 at 11:56; Status DC Nitroglycerin (Nitrostat) 0.4 mg PRN Q5MIN PRN SL CHEST PAIN; Start 07/26/19 at 15:45 Potassium Chloride (Klor-Con) 20 meq DAILY PO Last administered on 07/28/19 08:47; Start 07/27/19 at 09:00 Senna/Docusate Sodium (Senna Plus) 2 tab PRN DAILY PRN PO CONSTIPATION; Start 07/26/19 at 15:45 Spironolactone (Aldactone) 25 mg DAILY PO Last administered on 07/28/19 08:47; Start 07/27/19 at 09:00 Calcium/Vitamin D (Oscal D 500mg/ 200uts) 1 tab DAILY PO Last administered on 07/28/19 08:47; Start 07/27/19 at 09:00 Non-Formulary Medication (Mometasone/ Formoterol (Dulera 100 Mcg/5 Mcg Inhaler)) 1 puff BID IH ; Start 07/26/19 at 21:00; Status UNV Multivitamins (Thera M Plus) 1 tab DAILY PO Last administered on 07/28/19 08:46; Start 07/27/19 at 09:00 Pantoprazole Sodium (Protonix) 40 mg DAILYAC PO Last administered on 07/28/19 08:47; Start 07/27/19 at 07:30 Budesonide (Pulmicort) 0.5 mg RTBID NEB ; Start 07/26/19 at 20:00 Albuterol Sulfate (Ventolin Neb Soln) 2.5 mg RTQID NEB ; Start 07/26/19 at 16:00 Influenza Virus Vaccine Quadrival (Afluria Quad 2019-20 (3yr Up) Syringe) 0.5 ml ONCE ONCE VAX IM Last administered on 07/26/19 18:13; Start 07/26/19 at 17:00; Stop 07/26/19 at 17:01; Status DC Diphenhydramine HCl (Benadryl) 25 mg PRN Q6HRS PRN PO ITCHING Last administered on 07/27/19 20:08; Start 07/26/19 at 21:30 Carvedilol (Coreg) 3.125 mg BIDWMEALS PO Last administered on 07/28/19 18:21; Start 07/27/19 at 17:00 Active Scripts Active Reported Macrobid 100 Mg Capsule (Nitrofurantoin Monohyd/M-Cryst) 100 Mg Capsule 100 Mg PO DAILY Lisinopril 5 Mg Tablet 5 Mg PO DAILY Carvedilol (Carvedilol) 3.125 Mg Tablet 3.125 Mg PO BIDWMEALS Dulera 100 Mcg/5 Mcg Inhaler (Mometasone/Formoterol) 13 Gm Hfa.aer.ad 1 Puff IH BID Calcium + Vitamin D Tablet (Calcium Carbonate/Vitamin D3) 1 Each Tablet 1 Each PO DAILY Omeprazole 20 Mg Capsule. 1 Cap PO DAILY Clopidogrel (Clopidogrel Bisulfate) 75 Mg Tablet 75 Mg PO DAILY Dermasorb Ta 0.1% Complete Kit (Triamcinolone/Emollient Cmb#86) 340.4 Gm Cream..g. 340.4 Gm TP Meclizine Hcl 25 Mg Tablet 1 Tab PO PRN TID Xanax (Alprazolam) 0.25 Mg Tablet 0.25 Mg PO HS PRN Levemir (Insulin Detemir) 100 Unit/1 Ml Vial 10-12 Unit SQ HS Lortab 5-325 mg Tablet (Hydrocodone/Acetaminophen) 1 Each Tablet 1 Tab PO PRN Q6HRS PRN Proair Hfa Inhaler (Albuterol Sulfate) 8.5 Gm Hfa.aer.ad 1 Puff INH PRN Q6HRS PRN NITROGLYCERIN SubLingual (Nitroglycerin) 0.4 Mg Tab.subl 0.4 Mg SL PRN Q5MIN PRN please take nitroglycerin sublingual when you have chest pain every 5 min up to 3 doses. Multi Vitamin Daily (Multivitamin) 1 Each Tablet 1 Each PO DAILY Stool Softener Tablet (Sennosides/Docusate Sodium) 1 Each Tablet 2 Each PO NEEDED Cetirizine Hcl 10 Mg Tablet 1 Tab PO DAILY Potassium Chloride 20 Meq Tab.er.prt 20 Meq PO DAILY Furosemide 40 Mg Tablet 40 Mg PO DAILY Spironolactone 25 Mg Tablet 1 Tab PO DAILY Aspir 81 (Aspirin) 81 Mg Tablet.dr Roth Tab PO DAILY Digoxin 125 Mcg Tablet 1 Tab PO DAILY Glipizide 10 Mg Tablet 1 Tab PO BIDACLD Vitals/I & O Vital Sign - Last 24 Hours 07/27/19 07/27/19 07/28/19 07/28/19 20:00 23:05 03:23 07:00 Temp 97.8 98.0 97.6 97.8 98.0 97.6 Pulse 76 70 77 Resp 18 20 16 B/P (MAP) 130/62 (84) 132/58 (82) 122/67 (85) Pulse Ox 96 95 99 O2 Delivery Nasal Cannula Room Air Room Air Nasal Cannula O2 Flow Rate 2.0 2.5 07/28/19 07/28/19 07/28/19 07/28/19 08:00 08:47 08:48 11:00 Temp 97.4 97.4 Pulse 70 70 79 Resp 12 B/P (MAP) 132/58 132/58 111/56 (74) Pulse Ox 100 O2 Delivery Nasal Cannula Room Air O2 Flow Rate 2.5 07/28/19 07/28/19 15:00 18:21 Temp 98.5 98.5 Pulse 67 67 Resp 18 B/P (MAP) 131/69 (89) 131/69 Pulse Ox 95 O2 Delivery Room Air TITO SHEEHAN MD Jul 28, 2019 19:10
--- NOTE | 2019-07-28 20:31 | CONS ---
DATE OF CONSULTATION: 07/28/2019 ATTENDING PHYSICIAN: Dr. Felipe. REASON FOR CONSULTATION: The patient seen in pulmonary consultation at the request of Dr. Felipe for abnormal arterial blood gas revealing a pH of 7.40, PaCO2 of 49, PaO2 of 130, bicarb of 30. HISTORY OF PRESENT ILLNESS: The patient is an 84-year-old that presented with encephalopathy. The patient normally takes Xanax for sleep. She woke up and was not herself. The daughter was concerned. She had an arterial blood gas revealing the pCO2 of 49 with a bicarb of 30. I was asked to see her in consultation. She has never smoked. She wears oxygen at night at 2 liters per nasal cannula. She has never had a polysomnogram. She has been on oxygen at bedtime over the last 2-3 years. She is currently awake, alert, following commands. Denies any shortness of air. No chest pain or pressure. PAST MEDICAL HISTORY: Remarkable for: 1. Chronic hypoxemia in the ER at bedtime, wears 2 liters of oxygen supplementation. 2. Chronic atrial fibrillation. 3. Coronary artery disease. 4. Congestive heart failure. 5. Hypertension. 6. Neuropathy. 7. Chronic anemia. 8. Gastroesophageal reflux. ALLERGIES: ADHESIVE TAPES AND LATEX. SOCIAL HISTORY: She has never smoked. FAMILY HISTORY: Hypertension. CURRENT MEDICATIONS: List was reviewed. At home, she was on Xanax, Lortab and multiple other medications. REVIEW OF SYSTEMS: As indicated above, otherwise, a 10-point system was reviewed and negative. CONSTITUTIONAL: No fever or chills. EYES: No change in visual acuity. HENT: No nasal congestion or sore throat. PULMONARY: As indicated above. CARDIOVASCULAR: No chest pain. No pressure. GASTROINTESTINAL: No nausea, vomiting, diarrhea. GENITOURINARY: No dysuria or frequency. MUSCULOSKELETAL: No localized muscle aches or joint pains. SKIN: No new skin rashes. NEUROLOGIC: No headaches, diplopia or blurred vision. Sleep hygiene reveals that she has a clinical presentation compatible with obstructive sleep apnea. PHYSICAL EXAMINATION: GENERAL: Morbid obese individual with a body mass index of 39. According to her daughter, she does not walk much. She is very sedentary. HEENT: Eyes, the sclerae were nonicteric. NECK: Jugular venous distention could not be assessed secondary to body habitus. CHEST: Full expansion. LUNGS: Adequate airway flow with no wheezes. CARDIOVASCULAR: Regular rate and rhythm with S1, S2, no S3. ABDOMEN: Soft, nontender, nondistended, obese. EXTREMITIES: No clubbing, cyanosis. Minimal edema. NEUROLOGICAL: The patient was awake, alert, following commands. A detailed neuro exam was not performed. LABORATORY DATA: Reviewed. White count was normal. Hemoglobin and hematocrit were noted. INR was 1.1. Electrolytes were noted. AST and ALT were noted. Chest x-ray reveals some vascular congestion. IMPRESSION: 1. Chronic hypoxemia. The patient wears oxygen at bedtime. 2. Chronic hypercapnia based upon pCO2 of 49, bicarb of 30. 3. Clinical presentation compatible with obstructive sleep apnea. 4. Encephalopathy, suspect multifactorial related to chronic hypercapnia, sleep deprivation, obstructive sleep apnea and chronic utilization of Xanax. 5. Morbid obesity. 6. Clinical presentation compatible with obstructive sleep apnea. PLAN: 1. From a pulmonary standpoint of view, I will check her desaturation study on 2 liters. 2. Outpatient polysomnogram. 3. Follow other consultants' recommendations. I do appreciate the privilege in sharing in the patient's care. SILVERIO ALFONSO MD DR: ALEJANDRO/diamond JOB#: [id number] / [id number]
[2019-07-28 23:52] VITALS: BP 120/64
[2019-07-29 03:23] VITALS: BP 119/57
[2019-07-29 07:25] LABS: BASE EXCESS ABG 7 mmol/L (-3-3); HCO3 ABG 32 mmol/L (21-28); PCO2 ABG 46 mmHg (35-46); PO2 ABG 75 mmHg (65-108); SAT O2 ABG 95 % (92-99)
[2019-07-29 07:37] LABS: FIO2 ABG 21
[2019-07-29 07:48] VITALS: BP 123/50
[2019-07-29] MEDS: ALBUTEROL SULFATE 2.5 MG/3 ML NEBU. NEB SCH ×2 (07:56→15:27)
[2019-07-29] MEDS: BUDESONIDE 0.5 MG/2 ML NEBU. NEB SCH (07:56)
--- NOTE | 2019-07-29 09:14 | PDOC ---
PULMONARY PROGRESS NOTES Subjective PT NOT SOA SLEEPY DOES NOT HAVE A GOOD WAKE SLEEP SCHEDULE AT HOME Vitals Vital Signs Date Time Temp Pulse Resp B/P (MAP) Pulse Ox O2 Delivery O2 Flow Rate FiO2 07/29/19 07:57 96 Room Air 07/29/19 07:48 98.1 70 18 123/50 (74) 98.1 07/28/19 08:00 2.5 ROS: No Chest Pain, No Abdominal Pain, No Increase Cough General: Alert Lungs: Clear Cardiovascular: S1 Abdomen: Soft Neuro Exam: Alert Extremities: No Edema Skin: Warm Labs Laboratory Tests Test 07/27/19 10:40 07/28/19 07:35 07/29/19 06:55 O2 Saturation 98 % (92-99) 95 % (92-99) Arterial Blood pH 7.40 (7.35-7.45) 7.45 (7.35-7.45) Arterial Blood pCO2 at Patient Temp 49 mmHg (35-46) 46 mmHg (35-46) Arterial Blood pO2 at Patient Temp 130 mmHg (65-108) 75 mmHg (65-108) Arterial Blood HCO3 30 mmol/L (21-28) 32 mmol/L (21-28) Arterial Blood Base Excess 4 mmol/L (-3-3) 7 mmol/L (-3-3) Oxyhemoglobin 98.0 % Methemoglobin 0.3 % (0.0-1.9) Carbon Monoxide, Quantitative 0.1 % (0.0-1.9) FiO2 2 lpm nc 21 White Blood Count 8.9 x10^3/uL (4.0-11.0) Red Blood Count 3.98 x10^6/uL (3.50-5.40) Hemoglobin 10.6 g/dL (12.0-15.5) Hematocrit 32.9 % (36.0-47.0) Mean Corpuscular Volume 83 fL (79-100) Mean Corpuscular Hemoglobin 27 pg (25-35) Mean Corpuscular Hemoglobin Concent 32 g/dL (31-37) Red Cell Distribution Width 14.6 % (11.5-14.5) Platelet Count 320 x10^3/uL (140-400) Neutrophils (%) (Auto) 74 % (31-73) Lymphocytes (%) (Auto) 13 % (24-48) Monocytes (%) (Auto) 9 % (0-9) Eosinophils (%) (Auto) 4 % (0-3) Basophils (%) (Auto) 1 % (0-3) Neutrophils # (Auto) 6.6 x10^3/uL (1.8-7.7) Lymphocytes # (Auto) 1.2 x10^3/uL (1.0-4.8) Monocytes # (Auto) 0.8 x10^3/uL (0.0-1.1) Eosinophils # (Auto) 0.3 x10^3/uL (0.0-0.7) Basophils # (Auto) 0.1 x10^3/uL (0.0-0.2) Sodium Level 140 mmol/L (136-145) Potassium Level 4.0 mmol/L (3.5-5.1) Chloride Level 100 mmol/L (98-107) Carbon Dioxide Level 32 mmol/L (21-32) Anion Gap 8 (6-14) Blood Urea Nitrogen 16 mg/dL (7-20) Creatinine 0.9 mg/dL (0.6-1.0) Estimated GFR (Cockcroft-Gault) 59.5 BUN/Creatinine Ratio 18 (6-20) Glucose Level 164 mg/dL (70-99) Calcium Level 9.1 mg/dL (8.5-10.1) Total Bilirubin 0.3 mg/dL (0.2-1.0) Aspartate Amino Transf (AST/SGOT) 12 U/L (15-37) Alanine Aminotransferase (ALT/SGPT) 11 U/L (14-59) Alkaline Phosphatase 92 U/L (46-116) Total Protein 6.9 g/dL (6.4-8.2) Albumin 3.3 g/dL (3.4-5.0) Albumin/Globulin Ratio 0.9 (1.0-1.7) Laboratory Tests Test 07/29/19 06:55 O2 Saturation 95 % (92-99) Arterial Blood pH 7.45 (7.35-7.45) Arterial Blood pCO2 at Patient Temp 46 mmHg (35-46) Arterial Blood pO2 at Patient Temp 75 mmHg (65-108) Arterial Blood HCO3 32 mmol/L (21-28) Arterial Blood Base Excess 7 mmol/L (-3-3) FiO2 21 Medications Active Scripts Medications Dose Route/Sig Max Daily Dose Days Date Category Dose Instructions Macrobid 100 Mg Capsule (Nitrofurantoin Monohyd/M-Cryst) 100 Mg Capsule 100 Mg PO DAILY 07/26/19 Reported Lisinopril 5 Mg Tablet 5 Mg PO DAILY 07/26/19 Reported Carvedilol (Carvedilol) 3.125 Mg Tablet 3.125 Mg PO BIDWMEALS 12/12/17 Reported Dulera 100 Mcg/5 Mcg Inhaler (Mometasone/Formoterol) 13 Gm Hfa.aer.ad 1 Puff IH BID 12/12/17 Reported Calcium + Vitamin D Tablet (Calcium Carbonate/Vitamin D3) 1 Each Tablet 1 Each PO DAILY 11/05/16 Reported Omeprazole 20 Mg Capsule.dr 1 Cap PO DAILY 11/05/16 Reported Clopidogrel (Clopidogrel Bisulfate) 75 Mg Tablet 75 Mg PO DAILY 07/25/16 Reported Dermasorb Ta 0.1% Complete Kit (Triamcinolone/Emollient Cmb#86) 340.4 Gm Cream..g. 340.4 Gm TP 07/25/16 Reported Meclizine Hcl 25 Mg Tablet 1 Tab PO PRN TID 07/25/16 Reported Xanax (Alprazolam) 0.25 Mg Tablet 0.25 Mg PO HS PRN 07/25/16 Reported Levemir (Insulin Detemir) 100 Unit/1 Ml Vial 10-12 Unit SQ HS 07/25/16 Reported Lortab 5-325 mg Tablet (Hydrocodone/Acetaminophen) 1 Each Tablet 1 Tab PO PRN Q6HRS PRN 06/10/15 Reported Proair Hfa Inhaler (Albuterol Sulfate) 8.5 Gm Hfa.aer.ad 1 Puff INH PRN Q6HRS PRN 06/10/15 Reported NITROGLYCERIN SubLingual (Nitroglycerin) 0.4 Mg Tab.subl 0.4 Mg SL PRN Q5MIN PRN 06/10/15 Reported please take nitroglycerin sublingual when you have chest pain every 5 min up to 3 doses. Multi Vitamin Daily (Multivitamin) 1 Each Tablet 1 Each PO DAILY 06/10/15 Reported Stool Softener Tablet (Sennosides/Docusate Sodium) 1 Each Tablet 2 Each PO NEEDED 06/10/15 Reported Cetirizine Hcl 10 Mg Tablet 1 Tab PO DAILY 06/10/15 Reported Potassium Chloride 20 Meq Tab.er.prt 20 Meq PO DAILY 06/10/15 Reported Furosemide 40 Mg Tablet 40 Mg PO DAILY 06/10/15 Reported Spironolactone 25 Mg Tablet 1 Tab PO DAILY 06/10/15 Reported Aspir 81 (Aspirin) 81 Mg Tablet.dr 1 Tab PO DAILY 06/10/15 Reported Digoxin 125 Mcg Tablet 1 Tab PO DAILY 06/10/15 Reported Glipizide 10 Mg Tablet 1 Tab PO BIDACLD 06/10/15 Reported Impression . IMPRESSION: 1. Chronic hypoxemia. The patient wears oxygen at bedtime. 2. Chronic hypercapnia based upon pCO2 of 49, bicarb of 30. 3. Clinical presentation compatible with obstructive sleep apnea. 4. Encephalopathy, suspect multifactorial related to chronic hypercapnia, sleep deprivation, obstructive sleep apnea and chronic utilization of Xanax. 5. Morbid obesity. 6. Clinical presentation compatible with obstructive sleep apnea. Plan . ABG NOTED DOES NOT NEED 02 NOCTURNAL DESAT NOTED I RECOMMEND D/C 02 AT [facility] AND OBTAIN A SLEEP STUDY SPOKE WITH DAUGHTER SHE WILL CALL MY OFFICE TO SET UP A SLEEP STUDY SILVERIO ALFONSO MD Jul 29, 2019 09:14
[2019-07-29] MEDS ORDERED: HYDROcodone/APAP 5/325MG 1 TAB TABLET PO PRN (10:15)
[2019-07-29] MEDS: POTASSIUM CHLORIDE 20 MEQ TABLET.ER. PO SCH (10:16)
[2019-07-29] MEDS: SPIRONOLACTONE 25 MG TABLET PO SCH (10:16)
[2019-07-29] MEDS: PANTOPRAZOLE 40 MG TABLET.DR. PO SCH (10:17)
[2019-07-29] MEDS: ASPIRIN ENTERIC COATED 81 MG TABLET.DR. PO SCH (10:17)
[2019-07-29] MEDS: CARVEDILOL 3.125 MG TABLET. PO SCH ×2 (10:17→17:00)
[2019-07-29] MEDS: CLOPIDOGREL BISULFATE 75 MG TABLET PO SCH (10:17)
[2019-07-29] MEDS: CALCIUM CARB/VIT D3 500/200 TABLET. PO SCH (10:17)
[2019-07-29] MEDS: FUROSEMIDE 40 MG TABLET. PO SCH (10:17)
[2019-07-29] MEDS: CETIRIZINE HCL 10 MG TABLET. PO SCH (10:17)
[2019-07-29] MEDS: MULTIVITAMIN with MINERAL TABLET. PO SCH (10:17)
[2019-07-29] MEDS: DIGOXIN 125 MCG TABLET. PO SCH (10:18)
--- NOTE | 2019-07-29 10:48 | PDOC ---
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 Foci of decreased attenuation within the hemispheric white matter, most often due to chronic microvascular ischemia. Recommend comparison with prior imaging studies. If persistent clinical concern for acute ischemia MRI can better evaluate. Encephalopathy, suspect multifactorial related to chronic hypercapnia, sleep deprivation, obstructive sleep apnea and chronic utilization of Xanax. 07/27 more alert, knows year, month, president location ADMITTED NEUROCHECKS Q 4 HRS NEUROLOGY CONSULT hold narcotics and sedating meds tele abg r/o hypercapnea c/w mild hypercapnea o2 2 l nc cxr pa/lat CAROTID DOPPLERS TO EXCLUDE TEREZA PULM CONSULT pt/ot/st HS OXIMETRY STUDY NEEDS SLEEP STUDY, HOME O2 2L WITH SLEEP EEG 27 min pt exam, chart review, > 50% of time spent with exam, chart review, pt care coordination Vitals Vitals Vital Signs Date Time Temp Pulse Resp B/P (MAP) Pulse Ox O2 Delivery O2 Flow Rate FiO2 07/29/19 10:18 70 123/50 07/29/19 10:16 96 Room Air 2.5 07/29/19 07:48 98.1 18 98.1 Physical Exam General: Alert, Oriented X3, Cooperative, No acute distress, Other (CONFUSED TO DETAILS, AT BASELINE) Heart: Regular rate, Normal S1 Lungs: Clear Abdomen: Normal bowel sounds, Soft Extremities: No clubbing, No cyanosis Skin: No rashes, No significant lesion Labs LABS Ultrasound carotid Doppler 07/28/2019 11:23 AM INDICATION: CVA/TIA COMPARISON: None available TECHNIQUE: Sonographic imaging of the carotid vasculature was performed utilizing grayscale, color Doppler and spectral waveform analysis. FINDINGS: (All velocities are measured cm per second) Right carotid: No significant plaque is visualized. Peak systolic velocity: Proximal common carotid artery: 72 Middle common carotid artery: 74 Distal common carotid artery: 61 Proximal internal carotid artery: 43 Middle internal carotid artery: 58 Distal internal carotid artery: 61 End-diastolic velocity: 17 External carotid artery: 80 Internal carotid artery/common carotid artery ratio: 0.58-0.82 Vertebral artery: Antegrade flow Left carotid: No significant plaque is visualized. Peak systolic velocity: Proximal common carotid artery: 81 Middle common carotid artery: 69 Distal common carotid artery: 67 Proximal internal carotid artery: 41 Middle internal carotid artery: 60 Distal internal carotid artery: 52 End-diastolic velocity: 15 External carotid artery: 87 Internal carotid artery/common carotid artery ratio: 0.59-0.86 Vertebral artery: Antegrade flow IMPRESSION: 1. No evidence for flow-limiting carotid stenosis. 2. Antegrade flow is identified in the vertebral arteries. 3. Evaluation of the carotid vasculature and measurements for luminal stenosis was performed utilizing NASCET criteria. Electronically signed by: Crystal Contreras MD (07/28/2019 4:14 PM) [facility] Laboratory Tests Test 07/29/19 06:55 O2 Saturation 95 % (92-99) Arterial Blood pH 7.45 (7.35-7.45) Arterial Blood pCO2 at Patient Temp 46 mmHg (35-46) Arterial Blood pO2 at Patient Temp 75 mmHg (65-108) Arterial Blood HCO3 32 mmol/L (21-28) Arterial Blood Base Excess 7 mmol/L (-3-3) FiO2 21 Assessment and Plan Assessmemt and Plan Problems Medical Problems: (1) Altered mental status Status: Acute Comment Review of Relevant I have reviewed the following items la (where applicable) has been applied. Labs Laboratory Tests Test 07/28/19 07:35 07/29/19 06:55 White Blood Count 8.9 x10^3/uL (4.0-11.0) Red Blood Count 3.98 x10^6/uL (3.50-5.40) Hemoglobin 10.6 g/dL (12.0-15.5) Hematocrit 32.9 % (36.0-47.0) Mean Corpuscular Volume 83 fL (79-100) Mean Corpuscular Hemoglobin 27 pg (25-35) Mean Corpuscular Hemoglobin Concent 32 g/dL (31-37) Red Cell Distribution Width 14.6 % (11.5-14.5) Platelet Count 320 x10^3/uL (140-400) Neutrophils (%) (Auto) 74 % (31-73) Lymphocytes (%) (Auto) 13 % (24-48) Monocytes (%) (Auto) 9 % (0-9) Eosinophils (%) (Auto) 4 % (0-3) Basophils (%) (Auto) 1 % (0-3) Neutrophils # (Auto) 6.6 x10^3/uL (1.8-7.7) Lymphocytes # (Auto) 1.2 x10^3/uL (1.0-4.8) Monocytes # (Auto) 0.8 x10^3/uL (0.0-1.1) Eosinophils # (Auto) 0.3 x10^3/uL (0.0-0.7) Basophils # (Auto) 0.1 x10^3/uL (0.0-0.2) Sodium Level 140 mmol/L (136-145) Potassium Level 4.0 mmol/L (3.5-5.1) Chloride Level 100 mmol/L (98-107) Carbon Dioxide Level 32 mmol/L (21-32) Anion Gap 8 (6-14) Blood Urea Nitrogen 16 mg/dL (7-20) Creatinine 0.9 mg/dL (0.6-1.0) Estimated GFR (Cockcroft-Gault) 59.5 BUN/Creatinine Ratio 18 (6-20) Glucose Level 164 mg/dL (70-99) Calcium Level 9.1 mg/dL (8.5-10.1) Total Bilirubin 0.3 mg/dL (0.2-1.0) Aspartate Amino Transf (AST/SGOT) 12 U/L (15-37) Alanine Aminotransferase (ALT/SGPT) 11 U/L (14-59) Alkaline Phosphatase 92 U/L (46-116) Total Protein 6.9 g/dL (6.4-8.2) Albumin 3.3 g/dL (3.4-5.0) Albumin/Globulin Ratio 0.9 (1.0-1.7) O2 Saturation 95 % (92-99) Arterial Blood pH 7.45 (7.35-7.45) Arterial Blood pCO2 at Patient Temp 46 mmHg (35-46) Arterial Blood pO2 at Patient Temp 75 mmHg (65-108) Arterial Blood HCO3 32 mmol/L (21-28) Arterial Blood Base Excess 7 mmol/L (-3-3) FiO2 21 Laboratory Tests Test 07/29/19 06:55 O2 Saturation 95 % (92-99) Arterial Blood pH 7.45 (7.35-7.45) Arterial Blood pCO2 at Patient Temp 46 mmHg (35-46) Arterial Blood pO2 at Patient Temp 75 mmHg (65-108) Arterial Blood HCO3 32 mmol/L (21-28) Arterial Blood Base Excess 7 mmol/L (-3-3) FiO2 21 Medications Current Medications Ondansetron HCl (Zofran) 4 mg PRN Q8HRS PRN IV NAUSEA/VOMITING; Start 07/26/19 at 12:15; Stop 07/27/19 at 12:14; Status DC Albuterol Sulfate (Ventolin Neb Soln) 2.5 mg PRN Q6HRS PRN INH SHORTNESS OF BREATH; Start 07/26/19 at 15:45 Aspirin (Ecotrin) 81 mg DAILY PO Last administered on 07/29/19at 10:17; Start 07/27/19 at 09:00 Carvedilol (Coreg) 3.125 mg BIDWMEALS PO ; Start 07/26/19 at 17:00; Stop 07/26/19 at 16:37; Status DC Cetirizine HCl (ZyrTEC) 10 mg DAILY PO Last administered on 07/29/19at 10:17; Start 07/27/19 at 09:00 Clopidogrel Bisulfate (Plavix) 75 mg DAILY PO Last administered on 07/29/19at 10:17; Start 07/27/19 at 09:00 Digoxin (Lanoxin) 125 mcg DAILY PO Last administered on 07/29/19at 10:18; Start 07/27/19 at 09:00 Furosemide (Lasix) 40 mg DAILY PO Last administered on 07/29/19at 10:17; Start 07/27/19 at 09:00 Metoprolol Succinate (Toprol Xl) 25 mg BID PO ; Start 07/26/19 at 21:00; Stop 07/27/19 at 11:56; Status DC Nitroglycerin (Nitrostat) 0.4 mg PRN Q5MIN PRN SL CHEST PAIN; Start 07/26/19 at 15:45 Potassium Chloride (Klor-Con) 20 meq DAILY PO Last administered on 07/29/19at 10:16; Start 07/27/19 at 09:00 Senna/Docusate Sodium (Senna Plus) 2 tab PRN DAILY PRN PO CONSTIPATION; Start 07/26/19 at 15:45 Spironolactone (Aldactone) 25 mg DAILY PO Last administered on 07/29/19 10:16; Start 07/27/19 at 09:00 Calcium/Vitamin D (Oscal D 500mg/ 200uts) 1 tab DAILY PO Last administered on 07/29/19 10:17; Start 07/27/19 at 09:00 Non-Formulary Medication (Mometasone/ Formoterol (Dulera 100 Mcg/5 Mcg Inhaler)) 1 puff BID IH ; Start 07/26/19 at 21:00; Status UNV Multivitamins (Thera M Plus) 1 tab DAILY PO Last administered on 07/29/19 10:17; Start 07/27/19 at 09:00 Pantoprazole Sodium (Protonix) 40 mg DAILYAC PO Last administered on 07/29/19 10:17; Start 07/27/19 at 07:30 Budesonide (Pulmicort) 0.5 mg RTBID NEB Last administered on 07/29/19 07:56; Start 07/26/19 at 20:00 Albuterol Sulfate (Ventolin Neb Soln) 2.5 mg RTQID NEB Last administered on 07/29/19 07:56; Start 07/26/19 at 16:00 Influenza Virus Vaccine Quadrival (Afluria Quad 2019-20 (3yr Up) Syringe) 0.5 ml ONCE ONCE VAX IM Last administered on 07/26/19 18:13; Start 07/26/19 at 17:00; Stop 07/26/19 at 17:01; Status DC Diphenhydramine HCl (Benadryl) 25 mg PRN Q6HRS PRN PO ITCHING Last administered on 07/27/19 20:08; Start 07/26/19 at 21:30 Carvedilol (Coreg) 3.125 mg BIDWMEALS PO Last administered on 07/29/19 10:17; Start 07/27/19 at 17:00 Acetaminophen/ Hydrocodone Bitart (Lortab 5/325) 1 tab Q6HRS PRN PO PAIN Last administered on 07/29/19 10:16; Start 07/29/19 at 10:15 Active Scripts Active Reported Macrobid 100 Mg Capsule (Nitrofurantoin Monohyd/M-Cryst) 100 Mg Capsule 100 Mg PO DAILY Lisinopril 5 Mg Tablet 5 Mg PO DAILY Carvedilol (Carvedilol) 3.125 Mg Tablet 3.125 Mg PO BIDWMEALS Dulera 100 Mcg/5 Mcg Inhaler (Mometasone/Formoterol) 13 Gm Hfa.aer.ad 1 Puff IH BID Calcium + Vitamin D Tablet (Calcium Carbonate/Vitamin D3) 1 Each Tablet 1 Each PO DAILY Omeprazole 20 Mg Capsule.dr 1 Cap PO DAILY Clopidogrel (Clopidogrel Bisulfate) 75 Mg Tablet 75 Mg PO DAILY Dermasorb Ta 0.1% Complete Kit (Triamcinolone/Emollient Cmb#86) 340.4 Gm Cream..g. 340.4 Gm TP Meclizine Hcl 25 Mg Tablet 1 Tab PO PRN TID Xanax (Alprazolam) 0.25 Mg Tablet 0.25 Mg PO HS PRN Levemir (Insulin Detemir) 100 Unit/1 Ml Vial 10-12 Unit SQ HS Lortab 5-325 mg Tablet (Hydrocodone/Acetaminophen) 1 Each Tablet 1 Tab PO PRN Q6HRS PRN Proair Hfa Inhaler (Albuterol Sulfate) 8.5 Gm Hfa.aer.ad 1 Puff INH PRN Q6HRS PRN NITROGLYCERIN SubLingual (Nitroglycerin) 0.4 Mg Tab.subl 0.4 Mg SL PRN Q5MIN PRN please take nitroglycerin sublingual when you have chest pain every 5 min up to 3 doses. Multi Vitamin Daily (Multivitamin) 1 Each Tablet 1 Each PO DAILY Stool Softener Tablet (Sennosides/Docusate Sodium) 1 Each Tablet 2 Each PO NEEDED Cetirizine Hcl 10 Mg Tablet 1 Tab PO DAILY Potassium Chloride 20 Meq Tab.er.prt 20 Meq PO DAILY Furosemide 40 Mg Tablet 40 Mg PO DAILY Spironolactone 25 Mg Tablet 1 Tab PO DAILY Aspir 81 (Aspirin) 81 Mg Tablet. 1 Tab PO DAILY Digoxin 125 Mcg Tablet 1 Tab PO DAILY Glipizide 10 Mg Tablet 1 Tab PO BIDACLD Vitals/I & O Vital Sign - Last 24 Hours 07/28/19 07/28/19 07/28/19 07/28/19 11:00 15:00 18:21 19:10 Temp 97.4 98.5 98.0 97.4 98.5 98.0 Pulse 79 67 67 71 Resp 12 18 18 B/P (MAP) 111/56 (74) 131/69 (89) 131/69 135/58 (83) Pulse Ox 100 95 96 O2 Delivery Room Air Room Air Room Air 07/28/19 07/28/19 07/29/19 07/29/19 20:10 23:52 03:23 07:48 Temp 98.2 98.0 98.1 98.2 98.0 98.1 Pulse 71 78 70 Resp 18 18 18 B/P (MAP) 120/64 (82) 119/57 (77) 123/50 (74) Pulse Ox 97 97 96 O2 Delivery Room Air Room Air Room Air Room Air 07/29/19 07/29/19 07/29/19 07/29/19 07:57 10:16 10:17 10:18 Pulse 70 70 B/P (MAP) 123/50 123/50 Pulse Ox 96 96 O2 Delivery Room Air Room Air O2 Flow Rate 2.5 Intake and Output 07/28/19 07/28/19 07/29/19 15:00 23:00 07:00 Intake Total 720 ml 510 ml 0 ml Balance 720 ml 510 ml 0 ml STAN UMANZOR MD Jul 29, 2019 10:48
--- NOTE | 2019-07-29 11:57 | NUR ---
SW consulted for living arrangement. Chart reviewed and discussed with RN. Pt lives at home with family. Pt has PMHx of CHF, COPD, DM2, HTN and is admitted for AMS. PT pending. SW requested for OT order. GLENDA will await for PT/OT assessment to eval discharge needs.
[2019-07-29 11:59] VITALS: BP 152/91
[2019-07-29 15:58] VITALS: BP 124/58
--- NOTE | 2019-07-29 16:17 | NUR ---
SW following pt. PT/OT recommends home with home health. SW will continue to follow.
--- NOTE | 2019-07-29 16:49 | PDOC ---
PROGRESS NOTES Assessment Assessment IMPRESSION: Metabolic encephalopathy. Hypoxia. COPD. AFib. CAD. HTN. DM. Hypothyroidism. RECOMMENDATIONS/PLAN: Treat medical diseases. Continue ASA 81 mg daily. Lab: see orders. EEG. OT/PT. Past Medical History Cardiovascular: AFIB, CAD, CHF, HTN Pulmonary: No pertinent hx, Pneumonia, Other CENTRAL NERVOUS SYSTEM: Peripheral neuropathy GI: GERD Heme/Onc: Anemia NOS Hepatobiliary: No pertinent hx Psych: No pertinent hx Musculoskeletal: low back pain, Osteoarthritis Rheumatologic: No pertinent hx Infectious disease: No pertinent hx Renal/: No pertinent hx Endocrine: Diabetes Past Surgical History Pacemaker, Hernia Repair, Hysterectomy, Other Family History Hypertension, Other Social History ALCOHOL: none Drugs: None Lives: with Family Allergies Coded Allergies: adhesive tape (Verified Allergy, Intermediate, Rash, 11/02/16) iron dextran complex (Verified Allergy, Intermediate, IRON SUCROSE (VENOFER) OKAY, 02/24/18) latex (Verified Allergy, Intermediate, Rash, 11/02/16) MEDICATIONS: Refer to MAR REVIEW OF SYSTEMS: Constitutional: No malnutrition, weight loss, cachexia. Head: No traumatic brain or head injury. Skin: No edema, or rash. Ear: No infection. Eyes: No vision loss, or diplopia. Nose: No bleeding or purulent discharges. Hearing: Hearing loss. Neck: No injury. Breast: No history of cancer, masses, or discharges. Cardiac: CAD, AFib, Pacemaker Placement, HTN, HLD Pulmonary: COPD. GI: No GI Ulcer, GI bleeding Urinary/genital: NUTI. Endocrine: No cousin face, craniofacial dysmorphism, polydactyly. Skeletomuscular: generalized weakness. Neurological: see HP. Psychiatric: Denies drug use/abuse. Otherwise, not [id number] review of systems. PHYSICAL EXAMINATION: General appearance in subacute distress. HEENT: Normocephalic and nontraumatic. Eyes, nose, ears, and throat are unremarkable. Hearing decrease. Neck is supple. No lymphadenopathy. No bruits are heard over the carotid artery. No Crepitus. Cardiovascular: S1, S2, regular rate and rhythm. Pulmonary: Clear to auscultation bilaterally. Abdomen: Bowel sounds are positive. Extremities: No rash, lesions, or edema. No restriction of range of motion NEUROLOGICAL EXAMINATION: Awake from time to time. Not oriented to time, but knew place and person. PERRL. EOMI. CN: no focal findings. Muscle tone: within normal. Muscle strength: 4+ DTR: 2 Plantar reflex: Neutral response bilaterally Gait: not examined in bed. Sensory exam: no abnormal findings. No cerebellar signs elicited. F-T-N test fine. Objective Objective Vital Signs Date Time Temp Pulse Resp B/P (MAP) Pulse Ox O2 Delivery O2 Flow Rate FiO2 07/29/19 15:58 98.2 66 20 124/58 (80) 96 Room Air 98.2 07/29/19 11:16 2.5 Intake and Output 07/29/19 06:59 Intake Total 1230 ml Balance 1230 ml Intake Oral 1230 ml # Voids 4 Vitals Signs Vitals VS - Last 72 Hours, by Label Date Time Temp Pulse Resp B/P (MAP) Pulse Ox O2 Delivery O2 Flow Rate FiO2 07/29/19 15:58 98.2 66 20 124/58 (80) 96 Room Air 98.2 07/29/19 15:29 96 Room Air 07/29/19 11:59 98.2 80 18 152/91 (111) 99 Room Air 98.2 07/29/19 11:16 96 Nasal Cannula 2.5 07/29/19 10:18 70 123/50 07/29/19 10:17 70 123/50 07/29/19 10:16 96 Room Air 2.5 07/29/19 08:00 Nasal Cannula 2.5 07/29/19 07:57 96 Room Air 07/29/19 07:48 98.1 70 18 123/50 (74) 96 Room Air 98.1 07/29/19 03:23 98.0 78 18 119/57 (77) 97 Room Air 98.0 07/28/19 23:52 98.2 71 18 120/64 (82) 97 Room Air 98.2 07/28/19 20:10 Room Air 07/28/19 19:10 98.0 71 18 135/58 (83) 96 Room Air 98.0 07/28/19 18:21 67 131/69 07/28/19 15:00 98.5 67 18 131/69 (89) 95 Room Air 98.5 07/28/19 11:00 97.4 79 12 111/56 (74) 100 Room Air 97.4 07/28/19 08:48 70 132/58 07/28/19 08:47 70 132/58 07/28/19 08:00 Nasal Cannula 2.5 07/28/19 07:00 97.6 77 16 122/67 (85) 99 Nasal Cannula 2.5 97.6 Laboratory Laboratory Laboratory Tests Test 07/29/19 06:55 O2 Saturation 95 % (92-99) Arterial Blood pH 7.45 (7.35-7.45) Arterial Blood pCO2 at Patient Temp 46 mmHg (35-46) Arterial Blood pO2 at Patient Temp 75 mmHg (65-108) Arterial Blood HCO3 32 mmol/L (21-28) Arterial Blood Base Excess 7 mmol/L (-3-3) FiO2 21 Medication Medications Current Medications Acetaminophen/ Hydrocodone Bitart (Lortab 5/325) 1 tab Q6HRS PRN PO PAIN Last administered on 07/29/19at 10:16; Start 07/29/19 at 10:15 Comment Review of Relevant I have reviewed the following items la (where applicable) has been applied. SIRIA MAYERS MD Jul 29, 2019 16:49
[2019-07-29 17:00] VITALS: BP 124/58
--- NOTE | 2019-07-29 19:08 | PDOC3 ---
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 Foci of decreased attenuation within the hemispheric white matter, most often due to chronic microvascular ischemia. Recommend comparison with prior imaging studies. If persistent clinical concern for acute ischemia MRI can better evaluate. Encephalopathy, suspect multifactorial related to chronic hypercapnia, sleep deprivation, obstructive sleep apnea and chronic utilization of Xanax. 07/27 more alert, knows year, month, president location ADMITTED NEUROCHECKS Q 4 HRS NEUROLOGY CONSULT hold narcotics and sedating meds tele abg r/o hypercapnea c/w mild hypercapnea o2 2 l nc cxr pa/lat CAROTID DOPPLERS TO EXCLUDE TEREZA PULM CONSULT pt/ot/st HS OXIMETRY STUDY NEEDS SLEEP STUDY, HOME O2 2L WITH SLEEP EEG 27 min pt exam, chart review, > 50% of time spent with exam, chart review, pt care coordination Vitals Vitals Vital Signs Date Time Temp Pulse Resp B/P (MAP) Pulse Ox O2 Delivery O2 Flow Rate FiO2 07/29/19 10:18 70 123/50 07/29/19 10:16 96 Room Air 2.5 07/29/19 07:48 98.1 18 98.1 Physical Exam General: Alert, Oriented X3, Cooperative, No acute distress, Other (CONFUSED TO DETAILS, AT BASELINE) Heart: Regular rate, Normal S1 Lungs: Clear Abdomen: Normal bowel sounds, Soft Extremities: No clubbing, No cyanosis Skin: No rashes, No significant lesion Labs LABS Ultrasound carotid Doppler 07/28/2019 11:23 AM INDICATION: CVA/TIA COMPARISON: None available TECHNIQUE: Sonographic imaging of the carotid vasculature was performed utilizing grayscale, color Doppler and spectral waveform analysis. FINDINGS: (All velocities are measured cm per second) Right carotid: No significant plaque is visualized. Peak systolic velocity: Proximal common carotid artery: 72 Middle common carotid artery: 74 Distal common carotid artery: 61 Proximal internal carotid artery: 43 Middle internal carotid artery: 58 Distal internal carotid artery: 61 End-diastolic velocity: 17 External carotid artery: 80 Internal carotid artery/common carotid artery ratio: 0.58-0.82 Vertebral artery: Antegrade flow Left carotid: No significant plaque is visualized. Peak systolic velocity: Proximal common carotid artery: 81 Middle common carotid artery: 69 Distal common carotid artery: 67 Proximal internal carotid artery: 41 Middle internal carotid artery: 60 Distal internal carotid artery: 52 End-diastolic velocity: 15 External carotid artery: 87 Internal carotid artery/common carotid artery ratio: 0.59-0.86 Vertebral artery: Antegrade flow IMPRESSION: 1. No evidence for flow-limiting carotid stenosis. 2. Antegrade flow is identified in the vertebral arteries. 3. Evaluation of the carotid vasculature and measurements for luminal stenosis was performed utilizing NASCET criteria. Electronically signed by: Crystal Contreras MD (07/28/2019 4:14 PM) [facility] FINAL DIAGNOSIS Problems Medical Problems: (1) Altered mental status Status: Acute Brief Hospital Course Ms. Banegas is a 84 old [sex] who presented with [ALTERED MENTAL STATUS, HYPERCAPNEA, ISREAL ] CONDITION AT DISCHARGE: Improved Discharge Medications Current Medications Ondansetron HCl (Zofran) 4 mg PRN Q8HRS PRN IV NAUSEA/VOMITING; Start 07/26/19 at 12:15; Stop 07/27/19 at 12:14; Status DC Albuterol Sulfate (Ventolin Neb Soln) 2.5 mg PRN Q6HRS PRN INH SHORTNESS OF BREATH; Start 07/26/19 at 15:45 Aspirin (Ecotrin) 81 mg DAILY PO Last administered on 07/29/19at 10:17; Start 07/27/19 at 09:00 Carvedilol (Coreg) 3.125 mg BIDWMEALS PO ; Start 07/26/19 at 17:00; Stop 07/26/19 at 16:37; Status DC Cetirizine HCl (ZyrTEC) 10 mg DAILY PO Last administered on 07/29/19at 10:17; Start 07/27/19 at 09:00 Clopidogrel Bisulfate (Plavix) 75 mg DAILY PO Last administered on 07/29/19at 10:17; Start 07/27/19 at 09:00 Digoxin (Lanoxin) 125 mcg DAILY PO Last administered on 07/29/19at 10:18; Start 07/27/19 at 09:00 Furosemide (Lasix) 40 mg DAILY PO Last administered on 07/29/19 10:17; Start 07/27/19 at 09:00 Metoprolol Succinate (Toprol Xl) 25 mg BID PO ; Start 07/26/19 at 21:00; Stop 07/27/19 at 11:56; Status DC Nitroglycerin (Nitrostat) 0.4 mg PRN Q5MIN PRN SL CHEST PAIN; Start 07/26/19 at 15:45 Potassium Chloride (Klor-Con) 20 meq DAILY PO Last administered on 07/29/19 10:16; Start 07/27/19 at 09:00 Senna/Docusate Sodium (Senna Plus) 2 tab PRN DAILY PRN PO CONSTIPATION; Start 07/26/19 at 15:45 Spironolactone (Aldactone) 25 mg DAILY PO Last administered on 07/29/19 10:16; Start 07/27/19 at 09:00 Calcium/Vitamin D (Oscal D 500mg/ 200uts) 1 tab DAILY PO Last administered on 07/29/19 10:17; Start 07/27/19 at 09:00 Non-Formulary Medication (Mometasone/ Formoterol (Dulera 100 Mcg/5 Mcg Inhaler)) 1 puff BID IH ; Start 07/26/19 at 21:00; Status UNV Multivitamins (Thera M Plus) 1 tab DAILY PO Last administered on 07/29/19 10:17; Start 07/27/19 at 09:00 Pantoprazole Sodium (Protonix) 40 mg DAILYAC PO Last administered on 07/29/19 10:17; Start 07/27/19 at 07:30 Budesonide (Pulmicort) 0.5 mg RTBID NEB Last administered on 07/29/19 07:56; Start 07/26/19 at 20:00 Albuterol Sulfate (Ventolin Neb Soln) 2.5 mg RTQID NEB Last administered on 07/29/19 15:27; Start 07/26/19 at 16:00 Influenza Virus Vaccine Quadrival (Afluria Quad 2019-20 (3yr Up) Syringe) 0.5 ml ONCE ONCE VAX IM Last administered on 07/26/19 18:13; Start 07/26/19 at 17:00; Stop 07/26/19 at 17:01; Status DC Diphenhydramine HCl (Benadryl) 25 mg PRN Q6HRS PRN PO ITCHING Last administered on 07/27/19at 20:08; Start 07/26/19 at 21:30 Carvedilol (Coreg) 3.125 mg BIDWMEALS PO Last administered on 07/29/19at 10:17; Start 07/27/19 at 17:00 Acetaminophen/ Hydrocodone Bitart (Lortab 5/325) 1 tab Q6HRS PRN PO PAIN Last administered on 07/29/19at 10:16; Start 07/29/19 at 10:15 Active Scripts Active Reported Macrobid 100 Mg Capsule (Nitrofurantoin Monohyd/M-Cryst) 100 Mg Capsule 100 Mg PO DAILY Lisinopril 5 Mg Tablet 5 Mg PO DAILY Carvedilol (Carvedilol) 3.125 Mg Tablet 3.125 Mg PO BIDWMEALS Dulera 100 Mcg/5 Mcg Inhaler (Mometasone/Formoterol) 13 Gm Hfa.aer.ad 1 Puff IH BID Calcium + Vitamin D Tablet (Calcium Carbonate/Vitamin D3) 1 Each Tablet 1 Each PO DAILY Omeprazole 20 Mg Capsule.dr 1 Cap PO DAILY Clopidogrel (Clopidogrel Bisulfate) 75 Mg Tablet 75 Mg PO DAILY Dermasorb Ta 0.1% Complete Kit (Triamcinolone/Emollient Cmb#86) 340.4 Gm Cream..g. 340.4 Gm TP Meclizine Hcl 25 Mg Tablet 1 Tab PO PRN TID Xanax (Alprazolam) 0.25 Mg Tablet 0.25 Mg PO HS PRN Levemir (Insulin Detemir) 100 Unit/1 Ml Vial 10-12 Unit SQ HS Lortab 5-325 mg Tablet (Hydrocodone/Acetaminophen) 1 Each Tablet 1 Tab PO PRN Q6HRS PRN Proair Hfa Inhaler (Albuterol Sulfate) 8.5 Gm Hfa.aer.ad 1 Puff INH PRN Q6HRS PRN NITROGLYCERIN SubLingual (Nitroglycerin) 0.4 Mg Tab.subl 0.4 Mg SL PRN Q5MIN PRN please take nitroglycerin sublingual when you have chest pain every 5 min up to 3 doses. Multi Vitamin Daily (Multivitamin) 1 Each Tablet 1 Each PO DAILY Stool Softener Tablet (Sennosides/Docusate Sodium) 1 Each Tablet 2 Each PO NEEDED Cetirizine Hcl 10 Mg Tablet 1 Tab PO DAILY Potassium Chloride 20 Meq Tab.er.prt 20 Meq PO DAILY Furosemide 40 Mg Tablet 40 Mg PO DAILY Spironolactone 25 Mg Tablet 1 Tab PO DAILY Aspir 81 (Aspirin) 81 Mg Tablet.dr 1 Tab PO DAILY Digoxin 125 Mcg Tablet 1 Tab PO DAILY Glipizide 10 Mg Tablet 1 Tab PO BIDACLD Vital Signs Vital Signs Date Time Temp Pulse Resp B/P (MAP) Pulse Ox O2 Delivery O2 Flow Rate FiO2 07/29/19 15:58 98.2 66 20 124/58 (80) 96 Room Air 98.2 07/29/19 11:16 2.5 Labs Laboratory Tests Test 07/28/19 07:35 07/29/19 06:55 White Blood Count 8.9 x10^3/uL (4.0-11.0) Red Blood Count 3.98 x10^6/uL (3.50-5.40) Hemoglobin 10.6 g/dL (12.0-15.5) Hematocrit 32.9 % (36.0-47.0) Mean Corpuscular Volume 83 fL (79-100) Mean Corpuscular Hemoglobin 27 pg (25-35) Mean Corpuscular Hemoglobin Concent 32 g/dL (31-37) Red Cell Distribution Width 14.6 % (11.5-14.5) Platelet Count 320 x10^3/uL (140-400) Neutrophils (%) (Auto) 74 % (31-73) Lymphocytes (%) (Auto) 13 % (24-48) Monocytes (%) (Auto) 9 % (0-9) Eosinophils (%) (Auto) 4 % (0-3) Basophils (%) (Auto) 1 % (0-3) Neutrophils # (Auto) 6.6 x10^3/uL (1.8-7.7) Lymphocytes # (Auto) 1.2 x10^3/uL (1.0-4.8) Monocytes # (Auto) 0.8 x10^3/uL (0.0-1.1) Eosinophils # (Auto) 0.3 x10^3/uL (0.0-0.7) Basophils # (Auto) 0.1 x10^3/uL (0.0-0.2) Sodium Level 140 mmol/L (136-145) Potassium Level 4.0 mmol/L (3.5-5.1) Chloride Level 100 mmol/L (98-107) Carbon Dioxide Level 32 mmol/L (21-32) Anion Gap 8 (6-14) Blood Urea Nitrogen 16 mg/dL (7-20) Creatinine 0.9 mg/dL (0.6-1.0) Estimated GFR (Cockcroft-Gault) 59.5 BUN/Creatinine Ratio 18 (6-20) Glucose Level 164 mg/dL (70-99) Calcium Level 9.1 mg/dL (8.5-10.1) Total Bilirubin 0.3 mg/dL (0.2-1.0) Aspartate Amino Transf (AST/SGOT) 12 U/L (15-37) Alanine Aminotransferase (ALT/SGPT) 11 U/L (14-59) Alkaline Phosphatase 92 U/L (46-116) Total Protein 6.9 g/dL (6.4-8.2) Albumin 3.3 g/dL (3.4-5.0) Albumin/Globulin Ratio 0.9 (1.0-1.7) O2 Saturation 95 % (92-99) Arterial Blood pH 7.45 (7.35-7.45) Arterial Blood pCO2 at Patient Temp 46 mmHg (35-46) Arterial Blood pO2 at Patient Temp 75 mmHg (65-108) Arterial Blood HCO3 32 mmol/L (21-28) Arterial Blood Base Excess 7 mmol/L (-3-3) FiO2 21 Laboratory Tests Test 07/29/19 06:55 O2 Saturation 95 % (92-99) Arterial Blood pH 7.45 (7.35-7.45) Arterial Blood pCO2 at Patient Temp 46 mmHg (35-46) Arterial Blood pO2 at Patient Temp 75 mmHg (65-108) Arterial Blood HCO3 32 mmol/L (21-28) Arterial Blood Base Excess 7 mmol/L (-3-3) FiO2 21 Allergies Allergies Coded Allergies Type Severity Reaction Last Updated Verified adhesive tape Allergy Intermediate Rash 11/02/16 Yes iron dextran complex Allergy Intermediate IRON SUCROSE (VENOFER) OKAY 02/24/18 Yes latex Allergy Intermediate Rash 11/02/16 Yes Disposition/Orders: D/C to Home Patient Instructions D/C PLANNING 32 MIN STAN UMANZOR MD Jul 29, 2019 19:08
--- NOTE | 2019-07-29 19:11 | DISCH ---
DISCHARGE INSTRUCTIONS Condition on Discharge Condition on Discharge: Guarded Activity After Discharge Activity Instructions for Disc: Activity as tolerated, Other, see below Bathing Instructions: No Tub Bath until see Lifting Instructions after Dis: No pulling or pushing, Do not lift >10 pounds Exercise Instruction after Dis: Walk 10 min, 3 x per day, Exercise per therapy, Progress as tolerated Driving Instructions after Dis: Do not drive, Other, see below Weight Bearing Status after Di: Other, see below Diet after Discharge Diet after Discharge: Cardiac, Diabetic No Calorie Level Diet Texture: Regular Liquid Texture: Thin Liquid Swallowing Supervision: None needed Wound Incision Care Wound/Incision Care: Keep wound/cast CDI Wound Care Equipment: Dressings Checks after Discharge Checks after discharge: Check blood press - daily, Check blood sugar, ac/hs Contacting the after DC Call your doctor for: If your condition worsens Treatment/Equipment after DC Adaptive Equipment Issued: None Discharge Respiratory Equipmen: Oxygen Warfarin Follow-Up Warfarin Follow UP: CONTINUE O2 WITH ALLL SLEEP, SEE DR KADEN STEIN FOR SLEEP STUDY STAN UMANZOR MD Jul 29, 2019 19:11
--- NOTE | 2019-07-30 15:02 | RESP ---
DATE OF SERVICE: NOCTURNAL OXIMETRY STUDY This study was performed on room air. The patient's mean oxygen saturation remained around 95% with the lowest of 82%. A 3.6% of the time oxygen saturation remained less than 90%. IMPRESSION: Mild nocturnal hypoxia. RECOMMENDATIONS: If clinical suspicion for sleep apnea is high, then consider doing full polysomnogram. TITO WEISS MD DR: MARGIE/diamond JOB#: [id number] / [id number]
== END 2019-07-29 19:30 | disposition home or self-care (01) | DRG 91 ==
LOC: ER 08:43 → ED HOLD 12:06 → 6 SOUTH 14:43 → OBSVTOIN 20:56
PROVIDERS: ADMIT Family Medicine; ATTEND Family Medicine
DX: G92 Toxic encephalopathy (principal); J96.02 Acute respiratory failure with hypercapnia; J96.01 Acute respiratory failure with hypoxia; I48.20 Chronic atrial fibrillation, unspecified; E66.01 Morbid (severe) obesity due to excess calories; Z68.39 Body mass index [BMI] 39.0-39.9, adult; K21.9 Gastro-esophageal reflux disease without esophagitis; J44.9 Chronic obstructive pulmonary disease, unspecified; E78.00 Pure hypercholesterolemia, unspecified; F03.90 Unspecified dementia, unspecified severity, without behavioral disturbance, psychotic disturbance, mood disturbance, and anxiety; M19.90 Unspecified osteoarthritis, unspecified site; E03.9 Hypothyroidism, unspecified; E11.40 Type 2 diabetes mellitus with diabetic neuropathy, unspecified; D53.9 Nutritional anemia, unspecified; G47.33 Obstructive sleep apnea (adult) (pediatric); I25.10 Atherosclerotic heart disease of native coronary artery without angina pectoris; I11.0 Hypertensive heart disease with heart failure; I50.9 Heart failure, unspecified; Z91.040 Latex allergy status; Z88.8 Allergy status to other drugs, medicaments and biological substances; Z91.048 Other nonmedicinal substance allergy status; Z95.0 Presence of cardiac pacemaker; Z90.710 Acquired absence of both cervix and uterus; Z99.81 Dependence on supplemental oxygen; Z79.82 Long term (current) use of aspirin; Z82.49 Family history of ischemic heart disease and other diseases of the circulatory system; T40.605A Adverse effect of unspecified narcotics, initial encounter
CPT/HCPCS: 36415; 36600; 70450; 71045; 80053; 80162; 81001; 82140; 82805; 83735; 83880; 84484; 85025; 85610; 85730; 90471; 90686; 93005; 93880; 94640; 94760; 94799; G0378; G0379; J7613; J7626; Q0163; 99285-25

== ENCOUNTER → 2019-08-05 | Outpatient (CLI) | payer OTHER ==
[2019-07-29 17:00] VITALS: BP 124/58
[~2019-08-05] MED LIST changes: +LISI-338 PO
== END | disposition home or self-care (01) ==
LOC: RT 07:48
PROVIDERS: ATTEND Psychiatry & Neurology Neurology
DX: I50.22 Chronic systolic (congestive) heart failure (principal)
CPT/HCPCS: 95816

== ENCOUNTER → 2019-09-04 | Outpatient (CLI) | payer OTHER ==
[~2019-09-04] MED LIST changes: -DIGO125T PO; +DIGO125T3 PO; +OMEP-229 PO; -OMEP20CA10 PO; +ZOLPIDEM 5 MG TABLET. PO ONE
--- NOTE | 2019-09-05 10:30 | SLEEP ---
DATE OF STUDY: 09/04/2019 REFERRING PHYSICIAN: Dr. Emmanuel PRIMARY PHYSICIAN: Caroline Mares. The patient is an 84-year-old who weighs 207 pounds with a BMI of 38. The patient's [place] score was 11. The patient underwent split night study performed at [facility]. During the night study, the patient spent 508 minutes in bed and slept for 384 minutes with a low sleep efficiency of 76%. Sleep latency was 59 minutes with a REM latency of 210 minutes. Sleep architecture showed normal stage 1 sleep, increased stage 2 sleep, normal slow wave and slightly reduced REM sleep. During the initial diagnostic portion of the study, the patient slept for 191 minutes. During that time, there were no obstructive, mixed or central apneas. There were 41 hypopneas. The patient's apnea-hypopnea index was 13 per hour, supine index 13 per hour and a REM index of 58 per hour. EKG monitoring revealed an average heart rate of 69 beats per minute, no sustained arrhythmias observed. Nocturnal oximetry study revealed during the diagnostic portion, showed a mean oxygen saturation of 92% with lowest of 65%. The 16% of time oxygen saturation remained between 80% and 89% and it was predominantly during REM sleep. PLMS were seen at index of 88 per hour and 8 per hour caused EEG arousal. The patient met the criteria for CPAP initiation. It was started at 7 cm water as the patient was unable to tolerate lower pressure. At the final pressure of 12 cm water, the patient slept for 56 minutes. The patient had supine as well as REM sleep. The patient's AHI was reduced to 0 per hour; however, oxygen saturation did fluctuate in the mid to high 80s with the lowest of 81%. The patient used a small size full face mask. IMPRESSION: 1. 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 Total AHI 13 per hour with a REM AHI of 58 per hour. 2. Nocturnal hypoxia predominantly during REM sleep and related to sleep apnea and hypoventilation. 3. Severe periodic limb movements. RECOMMENDATIONS: 1. CPAP at 12 cm water completely eliminated the patient's sleep apnea and should be used on a nightly basis. The nocturnal hypoxia persisted despite elimination of respiratory events and I would recommend adding 1 liter of oxygen with CPAP. 2. Follow up in 4-6 weeks to assess compliance and to document clinical improvement. 3. Weight loss is advised. 4. Avoid [employer] depressants. 5. Cautioned regarding driving until symptoms of sleep apnea resolve with the use of CPAP. 6. The patient should also be further evaluated for symptoms of restless legs during the day. TITO WEISS MD DR: MARGIE/diamond JOB#: [id number] / [id number] SILVERIO Lopez MD, SANDRA APRN
== END | disposition home or self-care (01) ==
LOC: SLPLAB 18:31
PROVIDERS: ATTEND Internal Medicine Pulmonary Disease
DX: G47.39 Other sleep apnea (principal); G47.34 Idiopathic sleep related nonobstructive alveolar hypoventilation; I11.0 Hypertensive heart disease with heart failure; I50.9 Heart failure, unspecified; K21.9 Gastro-esophageal reflux disease without esophagitis; Z79.82 Long term (current) use of aspirin
CPT/HCPCS: 95810

== ENCOUNTER 2019-10-04 09:38 | Day surgery (SDC) | payer MEDICARE ==
[~2019-10-04] VITALS: Ht 158.8 cm; Wt 93.0 kg
[~2019-10-04 09:38] MED LIST changes: +HYDROmorphone 2 MG/ML VIAL IV PRN; +IV RINGERS,LACTATED 1000ML 1,000 ML IV SCH; +MECL-75 PO; -MECL25TA3 PO; +MORPHINE SULFATE 2 MG/ML VIAL. IV PRN; -OMEP-229 PO; +OMEP20CA16 PO; +ONDANSETRON PF 4 MG/2 ML VIAL. IV PRN; +PROCHLORPERAZINE 10 MG/2 ML VIAL. IV PRN; -ZOLPIDEM 5 MG TABLET. PO ONE; +fentaNYL PF VIAL 100 MCG/2 ML VIAL IV PRN
[2019-10-04] MEDS ORDERED: BUPIVACAINE-EPI 0.5%-1:200000 MPF 30 ML VIAL. ONE (09:57)
[2019-10-04] MEDS ORDERED: PROPOFOL 20 ML IV ONE (10:19)
[2019-10-04] MEDS ORDERED: DEXAMETHASONE SOD PHOS 4 MG/ML VIAL ONE (10:19)
[2019-10-04] MEDS ORDERED: ONDANSETRON PF 4 MG/2 ML VIAL. ONE (10:19)
[2019-10-04] MEDS ORDERED: LIDOCAINE 2% PF 5 ML VIAL. ONE (10:19)
[2019-10-04] MEDS ORDERED: ETOMIDATE 20 MG/10 ML VIAL. IV ONE (10:47)
[2019-10-04] MEDS ORDERED: PHENYLEPHRINE in 0.9% NACL PF 1 MG/10 ML SYRINGE. IV ONE (10:49)
[2019-10-04] MEDS ORDERED: ePHEDrine PF IN SALINE 50 MG/10 ML SYRINGE. IV ONE (10:49)
[2019-10-04 10:51] LABS: BASO # 0.1 x10^3/uL (0.0-0.2); BASO % 1 % (0-3); EOS # 0.3 x10^3/uL (0.0-0.7); EOS % 2 % (0-3); HEMATOCRIT 31.3 % (36.0-47.0); HEMOGLOBIN 9.5 g/dL (12.0-15.5); LYMPH # 1.1 x10^3/uL (1.0-4.8); LYMPH % 10 % (24-48); MEAN CORPUSCULAR HEMOGLOBIN 26 pg (25-35); MEAN CORPUSCULAR HGB CONC 30 g/dL (31-37); MEAN CORPUSCULAR VOLUME 85 fL (79-100); MONO % 9 % (0-9); NEUT # 8.7 x10^3/uL (1.8-7.7); NEUT % 78 % (31-73); PLATELET COUNT 378 x10^3/uL (140-400); RED BLOOD COUNT 3.68 x10^6/uL (3.50-5.40); RED CELL DISTRIBUTION WIDTH 15.1 % (11.5-14.5); WHITE BLOOD COUNT 11.1 x10^3/uL (4.0-11.0)
[2019-10-04] MEDS: INSULIN LISPRO 100 UNIT/ML 3ML VIAL for OP,RR ONLY. SQ PRN ×2 (10:56→12:22)
[2019-10-04] MEDS ORDERED: fentaNYL PF VIAL 100 MCG/2 ML VIAL ONE (11:01)
[2019-10-04 11:17] LABS: ALBUMIN 3.3 g/dL (3.4-5.0); CREATININE 0.9 mg/dL (0.6-1.0); GFR 59.5; POTASSIUM 4.9 mmol/L (3.5-5.1)
[2019-10-04] MEDS ORDERED: NEOMY/BACITR/POLYMYXIN OINT PACKET. TP ONE (11:18)
[2019-10-04] MEDS ORDERED: SEVOFLURANE 16 TO 30 MINUTES. IH ONE (11:25)
--- NOTE | 2019-10-04 12:00 | PDOC ---
BRIEF OPERATIVE NOTE Date: Oct 04, 2019 Pre-Op Diagnosis cyst left pre auricular area Post-Op Diagnosis same Procedure Performed excision Surgeon Bridger Anesthesia Type: General (LMA) Blood Loss <5cc IV Fluid 400cc Specimens Obtained skin and subcutaneous tissue Findings chronic cyst Complications none Operative Note Wk # [id number] DEV DENISE MD Oct 04, 2019 12:00
--- NOTE | 2019-10-04 12:03 | DISCH ---
DISCHARGE INSTRUCTIONS Condition on Discharge Condition on Discharge: Stable Activity After Discharge Activity Instructions for Disc: Activity as tolerated Driving Instructions after Dis: Do not drive Weight Bearing Status after Di: As tolerated Diet after Discharge Diet after Discharge: Cardiac Diet Texture: Regular Liquid Texture: Thin Liquid Swallowing Supervision: None needed Wound Incision Care Wound/Incision Care: Ice to area for comfort, No wound care needed Other wound/incision instructi: may shower Monday Checks after Discharge Checks after discharge: Check blood press - daily, Check blood sugar, ac/hs Follow-Up Follow Up With: Bridger next week DEV DENISE MD Oct 04, 2019 12:03
--- NOTE | 2019-10-04 12:06 | OP ---
DATE OF SURGERY: 10/04/2019 PREOPERATIVE DIAGNOSIS: Cyst, left preauricular area. POSTOPERATIVE DIAGNOSIS: Cyst, left preauricular area. PROCEDURE: Excision of same. SURGEON: Dev Denise MD ANESTHESIA: General LMA. ESTIMATED BLOOD LOSS: Less than 5 mL. INTRAVENOUS FLUIDS: 400 mL. DESCRIPTION OF PROCEDURE: The patient brought to the operating suite, given a general LMA and the left cheek was prepped and draped in usual sterile fashion. The elliptical skin incision, which had been made in the preop area with the patient's assistance was infiltrated with 0.5% Marcaine with epinephrine, incised and the skin and underlying process removed. Hemostasis with cautery. Wound closed loosely with interrupted 5-0 nylon stitches. Sterile dressing applied. The patient awakened from her anesthetic and taken to the recovery room in satisfactory condition. DEV DENISE MD DR: JESSICA/diamond JOB#: [id number] / [id number]
[2019-10-04 12:15] VITALS: BP_DIAS 52
[2019-10-04 12:30] VITALS: BP_SYST 55
--- NOTE | 2019-10-07 16:06 | PATHOLOGY ---
[facility] Accession Number: [id number] . 01 Material submitted: . preauricular - LEFT PREAURICULAR CYST. Modifiers: left . 01 Clinical history: . Cyst . 02 Diagnosis: Segments of skin and subcutaneous tissue, left preauricular cyst excision: - Epidermal inclusion cyst, ruptured, with acute and chronic inflammation and focal foreign body giant cell reaction. (JPM:jose j; 10/07/2019) MBR 10/07/2019 1521 Local . 02 Comment: There is no evidence of malignancy. (JPM:jose j; 10/07/2019) . 02 Electronically signed: . Brent Patterson MD, Pathologist NPI- [id number] . 01 Gross description: . The specimen is received in formalin, labeled "Banegas, Kat, preauricular cyst" and consists of multiple segments of yellow soft tissue and pink-barbosa skin with possible cyst fragments measuring 3.0 x 2.3 x 0.5 cm in aggregate which are entirely submitted in A1. (SDY; 10/04/2019) SYU/SYU 10/04/2019 1709 Local . 02 Pathologist provided ICD-10: L72.0 . 02 CPT . 533693 Specimen Comment: A courtesy copy of this report has been sent to [phone], [phone] Specimen Comment: [id number] Specimen Comment: Report sent to and Performed at: 01 [facility] [address], [place] [id number] MD Heri Crowley MD Phone: [phone] Performed at: 02 [facility] [address], [place] [id number] MD Brent Patterson MD Phone: [phone]
== END 2019-10-04 13:17 | disposition home or self-care (01) ==
LOC: SURG 09:38
PROVIDERS: ATTEND Surgery
DX: Q18.1 Preauricular sinus and cyst (principal); L72.0 Epidermal cyst; G47.30 Sleep apnea, unspecified; I25.2 Old myocardial infarction; I25.10 Atherosclerotic heart disease of native coronary artery without angina pectoris; I48.91 Unspecified atrial fibrillation; I11.0 Hypertensive heart disease with heart failure; I50.9 Heart failure, unspecified; K21.9 Gastro-esophageal reflux disease without esophagitis; E11.9 Type 2 diabetes mellitus without complications; D64.9 Anemia, unspecified; F41.9 Anxiety disorder, unspecified; E66.9 Obesity, unspecified; Z68.36 Body mass index [BMI] 36.0-36.9, adult; Z95.0 Presence of cardiac pacemaker; Z87.01 Personal history of pneumonia (recurrent); Z79.899 Other long term (current) drug therapy; Z90.49 Acquired absence of other specified parts of digestive tract; Z98.42 Cataract extraction status, left eye; Z98.41 Cataract extraction status, right eye; Z90.710 Acquired absence of both cervix and uterus; Z90.722 Acquired absence of ovaries, bilateral; Z96.1 Presence of intraocular lens; Z79.84 Long term (current) use of oral hypoglycemic drugs
CPT/HCPCS: 11443; 36415; 80048; 82040; 82962; 85025; A7015; J0171; J0696; J1100; J2001; J2370; J2405; J2704; J3010; J3490

== ENCOUNTER → 2019-11-27 | Outpatient (CLI) | payer MEDICARE ==
[~2019-11-27] MED LIST changes: -HYDROmorphone 2 MG/ML VIAL IV PRN; -IV RINGERS,LACTATED 1000ML 1,000 ML IV SCH; -MORPHINE SULFATE 2 MG/ML VIAL. IV PRN; -ONDANSETRON PF 4 MG/2 ML VIAL. IV PRN; -PROCHLORPERAZINE 10 MG/2 ML VIAL. IV PRN; -fentaNYL PF VIAL 100 MCG/2 ML VIAL IV PRN
--- NOTE | 2019-11-28 07:46 | CARD ---
MR#: [id number] Date of Study: 11/27/2019 Ordering Physician: NANCI HI, Referring Physician: Lorena URBINA: Kaleigh Raines RDCS APPROVED REPORT EXAM: Two-dimensional and M-mode echocardiogram with Doppler and color Doppler. Other Information Quality : Technically Limited Technically limited study due to body habitus, patient positioning, and tolerance to testing. INDICATION Congestive Heart Failure Pacemaker RISK FACTORS Obesity 2D DIMENSIONS RVDd3.2 (2.9-3.5cm)Left Atrium(2D)4.7 (1.6-4.0cm) IVSd1.3 (0.7-1.1cm)Aortic Root(2D)2.8 (2.0-3.7cm) LVDd5.8 (3.9-5.9cm)LVOT Diameter2.1 (1.8-2.4cm) PWd1.0 (0.7-1.1cm)LVDs4.0 (2.5-4.0cm) FS (%) 27.0 %SV46.2 ml LVEF(%)55.0 (>50%) Aortic Valve AoV Peak Javier.138.5cm/Vicenta Peak GR.7.7mmHg Tricuspid Valve TR P. [id number]/sRAP [id number] TR Peak Gr.[id number] LEFT VENTRICLE The left ventricle is normal size. There is moderate concentric left ventricular hypertrophy. The Eje ction Fraction is 50%. There is gross normal LV segmental wall motion. Tissue Doppler imaging reveals moderate left ventricular diastolic dysfunction. RIGHT VENTRICLE The right ventricle is normal size. The right ventricular systolic function is normal. There is a pac emaker lead in the right ventricle. ATRIA The left atrium is mildly dilated. The right atrium is mildly dilated. A pacemaker is seen in the rig ht atrium consistent with history. The interatrial septum is intact with no evidence for an atrial se ptal defect or patent foramen ovale as noted on 2-D or Doppler imaging. AORTIC VALVE The aortic valve is not well visualized but is functioning normally by Doppler interrogation. Doppler and Color Flow revealed no significant aortic regurgitation. There is no significant aortic valvular stenosis. MITRAL VALVE The mitral valve is calcified but opens well. Mitral annular calcification is mild. There is no evide nce of mitral valve prolapse. There is no mitral valve stenosis. Doppler and Color-flow revealed mild mitral regurgitation. TRICUSPID VALVE The tricuspid valve is normal in structure and function. Doppler and Color Flow revealed mild tricusp id regurgitation. There is mild pulmonary hypertension. The PA pressure was estimated at 36 mmHg. The re is no tricuspid valve stenosis. PULMONIC VALVE The pulmonic valve is not well visualized. Doppler and Color Flow revealed no pulmonic valvular regur gitation. There is no pulmonic valvular stenosis. GREAT VESSELS The aortic root is normal in size. The ascending aorta is not well seen. The IVC was not visualized. PERICARDIAL EFFUSION There is no evidence of significant pericardial effusion. Critical Notification Critical Value: No <Conclusion> There is moderate concentric left ventricular hypertrophy. The Ejection Fraction is 50%. There is gross normal LV segmental wall motion. There is a pacemaker lead in the right ventricle. Doppler and Color Flow revealed mild tricuspid regurgitation. There is mild pulmonary hypertension. T he PA pressure was estimated at 36 mmHg. Signed by : Valentino Lamas, Electronically Approved : 11/28/2019 07:45:18
== END | disposition home or self-care (01) ==
LOC: ECHO 10:00
PROVIDERS: ATTEND Internal Medicine Cardiovascular Disease
DX: I08.1 Rheumatic disorders of both mitral and tricuspid valves (principal); I27.20 Pulmonary hypertension, unspecified; I50.22 Chronic systolic (congestive) heart failure; Z95.0 Presence of cardiac pacemaker
CPT/HCPCS: 93306

== ENCOUNTER → 2021-03-30 | Outpatient (CLI) | payer MEDICARE ==
[~2021-03-30] MED LIST changes: -LISI-338 PO; +LISI-517 PO; -OMEP40CA45 PO; +OMEP40CA7 PO
--- NOTE | 2021-03-30 17:03 | CARD ---
MR#: [id number] Date of Study: 03/30/2021 Ordering Physician: NANCI HI, Referring Physician: NANCI HI Tech: Carly Ozuna CIARA APPROVED REPORT EXAM: Two-dimensional and M-mode echocardiogram with Doppler and color Doppler. Other Information Quality : Technically LimitedHR: 72bpm Rhythm : NSR INDICATION Hypertension/HCVD Cardiac Disease: RISK FACTORS Hypertension Obesity Hyperlipidemia 2D DIMENSIONS RVDd3.1 (2.9-3.5cm)Left Atrium(2D)4.4 (1.6-4.0cm) IVSd1.2 (0.7-1.1cm)Aortic Root(2D)2.8 (2.0-3.7cm) LVDd5.4 (3.9-5.9cm)LVOT Diameter2.1 (1.8-2.4cm) PWd1.3 (0.7-1.1cm)LVDs4.8 (2.5-4.0cm) FS (%) 12.2 %SV37.1 ml LVEF(%)26.1 (>50%) Aortic Valve AoV Peak Javier.164.2cm/sAoV VTI28.9cm AO Peak GR.10.8mmHgLVOT Peak Javier.87.8cm/s AO Mean GR.5mmHgAVA (VMAX)1.85cm2 Mitral Valve MV E Dvcgkeoe819.9cm/s Pulmonary Valve PV Peak Wlvwlpfn10.0cm/s Tricuspid Valve TR P. Edtyfxjj369vj/sTR Peak Gr.17mmHg LEFT VENTRICLE The left ventricle is normal size. There is mild concentric left ventricular hypertrophy. Hypokinesis of the mid to distal anterior and anteroseptal lincoln and also the apical wall. The ejection fraction is estimated at 30-35%. RIGHT VENTRICLE The right ventricle is normal size. There is normal right ventricular wall thickness. The right ventr icular systolic function is normal. ATRIA The left atrium is moderately dilated. The right atrium is mildly dilated. The interatrial septum is intact with no evidence for an atrial septal defect or patent foramen ovale as noted on 2-D or Dopple r imaging. AORTIC VALVE The aortic valve is normal in structure and function. Doppler and Color Flow revealed trace aortic re gurgitation. There is no significant aortic valvular stenosis. MITRAL VALVE The mitral valve is normal in structure and function. There is no evidence of mitral valve prolapse. There is no mitral valve stenosis. Doppler and Color-flow revealed mild mitral regurgitation. TRICUSPID VALVE The tricuspid valve is normal in structure and function. Doppler and Color Flow revealed trace to mil d tricuspid regurgitation. Estimated PAP 20-25 mmHg. There is no tricuspid valve stenosis. PULMONIC VALVE The pulmonary valve is normal in structure and function. Doppler and Color Flow revealed mild pulmoni c valvular regurgitation. GREAT VESSELS The aortic root is normal in size. The ascending aorta is normal in size. The IVC is normal in size a nd collapses >50% with inspiration. PERICARDIAL EFFUSION There is no evidence of significant pericardial effusion. Critical Notification Critical Value: No <Conclusion> Hypokinesis of the mid to distal anterior and anteroseptal lincoln and also the apical wall. The ejection fraction is estimated at 30-35%. Mild mitral regurgitation. Trace to mild tricuspid regurgitation. Estimated PAP 20-25 mmHg. There is no evidence of significant pericardial effusion. Signed by : Nanci Hi, Electronically Approved : 03/30/2021 17:03:29
== END ==
LOC: ECHO 10:50
PROVIDERS: ATTEND Internal Medicine Cardiovascular Disease
DX: I08.8 Other rheumatic multiple valve diseases (principal); I50.22 Chronic systolic (congestive) heart failure
CPT/HCPCS: 93306

== ENCOUNTER → 2021-08-25 | Outpatient (CLI) | payer MEDICARE ==
[~2021-08-25] MED LIST changes: -LISI-517 PO; +LISI5TAB15 PO
--- NOTE | 2021-08-25 17:27 | RAD ---
EXAM: US EXT NON VASC LEFT 08/25/2021 10:40 AM CLINICAL INDICATION: Palpable nodules left upper arm COMPARISON: None TECHNIQUE: Grayscale and color Doppler ultrasound of the left upper arm in the area of concern FINDINGS: There are two echogenic nodules in the subcutaneous soft tissue in the area of concern. On e measures 1.4 x 0.9 x 0.9 cm. The other measures 2.0 x 2.0 x 1.2 cm. No internal vascularity of eith er nodule. The overlying skin is unremarkable. 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 Electronically signed by: Carmen Hernandez MD (08/25/2021 5:25 PM) [id number]
== END ==
LOC: US 10:24
PROVIDERS: ATTEND Nurse Practitioner Family
DX: M79.89 Other specified soft tissue disorders (principal)
CPT/HCPCS: 76881

== ENCOUNTER → 2021-12-09 | Outpatient (CLI) | payer MEDICARE ==
[~2021-12-09] MED LIST changes: +REGADENOSON 0.4 MG/5 ML DISP.SYRIN. IV ONE
--- NOTE | 2021-12-09 17:52 | RAD ---
MR#: [id number] Date of Study: 12/09/2021 Ordering Physician: NANCI HI, Referring Physician: RUSTY URBINA Tech: JOSE Lin, ARRT (R) (N) APPROVED REPORT Test Type: Pharmacological Stress Nurse/Tech: Maris MCGOVERN Test Indications: CAD Cardiac History: PTCA, CAD, HTN, Anticoags, DM Medications: See EMR Medical History: See EMR Resting ECG: VPaced Resting Heart Rate: 79 bpm Resting Blood Pressure: 164/76mmHg Pretest Chest Pain: No chest pain Nurse/Tech Notes Lungs diminished, CTA. Heart tones diminished, murmur noted. No chest pain at time of chest. Pharm. Details Pharmacologic stress testing was performed using 0.4mg per 5ml of regadenoson given intravenously ove r 7-10 seconds. Stress Symptoms Headache, Dizziness. No SOA, No chest pain. Symptoms resolved by end of recovery period. POST EXERCISE Reason for Termination: Infusion complete Max HR: 81 bpm Max Blood Pressure: 157/48mmHg Blood Pressure response to exercise: Normal blood pressure response during stress. Heart Rate response to exercise: Normal Reponse to stress. Chest Pain: No. Arrhythmia: No. ST Change: No. INTERPRETATION Stress EKG Conclusion: The resting EKG shows a V paced rhythm. The patient remains in a V paced rhythm throughout the study. Imaging Protocol IMAGE PROTOCOL: Rest Tc-99m/stress Tc-99m 1 day Rest: Stress: Viability: Radiopharm.Tc99m [id number] Sestamibi Dose10.2mCi 30.5mCi Img Date 12/09/2021 12/09/2021 Inj-Img [id number]. 60min. Rest Admin Site:IV - Right AntecubitalAdministrator:JOSE Lin, ARRT (R)(N) Stress Admin Site: IV - Right AntecubitalAdministrator: RT Martin (R)(N) STRESS DATA End Diast. Vol.174.0mlAv. Heart Rate73.0bpm End Syst. Vol.86.0mlCO Index BSA0.0L/min Myocardial Dhnq096.0gEject. Vtvprxcm02.0% Stress Rates Pk. Fill Rate1.92EDV/secLVtime Pk. Fill 127.06msec Pk. Empty Rate2.70ESV/secLVtime Pk. [place]406.37msec 1/3 Pk. Fill1.08EDV/sec Stress Scores Regional WT2.00Summed WT35.00 Regional WM0.00Summed WM13.00 LV Perfusion The stress scans show a moderate apical defect. The rest scans showed mild apical thinning. Nuclear imaging is consistent with reversible ischemia in the apical region. Wall Motion LV systolic function is mildly decreased with an ejection fraction of 51%. LV Perf. Quant 17 Seg. SSS19.00 17 Seg. SRS9.00 17 Seg. SDS11.00 Stress Defect Extent (% LAD)38.80Rest Defect Extent (% LAD)15.60Rev. Defect Extent (% LAD)34.40 Stress Defect Extent (% LCX) 65.00Rest Defect Extent (% LCX)33.80Rev. Defect Extent (% LCX)43.80 Stress Defect Extent (% RCA)20.00Rest Defect Extent (% RCA)0.00Rev. Defect Extent (% RCA)20.00 Stress Defect Extent (% GIOVANNI)42.40Rest Defect Extent (% GIOVANNI)15.70Rev. Defect Extent (% GIOVANNI)35.70 Conclusion 1. The patient remains in a paced rhythm throughout the study. 2. Nuclear imaging shows reversible ischemia in the apical region. 3. Mildly decreased ejection fraction of 51%. 4. Moderate to moderately high risk Lexiscan nuclear stress test. Signed by : Sergo Marte MD Electronically Approved : 12/09/2021 17:52:02
== END ==
LOC: NM 11-11 08:25
PROVIDERS: ATTEND Internal Medicine Cardiovascular Disease
DX: I25.89 Other forms of chronic ischemic heart disease (principal); I25.10 Atherosclerotic heart disease of native coronary artery without angina pectoris
CPT/HCPCS: 78452; 93017; A9500; J2785